=== PATIENT | female | born 1940 | race Caucasian/White ===

== ENCOUNTER 2018-03-22 08:30 | Day surgery (SDC) | payer MEDICARE ==
[2018-03-21 10:19] VITALS: BMI 31.8
[2018-03-22 08:13] VITALS: RESP 16; TEMP 97
[~2018-03-22 08:30] MED LIST: LACTATED RINGERS 1,000 ML IV SCH; LIDOCAINE 1% 20 ML VIAL (10MG/ML) FOR IV START INTRADERMA ONE; LIDOCAINE 1% INJ 10MG/ML (20 ML MDV) ONE; PROPOFOL 10 MG/ML 20 ML VIAL IV ONE
--- NOTE | 2018-03-22 09:02 | P.PCN ---
Date of Procedure: 03/22/18 Procedure(s) Performed: Brief history: Patient is a pleasant 78-year-old white female, scheduled for an elective upper endoscopy as well as colonoscopy as a part of evaluation of GERD/abdominal pain , cramping and diarrhea for the last 3 years duration. She also has prior history of colon polyps. Her last colonoscopy was 6 years ago. Procedure performed: Esophagogastroduodenoscopy with biopsy Colonoscopy with biopsy Preoperative diagnosis: GERD History of colon polyps/change in bowel habits Anesthesia: MAC Procedure: After informed consent was obtained from the patient was brought into the endoscopy unit and IV sedation was administered by anesthesia under continuous monitoring. Initially upper endoscopy was done. The Olympus GF 160 video endoscope was inserted inserted into the mouth and esophagus intubated without any difficulty and was gradually advanced into the stomach and duodenum and carefully examined. The bulb and second part of the duodenum appeared normal. Biopsies were done from the duodenum to rule out celiac disease. The scope was then withdrawn into the stomach adequately insufflated with air and upon careful examination the antrum had mild gastritis and biopsies were done from this area. The body, cardia and fundus appeared normal. The scope was then withdrawn into the esophagus. The GE junction was located at 40 cm to the incisors. It appeared regular with no erythema erosions or ulcerations. Rest of the esophagus appeared normal. Patient tolerated the procedure well. At this time the patient continued to remain sedation. Initial digital rectal examination was normal. Olympus CF 160 video colonoscope was then inserted into the rectum and gradually advanced to the cecum without any difficulty. Careful examination was performed as the scope was gradually being withdrawn. The prep was excellent. The cecum, ascending colon, transverse colon, descending colon, sigmoid colon and rectum appeared normal. scattered sigmoid and the closest seen. Random biopsies were done from the ascending and descending colon to rule out metastatic/collagenous colitis. Retroflexion was performed in the rectum and no lesions were noted. Patient tolerated the procedure well. Impression: 1. Upper endoscopy revealed mild antral gastritis but no evidence of esophagitis or peptic ulcer disease 2. Colonoscopy revealed scattered sigmoid diverticula cyst but no evidence of colitis or colorectal neoplasia] Recommendations: Findings of this examination were discussed with the patient as well as her family. She was advised to follow with the biopsy results. She can use over- the-counter Imodium as needed for the chronic diarrhea. She can have a repeat surveillance colonoscopy in 5 years from now because of the prior history of colon polyps.
[2018-03-22 09:30] VITALS: BP 143/82; PULSE 96
[2018-03-24 10:12] LABS: Glucose,Whole Blood 195 mg/dL (75-99)
[2018-03-24 10:12] LABS: Glucose,Whole Blood 212 mg/dL (75-99)
== END 2018-03-22 10:30 | disposition home or self-care (01) ==
LOC: ORWHC2ENDO 08:30
PROVIDERS: ATTEND Internal Medicine Gastroenterology
DX: K29.50 Unspecified chronic gastritis without bleeding (principal); K57.30 Diverticulosis of large intestine without perforation or abscess without bleeding; K21.9 Gastro-esophageal reflux disease without esophagitis; Z86.010 Personal history of colon polyps; I10 Essential (primary) hypertension; E78.5 Hyperlipidemia, unspecified; E11.9 Type 2 diabetes mellitus without complications; Z79.82 Long term (current) use of aspirin; Z79.4 Long term (current) use of insulin; Z79.891 Long term (current) use of opiate analgesic; Z79.899 Other long term (current) drug therapy
CPT/HCPCS: 88305; 45380; 43239; J2001; J2704

== ENCOUNTER → 2018-08-29 | Outpatient (CLI) | payer MEDICARE | END | disposition home or self-care (01) | LOC: LABPAT 17:14 | PROVIDERS: ATTEND Orthopaedic Surgery | DX: Z01.812 Encounter for preprocedural laboratory examination (principal) | CPT/HCPCS: 87070 ==

== ENCOUNTER → 2018-09-13 | Outpatient (CLI) | payer MEDICARE ==
[2018-09-13 13:41] LABS: Albumin 3.9 g/dL (3.5-5.0); Calcium 9.6 mg/dL (8.4-10.2); Potassium 5.1 mmol/L (3.5-5.1); Total Bilirubin 0.4 mg/dL (0.2-1.3); Total Protein 6.3 g/dL (6.3-8.2)
== END | disposition home or self-care (01) ==
LOC: LABPAT 12:33
PROVIDERS: ATTEND Internal Medicine Endocrinology, Diabetes & Metabolism
DX: E11.65 Type 2 diabetes mellitus with hyperglycemia (principal); E55.9 Vitamin D deficiency, unspecified
CPT/HCPCS: 80053; 80061; 82043; 82306; 82570; 83036; 84443; 86850; 86900; 86901

== ENCOUNTER → 2018-09-17 | Outpatient (CLI) | payer MEDICARE ==
[2018-09-17 13:31] LABS: Prothrombin Time 9.7 sec (9.0-12.0)
[2018-09-17 13:57] LABS: Basophils % (A) 0 %; Eosinophils # (A) 0.1 k/uL (0-0.7); Eosinophils % (A) 1 %; HCT 34.8 % (34.0-46.0); HGB 11.6 gm/dL (11.4-16.0); Lymphocytes # (A) 1.6 k/uL (1.0-4.8); Lymphocytes % (A) 31 %; MCHC 33.2 g/dL (31.0-37.0); MCV 93.4 fL (80.0-100.0); Mean Platelet Volume 8.3; Monocytes # (A) 0.7 k/uL (0-1.0); Monocytes % (A) 14 %; Neutrophils # (A) 2.5 k/uL (1.3-7.7); Neutrophils % (A) 49 %; Platelet Count 165 k/uL (150-450); RBC 3.73 m/uL (3.80-5.40); RDW 13.3 % (11.5-15.5); WBC 5.1 k/uL (3.8-10.6)
== END | disposition home or self-care (01) ==
LOC: LABPAT 12:27
PROVIDERS: ATTEND Orthopaedic Surgery
DX: Z01.812 Encounter for preprocedural laboratory examination (principal); Z16.11 Resistance to penicillins; Z79.01 Long term (current) use of anticoagulants
CPT/HCPCS: 36415; 85025; 85610

== ENCOUNTER 2018-09-23 07:36 | Inpatient (IN) | payer MEDICARE ==
[2018-09-12 17:41] VITALS: BMI 31.8
--- NOTE | 2018-09-22 16:06 | HP ---
HISTORY AND PHYSICAL REASON FOR ADMISSION: Surgery is scheduled Laxmi Carbajal is a 78-year-old patient seen with symptomatic right hip osteoarthritis. We discussed treatment options. She elected to proceed with right total hip arthroplasty. Consent was obtained, clearance was provided by Dr. Victor. PAST MEDICAL HISTORY: Hypertension, insulin-dependent diabetes. PAST SURGICAL HISTORY: Cataract surgery, section and cholecystectomy. MEDICATIONS: NovoLog, metformin, and antihypertensive. ALLERGIES: None reported. SOCIAL HISTORY: Patient denies tobacco use. PHYSICAL EXAMINATION: Evaluation of the right hip, there is diffuse tenderness about the hip girdle. There is limited range of motion with severe pain, positive hip impingement sign. Straight leg raise is negative. Distal neurovascular exam is intact. RADIOGRAPHS: Radiographs of the right hip revealed severe osteoarthritis. IMPRESSION: 1. Right hip osteoarthritis. 2. Hypertension. 3. Insulin-dependent diabetes. PLAN: Direct anterior right total hip arthroplasty. Surgery scheduled for 09/23/2018. MMODL / IJN: [id number] /
[~2018-09-23 07:36] MED LIST changes: +ACETAMINOPHEN TAB 500 MG TAB PO ONE; +DEXAMETHASONE SOD PHOSPHATE 10 MG/ML 1 ML VIAL IV ONE; -LACTATED RINGERS 1,000 ML IV SCH; -LIDOCAINE 1% 20 ML VIAL (10MG/ML) FOR IV START INTRADERMA ONE; -LIDOCAINE 1% INJ 10MG/ML (20 ML MDV) ONE; +MELOXICAM 7.5 MG TAB PO ONE; +ONDANSETRON 4 MG/2 ML VIAL IVP ONE; -PROPOFOL 10 MG/ML 20 ML VIAL IV ONE; +SCOPOLAMINE 1.5MG/72HR PATCH TRANSDERM ONE; +TRANEXAMIC ACID 1,000 MG in SODIUM CHLORIDE 0.9% 50 ML IVPB ONE; +ceFAZolin IN SWFI 2 GM/20 ML SYRINGE IVP ONE
[2018-09-23 08:14] LABS: Glucose,Whole Blood 82 mg/dL (75-99)
[2018-09-23] MEDS: LACTATED RINGERS 1,000 ML IV SCH (08:19)
[2018-09-23] MEDS ORDERED: ROPIVACAINE 246.25 MG, EPINEPHrine 0.5 MG, KETOROLAC 30 MG, cloNIDine HCL/PF 80 MCG, WA... MISCELLANE ONE ×5 (09:14)
[2018-09-23] MEDS ORDERED: MORPHINE SULFATE 10 MG/ML SYRINGE ONE (10:00)
[2018-09-23] MEDS ORDERED: TRANEXAMIC ACID 1,000 MG/10 ML VIAL ONE (10:00)
[2018-09-23] MEDS ORDERED: PHENYLEPHRINE-0.9% NACL SYG 1 MG/10 ML SYRINGE ONE (10:00)
[2018-09-23] MEDS ORDERED: PROPOFOL 10 MG/ML 20 ML VIAL IV ONE (10:00)
[2018-09-23] MEDS ORDERED: fentaNYL (PF) 50 MCG/ML 2 ML AMP ONE (10:00)
[2018-09-23] MEDS ORDERED: SODIUM CHLORIDE 0.9% 100 ML BAG ONE (10:00)
[2018-09-23] MEDS ORDERED: MIDAZOLAM 2 MG/2 ML VIAL ONE (10:00)
[2018-09-23] MEDS ORDERED: DEXTROSE 5% IN WATER 250 ML BAG IV ONE (10:00)
[2018-09-23] MEDS ORDERED: BUPIVACAINE (PF) 0.5% 30 ML VIAL ONE (10:00)
[2018-09-23] MEDS ORDERED: ceFAZolin 3,000 MG in SODIUM CHLORIDE 0.9% IRRIGATIO 3,000 ML IRRIGATION ONE (10:44)
[2018-09-23] MEDS ORDERED: LACTATED RINGERS 1,000 ML IV ONE (11:38)
--- NOTE | 2018-09-23 12:16 | P.OP ---
Date of Procedure: 09/23/18 Preoperative Diagnosis: Right hip osteoarthritis Postoperative Diagnosis: Right hip osteoarthritis Procedure(s) Performed: Direct anterior right total hip arthroplasty Implants: 1. Depuy Corail KLA high offset collar size 11 press-fit femoral stem 2. Depuy pinnacle 52 mm multi hole press-fit acetabular shell 3. Depuy pinnacle polyethylene acetabular liner neutral 36 mm ID 52 mm OD 4. Depuy metal femoral head 36 mm -2 Anesthesia: local, spinal Surgeon: Parth Pak Transit Operator #1: Efren Peter Estimated Blood Loss (ml): 150 Pathology: other (Femoral head) Condition: stable Disposition: PACU Indications for Procedure: 78-year-old patient seen with symptomatic right hip osteoarthritis. After treatment options were discussed, she elected to proceed with total hip arthroplasty Operative Findings: see description of procedure Description of Procedure: The patient was taken to the operative suite. Patient underwent a spinal anesthetic by the department of anesthesia. Patient was then transferred to the [place] table. Patient was given preoperative IV antibiotics and TXA. Both lower extremities were placed in standard leg spars. The hip was then prepped and draped in the normal sterile orthopedic fashion. A standard anterior incision was made beginning 3 cm lateral and 1 cm distal to the ASIS extending 10 cm. Dissection was then carried down through the subcutaneous soft tissues down to the fascia overlying the tensor fascia rita. An incision was now made through the fascia. Careful dissection was taken down exposing the tensor fascia rita muscle. A Cobra retractor was now placed along the medial femoral neck and a second one along the lateral femoral neck. The venous circumflex vessels were now identified, cauterized and clipped. We identified the anterior hip capsule. An incision was made through the hip capsule along the lateral border. I performed a partial anterior capsulectomy. Retractors were now placed around the femoral neck itself. A femoral neck cut was now made with a sagittal saw. It was completed with an osteotome at the lateral neck area. The femoral head was now removed without difficulty. The extremity was now rotated to 45 of external rotation. It was locked in position. Residual labrum was now debrided out. Serial reaming was performed of the acetabulum while Ez VALENCIA assisted holding an anterior retractor for exposure. Once we reached the appropriate size and a trial was position and fit nicely. The appropriate size was now chosen opened and made available. It was introduced into the acetabulum without difficulty. The C-arm/fluoroscopy was now brought into the operative field. We made sure we had a true AP pelvic view. We now under direct C-arm/fluoroscopy introduced into the acetabular component with appropriate version and inclination. I held the cup in appropriate position well Ez VALENCIA used a mallet to seat the acetabular component. I noted the component now to be well seated and stable. Acetabular cup introduce her was removed. The C-arm was pulled back. An appropriate liner was introduced and clicked into position. It was felt to be stable. At this point retractors were removed. The extremity was now placed into 120 external rotation with no traction. The leg was now dropped to the ground and adducted. Appropriate retractors were now positioned along the proximal femur. We also placed our femoral look into position. Additional capsular releasing was performed to gain access to the proximal femur. We now used a box osteotome. A canal finder was now utilized. Serial broaching was now performed with the assistance of Ez VALENCIA tapping the broaches down with a mallet while held the broach in appropriate rotation and position. This was done until we reached the appropriate size with good overall rotational stability. Appropriate calcar planing was performed. A trial head/neck was placed into position. The hip was now reduced. The C-arm/fluoroscopy was brought back into the operative field. A spot film was obtained of the nonoperative hip. A spot film was obtained of the trial components. Overlays were performed, we noted good overall alignment and positioning for determining leg length. The C- arm/fluoroscopy was pulled back. Retractors were repositioned and the hip was dislocated. The leg was again taken down to the ground and adducted. Appropriate retractors were repositioned as well as the femoral hook. All trial components were removed. The femoral implant was opened along with the femoral head. The femoral implant was introduced on the appropriate handle into our pre-broached area. I held the component position well Ez VALENCIA used a mallet to seat the femoral component. The femoral component was now noted to be well seated and stable.. The femoral head was introduced with good positioning and fixation noted. Retractors were now removed. The hip was now reduced. There appeared be good positioning of the hip confirmed on intraoperative fluoroscopy. Spot films were obtained to document this. A second gram of TXA was given. The deep and superficial soft tissues were infiltrated with local analgesic. Bipolar cautery had been utilized intermittently through the procedure for hemostasis. The wound was irrigated copiously with pulse lavage mechanical irrigation. The fascia was repaired with Vicryl suture. The subcutaneous soft tissues were repaired in layers with Vicryl suture. The skin was approximated with pernio/Dermabond. Sterile dressings were applied. Patient was then awakened, transferred to a bed and taken to recovery in stable condition. Ez VALENCIA assisted with the complex procedure.
[2018-09-23] MEDS ORDERED: ONDANSETRON 4 MG/2 ML VIAL IVP PRN (12:17)
[2018-09-23] MEDS ORDERED: HYDROmorphone 1 MG/ML 1 ML SYRINGE IVP PRN ×3 (12:17)
[2018-09-23] MEDS ORDERED: NALOXONE 0.4 MG/ML 1 ML VIAL IV PRN ×2 (12:17→15:26)
[2018-09-23] MEDS ORDERED: HYDROcodone/APAP 7.5-325MG 1 EACH TAB PO PRN (12:17)
[2018-09-23] MEDS: HYDROmorphone 0.5 MG/0.5 ML SYRINGE IVP PRN ×4 (12:54→14:38)
--- NOTE | 2018-09-23 12:59 | FL ---
EXAMINATION TYPE: FL guidance operating room DATE OF EXAM: 09/23/2018 HISTORY: Flouroscopy time 23 seconds of fluoroscopy provided. IMPRESSION: 1. Fluoroscopy time.
[2018-09-23 13:02] LABS: Glucose,Whole Blood 116 mg/dL (75-99)
[2018-09-23] MEDS: SODIUM CHLORIDE 0.9% 1,000 ML IV SCH (14:45)
[2018-09-23] MEDS ORDERED: HYDROmorphone 0.5 MG/0.5 ML SYRINGE IVP PRN (16:24)
--- NOTE | 2018-09-23 16:26 | P.CONS ---
History of Present Illness - Reason for Consult Consult date: 09/23/18 Medical management after right hip arthroplasty Requesting physician: Parth Pak - Chief Complaint Right hip pain - History of Present Illness Patient is a 78-year-old female with PMH of type 2 diabetes mellitus, GERD, severe right hip osteoarthritis that presented to [facility] today for an elective right hip arthroplasty. Patient reports suffering from right hip pain for multiple years. Pain is worsened when bending over and with ambulation. Patient reports that her arthritis is "[id number]". Of note, patient lives with her . She is able to take care of herself. She is able to perform her ADLs and IADLs. Patient was seen and examined after surgery. Patient reports that the surgery went extremely well. She currently complains of right hip pain, 4 out of 10 in severity. She denies any headaches, nausea, vomiting, fever, cough, chest pain , shortness of breath, changes in urination or bowel habits. No changes in appetite or weight. Patient does report dependent edema occasionally which is alleviated with elevation of lower extremities. Review of Systems All systems: negative Past Medical History Past Medical History: Diabetes Mellitus, GERD/Reflux, Hyperlipidemia, Hypertension, Osteoarthritis (OA) Additional Past Medical History / Comment(s): diabetic neuropathy History of Any Multi-Drug Resistant Organisms: None Reported Past Surgical History: Adenoidectomy, Section, Cholecystectomy, Hernia Repair, Orthopedic Surgery, Tonsillectomy Additional Past Surgical History / Comment(s): arthroscopy left knee Past Anesthesia/Blood Transfusion Reactions: Postoperative Nausea & Vomiting ( PONV) Smoking Status: Never smoker - Past Family History Father Additional Family Medical History / Comment(s): "heart trouble" Mother Family Medical History: No Reported History Medications and Allergies Home Medications Medication Instructions Recorded Confirmed Type Insulin Aspart [NovoLOG] 10 units SQ AC-TID 04/22/15 09/23/18 History metFORMIN HCL [Glucophage] 2,000 mg PO BID 04/22/15 09/23/18 History Ramipril [Altace] 2.5 mg PO QAM 04/23/15 09/23/18 History Aspirin 81 mg PO DAILY 03/21/18 09/23/18 History Cyclobenzaprine HCl 10 mg PO BID PRN 03/21/18 09/23/18 History Ergocalciferol [Vitamin D2] 50,000 unit PO Q14D 03/21/18 09/23/18 History Exenatide Microspheres [Bydureon 2 mg SQ FR 03/21/18 09/23/18 History Pen] Gabapentin [Neurontin] 300 mg PO TID 03/21/18 09/23/18 History Omeprazole 40 mg PO DAILY 03/21/18 09/23/18 History traMADol HCl [Ultram] 50 mg PO TID PRN 03/21/18 09/23/18 History Bacillus Coagulans [Digestive 1 tab PO DAILY 09/12/18 09/23/18 History Advantage] Cyanocobalamin (Vitamin B-12) 1,000 mcg PO DAILY 09/12/18 09/23/18 History [Vitamin B-12] Insulin Aspart [NovoLOG See Protocol SQ HS PRN 09/12/18 09/23/18 History (formulary)] [place]-3 Fatty Acids/Fish Oil 1 cap PO DAILY 09/12/18 09/23/18 History [[place]-3 Fish Oil 1,200 mg Sfgl] Turmeric Root Extract [Turmeric] 500 mg PO DAILY 09/12/18 09/23/18 History Allergies Allergy/AdvReac Type Severity Reaction Status Date / Time No Known Allergies Allergy Verified 09/23/18 14:56 Physical Exam Vitals: Vital Signs Temp Pulse Resp BP Pulse Ox 09/23/18 15:00 97.8 F 83 16 145/78 93 L 09/23/18 14:31 79 16 189/74 100 09/23/18 14:04 81 16 189/78 99 09/23/18 13:45 83 16 158/68 99 09/23/18 13:30 82 16 152/64 99 09/23/18 13:16 83 16 156/70 100 09/23/18 13:01 80 16 166/70 100 09/23/18 12:48 81 16 179/71 100 09/23/18 12:29 97.1 F L 85 20 139/76 97 09/23/18 08:14 97.3 F L 72 16 190/72 97 Intake and Output 09/23/18 09/23/18 09/23/18 06:59 14:59 22:59 Intake Total 1901 Output Total 150 Balance 1751 Intake: IV 1901 Output: Estimated Blood Loss 150 General: [non toxic], [no distress], [appears at stated age] Derm: [warm], [dry] Head: [atraumatic], [normocephalic], [symmetric] Eyes: [EOMI], [no lid lag], [anicteric sclera] Mouth: [no lip lesion], [mucus membranes moist] Cardiovascular: [S1S2 reg], [no murmur], [positive DP pulse bilateral] Lungs: [CTA bilateral], [no rhonchi, no rales] , [no accessory muscle use] Abdominal: [soft], [ nontender to palpation], [no guarding], [no appreciable organomegaly] Ext: [no gross muscle atrophy], [no edema], [no contractures] Neuro: [no focal neuro deficits] Psych: [Alert], [oriented], [appropriate affect] Results Labs: Abnormal Lab Results - Last 24 Hours (Table) 09/23/ Range/Units 12:47 POC Glucose (mg/dL) 116 H (75-99) mg/dL Assessment and Plan Assessment: Assessment and Plan 1. R hip pain: Due to severe R hip osteoarthritis. She is POD 0 of total R hip replacement. Cefazolin 2g IV TID x 2 doses. Pain management with [place] 7.5 1 tab PRN (advised for pain 1-6) and 2 tab PRN (advised for pain 7-10), Dilaudid IV PRN (advised for breakthrough) and Meloxicam 15mg PO QD. Continue Gabapentin 300 mg PO TID. Weight bearning as per Ortho recommendations. Incentive spirometry. FU Ortho and PT consult. 2. Diabetes mellitus: POC glucose 116. Patient takes Toujeo 36 units QAM and Novolog 10 units TID with meals. Will start sliding scale while in house. Accuchecks TID. Hypoglycemic precautions. Diabetic diet. 3. GERD: Protonix 40 mg PO QD. 4. DVT/GI Prophylaxis: Lovenox 40 mg SUBCUT QD. Protonix 40 mg PO QD.
[2018-09-23] MEDS: HYDROcodone/APAP 7.5-325MG 1 EACH TAB PO PRN ×2 (16:59→22:29)
[2018-09-23] MEDS: GABAPENTIN 300 MG CAP PO SCH ×2 (16:59→22:29)
[2018-09-23 17:10] LABS: Glucose,Whole Blood 159 mg/dL (75-99)
[2018-09-23] MEDS: INSULIN ASPART 100 UNIT/ML 1 ML 10 ML VIAL SQ SCH (18:05)
[2018-09-23 19:55] LABS: Glucose,Whole Blood 199 mg/dL (75-99)
[2018-09-23] MEDS: ceFAZolin IN SWFI 2 GM/20 ML SYRINGE IVP SCH (20:24)
[2018-09-23] MEDS: SENNOSIDES-DOCUSATE SODIUM 1 EACH TAB PO SCH (22:29)
[2018-09-24] MEDS: HYDROcodone/APAP 7.5-325MG 1 EACH TAB PO PRN ×2 (04:21→14:30)
[2018-09-24] MEDS: ceFAZolin IN SWFI 2 GM/20 ML SYRINGE IVP SCH (04:21)
[2018-09-24] MEDS: LACTATED RINGERS 1,000 ML IV SCH (05:39)
[2018-09-24 06:39] LABS: Basophils % (A) 0 %; Eosinophils % (A) 0 %; HCT 28.2 % (34.0-46.0); Lymphocytes # (A) 1.3 k/uL (1.0-4.8); Lymphocytes % (A) 12 %; MCH 30.1 pg (25.0-35.0); MCHC 31.9 g/dL (31.0-37.0); MCV 94.4 fL (80.0-100.0); Mean Platelet Volume 9.9; Monocytes % (A) 19 %; Neutrophils # (A) 7.1 k/uL (1.3-7.7); Neutrophils % (A) 65 %; Platelet Count 160 k/uL (150-450); RBC 2.98 m/uL (3.80-5.40); RDW 13.6 % (11.5-15.5); WBC 10.9 k/uL (3.8-10.6)
[2018-09-24 07:04] LABS: Glucose,Whole Blood 185 mg/dL (75-99)
[2018-09-24] MEDS: LISINOPRIL 2.5 MG TAB PO SCH (08:55)
[2018-09-24] MEDS: PANTOPRAZOLE 40 MG TABLET PO SCH (08:55)
[2018-09-24] MEDS: GABAPENTIN 300 MG CAP PO SCH ×3 (08:55→22:37)
[2018-09-24] MEDS: ASPIRIN 81 MG PO SCH (08:55)
[2018-09-24] MEDS: MELOXICAM 7.5 MG TAB PO SCH (08:55)
[2018-09-24] MEDS: ENOXAPARIN 40 MG/0.4 ML SYRINGE SQ SCH (08:55)
[2018-09-24] MEDS: INSULIN ASPART 100 UNIT/ML 1 ML 10 ML VIAL SQ SCH ×3 (08:56→17:57)
[2018-09-24] MEDS ORDERED: FAMOTIDINE 20 MG TAB PO SCH (09:00)
[2018-09-24] MEDS: SODIUM CHLORIDE 0.9% 1,000 ML IV SCH ×2 (09:05→20:30)
--- NOTE | 2018-09-24 10:42 | XR ---
EXAMINATION TYPE: XR Hip Limited RT DATE OF EXAM: 09/23/2018 COMPARISON: NONE HISTORY: Postop TECHNIQUE: One view submitted. FINDINGS: There is a prosthetic hip in near anatomic alignment. There is soft tissue edema and emphysema. IMPRESSION: 1. Postoperative change. Appears in near-anatomic alignment.
--- NOTE | 2018-09-24 11:06 | P.PN ---
Subjective Progress Note Date: 09/24/18 Principal diagnosis: Right hip pain Patient seen and examined. No acute events overnight. She is postop day 1 of a right total hip replacement. Patient complains of pain, 8 out of 10 in severity. Pain is worsened with exertion and movement. Patient states pain medications is helping. Dilaudid lasts for about 2 hours. She has no other complaints this morning. States that she will need placement for rehab, [facility] is an option. Objective - Vital Signs Vital signs: Vital Signs Temp 98.7 F 09/24/18 09:09 Pulse 84 09/24/18 09:09 Resp 20 09/24/18 01:09 BP 111/66 09/24/18 09:09 Pulse Ox 94 L 09/24/18 09:09 Intake & Output 09/23/18 09/24/18 09/24/18 18:59 06:59 18:59 Intake Total 1901 Output Total 150 Balance 1751 Weight 81.647 kg Intake: IV 1901 Output: Estimated Blood Loss 150 Other: # Voids 1 - Exam General: [non toxic], [no distress], [appears at stated age] Derm: [warm], [dry] Head: [atraumatic], [normocephalic], [symmetric] Eyes: [EOMI], [no lid lag], [anicteric sclera] Mouth: [no lip lesion], [mucus membranes moist] Cardiovascular: [S1S2 reg], [no murmur], [positive DP pulse bilateral] Lungs: [CTA bilateral], [no rhonchi, no rales] , [no accessory muscle use] Abdominal: [soft], [ nontender to palpation], [no guarding], [no appreciable organomegaly] Ext: [no gross muscle atrophy], [no edema], [no contractures] Neuro: [no focal neuro deficits] Psych: [Alert], [oriented], [appropriate affect] - Labs CBC & Chem 7: 09/24/18 06:17 Labs: Abnormal Lab Results - Last 24 Hours (Table) 09/23/18 09/23/18 09/23/18 Range/Units 12:47 16:52 19:43 WBC (3.8-10.6) k/uL RBC (3.80-5.40) m/uL Hgb (11.4-16.0) gm/dL Hct (34.0-46.0) % Monocytes # (0-1.0) k/uL POC Glucose (mg/dL) 116 H 159 H 199 H (75-99) mg/dL 09/24/18 09/24/18 Range/Units 06:17 06:53 WBC 10.9 H (3.8-10.6) k/uL RBC 2.98 L (3.80-5.40) m/uL Hgb 9.0 L D (11.4-16.0) gm/dL Hct 28.2 L (34.0-46.0) % Monocytes # 2.0 H (0-1.0) k/uL POC Glucose (mg/dL) 185 H (75-99) mg/dL Assessment and Plan Assessment: Assessment and Plan 1. R hip pain: Due to severe R hip osteoarthritis. She is POD 0 of total R hip replacement. Cefazolin 2g IV TID x 2 doses. Pain management with [place] 7.5 1 tab PRN (advised for pain 1-6) and 2 tab PRN (advised for pain 7-10), Dilaudid IV PRN (advised for breakthrough) and Meloxicam 15mg PO QD. Continue Gabapentin 300 mg PO TID. Weight bearning as per Ortho recommendations. Incentive spirometry. FU Ortho and PT consult. 2. Diabetes mellitus: POC glucose 185. Patient takes Toujeo 36 units QAM and Novolog 10 units TID with meals. Continue sliding scale. Accuchecks TID. Hypoglycemic precautions. Diabetic diet. 3. GERD: Protonix 40 mg PO QD. 4. DVT/GI Prophylaxis: Lovenox 40 mg SUBCUT QD. Protonix 40 mg PO QD. Pain medications adjusted. She is pending clinical improvement for placement and rehab. Will follow orthopedic and PT OT recommendations.
[2018-09-24 11:34] LABS: Glucose,Whole Blood 227 mg/dL (75-99)
--- NOTE | 2018-09-24 11:59 | CT ---
EXAMINATION TYPE: CT brain wo con DATE OF EXAM: 09/24/2018 COMPARISON: None HISTORY: AMS,Right sided weakness and confusion CT DLP: 1154.4 mGycm Automated exposure control for dose reduction was used. FINDINGS: There is a area of low attenuation involving the deep white matter on the left extending in the left basal ganglia which is of indeterminate age. No definite midline shift. Slight asymmetry of the CSF s pace along the left parietal convexity. No diagnostic evidence of acute intracranial hemorrhage. Tiny area of low attenuation involving the right thalamus compatible with remote lacunar infarct. Intracranial atherosclerotic changes are noted. Hyperostosis of the calvarium. IMPRESSION: 1. AGE-INDETERMINATE LOW ATTENUATION INVOLVING THE LEFT FRONTAL DEEP WHITE MATTER EXTENDING IN THE BA SHALONDA GANGLIA. THIS MAY BEEN THE BASIS OF A RECENT INFARCT. RECOMMEND MRI. 2. NO ACUTE HEMORRHAGE OR MIDLINE SHIFT.
[2018-09-24 13:53] LABS: HCT 26.5 % (34.0-46.0); HGB 8.7 gm/dL (11.4-16.0); MCH 31.1 pg (25.0-35.0); MCHC 32.8 g/dL (31.0-37.0); MCV 94.7 fL (80.0-100.0); Mean Platelet Volume 9.7; Platelet Count 131 k/uL (150-450); RDW 13.5 % (11.5-15.5); WBC 12.7 k/uL (3.8-10.6)
[2018-09-24 13:56] LABS: INR 1.2 (<1.2); Prothrombin Time 11.5 sec (9.0-12.0)
[2018-09-24 14:00] LABS: Calcium 8.7 mg/dL (8.4-10.2); Potassium 4.5 mmol/L (3.5-5.1)
--- NOTE | 2018-09-24 14:08 | P.PN ---
Subjective Progress Note Date: 09/24/18 Principal diagnosis: Status post right total hip arthroplasty Initial evaluation of the patient today, she was in her chair. Patient was unresponsive to verbal or painful stimuli. A team was called, patient was assessed. Initial concern was for a vasovagal incident. I returned later to check the patient, she is alert and oriented 4. Computed tomography scan of the head revealed no acute bleeds, there is concern of possible CVA. Internal medicine's orders further testing. Patient's pain is controlled at this time with current medication. She notes difficulty with ambulating at this time due to discomfort of the right hip. She denies any chest pain or shortness of breath at this time. Objective - Vital Signs Vital signs: Vital Signs Temp 98.7 F 09/24/18 09:09 Pulse 84 09/24/18 09:09 Resp 20 09/24/18 01:09 BP 111/66 09/24/18 09:09 Pulse Ox 94 L 09/24/18 09:09 Intake & Output 09/23/18 09/24/18 09/24/18 18:59 06:59 18:59 Intake Total 1901 Output Total 150 Balance 1751 Weight 81.647 kg Intake: IV 1901 Output: Estimated Blood Loss 150 Other: # Voids 1 - Exam Right lower extremity: Incision is clean, dry, and intact. The exofin fusion tape is in good condition. There is minimal soft tissue swelling and ecchymosis surrounding the medial and lateral aspects of the incision. Calf is soft, no tenderness with palpation. Plantar flexion, dorsiflexion, EHL, FHL are intact. Sensory exam to light touch throughout the extremity is intact, dorsal pedis pulses 2+. - Labs CBC & Chem 7: 09/24/18 13:26 09/24/18 13:26 Labs: Abnormal Lab Results - Last 24 Hours (Table) 09/23/18 09/23/18 09/24/18 Range/Units 16:52 19:43 06:17 WBC 10.9 H (3.8-10.6) k/uL RBC 2.98 L (3.80-5.40) m/uL Hgb 9.0 L D (11.4-16.0) gm/dL Hct 28.2 L (34.0-46.0) % Plt Count (150-450) k/uL Monocytes # 2.0 H (0-1.0) k/uL INR (<1.2) Sodium (137-145) mmol/L BUN (7-17) mg/dL Glucose (74-99) mg/dL POC Glucose (mg/dL) 159 H 199 H (75-99) mg/dL Triglycerides (<150) mg/dL HDL Cholesterol (40-60) mg/dL 09/24/18 09/24/18 09/24/18 Range/Units 06:53 11:13 13:26 WBC 12.7 H (3.8-10.6) k/uL RBC 2.80 L (3.80-5.40) m/uL Hgb 8.7 L (11.4-16.0) gm/dL Hct 26.5 L (34.0-46.0) % Plt Count 131 L (150-450) k/uL Monocytes # (0-1.0) k/uL INR (<1.2) Sodium (137-145) mmol/L BUN (7-17) mg/dL Glucose (74-99) mg/dL POC Glucose (mg/dL) 185 H 227 H (75-99) mg/dL Triglycerides (<150) mg/dL HDL Cholesterol (40-60) mg/dL 09/24/18 09/24/18 Range/Units 13:26 13:26 WBC (3.8-10.6) k/uL RBC (3.80-5.40) m/uL Hgb (11.4-16.0) gm/dL Hct (34.0-46.0) % Plt Count (150-450) k/uL Monocytes # (0-1.0) k/uL INR 1.2 H (<1.2) Sodium 136 L (137-145) mmol/L BUN 19 H (7-17) mg/dL Glucose 200 H (74-99) mg/dL POC Glucose (mg/dL) (75-99) mg/dL Triglycerides 212 H (<150) mg/dL HDL Cholesterol 29 L (40-60) mg/dL Assessment and Plan Plan: Assessment: Postop day #1 status post right total hip arthroplasty Episode of unresponsiveness, undetermined etiology at this time Acute blood loss anemia, expected surgical outcome Plan: Pain control, continue current medication GI and DVT prophylaxis, continue current medication We'll monitor hemoglobin, may consider transfusion Await results of MRI along with other testing Other medical especially recommendations Continue with physical therapy Further recommendations at follow Time with Patient: Less than 30
--- NOTE | 2018-09-24 16:37 | US ---
EXAMINATION TYPE: US carotid duplex BILAT DATE OF EXAM: 09/24/2018 COMPARISON: NONE CLINICAL HISTORY: Possible CVA. Syncopal episode per patient EXAM MEASUREMENTS: RIGHT: Peak Systolic Velocity (PSV) cm/sec ----- Right CCA: 96.4 ----- Right ICA: 114.1 ----- Right ECA: 122.2 ICA/CCA ratio: 1.2 RIGHT: End Diastole cm/sec ----- Right CCA: 25.2 ----- Right ICA: 46.2 ----- Right ECA: 15.5 LEFT: Peak Systolic Velocity (PSV) cm/sec ----- Left CCA: 59.0 ----- Left ICA: 104.4 ----- Left ECA: 224.7 Temporal tap was used to distinguish ECA from highly resistive Left ICA. ICA/CCA ratio: 1.8 LEFT: End Diastole cm/sec ----- Left CCA: 0.0 ----- Left ICA: 0.0 ----- Left ECA: 12.8 VERTEBRALS (direction of flow): Right Vertebral: Antegrade Left Vertebral: Rhythm: Normal IMPRESSION: 1. LOW CAROTID BIFURCATIONS BILATERALLY. 2. HIGHLY RESISTIVE PULSE WAVEFORM IS NOTED IN LEFT ICA AND SUGGESTS DISTAL CEREBRAL BED DISEASE. 3. MODERATE CALCIFIED WALL PLAQUE LEFT CAROTID BIFURCATION WITH ABNORMALLY ELEVATED PSV IN LEFT ECA. RECOMMENDATION: To complement this examination, would consider anatomic characterization using CTA or MRA.
[2018-09-24 17:21] LABS: Glucose,Whole Blood 218 mg/dL (75-99)
[2018-09-24] MEDS: HYDROmorphone 1 MG/ML 1 ML SYRINGE IVP PRN ×2 (18:01→20:29)
[2018-09-24] MEDS: SENNOSIDES-DOCUSATE SODIUM 1 EACH TAB PO SCH (20:30)
[2018-09-24] MEDS ORDERED: ACETAMINOPHEN TAB 325 MG TAB PO STA (22:12)
--- NOTE | 2018-09-24 22:12 | P.CNNES ---
History of Present Illness Consult date: 09/24/18 Reason for Consult: Patient with acute post-operative syncope vs. stroke. History of Present Illness: This patient is a 78-year-old right-handed white female who was admitted to the [facility] yesterday for orthopedic surgery. Patient has a long-standing history of severe osteoarthritis involving her right hip joint. Patient states she has been following with Dr. demarco Siu in the orthopedic surgery clinic recommended she undergo a total hip arthroplasty. This procedure was done yesterday at 10 AM and she did come out of the surgical procedure quite well. Shortly after surgery yesterday she did notice some increase in weakness in her right side. She was unclear if this was due to the overall surgical effect that she had just completed or something new. She did not experience any right-sided vision loss or paresthesias. Apparently she has been dealing with severe pain in the right hip following the surgery. This morning she was sitting up in the chair in her room and apparently had a acute syncopal episode. She was later found by nursing staff as being unresponsive and an A Team alert was initiated. The patient is unclear how long she may have been unresponsive but thinks it may have been at least 10 minutes in duration. When she did come around she did seem to be slightly confused. She was sent for a computed tomography scan of the brain immediately following this event which was reviewed. CAT scan of the brain reveals age indeterminate low attenuation in the left frontal lobe. This raises the suspicion for recent infarct. No acute hemorrhage or midline shift was seen. We reviewed the results of the CAT scan today with the patient. We are recommending she undergo an MRI of the brain which be much more helpful in determining whether she did suffer an acute stroke. She apparently will be scheduled for this MRI tomorrow. She also underwent a carotid Doppler study which revealed some changes in the left ICA. There was calcification of moderate degree in the left carotid bifurcation as well. MRA of the carotids was recommended. We are recommending MRA to be done tomorrow with the MRI study. Patient states that she has no previous history of TIA or stroke. She had been taking aspirin on a regular basis up until her recent surgery. She was taken off of aspirin for 2 weeks prior to surgery. She states her serum cholesterol has been checked earlier in the urine was within normal limits. She does follow-up with her primary care physician Dr. Victor on a regular basis. The patient states that her hip pain has improved slightly since surgery. We have recommended a complete stroke evaluation for this patient. Her overall prognosis at this time remains guarded. Neurology is now been consulted for further evaluation and recommendations. Review of Systems Constitutional: Denies chills, Denies fever Eyes: denies blurred vision, denies pain Ears, nose, mouth and throat: Denies headache, Denies sore throat Cardiovascular: Denies chest pain, Denies shortness of breath Respiratory: Denies cough Gastrointestinal: Denies abdominal pain, Denies diarrhea, Denies nausea, Denies vomiting Genitourinary: Denies dysuria, Denies hematuria Musculoskeletal: Denies myalgias Integumentary: Denies pruritus, Denies rash Neurological: Reports change in mentation, Reports confusion, Reports motor disturbance, Reports paresthesias, Reports syncope, Reports tingling, Denies numbness, Denies weakness Psychiatric: Denies anxiety, Denies depression Endocrine: Denies fatigue, Denies weight change Past Medical History Past Medical History: Diabetes Mellitus, GERD/Reflux, Hyperlipidemia, Hypertension, Osteoarthritis (OA) Additional Past Medical History / Comment(s): diabetic neuropathy History of Any Multi-Drug Resistant Organisms: None Reported Past Surgical History: Adenoidectomy, Section, Cholecystectomy, Hernia Repair, Orthopedic Surgery, Tonsillectomy Additional Past Surgical History / Comment(s): arthroscopy left knee Past Anesthesia/Blood Transfusion Reactions: Postoperative Nausea & Vomiting ( PONV) Past Psychological History: No Psychological Hx Reported Smoking Status: Never smoker Past Alcohol Use History: None Reported Past Drug Use History: None Reported - Past Family History Father Additional Family Medical History / Comment(s): "heart trouble" Mother Family Medical History: No Reported History Medications and Allergies Home Medications Medication Instructions Recorded Confirmed Type Insulin Aspart [NovoLOG] 10 units SQ AC-TID 04/22/15 09/23/18 History metFORMIN HCL [Glucophage] 2,000 mg PO BID 04/22/15 09/23/18 History Ramipril [Altace] 2.5 mg PO QAM 04/23/15 09/23/18 History Aspirin 81 mg PO DAILY 03/21/18 09/23/18 History Cyclobenzaprine HCl 10 mg PO BID PRN 03/21/18 09/23/18 History Ergocalciferol [Vitamin D2] 50,000 unit PO Q14D 03/21/18 09/23/18 History Exenatide Microspheres [Bydureon 2 mg SQ FR 03/21/18 09/23/18 History Pen] Gabapentin [Neurontin] 300 mg PO TID 03/21/18 09/23/18 History Omeprazole 40 mg PO DAILY 03/21/18 09/23/18 History traMADol HCl [Ultram] 50 mg PO TID PRN 03/21/18 09/23/18 History Bacillus Coagulans [Digestive 1 tab PO DAILY 09/12/18 09/23/18 History Advantage] Cyanocobalamin (Vitamin B-12) 1,000 mcg PO DAILY 09/12/18 09/23/18 History [Vitamin B-12] Insulin Aspart [NovoLOG See Protocol SQ HS PRN 09/12/18 09/23/18 History (formulary)] [place]-3 Fatty Acids/Fish Oil 1 cap PO DAILY 09/12/18 09/23/18 History [[place]-3 Fish Oil 1,200 mg Sfgl] Turmeric Root Extract [Turmeric] 500 mg PO DAILY 09/12/18 09/23/18 History Allergies Allergy/AdvReac Type Severity Reaction Status Date / Time No Known Allergies Allergy Verified 09/23/18 14:56 Physical Examination - Vital Signs Vital Signs: Vital Signs Temp Pulse Resp BP Pulse Ox 09/24/18 09:09 98.7 F 84 111/66 94 L 09/24/18 01:09 98.7 F 93 20 123/47 95 09/23/18 23:51 98.4 F 92 15 121/53 91 L 09/23/18 20:23 98.3 F 84 20 145/78 93 L Intake and Output 09/24/18 09/24/18 09/24/18 06:59 14:59 22:59 Intake Total 400 Balance 400 Intake: Intake, IV Titration 400 Amount Sodium Chloride 0.9% 1, 400 000 ml @ 50 mls/hr IV . Q20H ON LICENSE OF [facility] Rx#:[id number] Other: # Voids 1 3 - Constitutional General appearance: average body habitus, cooperative - EENT EENT: PERRL, mucous membranes moist - Respiratory Respiratory: lungs clear, normal breath sounds - Cardiovascular Cardiovascular: regular rate, normal S1, normal S2 Extremities: no peripheral edema bilaterally - Gastrointestinal Gastrointestinal: normoactive bowel sounds - Integumentary Integumentary: normal - Neurologic Cranial nerve examination: PERRL, EOMI, VFF, V1/V2/V3 grossly intact, face symmetric, intact gag reflex, intact corneal reflex, normal palatal elevation Speech examination: intact Sensorimotor examination: intact Motor examination - right side: 2/5: hip flexors, knee extensors, dorsiflexion, toe extension (EHL), plantarflexion, 3/5: biceps, triceps, wrist flexion, wrist extension, last marker Motor examination - left side: 3/5: biceps, triceps, wrist flexion, wrist extension, last marker, hip flexors, knee extensors, dorsiflexion, toe extension (EHL) , plantarflexion Detailed sensory examination: intact Reflex and gait examination: intact Reflexes: 1+: ankle, bicep, knee, tricep - Musculoskeletal Musculoskeletal: no pain - Psychiatric Psychiatric: mood/affect appropriate, cooperative Results - Laboratory Findings CBC and BMP: 09/24/18 13:26 09/24/18 13:26 Abnormal Lab Findings: Abnormal Labs 09/23/18 09/23/18 09/23/18 12:47 16:52 19:43 WBC RBC Hgb Hct Plt Count Monocytes # INR Sodium BUN Glucose POC Glucose (mg/dL) 116 H 159 H 199 H Triglycerides HDL Cholesterol 09/24/18 09/24/18 09/24/18 06:17 06:53 11:13 WBC 10.9 H RBC 2.98 L Hgb 9.0 L D Hct 28.2 L Plt Count Monocytes # 2.0 H INR Sodium BUN Glucose POC Glucose (mg/dL) 185 H 227 H Triglycerides HDL Cholesterol 09/24/18 09/24/18 09/24/18 13:26 13:26 13:26 WBC 12.7 H RBC 2.80 L Hgb 8.7 L Hct 26.5 L Plt Count 131 L Monocytes # INR 1.2 H Sodium 136 L BUN 19 H Glucose 200 H POC Glucose (mg/dL) Triglycerides 212 H HDL Cholesterol 29 L 09/24/18 17:10 WBC RBC Hgb Hct Plt Count Monocytes # INR Sodium BUN Glucose POC Glucose (mg/dL) 218 H Triglycerides HDL Cholesterol Assessment and Plan (1) History of total right hip arthroplasty Current Visit: Yes Status: Acute Code(s): Z96.641 - PRESENCE OF RIGHT ARTIFICIAL HIP JOINT SNOMED Code(s): 112422488109 (2) Acute ischemic left MCA stroke Current Visit: Yes Status: Acute Code(s): I63.512 - CEREB INFRC D/T UNSP OCCLS OR STENOS OF LEFT MID CEREB ART SNOMED Code(s): 747642012 (3) Syncope Current Visit: Yes Status: Acute Code(s): R55 - SYNCOPE AND COLLAPSE SNOMED Code(s): 797763329 (4) Diabetes mellitus Current Visit: Yes Status: Acute Code(s): E11.9 - TYPE 2 DIABETES MELLITUS WITHOUT COMPLICATIONS SNOMED Code(s): 97194862 (5) Osteoarthritis of right hip Current Visit: Yes Status: Acute Code(s): M16.11 - UNILATERAL PRIMARY OSTEOARTHRITIS, RIGHT HIP SNOMED Code(s): 905159365831641 Plan: This patient is a 78-year-old female who was admitted to hospital yesterday for right hip total hip arthroplasty. She was seen and treated for this hip by Dr. demarco Siu. Following her surgery yesterday she did notice some weakness in her right side. She did not know if this was due to her surgery complication. This morning she was sitting up in a chair and had severe pain in the hip and possibly had a vasovagal syncope.. She was unresponsive for several minutes. An 18 was called and the patient did seem to come around. She was sent for a computed tomography scan of the brain and carotid Doppler ultrasound results of which are noted above. We are recommending the patient to undergo MRI of the brain for further evaluation of possible acute left hemispheric stroke. We did review the computed tomography scan films and there is an area of hypodensity in the left internal capsule region. We will give further recommendations pending her MRI results. When she is cleared by orthopedic surgery would suggest restarting her on one baby aspirin 81 mg daily for secondary stroke prevention. We would recommend a MRA of the carotids be done for further evaluation of the findings noted on the carotid ultrasound. We will continue close neurological follow-up with the patient during this admission. Would recommend a complete stroke evaluation including laboratory testing. The patient would benefit from physical therapy and occupational therapy evaluation and treatment. Her overall prognosis at this time remains very guarded. Time with Patient: Greater than 30
[2018-09-24 23:39] LABS: Hemoglobin A1C 6.7 % (4.0-6.0)
[2018-09-25] MEDS: HYDROmorphone 1 MG/ML 1 ML SYRINGE IVP PRN ×3 (00:37→10:28)
[2018-09-25] MEDS: LACTATED RINGERS 1,000 ML IV SCH (05:20)
[2018-09-25] MEDS: SODIUM CHLORIDE 0.9% 1,000 ML IV SCH ×2 (05:50→15:20)
[2018-09-25 06:59] LABS: Glucose,Whole Blood 187 mg/dL (75-99)
--- NOTE | 2018-09-25 07:12 | ECHOF ---
Referral Reason:Possible CVA MEASUREMENTS -------- HEIGHT: 160.0 cm WEIGHT: 81.6 kg BP: IVSd: 1.2 cm (0.6 - 1.1) LVIDd: 3.3 cm (3.9 - 5.3) LVPWd: 1.4 cm (0.6 - 1.1) IVSs: 1.6 cm LVIDs: 2.0 cm LVPWs: 1.3 cm Ao Diam: 2.8 cm (2.0 - 3.7) AV Cusp: 1.6 cm (1.5 - 2.6) LA Diam: 3.1 cm (2.7 - 3.8) MV EXCURSION: 18.742 mm (> 18.000) MV EF SLOPE: 110 mm/s (70 - 150) EPSS: 0.4 cm MV E Roly: 0.87 m/s MV DecT: 120 ms MV A Roly: 0.89 m/s MV E/A Ratio: 0.99 RAP: 5.00 mmHg RVSP: 24.90 mmHg FINDINGS -------- Sinus rhythm. This was a technically difficult study with suboptimal views. The left ventricular size is normal. There is mild concentric left ventricular hypertrophy. Overa ll left ventricular systolic function is normal with, an EF between 55 - 60 %. The right ventricle is normal in size and function. The left atrial size is normal. The right atrium is normal in size. Lumason used The aortic valve was not well visualized. The mitral valve was not well visualized. Mild mitral regurgitation is present. Mild tricuspid regurgitation present. There is no evidence of pulmonary hypertension. The right v entricular systolic pressure, as measured by Doppler, is 24.90mmHg. The pulmonic valve was not well visualized. The aortic root size is normal. There is no pericardial effusion. CONCLUSIONS -------- 1. Sinus rhythm. 2. This was a technically difficult study with suboptimal views. 3. The left ventricular size is normal. 4. There is mild concentric left ventricular hypertrophy. 5. Overall left ventricular systolic function is normal with, an EF between 55 - 60 %. 6. The left atrial size is normal. 7. Lumason used 8. The aortic valve was not well visualized. 9. The mitral valve was not well visualized. 10. Mild mitral regurgitation is present. 11. Mild tricuspid regurgitation present. 12. There is no evidence of pulmonary hypertension. 13. The pulmonic valve was not well visualized. 14. The aortic root size is normal. 15. There is no pericardial effusion. XEROX MACHINE MECHANIC: Nely Johns RDCS
[2018-09-25] MEDS: INSULIN ASPART 100 UNIT/ML 1 ML 10 ML VIAL SQ SCH ×5 (07:51→18:08)
[2018-09-25] MEDS: PANTOPRAZOLE 40 MG TABLET PO SCH (07:53)
[2018-09-25] MEDS: HYDROcodone/APAP 7.5-325MG 1 EACH TAB PO PRN ×3 (08:53→21:32)
[2018-09-25] MEDS: ASPIRIN 81 MG PO SCH (08:54)
[2018-09-25] MEDS: GABAPENTIN 300 MG CAP PO SCH ×3 (08:54→20:31)
[2018-09-25] MEDS: MELOXICAM 7.5 MG TAB PO SCH (08:54)
[2018-09-25] MEDS: LISINOPRIL 2.5 MG TAB PO SCH (08:54)
[2018-09-25] MEDS: ENOXAPARIN 40 MG/0.4 ML SYRINGE SQ SCH (08:57)
--- NOTE | 2018-09-25 09:58 | P.PN ---
Subjective Progress Note Date: 09/25/18 Principal diagnosis: Unresponsive episode Patient was seen and examined. Patient apparently with an acute syncopal episode while sitting up in her chair yesterday. This is suspicious no recollection of the event. Patient reports that she might of been standing up from the chair and felt lightheaded. Reports of nursing finding patient unresponsive, 18 alert.. He was reported that she might have been down for at least 10 minutes. She did regain consciousness after being discovered by nurses biopsy confused. She is alert and oriented 3 throughout her hospital admission prior to that. CT of the head was ordered showing age indeterminate low-attenuation the left frontal extending into the basal ganglia. Neurology consulted, MRI ordered. This morning patient reports right hip pain. Pain is decently controlled with Congress and Dilaudid as needed. Patient reports no confusion at this time. Patient reports that she had right upper extremity weakness that is progressively improved up until today. She is unable to recall events of yesterday. She denies any dizziness, chest pain, shortness of breath or palpitations. Objective - Vital Signs Vital signs: Vital Signs Temp 98.4 F 09/25/18 07:48 Pulse 106 H 09/25/18 07:48 Resp 16 09/25/18 07:48 BP 142/60 09/25/18 07:48 Pulse Ox 96 09/25/18 07:48 Intake & Output 09/24/18 09/25/18 09/25/18 18:59 06:59 18:59 Intake Total 400 1590 300 Balance 400 1590 300 Intake: Intake, IV Titration 400 1000 Amount Sodium Chloride 0.9% 1, 400 1000 000 ml @ 50 mls/hr IV . Q20H [facility] Rx#:[id number] Oral 590 300 Other: Voiding Method Bedpan # Voids 3 2 1 - Exam General: [non toxic], [no distress], [appears at stated age] Derm: [warm], [dry] Head: [atraumatic], [normocephalic], [symmetric] Eyes: [EOMI], [no lid lag], [anicteric sclera] Mouth: [no lip lesion], [mucus membranes moist] Cardiovascular: [S1S2 reg], [no murmur], [positive DP pulse bilateral] Lungs: [CTA bilateral], [no rhonchi, no rales] , [no accessory muscle use] Abdominal: [soft], [ nontender to palpation], [no guarding], [no appreciable organomegaly] Ext: [no gross muscle atrophy], [no edema], [no contractures] Neuro: [RLE 3/5, probably due to R hip pain. LLE 5/5 strength. RUE 4/5, medical lab technician strength intact. LUE 5/5. CN 2-12 grossly intact. Gait untested] Psych: [Alert], [oriented], [appropriate affect] - Labs CBC & Chem 7: 09/24/18 13:26 09/24/18 13:26 Labs: Abnormal Lab Results - Last 24 Hours (Table) 09/24/18 09/24/18 09/24/18 Range/Units 11: 13: 13:26 WBC 12.7 H (3.8-10.6) k/uL RBC 2.80 L (3.80-5.40) m/uL Hgb 8.7 L (11.4-16.0) gm/dL Hct 26.5 L (34.0-46.0) % Plt Count 131 L (150-450) k/uL INR 1.2 H (<1.2) Sodium (137-145) mmol/L BUN (7-17) mg/dL Glucose (74-99) mg/dL POC Glucose (mg/dL) 227 H (75-99) mg/dL Hemoglobin A1c (4.0-6.0) % Triglycerides (<150) mg/dL HDL Cholesterol (40-60) mg/dL 09/24/18 09/24/18 09/24/18 Range/Units 13:26 13:26 17:10 WBC (3.8-10.6) k/uL RBC (3.80-5.40) m/uL Hgb (11.4-16.0) gm/dL Hct (34.0-46.0) % Plt Count (150-450) k/uL INR (<1.2) Sodium 136 L (137-145) mmol/L BUN 19 H (7-17) mg/dL Glucose 200 H (74-99) mg/dL POC Glucose (mg/dL) 218 H (75-99) mg/dL Hemoglobin A1c 6.7 H (4.0-6.0) % Triglycerides 212 H (<150) mg/dL HDL Cholesterol 29 L (40-60) mg/dL 09/25/18 Range/Units 06:42 WBC (3.8-10.6) k/uL RBC (3.80-5.40) m/uL Hgb (11.4-16.0) gm/dL Hct (34.0-46.0) % Plt Count (150-450) k/uL INR (<1.2) Sodium (137-145) mmol/L BUN (7-17) mg/dL Glucose (74-99) mg/dL POC Glucose (mg/dL) 187 H (75-99) mg/dL Hemoglobin A1c (4.0-6.0) % Triglycerides (<150) mg/dL HDL Cholesterol (40-60) mg/dL Assessment and Plan Assessment: Assessment and Plan 1. Unresponsive episode: Likely related to CVA, possible Vasovagal or Orthostatic component as well (unable to determined true events). CT head shows L frontal low attenuation signal involving the L frontal deep matter extending into the basal ganglia. Carotid US shows resistive pulse waveform in the L ICA. Echocardiogram shows EF 55-60% with mild LVH. Neurology consulted and will initiate CVA protocol. Lipid panel shows LDL 23 and T. Chol of 94 with a HDL of 29. A1c is mildly elevated at 6.7. Continue ASA 81 mg PO QD and start Lipitor 20 mg PO QHS. Consider witch to Plavix. Neurochecks Q4H. Telemetry monitoring. FU MRA neck, MRI brain, EEG, Neurology consult. 2. R hip pain: Due to severe R hip osteoarthritis. She is POD 2 of total R hip replacement. Cefazolin 2g IV TID x 2 doses. Pain management with Congress 7.5 1 tab PRN (advised for pain 1-6) and 2 tab PRN (advised for pain 7-10), Dilaudid IV PRN (advised for breakthrough) and Meloxicam 15mg PO QD. Continue Gabapentin 300 mg PO TID. Weight bearning as per Ortho recommendations. Incentive spirometry. FU Ortho and PT consult. 3. Diabetes mellitus: POC glucose 187. Patient takes Toujeo 36 units QAM and Novolog 10 units TID with meals. Continue sliding scale. Accuchecks TID. Hypoglycemic precautions. Diabetic diet. 4. GERD: Protonix 40 mg PO QD. 5. DVT/GI Prophylaxis: Lovenox 40 mg SUBCUT QD. Protonix 40 mg PO QD. Stroke workup underway. Neurology on consult.
[2018-09-25 10:21] LABS: Glucose,Whole Blood 213 mg/dL (75-99)
[2018-09-25 11:55] LABS: Glucose,Whole Blood 253 mg/dL (75-99)
[2018-09-25 13:16] LABS: Basophils % (A) 0 %; Eosinophils % (A) 0 %; HCT 23.7 % (34.0-46.0); Lymphocytes # (A) 1.3 k/uL (1.0-4.8); Lymphocytes % (A) 11 %; MCH 31.4 pg (25.0-35.0); MCHC 33.6 g/dL (31.0-37.0); MCV 93.4 fL (80.0-100.0); Mean Platelet Volume 9.3; Monocytes # (A) 2.1 k/uL (0-1.0); Monocytes % (A) 18 %; Neutrophils % (A) 67 %; Platelet Count 131 k/uL (150-450); RBC 2.54 m/uL (3.80-5.40); RDW 13.4 % (11.5-15.5); WBC 11.9 k/uL (3.8-10.6)
[2018-09-25 16:05] LABS: Glucose,Whole Blood 143 mg/dL (75-99)
--- NOTE | 2018-09-25 17:11 | CT ---
EXAMINATION TYPE: CT brain wo con DATE OF EXAM: 09/25/2018 COMPARISON: 09/24/2018 HISTORY: r/o CVA CT DLP: 1068.4 mGycm Automated exposure control for dose reduction was used. FINDINGS: There is cerebral cortical atrophy. There is no mass effect nor midline shift. There is no sign of in tracranial hemorrhage. There is 2 cm area of poorly marginated hypodensity in the white matter left f rontal lobe. There is also similar 1.5 cm area left posterior frontal lobe white matter. The calvariu m is intact. IMPRESSION: SMALL VESSEL ISCHEMIA AND LACUNAR INFARCTS IN THE LEFT FRONTAL LOBE UNCHANGED COMPARED TO YESTERDAY. NO HEMORRHAGE. 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
[2018-09-25 17:22] LABS: Glucose,Whole Blood 176 mg/dL (75-99)
--- NOTE | 2018-09-25 19:33 | EEG ---
ELECTROENCEPHALOGRAM REPORT DATE OF EE09/25/2018. REFERRING PHYSICIAN: Dr. Pak. CONSULTING INTERPRETING PHYSICIAN: Dr. Rachell Orozco ELECTROENCEPHALOGRAPHIC EXAMINATION REPORT: INDICATION FOR EXAMINATION: This patient is a 78-year-old female, status post right total hip arthroplasty. Following surgery patient had a vasovagal episode versus seizure. AGE: 78. EEG FINDINGS: A routine 21 channel awake digital EEG recording was accomplished utilizing the 10-20 international system with bipolar and referential montages. The background activity in the most alert resting state consists of a low to medium amplitude, poorly developed and poorly sustained 6 Hz activity over the posterior head regions. This posterior rhythm attenuates to eye opening. There is a small amount of low amplitude 18-20 Hz beta activity seen maximally over the anterior head regions. Muscle and movement artifact was observed on a few occasions during the tracing. Hyperventilation was not performed. Photic stimulation at flash frequencies of 2-30 Hz produced a minimal occipital driving response. No epileptiform discharges were seen. IMPRESSION: This EEG is moderately abnormal in a diffuse fashion due to slowing of the EEG background. The EEG failed to reveal any focal, lateralized, or epileptiform abnormalities. Clinical correlation is recommended. MMODL / IJN: [id number] /
[2018-09-25] MEDS: SENNOSIDES-DOCUSATE SODIUM 1 EACH TAB PO SCH (20:31)
[2018-09-25] MEDS: ATORVASTATIN 20 MG TAB PO SCH (20:31)
[2018-09-25 21:20] LABS: Glucose,Whole Blood 235 mg/dL (75-99)
--- NOTE | 2018-09-25 21:58 | P.PN ---
Subjective Progress Note Date: 09/25/18 This patient is a 78 year old female seen yesterday on Neurology consultation for evaluation of syncopal episode and right sided weakness following right hip surgery. The patient was making slow progress and is postoperative day #2 following right total hip replacement by Dr. Pak. She was experiencing some right hip pain yesterday which is being controlled by combination [place] and Dilaudid. She was having episodes of mild confusion. Yesterday she did have an acute syncopal episode versus seizure. For this reason she was sent for routine EEG today which was reviewed. Her EEG is within normal limits with no evidence of any epileptiform discharges. We reviewed the results of the EEG today with the patient. Apparently today she did have another episode of unresponsiveness. An A Team code was called and the patient was stabilized this afternoon. She was being scheduled for MRI of the brain today however radiologist recommended the patient being postoperative with right hip replacement she would need to wait for 6 weeks before it would be safe for her to have an MRI done. For this reason she was sent for a emergent computed tomography scan of the brain this afternoon. The results of the CAT scan indicated a small vessel ischemia and lacunar infarcts in the left frontal lobe unchanged as compared to yesterday. There is no evidence for acute hemorrhage. There was an old lacunar infarct in the right thalamus. We reviewed the results of the CAT scan today with the patient. Apparently she was very much lethargic and unresponsive this afternoon and this was the reason for the A Team code to be called this afternoon. This evening the patient is doing much better and was transferred to the select care floor. She is alert and her daughter is at bedside. Her daughter states she is doing much better since the code. The daughter also feels she is having difficulty with her speech. She is noticing that she is slurring some words and having some word finding difficulties. We did review the results of the CAT scan of the brain done today with the patient and her daughter at bedside. Her findings are strongly indicating most likely acute versus subacute stroke in the left frontal lobe. We would recommend for her to have a MRI of the brain done in 6 weeks for follow -up. We would recommend the patient to be considered for a CTA angiogram for further evaluation of the carotid arteries. As noted her MRI of the brain was canceled as she is postoperative day #2 and is not safe to have MRI done for at least 6 weeks. Overall the patient seems to be making progress today. Her daughter also feels that there has been some improvement but feels her speech is giving her some difficulty today on neurological examination at bedside she is demonstrating some right sided weakness and has a right pronator drift. This would be consistent with the CAT scan findings of acute left frontal lobe infarct. We will continue close neurological follow-up with the patient during this admission. Objective - Vital Signs Vital signs: Vital Signs Temp 98.4 F 09/25/18 17:24 Pulse 107 H 09/25/18 17:24 Resp 18 09/25/18 17:24 BP 130/52 09/25/18 17:24 Pulse Ox 96 09/25/18 17:24 Intake & Output 09/25/18 09/25/18 09/26/18 06:59 18:59 06:59 Intake Total 1590 660 Balance 1590 660 Intake: Intake, IV Titration 1000 Amount Sodium Chloride 0.9% 1, 1000 000 ml @ 50 mls/hr IV . Q20H [facility] Rx#:[id number] Oral 590 660 Other: Voiding Method Bedpan Bedpan # Voids 2 1 - Exam Physical Examination: PHYSICAL EXAMINATION: Patient is resting comfortably in bed. VITAL SIGNS: Blood pressure is [143/63]. Heart rate is [107]. Respiration is [16 ]. Temperature is [97.1]. HEENT: Head is atraumatic, neck is supple, there were no carotid bruits. CHEST: Lungs are clear to auscultation and percussion. CARDIAC: S1, S2 normal rate and rhythm. There is no murmur. ABDOMEN: Soft and nontender. Bowel sounds are present. EXTREMITIES: There is no pedal edema. Peripheral pulses are present. Neurological examination: Patient's neurological examination reveals her to have a right pronator drift. Her speech is slightly dysarthric but seems to revert to normal at times. Her memory and intellectual functions are appropriate for her age. Cranial nerves II through XII are grossly intact. Deep tendon reflexes are 1+ and symmetric. Plantar responses flexor bilaterally. Coordination and gait cannot be assessed in this patient at this time. - Labs CBC & Chem 7: 09/25/18 11:59 09/24/18 13:26 Labs: Abnormal Lab Results - Last 24 Hours (Table) 09/24/18 09/25/18 09/25/18 Range/Units 13:26 06:42 10:10 WBC (3.8-10.6) k/uL RBC (3.80-5.40) m/uL Hgb (11.4-16.0) gm/dL Hct (34.0-46.0) % Plt Count (150-450) k/uL Neutrophils # (1.3-7.7) k/uL Monocytes # (0-1.0) k/uL POC Glucose (mg/dL) 187 H 213 H (75-99) mg/dL Hemoglobin A1c 6.7 H (4.0-6.0) % 09/25/18 09/25/18 09/25/18 Range/Units 11:42 11:59 15:53 WBC 11.9 H (3.8-10.6) k/uL RBC 2.54 L (3.80-5.40) m/uL Hgb 8.0 L (11.4-16.0) gm/dL Hct 23.7 L (34.0-46.0) % Plt Count 131 L (150-450) k/uL Neutrophils # 8.0 H (1.3-7.7) k/uL Monocytes # 2.1 H (0-1.0) k/uL POC Glucose (mg/dL) 253 H 143 H (75-99) mg/dL Hemoglobin A1c (4.0-6.0) % 09/25/18 Range/Units 17:20 WBC (3.8-10.6) k/uL RBC (3.80-5.40) m/uL Hgb (11.4-16.0) gm/dL Hct (34.0-46.0) % Plt Count (150-450) k/uL Neutrophils # (1.3-7.7) k/uL Monocytes # (0-1.0) k/uL POC Glucose (mg/dL) 176 H (75-99) mg/dL Hemoglobin A1c (4.0-6.0) % Assessment and Plan (1) History of total right hip arthroplasty Current Visit: Yes Status: Acute Code(s): Z96.641 - PRESENCE OF RIGHT ARTIFICIAL HIP JOINT SNOMED Code(s): 641707418918 (2) Acute ischemic left MCA stroke Current Visit: Yes Status: Acute Code(s): I63.512 - CEREB INFRC D/T UNSP OCCLS OR STENOS OF LEFT MID CEREB ART SNOMED Code(s): 749587098 (3) Syncope Current Visit: Yes Status: Acute Code(s): R55 - SYNCOPE AND COLLAPSE SNOMED Code(s): 806638567 (4) Diabetes mellitus Current Visit: Yes Status: Acute Code(s): E11.9 - TYPE 2 DIABETES MELLITUS WITHOUT COMPLICATIONS SNOMED Code(s): 01355992 (5) Osteoarthritis of right hip Current Visit: Yes Status: Acute Code(s): M16.11 - UNILATERAL PRIMARY OSTEOARTHRITIS, RIGHT HIP SNOMED Code(s): 710126864100048 Plan: This patient is a 78-year-old female who is being evaluated for postoperative confusion and syncope. There was concern the patient may have suffered an acute stroke following recent right total hip arthroplasty. She had an episode yesterday of unresponsiveness and today was sent for a routine EEG for further evaluation to rule out seizure disorder. Her EEG was within normal limits with no evidence of any epileptiform discharges. The patient unfortunately had another episode of unresponsiveness today and an A Team code was called on her. She was sent for a emergent computed tomography scan of the brain the results of which are noted above. This patient likely suffered an acute left frontal lobe infarct. We would recommend to consider restarting her on one aspirin daily for secondary stroke prevention. We will leave this up to orthopedic surgery as to when the timing of this restart should begin. The patient otherwise seems to be doing much better in terms of her mental status and is more alert today. We will continue close neurological follow-up with the patient during this admission. Her overall prognosis at this time remains guarded.
[2018-09-26] MEDS: HYDROcodone/APAP 7.5-325MG 1 EACH TAB PO PRN ×3 (04:37→18:09)
[2018-09-26] MEDS: LACTATED RINGERS 1,000 ML IV SCH (06:07)
[2018-09-26 06:13] LABS: Glucose,Whole Blood 202 mg/dL (75-99)
[2018-09-26] MEDS: INSULIN ASPART 100 UNIT/ML 1 ML 10 ML VIAL SQ SCH ×6 (07:04→17:29)
[2018-09-26] MEDS: PANTOPRAZOLE 40 MG TABLET PO SCH (07:05)
[2018-09-26 07:46] LABS: Basophils % (A) 0 %; Eosinophils # (A) 0.1 k/uL (0-0.7); Eosinophils % (A) 1 %; HCT 23.3 % (34.0-46.0); HGB 7.4 gm/dL (11.4-16.0); Lymphocytes # (A) 1.4 k/uL (1.0-4.8); Lymphocytes % (A) 16 %; MCH 29.9 pg (25.0-35.0); MCHC 31.9 g/dL (31.0-37.0); MCV 93.9 fL (80.0-100.0); Mean Platelet Volume 9.2; Monocytes # (A) 1.1 k/uL (0-1.0); Monocytes % (A) 12 %; Neutrophils % (A) 68 %; Platelet Count 125 k/uL (150-450); RBC 2.48 m/uL (3.80-5.40); RDW 13.4 % (11.5-15.5); WBC 8.8 k/uL (3.8-10.6)
[2018-09-26] MEDS: MELOXICAM 7.5 MG TAB PO SCH (09:06)
[2018-09-26] MEDS: SODIUM CHLORIDE 0.9% 1,000 ML IV SCH (09:06)
--- NOTE | 2018-09-26 09:06 | P.PN ---
Subjective Progress Note Date: 09/25/18 Principal diagnosis: Status post right total hip arthroplasty After further workup there is concern for a possible left sided MCA stroke. MRI is unattainable at this time. Further testing in process. Patient's pain is controlled at this time with current medication. She notes difficulty with ambulating at this time due to discomfort of the right hip. She denies any chest pain or shortness of breath at this time. Objective - Vital Signs Vital signs: Vital Signs Temp 98 F 09/26/18 08:15 Pulse 103 H 09/26/18 08:15 Resp 20 09/26/18 08:15 BP 135/60 09/26/18 08:15 Pulse Ox 97 09/26/18 08:15 Intake & Output 09/25/18 09/26/18 09/26/18 18:59 06:59 18:59 Intake Total 660 400 Output Total 300 Balance 660 -300 400 Weight 85 kg Intake: IV 400 Sodium Chloride 0.9% 1, 400 000 ml @ 50 mls/hr IV . Q20H [facility] Rx#:[id number] Oral 660 Output: Urine 300 Other: Voiding Method Bedpan Bedpan # Voids 1 1 1 - Exam Right lower extremity: Incision is clean, dry, and intact. The exofin fusion tape is in good condition. There is minimal soft tissue swelling and ecchymosis surrounding the medial and lateral aspects of the incision. Calf is soft, no tenderness with palpation. Plantar flexion, dorsiflexion, EHL, FHL are intact. Sensory exam to light touch throughout the extremity is intact, dorsal pedis pulses 2+. - Labs CBC & Chem 7: 09/26/18 06:40 09/24/18 13:26 Labs: Abnormal Lab Results - Last 24 Hours (Table) 09/25/18 09/25/18 09/25/18 Range/Units 10:10 11:42 11:59 WBC 11.9 H (3.8-10.6) k/uL RBC 2.54 L (3.80-5.40) m/uL Hgb 8.0 L (11.4-16.0) gm/dL Hct 23.7 L (34.0-46.0) % Plt Count 131 L (150-450) k/uL Neutrophils # 8.0 H (1.3-7.7) k/uL Monocytes # 2.1 H (0-1.0) k/uL POC Glucose (mg/dL) 213 H 253 H (75-99) mg/dL 09/25/18 09/25/18 09/25/18 Range/Units 15:53 17:20 20:58 WBC (3.8-10.6) k/uL RBC (3.80-5.40) m/uL Hgb (11.4-16.0) gm/dL Hct (34.0-46.0) % Plt Count (150-450) k/uL Neutrophils # (1.3-7.7) k/uL Monocytes # (0-1.0) k/uL POC Glucose (mg/dL) 143 H 176 H 235 H (75-99) mg/dL 09/26/18 09/26/18 Range/Units 06:00 06:40 WBC (3.8-10.6) k/uL RBC 2.48 L (3.80-5.40) m/uL Hgb 7.4 L (11.4-16.0) gm/dL Hct 23.3 L (34.0-46.0) % Plt Count 125 L (150-450) k/uL Neutrophils # (1.3-7.7) k/uL Monocytes # 1.1 H (0-1.0) k/uL POC Glucose (mg/dL) 202 H (75-99) mg/dL Assessment and Plan Plan: Assessment: Postop day #2 status post right total hip arthroplasty Episode of unresponsiveness, possible left MCA stroke Acute blood loss anemia, expected surgical outcome Plan: Pain control, continue current medication GI and DVT prophylaxis, continue current medication We'll continue to monitor hemoglobin, may consider transfusion Await further testing results Other medical especially recommendations Continue with physical therapy Further recommendations at follow Time with Patient: Less than 30
[2018-09-26] MEDS: GABAPENTIN 300 MG CAP PO SCH ×3 (09:07→23:08)
[2018-09-26] MEDS: ENOXAPARIN 40 MG/0.4 ML SYRINGE SQ SCH (09:08)
[2018-09-26] MEDS: ASPIRIN 81 MG PO SCH (09:08)
[2018-09-26 12:07] LABS: Glucose,Whole Blood 246 mg/dL (75-99)
[2018-09-26] MEDS ORDERED: HYDROcodone/APAP 7.5-325MG 1 EACH TAB PO ONE (12:30)
[2018-09-26] MEDS: LISINOPRIL 2.5 MG TAB PO SCH (12:41)
--- NOTE | 2018-09-26 12:47 | P.PN ---
Subjective Progress Note Date: 09/26/18 Principal diagnosis: Right hip pain, acute CVA Patient seen and examined. No acute events overnight. Another episode of unresponsiveness yesterday and altered mental status. A-team alerted, CT head ordered, no changes from previous CT. Also seen by speech therapy for expressive aphasia. Patient states that she thought she would be doing better. Patient unable to fully empty bladder this afternoon. She denies dysuria or hematuria. No bowel movement since surgery. She denies fever, cough, chest pain , shortness of breath or palpitations. Objective - Vital Signs Vital signs: Vital Signs Temp 98.9 F 09/26/18 12:00 Pulse 108 H 09/26/18 12:00 Resp 20 09/26/18 12:00 BP 139/67 09/26/18 12:00 Pulse Ox 96 09/26/18 12:00 Intake & Output 09/25/18 09/26/18 09/26/18 18:59 06:59 18:59 Intake Total 660 640 Output Total 300 150 Balance 660 -300 490 Weight 85 kg Intake: IV 400 Sodium Chloride 0.9% 1, 400 000 ml @ 50 mls/hr IV . Q20H [facility] Rx#:[id number] Oral 660 240 Output: Urine 300 150 Other: Voiding Method Bedpan Bedpan Bedpan # Voids 1 1 1 - Exam General: [non toxic], [no distress], [appears at stated age] Derm: [warm], [dry] Head: [atraumatic], [normocephalic], [symmetric] Eyes: [EOMI], [no lid lag], [anicteric sclera] Mouth: [no lip lesion], [mucus membranes moist] Cardiovascular: [S1S2 reg], [no murmur], [positive DP pulse bilateral] Lungs: [CTA bilateral], [no rhonchi, no rales] , [no accessory muscle use] Abdominal: [soft], [ nontender to palpation], [no guarding], [no appreciable organomegaly] Ext: [no gross muscle atrophy], [no edema], [no contractures] Neuro: [RLE 3/5, probably due to R hip pain. LLE 5/5 strength. RUE 4/5, advertising sales consultant strength intact. LUE 5/5. CN 2-12 grossly intact] Psych: [Alert], [oriented], [appropriate affect] - Labs CBC & Chem 7: 09/26/18 06:40 09/24/18 13:26 Labs: Abnormal Lab Results - Last 24 Hours (Table) 09/25/18 09/25/18 09/25/18 Range/Units 11:59 15:53 17:20 WBC 11.9 H (3.8-10.6) k/uL RBC 2.54 L (3.80-5.40) m/uL Hgb 8.0 L (11.4-16.0) gm/dL Hct 23.7 L (34.0-46.0) % Plt Count 131 L (150-450) k/uL Neutrophils # 8.0 H (1.3-7.7) k/uL Monocytes # 2.1 H (0-1.0) k/uL POC Glucose (mg/dL) 143 H 176 H (75-99) mg/dL 09/25/18 09/26/18 09/26/18 Range/Units 20:58 06:00 06:40 WBC (3.8-10.6) k/uL RBC 2.48 L (3.80-5.40) m/uL Hgb 7.4 L (11.4-16.0) gm/dL Hct 23.3 L (34.0-46.0) % Plt Count 125 L (150-450) k/uL Neutrophils # (1.3-7.7) k/uL Monocytes # 1.1 H (0-1.0) k/uL POC Glucose (mg/dL) 235 H 202 H (75-99) mg/dL 09/26/18 Range/Units 11:52 WBC (3.8-10.6) k/uL RBC (3.80-5.40) m/uL Hgb (11.4-16.0) gm/dL Hct (34.0-46.0) % Plt Count (150-450) k/uL Neutrophils # (1.3-7.7) k/uL Monocytes # (0-1.0) k/uL POC Glucose (mg/dL) 246 H (75-99) mg/dL Assessment and Plan Assessment: Assessment and Plan 1. Acute CVA: Likely cause of AMS. CT head shows L frontal low attenuation signal involving the L frontal deep matter extending into the basal ganglia. Repeat CT head is stable from the first one. Carotid US shows resistive pulse waveform in the L ICA. Echocardiogram shows EF 55-60% with mild LVH. Neurology consulted and will initiate CVA protocol. Lipid panel shows LDL 23 and T. Chol of 94 with a HDL of 29. A1c is mildly elevated at 6.7. Continue ASA 81 mg PO QD and start Lipitor 20 mg PO QHS. Consider switch to Plavix. Neurochecks Q4H. Telemetry monitoring. MRI and MRA unable to be done due to recent hip prosthesis. EEG negative for seizures. FU Neurology consult, CTA head and neck 2. R hip pain: Due to severe R hip osteoarthritis. She is POD 3 of total R hip replacement. Cefazolin 2g IV TID x 2 doses. Pain management with [place] 7.5 1 tab PRN (advised for pain 1-6) and 2 tab PRN (advised for pain 7-10), Dilaudid IV PRN (advised for breakthrough) and Meloxicam 15mg PO QD. Continue Gabapentin 300 mg PO TID. Weight bearning as per Ortho recommendations. Incentive spirometry. FU Ortho and PT consult. 3. Urinary retention: 500+ cc on bladder scan per nurse. Advised RN to straight cath x 1. Encourage mobilization. FU UA/UCx reflex if needed 4. Anemia: Hg 7.4, downtrending from 9.0 after surgery. Likely due to acute blood loss from surgery. Transfuse if Hg < 7.0 or symptomatic. Daily CBC. 5. Diabetes mellitus: POC glucose 246. Patient takes Toujeo 36 units QAM and Novolog 10 units TID with meals. Continue sliding scale, started Lispro 10 units TID. Accuchecks TID. Hypoglycemic precautions. Diabetic diet. 6. DVT/GI Prophylaxis: Lovenox 40 mg SUBCUT QD. Protonix 40 mg PO QD. Stroke workup continued, pending CTA head and neck. Will need MRI in 6 weeks. Will follow Neurology recommendations. Approved by [facility] for disposition.
--- NOTE | 2018-09-26 14:58 | CT ---
EXAMINATION TYPE: CT angio head neck DATE OF EXAM: 09/26/2018 HISTORY: Carotid Stenosis COMPARISON: 09/24/2018 CT DLP: 452.7 mGycm. Automated Exposure Control for Dose Reduction was Utilized. TECHNIQUE: CTA scan of the neck is performed without and with IV Contrast, patient injected with 100 ml mL of Isovue 370, axial images are obtained, coronal and sagittal reformatted images are reviewed . Three-D reconstructed images are created on an independent workstation and reviewed. FINDINGS: Carotid/Vascular Structures: There is a normal variant bovine aortic arch. Nonhemodynamically signifi cant calcific atheromatous changes seen of the ostia of the left subclavian artery (less than 50% red uction in caliber). The common carotid arteries display mild calcific atheromatous plaquing bilateral ly with a focal area of stenosis of the distal left internal carotid artery extending into the caroti d bulb measuring 1.1 cm in length. Stenosis at this location measures 60%. The internal carotid arter ies in their cervical portions are patent and incidental note is made of a medial course of the left internal carotid artery posterior to the pharynx. Severe atherosclerosis is seen of the internal carotids in their cavernous and supraclinoid portions although opacification is seen throughout extending into the intact iliamna of [place]. No focal occlus ion is seen or aneurysmal outpouching in the head or neck. No evidence of dissection. The vertebral arteries are patent throughout and codominant. Severe atherosclerosis is seen of the ve rtebral arteries within the foramen magnum, left greater than right. Other: There are partially visualized pleural effusions and multifocal groundglass opacities in the l ayden apices with anterolateral left upper lobe consolidation measuring 1.4 cm abutting the pleural john face. Moderate multilevel degenerative changes of the spine are noted. Mild mucosal thickening of the right maxillary and ethmoid sinuses are seen. Remaining paranasal sinuses are well aerated. Evaluati on of the intracranial structures is limited given angiographic technique. IMPRESSION: 1. Approximately 60% stenosis measuring 1.1 cm in length involving the distal left internal carotid a rtery extending into the carotid bulb. 2. No evidence of dissection, aneurysmal outpouching or vascular occlusion within the head or neck. 3. Severe atherosclerosis of the vertebral arteries within the foramen magnum. 4. Severe atherosclerosis of the cavernous and supraclinoid portions of the internal carotid arteries although the iliamna of [place] remains opacified and intact. 5. Partial visualization of a left upper lobe 1.4 cm nodular consolidation for which short-term follo w up CT is recommended to ensure resolution. Multifocal biapical ground glass opacities may be on the basis of fluid overload or pneumonitis.
--- NOTE | 2018-09-26 15:46 | P.PN ---
Subjective Progress Note Date: 09/26/18 Principal diagnosis: Status post right total hip arthroplasty Patient's pain is controlled at this time with current medication. She denies any chest pain or shortness of breath at this time. Objective - Vital Signs Vital signs: Vital Signs Temp 98.9 F 09/26/18 12:00 Pulse 108 H 09/26/18 12:00 Resp 20 09/26/18 12:00 BP 139/67 09/26/18 12:00 Pulse Ox 96 09/26/18 12:00 Intake & Output 09/25/18 09/26/18 09/26/18 18:59 06:59 18:59 Intake Total 660 640 Output Total 300 150 Balance 660 -300 490 Weight 85 kg Intake: IV 400 Sodium Chloride 0.9% 1, 400 000 ml @ 50 mls/hr IV . Q20H [facility] Rx#:[id number] Oral 660 240 Output: Urine 300 150 Other: Voiding Method Bedpan Bedpan Bedpan # Voids 1 1 1 - Exam Right lower extremity: Incision is clean, dry, and intact. The exofin fusion tape is in good condition. There is minimal soft tissue swelling and ecchymosis surrounding the medial and lateral aspects of the incision. Calf is soft, no tenderness with palpation. Plantar flexion, dorsiflexion, EHL, FHL are intact. Sensory exam to light touch throughout the extremity is intact, dorsal pedis pulses 2+. - Labs CBC & Chem 7: 09/26/18 06:40 09/24/18 13:26 Labs: Abnormal Lab Results - Last 24 Hours (Table) 09/25/18 09/25/18 09/25/18 Range/Units 15:53 17:20 20:58 RBC (3.80-5.40) m/uL Hgb (11.4-16.0) gm/dL Hct (34.0-46.0) % Plt Count (150-450) k/uL Monocytes # (0-1.0) k/uL POC Glucose (mg/dL) 143 H 176 H 235 H (75-99) mg/dL 09/26/18 09/26/18 09/26/18 Range/Units 06:00 06:40 11:52 RBC 2.48 L (3.80-5.40) m/uL Hgb 7.4 L (11.4-16.0) gm/dL Hct 23.3 L (34.0-46.0) % Plt Count 125 L (150-450) k/uL Monocytes # 1.1 H (0-1.0) k/uL POC Glucose (mg/dL) 202 H 246 H (75-99) mg/dL Assessment and Plan Plan: Assessment: Postop day #3 status post right total hip arthroplasty Episode of unresponsiveness, possible left MCA stroke Acute blood loss anemia, expected surgical outcome Plan: Pain control, continue current medication GI and DVT prophylaxis, continue current medication. One unit of packed red blood cells has been ordered Await further testing results Other medical especially recommendations Continue with physical therapy Discharge planning: [facility] orthopedic standpoint, patient is stable. Await further testing recommendations from other medical specialties, discharge to rehab when cleared Time with Patient: Less than 30
[2018-09-26 16:39] LABS: Glucose,Whole Blood 133 mg/dL (75-99)
[2018-09-26] MEDS ORDERED: FUROSEMIDE 10 MG/ML 4 ML VIAL IV STA (17:52)
[2018-09-26] MEDS ORDERED: ACETAMINOPHEN TAB 325 MG TAB PO STA (18:04)
--- NOTE | 2018-09-26 19:21 | P.PN ---
Subjective Progress Note Date: 09/26/18 This patient is a 78 year old female seen yesterday on Neurology consultation for evaluation of syncopal episode and right sided weakness following right hip surgery. The patient was making slow progress and is postoperative day #2 following right total hip replacement by Dr. Pak. She was experiencing some right hip pain yesterday which is being controlled by combination Wauseon and Dilaudid. She was having episodes of mild confusion. Yesterday she did have an acute syncopal episode versus seizure. For this reason she was sent for routine EEG today which was reviewed. Her EEG is within normal limits with no evidence of any epileptiform discharges. We reviewed the results of the EEG today with the patient. Apparently today she did have another episode of unresponsiveness. An A Team code was called and the patient was stabilized this afternoon. She was being scheduled for MRI of the brain today however radiologist recommended the patient being postoperative with right hip replacement she would need to wait for 6 weeks before it would be safe for her to have an MRI done. For this reason she was sent for a emergent computed tomography scan of the brain this afternoon. The results of the CAT scan indicated a small vessel ischemia and lacunar infarcts in the left frontal lobe unchanged as compared to yesterday. There is no evidence for acute hemorrhage. There was an old lacunar infarct in the right thalamus. We reviewed the results of the CAT scan today with the patient. Apparently she was very much lethargic and unresponsive this afternoon and this was the reason for the A Team code to be called yesterday afternoon. This evening the patient is doing much better and was transferred to the select care floor. She is alert and her daughter is at bedside. Her daughter states she is doing much better since the code. The daughter also feels she is having difficulty with her speech. She is noticing that she is slurring some words and having some word finding difficulties. We did review the results of the CAT scan of the brain done today with the patient and her daughter at bedside. Her findings are strongly indicating most likely acute versus subacute stroke in the left frontal lobe. We would recommend for her to have a MRI of the brain done in 6 weeks for follow -up. We would recommend the patient to be considered for a CTA angiogram for further evaluation of the carotid arteries. As noted her MRI of the brain was canceled yesterday as she is postoperative day #2 and is not safe to have MRI done for at least 6 weeks. Overall the patient seems to be making progress today. Her daughter also feels that there has been some improvement but feels her speech is giving her some difficulty today on neurological examination at bedside she is demonstrating some right sided weakness and has a right pronator drift. This would be consistent with the CAT scan findings of acute left frontal lobe infarct. The patient did undergo a CTA angiogram of the head and neck performed today. Results of the CTA indicated 60% stenosis of the distal left internal carotid artery. There was no evidence of dissection. No evidence of any aneurysms. 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 We reviewed the results of the CTA angiogram of the head and neck today with the patient at bedside. Her daughter and were also at bedside and they were also updated on her clinical exam findings and test results. The patient was seen by Dr. Pak as she is postoperative day #3 following a right total hip arthroplasty. The orthopedic surgeon has indicated the patient can be started on aspirin therapy today. We would recommend she be started on one baby aspirin 81 mg daily for secondary stroke prevention. She did undergo evaluation for acute stroke and 2 CAT scans of the brain or indicating findings of a left frontal lobe infarct. She is unable to have MRI of the brain done for further evaluation at this time but we would recommend this be followed up in the outpatient setting by Dr. Victor in 6 weeks. We will continue close neurological follow-up with the patient during this admission. The patient is making good progress in terms of her recovery following evidence of acute left frontal lobe stroke. We will continue close neurological follow-up for the patient during this admission. Overall prognosis at this time remains guarded. Objective - Vital Signs Vital signs: Vital Signs Temp 99.3 F 09/26/18 17:08 Pulse 109 H 09/26/18 17:08 Resp 18 09/26/18 17:08 BP 146/97 09/26/18 17:08 Pulse Ox 95 09/26/18 16:26 Intake & Output 09/25/18 09/26/18 09/26/18 18:59 06:59 18:59 Intake Total 660 640 Output Total 300 350 Balance 660 -300 290 Weight 85 kg Intake: IV 400 Sodium Chloride 0.9% 1, 400 000 ml @ 50 mls/hr IV . Q20H [facility] Rx#:[id number] Oral 660 240 Blood Product 0 Rc As-1 Unit 0 [id number] Output: Urine 300 350 Other: Voiding Method Bedpan Bedpan Bedpan # Voids 1 1 1 - Exam Physical Examination: PHYSICAL EXAMINATION: Patient is resting comfortably in bed. VITAL SIGNS: Blood pressure is [146/67]. Heart rate is [109]. Respiration is [20 ]. Temperature is [99.3]. HEENT: Head is atraumatic, neck is supple, there were no carotid bruits. CHEST: Lungs are clear to auscultation and percussion. CARDIAC: S1, S2 normal rate and rhythm. There is no murmur. ABDOMEN: Soft and nontender. Bowel sounds are present. EXTREMITIES: There is no pedal edema. Peripheral pulses are present. Neurological examination: Patient's neurological examination reveals her to have a right pronator drift. Her memory and intellectual functions are appropriate for her age. Cranial nerves II through XII are grossly intact. Deep tendon reflexes are 1+ and symmetric. Plantar responses flexor bilaterally. Coordination and gait cannot be assessed in this patient at this time. - Labs CBC & Chem 7: 09/26/18 06:40 09/24/18 13:26 Labs: Abnormal Lab Results - Last 24 Hours (Table) 09/25/18 09/26/18 09/26/18 Range/Units 20:58 06:00 06:40 RBC 2.48 L (3.80-5.40) m/uL Hgb 7.4 L (11.4-16.0) gm/dL Hct 23.3 L (34.0-46.0) % Plt Count 125 L (150-450) k/uL Monocytes # 1.1 H (0-1.0) k/uL POC Glucose (mg/dL) 235 H 202 H (75-99) mg/dL Crossmatch 09/26/18 09/26/18 09/26/18 Range/Units 11:52 15:06 16:37 RBC (3.80-5.40) m/uL Hgb (11.4-16.0) gm/dL Hct (34.0-46.0) % Plt Count (150-450) k/uL Monocytes # (0-1.0) k/uL POC Glucose (mg/dL) 246 H 133 H (75-99) mg/dL Crossmatch See Detail Assessment and Plan (1) History of total right hip arthroplasty Current Visit: Yes Status: Acute Code(s): Z96.641 - PRESENCE OF RIGHT ARTIFICIAL HIP JOINT SNOMED Code(s): 027390799092 (2) Acute ischemic left MCA stroke Current Visit: Yes Status: Acute Code(s): I63.512 - CEREB INFRC D/T UNSP OCCLS OR STENOS OF LEFT MID CEREB ART SNOMED Code(s): 505800421 (3) Syncope Current Visit: Yes Status: Acute Code(s): R55 - SYNCOPE AND COLLAPSE SNOMED Code(s): 080838565 (4) Diabetes mellitus Current Visit: Yes Status: Acute Code(s): E11.9 - TYPE 2 DIABETES MELLITUS WITHOUT COMPLICATIONS SNOMED Code(s): 30044667 (5) Osteoarthritis of right hip Current Visit: Yes Status: Acute Code(s): M16.11 - UNILATERAL PRIMARY OSTEOARTHRITIS, RIGHT HIP SNOMED Code(s): 896885505030627 Plan: This patient is a 78-year-old right-handed white female who is postoperative day #3 following right total hip arthroplasty. The patient suffered an acute stroke following her orthopedic surgery 3 days ago. She has undergone 2 CT scans of the brain which revealed evidence of left frontal lobe infarct. She is unable to have MRI of the brain for 6 weeks as she had recent right hip arthroplasty. We are recommending the patient to follow-up with her primary care physician Dr. Victor to have this MRI done in 6 weeks from now. The patient has made some progress in terms of postoperative recovery following her recent surgery. We would recommend to continue with PT OT evaluation for the patient. Orthopedic surgery is given clearance to start the patient on aspirin today and she will be initiated on one baby aspirin daily for secondary stroke prevention. She is otherwise doing quite well today as compared to yesterday and the day before. We would recommend ongoing close monitoring of her blood pressure readings. She is also noted to have slight fever today which should be closely monitored. She also showed a degree of anemia with hemoglobin of 7.4. She is being transfused 1 unit of PRBC. She is being considered for discharge to subacute rehab when she is medically stable. We will continue close neurological follow-up with patient during this admission.
[2018-09-26] MEDS: SENNOSIDES-DOCUSATE SODIUM 1 EACH TAB PO SCH (20:48)
[2018-09-26] MEDS: ATORVASTATIN 20 MG TAB PO SCH (20:48)
[2018-09-26 21:05] LABS: Glucose,Whole Blood 126 mg/dL (75-99)
[2018-09-26 22:29] LABS: Appearance,Urine Clear (Clear); Bilirubin,Urine Negative (Negative); Blood,Urine Negative (Negative); Color,Urine Colorless; Glucose,Urine (UA) Negative (Negative); Ketones,Urine Negative (Negative); Leukocyte Esterase,Urine Negative (Negative); Nitrite,Urine Negative (Negative); Protein,Urine Negative (Negative); Specific Gravity,Urine 1.009 (1.001-1.035); Urobilinogen,Urine <2.0 mg/dL (<2.0)
[2018-09-27 06:05] LABS: Glucose,Whole Blood 183 mg/dL (75-99)
[2018-09-27] MEDS: PANTOPRAZOLE 40 MG TABLET PO SCH (06:37)
[2018-09-27] MEDS: INSULIN ASPART 100 UNIT/ML 1 ML 10 ML VIAL SQ SCH ×4 (07:39→12:35)
[2018-09-27 08:13] LABS: Calcium 8.1 mg/dL (8.4-10.2); Magnesium 1.4 mg/dL (1.6-2.3); Potassium 3.8 mmol/L (3.5-5.1)
[2018-09-27] MEDS: HYDROcodone/APAP 7.5-325MG 1 EACH TAB PO PRN ×2 (08:32→12:53)
[2018-09-27] MEDS: GABAPENTIN 300 MG CAP PO SCH (08:32)
[2018-09-27] MEDS: SODIUM CHLORIDE 0.9% 1,000 ML IV SCH (08:32)
[2018-09-27] MEDS: ASPIRIN 81 MG PO SCH (08:32)
[2018-09-27] MEDS: ENOXAPARIN 40 MG/0.4 ML SYRINGE SQ SCH (08:32)
[2018-09-27] MEDS: MELOXICAM 7.5 MG TAB PO SCH (08:33)
[2018-09-27] MEDS: MAGNESIUM SULFATE-D5W PMX 1 GM in DEXTROSE/WATER 1 100ML.BAG IVPB SCH ×3 (09:54→12:34)
[2018-09-27 11:08] LABS: Basophils % (A) 0 %; Eosinophils # (A) 0.1 k/uL (0-0.7); Eosinophils % (A) 1 %; HCT 28.3 % (34.0-46.0); Lymphocytes # (A) 1.3 k/uL (1.0-4.8); Lymphocytes % (A) 16 %; MCH 30.5 pg (25.0-35.0); MCHC 33.2 g/dL (31.0-37.0); MCV 91.9 fL (80.0-100.0); Monocytes % (A) 12 %; Neutrophils # (A) 5.5 k/uL (1.3-7.7); Neutrophils % (A) 67 %; Platelet Count 170 k/uL (150-450); RBC 3.08 m/uL (3.80-5.40); RDW 13.5 % (11.5-15.5); WBC 8.2 k/uL (3.8-10.6)
[2018-09-27 11:10] LABS: HGB 9.4 gm/dL (11.4-16.0)
[2018-09-27 11:15] LABS: Glucose,Whole Blood 190 mg/dL (75-99)
[2018-09-27 11:27] VITALS: BP 110/53; PULSE 96; RESP 16; TEMP 98.1
--- NOTE | 2018-09-27 11:41 | P.DS ---
Providers Date of admission: 09/23/18 07:36 Expected date of discharge: 09/27/18 Attending physician: Parth Pak Primary care physician: Stan Victor [facility] Course: Date of admission: 09/23/2018 Date of discharge: 09/27/2018 Admission diagnosis: Status post right total hip arthroplasty Discharge diagnosis: Same Attending physician: Dr. Pak Surgical procedures: Right total hip arthroplasty Brief history: Patient is a 78-year-old female with a history of progressive primary right hip osteoarthritis. At this point patient has failed conservative treatment measures and has opted to proceed with a elective right total hip arthroplasty. Hospital course: Details of patient's surgery can be found in operative report. Patient tolerated the procedure well and was subsequently transported to orthopedic floor. Patient's orthopeidc and medical care was provided daily. Patient had daily laboratory tests performed for evaluation of overall blood counts. Patient had daily physical therapy to include strengthening range of motion as well as education with walker ambulation. Patient was treated with Lovenox for their postoperative DVT prophylaxis during their inpatient stay. Post op day #1 patient had an episode of nonresponsiveness. She underwent proper work up, it was determined patient had a stroke involving the left MCA. She was unable to have a brain MRI due to recent hip surgery. She was followed by neurology during her hospital staty. Patient reported satisfactory pain control with oral pain medications by postoperative day 0. Patient showed satisfactory progress with physical therapy. Patient moved steadily through the program and had no difficulty meeting the goals by postoperative day 4. Given patient's otherwise satisfactory course and having met physical therapy goals, plan is to discharge patient rehab on postoperative day 4. Discharge condition/disposition: Patient will be discharged rehab in stable condition. Discharge medications: Instructions are given on resumption of patient's normal daily medications per primary care recommendation, in addition patient will be prescribed [place] 7.5mg/325mg, Heparin 5000 units, Lipitor 20mg. Discharge instructions: 1. Wound care and infection precautions, keep incision dry and covered while showering, no lotions, creams, moisturizers. No soaking, tubs, pools, hottubs. Do not scrub over the incision. 2. Weight-bear as tolerated with walker / cane until follow-up. 3. Ice and elevate when necessary. Do not exceed 20 minutes per hour with ice pack. 4. Utilize compression sleeve until seen at first follow up appointment. 5. Visiting nursing care. 6. Home physical therapy. 7. Pain meds and anticoagulants per prescription. 8. Pain medication has potential to cause constipation. Increase oral fluid and fiber intake. Contact primary care provider if you have not had a bowel movement within 48 hours after discharge 9. No anti-inflammatory medication until discussed at first post operative visit, this including Motrin, Aleve, Mobic, Diclofenac. 10. Follow up in office at 2 weeks postop with Ez Peter PA-C 11. Follow up with your primary care doctor 7-10 days after discharge. 12. Contact [facility] with any questions, . Procedures: Right total hip arthroplasty Patient Condition at Discharge: Good Plan - Discharge Summary Discharge Rx Participant: Yes New Discharge Prescriptions: New Heparin Sodium,Porcine [Heparin Sodium] 5,000 unit SQ Q12HR #60 vial HYDROcodone/APAP 7.5-325MG [[place] 7.5] 1 each PO Q6HR PRN #28 tab PRN Reason: Pain Atorvastatin Calcium [Lipitor] 20 mg PO HS #30 tab No Action Insulin Aspart [NovoLOG] 10 units SQ AC-TID metFORMIN HCL [Glucophage] 2,000 mg PO BID Ramipril [Altace] 2.5 mg PO QAM Cyclobenzaprine HCl 10 mg PO BID PRN PRN Reason: Pain Aspirin 81 mg PO DAILY Omeprazole 40 mg PO DAILY Gabapentin [Neurontin] 300 mg PO TID Ergocalciferol [Vitamin D2] 50,000 unit PO Q14D Exenatide Microspheres [Bydureon Pen] 2 mg SQ FR Turmeric Root Extract [Turmeric] 500 mg PO DAILY [place]-3 Fatty Acids/Fish Oil [[place]-3 Fish Oil 1,200 mg Sfgl] 1 cap PO DAILY Cyanocobalamin (Vitamin B-12) [Vitamin B-12] 1,000 mcg PO DAILY Bacillus Coagulans [Digestive Advantage] 1 tab PO DAILY Insulin Aspart [NovoLOG (formulary)] See Protocol SQ HS PRN PRN Reason: sliding scale Insulin Glargine,Hum.rec.anlog [[place] Solostar] 36 units SQ DAILY Discharge Medication List Insulin Aspart [NovoLOG] 10 units SQ AC-TID 04/22/15 [History] metFORMIN HCL [Glucophage] 2,000 mg PO BID 04/22/15 [History] Ramipril [Altace] 2.5 mg PO QAM 04/23/15 [History] Aspirin 81 mg PO DAILY 03/21/18 [History] Cyclobenzaprine HCl 10 mg PO BID PRN 03/21/18 [History] Ergocalciferol [Vitamin D2] 50,000 unit PO Q14D 03/21/18 [History] Exenatide Microspheres [Bydureon Pen] 2 mg SQ FR 03/21/18 [History] Gabapentin [Neurontin] 300 mg PO TID 03/21/18 [History] Omeprazole 40 mg PO DAILY 03/21/18 [History] Bacillus Coagulans [Digestive Advantage] 1 tab PO DAILY 09/12/18 [History] Cyanocobalamin (Vitamin B-12) [Vitamin B-12] 1,000 mcg PO DAILY 09/12/18 [ History] Insulin Aspart [NovoLOG (formulary)] See Protocol SQ HS PRN 09/12/18 [History] [place]-3 Fatty Acids/Fish Oil [[place]-3 Fish Oil 1,200 mg Sfgl] 1 cap PO DAILY [History] Turmeric Root Extract [Turmeric] 500 mg PO DAILY 09/12/18 [History] Insulin Glargine,Hum.rec.anlog [[place] Solostar] 36 units SQ DAILY 09/25/18 [ History] Atorvastatin Calcium [Lipitor] 20 mg PO HS #30 tab 09/27/18 [Rx] HYDROcodone/APAP 7.5-325MG [[place] 7.5] 1 each PO Q6HR PRN #28 tab 09/27/18 [Rx] Heparin Sodium,Porcine [Heparin Sodium] 5,000 unit SQ Q12HR #60 vial 09/27/18 [ Rx] Follow up Appointment(s)/Referral(s): Rachell Orozco MD [STAFF PHYSICIAN] - 1 Week (office will call Chase with appointment time) Chase White [NON-STAFF] - As Needed Efren Peter PAC [PHYSICIAN DANCING INSTRUCTOR] - 2 Weeks Activity/Diet/Wound Care/Special Instructions: Orthopedic Discharge Instructions: 1. Wound care and infection precautions, keep incision dry and covered while showering, no lotions, creams, moisturizers. No soaking, pools, hot tubs. Do not scrub over incision. 2. Weight-bear as tolerated with walker / cane until follow-up. 3. Ice and elevate when necessary. Do not exceed 20 minutes per hour with ice pack. 4. Utilize compression sleeve until seen at first follow up appointment. 5. Pain meds and anticoagulants per prescription. 6. Pain medication has potential to cause constipation. Increase oral fluid and fiber intake. Contact primary care provider if you have not had a bowel movement within 48 hours after discharge. 7. No anti-inflammatory medication until discussed at first post operative visit, this including Motrin, Aleve, Mobic, Diclofenac. 8. Follow up in office at 2 weeks postop with Ez Peter PA-C 9. Follow up with your primary care doctor 7-10 days after discharge. 10. Contact [facility] with any questions, . Discharge Disposition: HOME WITH HOME HEALTH SERVICES
[2018-09-27] MEDS: LISINOPRIL 2.5 MG TAB PO SCH (12:05)
--- NOTE | 2018-09-27 12:22 | P.DS ---
Providers Date of admission: 09/23/18 07:36 Expected date of discharge: 09/27/18 Attending physician: Parth Pak Consults: 09/23/18 12:17 Consult Physician Routine Consulting Provider: Stan Victor Consult Reason/Comments: Medical management Do you want consulting provider notified?: Yes 09/23/18 14:54 Consult Physician Routine Consulting Provider: Anju Salazar Consult Reason/Comments: medical management Do you want consulting provider notified?: Yes 09/24/18 13:05 Consult Physician Urgent Consulting Provider: Rachell Orozco Consult Reason/Comments: Possible CVA Do you want consulting provider notified?: Yes Primary care physician: Stan Victor [facility] Course: The patient is a 78 yo F with a PMH of R hip OA, DM, and GERD who was admitted to the hospital for elective R hip arthroplasty which was performed uneventfully on 09/23/18. On POD # 1, the patient had a syncopal episode ( lasting possibly 10 minutes) and was noted to have RUE weakness. CT Head showed low attenuation of L frontal deep white matter, suspicious for infarct. Neurology was consulted and recommended MRI/MRA which could not be done due to recent hip surgery and pt was advised to undergo the MRI as an outpatient after [address] Head showed small vessel ischemia and lacunar infarcts in the L frontal lobe, unchanged from exam the day prior. CTA was ordered and showed 60% stenosis measuring 1.1 cm involving the distal L ICA extending into the carotid bulb. No evidence of dissection, aneurysmal outpoutching, or vascular occlusion within the head or neck were noted. EEG failed to reveal any focal, lateralized, or epileptiform abnormalities. The patient was started on Aspirin 81 mg. She was seen and examined at the bedside. She notes continued improvements in her R hip pain and no further episodes of unresponsiveness. She is presently stable and ready for discharge to rehab facility. Physical Examination General: Awake, alert, in no acute distress HEENT: NC/AT, anicteric sclerae, moist conjunctiva, no lid-lag, PERRLA, oropharynx clear, no erythema, exudates Cardiovascular: S1/S2 wnl, no murmurs, rubs, or gallops Lungs: Clear to auscultation, normal respiratory effort, no accessory muscle use Abdominal: Soft, nontender, non-distended, no guarding, rebound, or rigidity, normoactive bowel sounds Skin: Warm, dry Extremities: No edema or contractures Psychiatric: Alert and oriented to person, place and time, appropriate affect, Intact judgment Neuro: CN II-XI grossly intact, sensation to light touch grossly present throughout, R pronator drift, LUE 5/5, LLE 5/5, RLE 3/5 due to pain Discharge diagnosis: Acute ischemic L MCA Stroke, Syncope, Post-op R hip total arthroplasty, Diabetes Mellitus, R hip OA, GERD, Normocytic anemia, Urinary retention A total of 60 minutes of time were spent preparing this complex discharge summary. Pertinent Studies: Head CT: As per above Head CTA: As per above EEG: As per above Patient Condition at Discharge: Good Plan - Discharge Summary Discharge Rx Participant: Yes New Discharge Prescriptions: New Heparin Sodium,Porcine [Heparin Sodium] 5,000 unit SQ Q12HR #60 vial HYDROcodone/APAP 7.5-325MG [[place] 7.5] 1 each PO Q6HR PRN #28 tab PRN Reason: Pain Atorvastatin Calcium [Lipitor] 20 mg PO HS #30 tab Lisinopril [Zestril] 2.5 mg PO DAILY tab Pantoprazole [Protonix] 40 mg PO AC-BRKFST tablet.dr Continue Insulin Aspart [NovoLOG] 10 units SQ AC-TID metFORMIN HCL [Glucophage] 2,000 mg PO BID Ramipril [Altace] 2.5 mg PO QAM Cyclobenzaprine HCl 10 mg PO BID PRN PRN Reason: Pain Aspirin 81 mg PO DAILY Gabapentin [Neurontin] 300 mg PO TID Ergocalciferol [Vitamin D2 (DRISDOL)] 50,000 unit PO Q14D Exenatide Microspheres [Bydureon Pen] 2 mg SQ FR Turmeric Root Extract [Turmeric] 500 mg PO DAILY Cyanocobalamin (Vitamin B-12) [Vitamin B-12] 1,000 mcg PO DAILY Insulin Glargine,Hum.rec.anlog [[place] Solostar] 36 units SQ DAILY Discontinued Omeprazole 40 mg PO DAILY [place]-3 Fatty Acids/Fish Oil [[place]-3 Fish Oil 1,200 mg Sfgl] 1 cap PO DAILY Bacillus Coagulans [Digestive Advantage] 1 tab PO DAILY Insulin Aspart [NovoLOG (formulary)] See Protocol SQ HS PRN PRN Reason: sliding scale Discharge Medication List Insulin Aspart [NovoLOG] 10 units SQ AC-TID 04/22/15 [History] metFORMIN HCL [Glucophage] 2,000 mg PO BID 04/22/15 [History] Ramipril [Altace] 2.5 mg PO QAM 04/23/15 [History] Aspirin 81 mg PO DAILY 03/21/18 [History] Cyclobenzaprine HCl 10 mg PO BID PRN 03/21/18 [History] Ergocalciferol [Vitamin D2 (DRISDOL)] 50,000 unit PO Q14D 03/21/18 [History] Exenatide Microspheres [Bydureon Pen] 2 mg SQ FR 03/21/18 [History] Gabapentin [Neurontin] 300 mg PO TID 03/21/18 [History] Cyanocobalamin (Vitamin B-12) [Vitamin B-12] 1,000 mcg PO DAILY 09/12/18 [ History] Turmeric Root Extract [Turmeric] 500 mg PO DAILY 09/12/18 [History] Insulin Glargine,Hum.rec.anlog [[place] Solostar] 36 units SQ DAILY 09/25/18 [ History] Atorvastatin Calcium [Lipitor] 20 mg PO HS #30 tab 09/27/18 [Rx] HYDROcodone/APAP 7.5-325MG [[place] 7.5] 1 each PO Q6HR PRN #28 tab 09/27/18 [Rx] Heparin Sodium,Porcine [Heparin Sodium] 5,000 unit SQ Q12HR #60 vial 09/27/18 [ Rx] Lisinopril [Zestril] 2.5 mg PO DAILY tab 09/27/18 [Rx] Pantoprazole [Protonix] 40 mg PO AC-BRKFST tablet. 09/27/18 [Rx] Follow up Appointment(s)/Referral(s): Rachell Orozco MD [STAFF PHYSICIAN] - 1 Week (office will call Chase with appointment time) Chase White, [NON-STAFF] - As Needed Efren Peter PAC [PHYSICIAN DROP FORGER] - 2 Weeks Patient Instructions/Handouts: Anterior Hip Replacement (DC) Activity/Diet/Wound Care/Special Instructions: Orthopedic Discharge Instructions: 1. Wound care and infection precautions, keep incision dry and covered while showering, no lotions, creams, moisturizers. No soaking, pools, hot tubs. Do not scrub over incision. 2. Weight-bear as tolerated with walker / cane until follow-up. 3. Ice and elevate when necessary. Do not exceed 20 minutes per hour with ice pack. 4. Utilize compression sleeve until seen at first follow up appointment. 5. Pain meds and anticoagulants per prescription. 6. Pain medication has potential to cause constipation. Increase oral fluid and fiber intake. Contact primary care provider if you have not had a bowel movement within 48 hours after discharge. 7. No anti-inflammatory medication until discussed at first post operative visit, this including Motrin, Aleve, Mobic, Diclofenac. 8. Follow up in office at 2 weeks postop with Ez Peter PA-C 9. Follow up with your primary care doctor 7-10 days after discharge. 10. Contact [facility] with any questions, . Discharge Disposition: TRANSFER TO SNF/ECF
--- NOTE | 2018-09-30 12:24 | CDI ---
Last Revision, September 2017 Documentation Clarification Form Date: 09/30/18 From: Kathy Michele Dana Ahmadi, [employer] Hours-8:30 am & 5 pm M-Luis Admit Date: 09/23/2018 7:36:00 AM Patient Name: Laxmi Carbajal Visit Number: [id number] Discharge Date: 09/27/18 ATTENTION: The Clinical Documentation Specialists (CDI) and [facility] Coding Staff appreciate your assistance in clarifying documentation. Please respond to the clarification below the line at the bottom and electronically sign. The CDI & [facility] Coding staff will review the response and follow-up if needed. Please note: Queries are made part of the Legal Health Record. If you have any questions, please contact the author of this message via ITS. Parth Lai , Acute ischemic left MCA stroke is documented in the consult, PNs and DS. Patients Admitting Diagnosis: Right hip OA Post-Operative Diagnosis: Right hip OA Procedure performed: Direct anterior right total hip arthroplasty History/Risk Factors: HTN, DM Clinical Indicators: syncope, difficulty w speech (slurring of words, word finding difficulities) and right sided weakness Treatment: CAT scan of brain Consults: neurology In order to accurately reflect this patients severity of illness, please clarify if the acute ischemic left MCA stroke is: An expected post-procedural or post-surgical condition; Integral to the procedure; Inherent to the procedure; An unexpected post-procedural or post-surgical condition related to surgical care; Other, please specify Unable to determine An unexpected postprocedural condition Please continue to document in your progress notes and discharge summary in order to capture severity of illness and risk of mortality. Include clinical findings that support your diagnosis. MTDD
== END 2018-09-27 14:10 | DRG 469 ==
LOC: 2ORMAIN 07:36 → 4SSUR 14:37 → 3SCARD 09-25 17:02
PROVIDERS: ADMIT Orthopaedic Surgery; ATTEND Orthopaedic Surgery
PROC: 0SR902A Replacement of Right Hip Joint with Metal on Polyethylene Synthetic Substitute, Uncemented, Open Approach (ICD-10-PCS; principal; 2018-09-23 09:45)
PROC: 30233N1 Transfusion of Nonautologous Red Blood Cells into Peripheral Vein, Percutaneous Approach (ICD-10-PCS; 2018-09-26)
DX: M16.11 Unilateral primary osteoarthritis, right hip (principal); I63.512 Cerebral infarction due to unspecified occlusion or stenosis of left middle cerebral artery; D62 Acute posthemorrhagic anemia; R47.01 Aphasia; E11.40 Type 2 diabetes mellitus with diabetic neuropathy, unspecified; E78.5 Hyperlipidemia, unspecified; I10 Essential (primary) hypertension; R33.9 Retention of urine, unspecified; K21.9 Gastro-esophageal reflux disease without esophagitis; Z79.82 Long term (current) use of aspirin; Z79.4 Long term (current) use of insulin; Z79.899 Other long term (current) drug therapy; Z90.49 Acquired absence of other specified parts of digestive tract; Z98.49 Cataract extraction status, unspecified eye
CPT/HCPCS: 70450; 70496; 70498; 73501; 80048; 80061; 81003; 83036; 83735; 85025; 85027; 85610; 86850; 86900; 86901; 86920; 88300; 93306; 93880; 95819

== ENCOUNTER → 2019-04-03 | Outpatient (CLI) | payer MEDICARE ==
--- NOTE | 2019-04-03 15:14 | MR ---
EXAMINATION TYPE: MR lumbar spine wo con DATE OF EXAM: 04/03/2019 COMPARISON: None HISTORY: Low back pain TECHNIQUE: Multiplanar, multisequence images of the lumbar spine were acquired. FINDINGS: The lumbar spine vertebral bodies maintain normal vertebral body heights and alignment. Bon e marrow signal is within normal limits. Conus medullaris is unremarkable terminating at L2. Multilev el disc desiccation is seen. L1-L2: There is a small broad-based disc bulge without spinal canal stenosis nor neural foraminal olivier rowing. L2-L3: There is a right paracentral disc herniation superimposed on a broad-based disc bulge resultin g in minimal right neural foraminal narrowing without spinal canal stenosis. Minimal facet arthropath y is also seen. L3-L4: There is a broad-based disc bulge and facet arthropathy resulting in mild bilateral neural for aminal narrowing without spinal canal stenosis. L4-L5: There is a left foraminal disc herniation and annular tear on T2 nonfat sat sagittal image 5 a nd axial image 7 examination with facet arthropathy resulting in mild left neural foraminal narrowing and minimal right neural foraminal narrowing. Ligamentum flavum buckling and facet arthropathy mildl y narrow the spinal canal in a transverse dimension. L5-S1: There is a small broad-based disc bulge without spinal canal stenosis and resulting in only mi nimal left neural foraminal narrowing due to the left eccentric nature of the disc bulge. IMPRESSION: 1. Left foraminal disc herniation at L4-L5 creating mild left neural foraminal narrowing. Mild spinal canal stenosis is seen as there is narrowing in a transverse dimension by ligamentum flavum buckling and facet arthropathy. 2. Right paracentral disc herniation at L2-L3 resulting in minimal right neural foraminal narrowing w ithout spinal canal stenosis. 3. Mild multilevel degenerative disc disease at the remaining levels of the lumbar spine as detailed above.
== END | disposition home or self-care (01) ==
LOC: RADMRIMAIN 11:59
PROVIDERS: ATTEND Orthopaedic Surgery
DX: M48.061 Spinal stenosis, lumbar region without neurogenic claudication (principal); M51.26 Other intervertebral disc displacement, lumbar region; M51.36 Other intervertebral disc degeneration, lumbar region
CPT/HCPCS: 72148

== ENCOUNTER → 2019-04-17 | Outpatient (CLI) | payer MEDICARE ==
[2019-04-17 11:48] VITALS: BP 124/74; PULSE 94; RESP 16
--- NOTE | 2019-04-17 15:29 | P.PAINCN ---
History of Present Illness - Reason for Consult Consult date: 04/17/19 - History of Present Illness This is initial consultation visit for this 79 years old female with a chronic history of severe low back pain, with radiation to the right lower extremity associated with numbness and tingling sensation, patient had the hip replacement surgery done in August 2018, after the surgery patient developed stroke and she is currently on Plavix 75 mg daily, she is currently having numbness and tin gling sensation in the anterior aspect of her right Thigh, and also she is having severe low back pain, with some weakness in her right lower extremity, the pain is constant and increases with any activity , intensity of the pain is 3/10 increased to 5/10, she denies any change in the bowel movement or urination she denies any fever or night sweats, and intensity of the pain interfering with the quality of life, she has done physical therapy and chiropractics , and she had some improvement of her symptoms, she continued to ambulate using a cane Past Medical History Past Medical History: CVA/TIA, Diabetes Mellitus, GERD/Reflux, Hyperlipidemia, Hypertension, Osteoarthritis (OA) Additional Past Medical History / Comment(s): diabetic neuropathy,cva 2018-no residual,back pain History of Any Multi-Drug Resistant Organisms: None Reported Past Surgical History: Adenoidectomy, Section, Cholecystectomy, Hernia Repair, Joint Replacement, Orthopedic Surgery, Tonsillectomy Additional Past Surgical History / Comment(s): arthroscopy left knee,rt hip replacement Past Anesthesia/Blood Transfusion Reactions: Postoperative Nausea & Vomiting (PONV) Smoking Status: Never smoker - Past Family History Father Additional Family Medical History / Comment(s): "heart trouble" Mother Family Medical History: No Reported History Medications and Allergies Home Medications Medication Instructions Recorded Confirmed Type Insulin Aspart [NovoLOG] 10 units SQ W/SUPPER 04/22/15 04/17/19 History metFORMIN HCL [Glucophage] 2,000 mg PO BID 04/22/15 04/17/19 History Ramipril [Altace] 2.5 mg PO QAM 04/23/15 04/17/19 History Aspirin 81 mg PO DAILY 03/21/18 04/17/19 History Cyclobenzaprine HCl 10 mg PO BID PRN 03/21/18 04/17/19 History Ergocalciferol [Vitamin D2 50,000 unit PO Q14D 03/21/18 04/17/19 History (DRISDOL)] Exenatide Microspheres [Bydureon 2 mg SQ FR 03/21/18 04/17/19 History Pen] Gabapentin [Neurontin] 300 mg PO TID 03/21/18 04/17/19 History Cyanocobalamin (Vitamin B-12) 1,000 mcg PO DAILY 09/12/18 04/17/19 History [Vitamin B-12] Insulin Glargine,Hum.rec.anlog 36 units SQ QAM 09/25/18 04/17/19 History [Toujeo Solostar] Atorvastatin Calcium [Lipitor] 20 mg PO HS #30 tab 09/27/18 04/17/19 Rx Acetaminophen [Tylenol] 1,000 mg PO Q6H PRN 04/17/19 04/17/19 History Clopidogrel [Plavix] 75 mg PO DAILY 04/17/19 04/17/19 History Allergies Allergy/AdvReac Type Severity Reaction Status Date / Time niacin Allergy whole body Verified 04/17/19 09:17 flushing Physical Exam Vitals: Vital Signs Pulse Resp BP 04/17/19 11:46 94 16 124/74 Intake and Output 04/17/19 04/17/19 04/17/19 06:59 14:59 22:59 Other: Weight 81.647 kg Social history : not smoker , NO ETOH , NO Illegal drugs use . Family history : Review of Systems : - Constitutional : no chills , no fever , no night sweats , - Ears : no ear discharge , no change in hearing -Nose, Mouth ,Throat ; no bleeding gums, no sore throat , no epistaxis , -Cardiovascular : Denies chest pain, , no orthopnea , no palpitation -Respiratory : Denies cough , no dyspnea , no hemoptysis -Gastrointestinal : no change in bowel habits , no coffee-ground emesis . -Genitourinary : No hematuria , no discharge , no incontinence, -Musculoskeletal :gait dysfunction , report low back pain , right lower extremity numbness , - Neurological : no ataxia , no tremor , no sezure , -Psychatric : no suicidal ideation no hallucination - Endocrine : no cold intolerence , no polyuria , no polydypsia , -Hematologic : no easy bleeding , no easy brusing , -Allergic / immm : no angioedema , no wheezing ,no allergic rhinitis -Integumentary : no brttle nails , no change hair / nails , no foot/leg ulcers . Physical Examinations : -Constitutional : Cooperative , not in acute distress . -HEENT : nech ; supple , no Lymphadenopathy , no Thyromegaly , :eyes : no icterus, no photophobia . ENT : normal oropharynx , no Thrush - Respiratory : Chest clear to auscultations Bilaterally , no wheezing . - Cardiovascular : regular rate and rhythem , S1 , S2 , no S3 , no S4. - Gastrointestina l: abdomen soft no tenderness , no organomegally . - Genitourinary : Defferred . -Integumentary : No cellulitis , no ulcers , normal skin turgor , no cyanotic . - neurologic : Cranial nerve II to XII intact , no focal neurological deffecit -psychatric : alert , oriented X 3 , appropriate affect , intact judgment and insight . -Lymphatic : no Lymphadenopathy. - musculoskeltal: abnormal gait . Lumber spine moter stegnth lower extremities ,thigh and legs 3-4/5 Right side , 5/5 Left side deep tendon reflexes : Decreased Knee Jerk on the right , decreased ankle Jerk on the right positive lumber facet Loading Test Range of motion of the lumbar spine Flexion 30 degrees, extension 10 degrees strait leg raising test , positive at degree Fabere test positive RT and positive LT . Severe tenderness over the sacroiliac joint on the right side, and on the left side Results Comments: MRI of the lumbar spine done at [facility] at 04/03/2019 right paracentral disc herniation at L2-3, L4 5 left disc herniation with annular tear bulging disc at L5-S1, and multilevel lumbar facet arthropathy from L2 3 L3 4 L4 5, Assessment and Plan Plan: Assessment and plan=1-lumbar radiculopathy L3 dermatomal distribution 2-lumbar spondylosis with lumbar facet arthropathy. Patient will be good candidate to have diagnostic medial branch block bilaterally at L3 4, L4 5, L5-S1 x2 and possible RFA if she has a positive result, she continued to have pain after the diagnostic medial branch block then she will be candidate for right side transforaminal epidural steroid injection at L2-3 levels, patient currently on Plavix , and no need to hold the Plavix for the diagnostic medial branch block , will use 25-gauge needle. In the future if he proceeded to have radiofrequency of the medial branch or we have to do epidural steroid injection then we have to hold Plavix for 7 days and we will ask for approval of the service observer last primary care , also patient could benefit from increasing the dose of Neurontin to 400 mg 3 times a day Time with Patient: Greater than 30 PQRS Measure Charge Sheet Measure #130: Documentation of Current Meds in Medical Chart: Patient's medications documented in chart Measure #226: Tobacco Use: Screen & Cessation Intervention: Pt not a tobacco user Measure #111: Pneumonia Vaccination: Pneumococcal vaccine administered or previously received Measure #47: Advance Care Plan: Advance care planning discussed & documented, pt chose/unable to give Measure #412: Opioid Treatment Agreement: No documentation of signed opioid treatment agreement Measure #408: Opioid Therapy Follow-up Evaluation: Patient had NO f/u eval minimum every 3 months during opioid therapy Measure #317: Preventitive Care & Scrn High Bld Press & F/U: Normal blood pressure, f/u not required Measure #128: Body Mass Index (BMI) Screening & Follow-up: BMI documented ABOVE normal parameters - f/u documented Measure #131: Pain Assessment & Follow-up: Pain positive & plan documented, Follow-up scheduled Measure #431: Unhealthy Alcohol Use Preventative Care & Scrn: Patient not identified as an unhealthy alcohol user PQRS Narrative: Smoking Status Never smoker Blood Pressure 124/74 Pain Intensity [Back] 3 Scale Used Numeric (1 - 10) Hx Alcohol Use (MH) No Home Medications: Ambulatory Orders Insulin Aspart [NovoLOG] 10 units SQ W/SUPPER 04/22/15 metFORMIN HCL [Glucophage] 2,000 mg PO BID 04/22/15 Ramipril [Altace] 2.5 mg PO QAM 04/23/15 Aspirin 81 mg PO DAILY 03/21/18 Cyclobenzaprine HCl 10 mg PO BID PRN 03/21/18 Ergocalciferol [Vitamin D2 (DRISDOL)] 50,000 unit PO Q14D 03/21/18 Exenatide Microspheres [Bydureon Pen] 2 mg SQ FR 03/21/18 Gabapentin [Neurontin] 300 mg PO TID 03/21/18 Cyanocobalamin (Vitamin B-12) [Vitamin B-12] 1,000 mcg PO DAILY 09/12/18 Insulin Glargine,Hum.rec.anlog [Tylor Samano] 36 units SQ QAM 09/25/18 Atorvastatin Calcium [Lipitor] 20 mg PO HS #30 tab 09/27/18 Acetaminophen [Tylenol] 1,000 mg PO Q6H PRN 04/17/19 Clopidogrel [Plavix] 75 mg PO DAILY 04/17/19
== END | disposition home or self-care (01) ==
LOC: PNWHC3 11:06
PROVIDERS: ATTEND Specialist
DX: G89.29 Other chronic pain (principal); M47.26 Other spondylosis with radiculopathy, lumbar region; M46.96 Unspecified inflammatory spondylopathy, lumbar region; E11.40 Type 2 diabetes mellitus with diabetic neuropathy, unspecified; E78.5 Hyperlipidemia, unspecified; I10 Essential (primary) hypertension; Z86.73 Personal history of transient ischemic attack (TIA), and cerebral infarction without residual deficits; Z79.4 Long term (current) use of insulin; Z79.82 Long term (current) use of aspirin; Z79.02 Long term (current) use of antithrombotics/antiplatelets; Z79.899 Other long term (current) drug therapy
CPT/HCPCS: 99211

== ENCOUNTER 2019-05-12 06:54 | Day surgery (SDC) | payer MEDICARE ==
[2019-05-08 16:10] VITALS: BMI 30.4
[~2019-05-12 06:54] MED LIST changes: -ACETAMINOPHEN TAB 500 MG TAB PO ONE; -DEXAMETHASONE SOD PHOSPHATE 10 MG/ML 1 ML VIAL IV ONE; +LACTATED RINGERS 1,000 ML IV SCH; -MELOXICAM 7.5 MG TAB PO ONE; -ONDANSETRON 4 MG/2 ML VIAL IVP ONE; -SCOPOLAMINE 1.5MG/72HR PATCH TRANSDERM ONE; -TRANEXAMIC ACID 1,000 MG in SODIUM CHLORIDE 0.9% 50 ML IVPB ONE; -ceFAZolin IN SWFI 2 GM/20 ML SYRINGE IVP ONE
[2019-05-12 07:19] VITALS: RESP 16; TEMP 97.7
[2019-05-12] MEDS ORDERED: LIDOCAINE 1% 20 ML VIAL (10MG/ML) FOR IV START INTRADERMA ONE (07:29)
[2019-05-12 07:36] LABS: Glucose,Whole Blood 125 mg/dL (75-99)
--- NOTE | 2019-05-12 08:42 | P.PCN ---
Date of Procedure: 05/12/19 Procedure(s) Performed: PREOPERATIVE DIAGNOSIS : Lumbar spondylosis with Facet Arthropathy without myelopathy POSTOPERATIVE DIAGNOSIS: same PROCEDURE: Diagnostic lumbar medial branch block with fluoroscopy at L3, L4, L5 bilateral #2 ANESTHESIA: Local anesthetic; Versed 1 mg Surgeon: Kevin Harris MD PROCEDURE INDICATION: Lumbar back pain without radiculopathy, not responsive to conservative management. PROCEDURE DESCRIPTION: the patient was seen and identified in the preop holding area , risks and benefits and possible complications of the procedure and alternatives were discussed with the patient, and the patient agreed to proceed with the procedure and signed the consent . IV was started , vital signs were monitored during the procedure and fluoroscopy was used to maximize the benefit and accuracy of the needle placement, and sedation was given to decrease patient anxiety. Patient was taken to the procedure room and placed in prone position. The lumbar region was prepped using chlorhexidine 2. Under strict sterile technique using AP fluoroscopy the bilateral sacral ala were identified and using ipsilateral oblique fluoroscopy ,the junction of the transverse process and the superior articulating process of the L4, L5 vertebra which corresponds to the fluoroscopy image of the eye of the Duane dog for the medial branches were identified. Subsequently, after local infiltration of skin with lidocaine 1% 0.2 mL at each level , a 25-gauge 3.5" Quincke-type needle was placed at the junction of the base of the transverse process and the superior articular process at the appropriate level as well as the sacral ala, and the needle was advanced until the periosteum contacted, needle placement confirmed with AP and oblique fluoroscopy, 0.2 mL of Isovue 200 per level was injected which revealed no vascular uptake and after negative aspiration, 0.5 mL of ropivacaine 0.5% was injected at each level and the needle subsequently removed . At the end of the procedure and the needles were removed and a bandage applied after the skin was cleaned. The patient was taken to recovery room in stable condition and monitors in the recovery room for 20-30 minutes and discharged home in stable condition after discharge criteria met and patient will follow up in clinic in 2 weeks EBL: Minimal COMPLICATION: None.
[2019-05-12] MEDS ORDERED: IV FLUID CONTINUATION 1,000 ML IV ONE (08:44)
[2019-05-12 09:04] VITALS: BP 118/58; PULSE 80
--- NOTE | 2019-05-12 10:56 | FL ---
Fluoroscopy HISTORY: Pain 5 seconds fluoroscopy time supplied to the referring clinician. 3 intraoperative C-arm images docume nt the procedure. See dictated report from anesthesia.
== END 2019-05-12 09:18 | disposition home or self-care (01) ==
LOC: ORPAIN 06:54
PROVIDERS: ATTEND Anesthesiology
DX: G89.29 Other chronic pain (principal); M47.26 Other spondylosis with radiculopathy, lumbar region; Z79.02 Long term (current) use of antithrombotics/antiplatelets; I10 Essential (primary) hypertension; E78.5 Hyperlipidemia, unspecified; E11.40 Type 2 diabetes mellitus with diabetic neuropathy, unspecified; M19.90 Unspecified osteoarthritis, unspecified site; Z86.73 Personal history of transient ischemic attack (TIA), and cerebral infarction without residual deficits; K21.9 Gastro-esophageal reflux disease without esophagitis; Z90.49 Acquired absence of other specified parts of digestive tract; Z96.641 Presence of right artificial hip joint; Z79.82 Long term (current) use of aspirin; Z79.4 Long term (current) use of insulin; Z79.899 Other long term (current) drug therapy; Z88.8 Allergy status to other drugs, medicaments and biological substances
CPT/HCPCS: 64493; 64494; J2250; Q9966; 99152

== ENCOUNTER → 2019-05-27 | Outpatient (CLI) | payer MEDICARE ==
[2019-05-27 13:11] VITALS: BP 118/76; PULSE 88; RESP 18
--- NOTE | 2019-05-27 13:18 | P.PN ---
Subjective Progress Note Date: 05/27/19 This is a 79-year-old lady with history of right hip osteoarthritis and right hip replacement. The patient had a fracture in the right femur after the hip replacement but no surgery was needed to fix the fracture however the patient started to have more pain in the groin area on the right side and also in her lower back. She had lumbar medial branch diagnostic block in our clinic which resulted in any improvement however this improvement started on the third day after the procedure and not immediately after. The patient had a stroke after her hip replacement which resulted in weakness in both legs and chronic edema in both feet. Right now the patient takes Plavix as an anticoagulant coagulants.. She takes Tylenol for her pain. Today, pt denies new-onset weakness, bowel/bladder incontinence, or any other signs or symptoms of cauda equina syndrome. There are no signs of acute intoxication, and no indications of medication diversion or overuse. In addition to above, 13-point review of systems is also negative for chest pain, shortness of breath, changes in vision, changes in hearing, new onset weakness, abdominal pain, diarrhea, extreme fatigue, malaise, fever, skin changes, homicidal or suicidal ideation, or bowel or bladder incontinence. Vital Signs: Reviewed in EMR Gen: AAOx3, NAD HEENT: PERRLA,hearing grossly normal Pulm: resp unlabored,CTA Heart:S1,S2, No Mur Neck: supple, trachea midline Neuro exam of the lower extremities: Straight leg raising test: Benito's test: Range of motion of the lumbar spine: Facet loading test: Tenderness in the paravertebral musculature: Significant tenderness around the right sacroiliac joint Neuro: CN II-XII grossly intact, Imaging: Reviewed in EMR/chart Assessment: Right hip pain status post hip replacement which was complicated by fracture and a stroke Lumbar spondylosis without myelopathy with no response to a diagnostic medial branch block Right sacroiliitis Plan: 1. Explanation: Opioid and psychological risk scores were reviewed. Diagnoses, prognoses, and multiple treatment options including but not limited to physical therapy, interventional therapies, adjuvant medical therapies, narcotic medication therapies, and surgery were discussed with the patient and all ques tions were answered to the patient's satisfaction. 2. Opioid agreement: No opioids prescribed 3. Counseling: The patient was counseled extensively on SMOKING CESSATION, BODY MASS INDEX, EXERCISE. Specifically, the patient was instructed regarding the importance of smoking cessation, obesity, and exercise in the context of both chronic pain and overall health. 4. Procedures: Scheduled for left sacroiliac joint steroid injection under fluoroscopic guidance numb 5. Consultations: None 6. Investigations: None 7. Medications: None 8. Disposition: 9. Maps were reviewed and were appropriate. PQRS measures: 1-Patient's medications are documented in the chart. 2-Tobacco use is negative, counseling given 3-Patient has had a pneumococcal vaccine. 4-Advanced care planning discussed, patient unable to give 5-Opioid contract signed with the patient. 6-Pain positive, follow-up visit or procedure scheduled 7-Patient's blood pressure measured and documented within normal limits. The patient will follow up with his primary care physician. 8-Patient's weight was measured, and body mass index ABOVE the normal limits, and counseling was done. Patient instructed to follow up with PCP. 9-Patient WAS NOT identified as an unhealthy alcohol user.
== END ==
LOC: PNWHC3 12:39
PROVIDERS: ATTEND Anesthesiology
DX: M25.551 Pain in right hip (principal); M46.1 Sacroiliitis, not elsewhere classified; M47.816 Spondylosis without myelopathy or radiculopathy, lumbar region; Z86.73 Personal history of transient ischemic attack (TIA), and cerebral infarction without residual deficits; Z96.641 Presence of right artificial hip joint
CPT/HCPCS: 99211

== ENCOUNTER 2019-05-29 07:25 | Day surgery (SDC) | payer MEDICARE ==
[2019-05-29 08:00] VITALS: RESP 16; TEMP 97.8
[2019-05-29 08:10] LABS: Glucose,Whole Blood 101 mg/dL (75-99)
--- NOTE | 2019-05-29 08:42 | P.PCN ---
Date of Procedure: 05/29/19 Surgeon: Roula Daugherty Pathology: none sent Condition: stable Disposition: PACU Description of Procedure: Preoperative diagnoses= sacroiliac joint dysfunction and sacroiliitis on the R ight side Postoperative diagnoses= same as preoperative diagnosis. Procedure= sacroiliac joint steroid injection under fluoroscopic guidance. Anesthesia= local anesthesia with lidocaine 1% and IV moderate conscious sedation with fentanyl and Versed Estimated blood loss=minimal. Procedure indication= the patient had a history of severe chronic low back pain, diagnosed with sacroiliitis and lumbar sacral facet arthropathy unresponsive to conservative treatment. Procedure description= the patient was seen and identified in the preoperative holding area, risks and benefits and alternative of the procedure and possible complications discussed with the patient, patient signed the consent. an IV was started, and vital signs were monitored and were stable throughout the pr ocedure, patient was placed in the prone position or table and the lumbosacral area was prepped and draped with a sterile fashion, vital signs were closely monitored during the procedure.The sacroiliac joint was identified on the AP view of fluoroscopy then the C-arm was tilted to the contralateral oblique position to superimpose the anterior and posterior joint lines on each other and to have a unified joint line with the target point at the inferior one third of this line. I used 25-gauge 3-1/2 inch Quincke spinal needle for this procedure and after getting into the sacroiliac joint I injected 40 mg of Kenalog +2 MLS of Ropivacaine 0.5%. Pressure was held on the injection site for a few minutes due to the patient's history of being on Plavix. Patient tolerated the procedure well without any complication, The patient returned to supine position after the back was cleaned and a Band- Aid applied, the patient transported to recovery room in stable condition and he was monitored for 30 minutes before he was discharged home and then patient was reexamined before going home and patient was discharged in stable condition and patient will follow up with the pain clinic in a few weeks
[2019-05-29] MEDS ORDERED: LACTATED RINGERS 1,000 ML IV ONE (08:47)
[2019-05-29 09:13] VITALS: BP 128/58; PULSE 91
[2019-05-29 09:17] LABS: Glucose,Whole Blood 92 mg/dL (75-99)
--- NOTE | 2019-05-29 09:25 | FL ---
Fluoroscopy HISTORY: Pain 7 seconds fluoroscopy time supplied to the referring clinician. 1 intraoperative C-arm images docume nt the procedure. See dictated report from anesthesia.
== END 2019-05-29 09:30 | disposition home or self-care (01) ==
LOC: ORPAIN 07:25
PROVIDERS: ATTEND Anesthesiology
DX: M46.1 Sacroiliitis, not elsewhere classified (principal); M43.06 Spondylolysis, lumbar region; G89.29 Other chronic pain; Z96.641 Presence of right artificial hip joint; I69.354 Hemiplegia and hemiparesis following cerebral infarction affecting left non-dominant side; Z79.02 Long term (current) use of antithrombotics/antiplatelets; Z79.899 Other long term (current) drug therapy
CPT/HCPCS: J2250; J3301; J3010; G0260; 27096

== ENCOUNTER 2019-07-08 06:50 | Day surgery (SDC) | payer MEDICARE ==
[2019-07-02 15:53] VITALS: BMI 30.8
[2019-07-08 07:25] LABS: Glucose,Whole Blood 105 mg/dL (75-99)
--- NOTE | 2019-07-08 07:38 | P.PCN ---
Date of Procedure: 07/08/19 Description of Procedure: DESCRIPTION OF PROCEDURE(S): PREOPERATIVE DIAGNOSIS: 1. Right Sacroiliitis 2. Lumbosacral spondylosis POSTOPERATIVE DIAGNOSIS:. Same Procedure: Sacroiliac Joint Injection under biplanar fluoroscopy Site: Right Indications: low back pain Surgeon: Dale Calhoun Anesthesia:IV sedation with versed The patient was seen and examined in the [facility]. Procedure risks and benefits were fully reviewed with the patient. Informed consent for procedure was obtained. The patient was taken into the office fluoroscopy procedure room and placed prone on the table. A pillow was placed under the abdomen to reduce lumbar lordosis. Vital signs were closely monitored during the procedure. AP and oblique views of the sacral spine and pelvis were obtained under fluoroscopy and entry site(s) over the sacroiliac joint(s) were marked. Skin was prepped with DuraPrep and draped in usual sterile manner. Sterile technique was observed throughout the procedure. Fluoroscopy was used to visualize the right S.I. joint(s). 5 cc Lidocaine 1% was infiltrated with a 25 gauge needle over entry site(s) to achieve adequate local anesthesia of the skin and subcutaneous tissue. A 22 gauge spinal needle was introduced into the inferior one-third of the sacroiliac joint under fluoroscopic guidance. Omnipaque 0.5-1 cc was instilled in the joint. Dye was seen free flowing into the joint space. A mixture of 40 mg Kenalog and 1 mL 0.5% ropivacaine injected after negative aspiration. The needle was then withdrawn intact. No complications were noted during the procedure. The patient tolerated the procedure well. The patient was placed in supine position and transferred to the recovery room for observation and remained in stable condition until discharged home. Home discharge instructions were given to the patient by the staff. Patient will follow up in 4 weeks. Images saved store.
[2019-07-08] MEDS ORDERED: IV FLUID CONTINUATION 1,000 ML IV ONE (07:40)
[2019-07-08 07:42] VITALS: RESP 16
[2019-07-08 07:58] VITALS: BP 133/77; PULSE 87
--- NOTE | 2019-07-08 10:45 | FL ---
Fluoroscopy HISTORY: Pain 7 seconds fluoroscopy time supplied to the referring clinician. 1 intraoperative C-arm images docume nt the procedure. See dictated report from anesthesia.
== END 2019-07-08 08:08 | disposition home or self-care (01) ==
LOC: ORPAIN 06:50
PROVIDERS: ATTEND Anesthesiology
DX: M46.1 Sacroiliitis, not elsewhere classified (principal); M47.9 Spondylosis, unspecified; Z88.8 Allergy status to other drugs, medicaments and biological substances
CPT/HCPCS: J2250; J3301; Q9966; G0260; 27096

== ENCOUNTER → 2019-08-05 | Outpatient (CLI) | payer MEDICARE ==
[2019-08-05 12:15] VITALS: BP 180/70; PULSE 94; RESP 18
--- NOTE | 2019-08-05 14:56 | P.PAINPG ---
Subjective Progress Note Date: 08/05/19 This is a 79-year-old lady with history of right hip osteoarthritis s/p right hip replacement. Unfortunately after the hip replacement she did have mild stroke. Today she returns for follow-up after 2 right SI joint injections. She states that she had good benefit from the injections, she is able to be much more mobile and reported greater than 50% decrease in her pain. One of her major pain complaints however, is her previous incision from her hip surgery. Furthermore she does have some pain in the anterior thigh area. She is on Plavix, it appears that she was put on this after her stroke, her primary care is apparently managing this. Objective - Vital Signs Vital signs: Vital Signs Temp Pulse 94 08/05/19 12:06 Resp 18 08/05/19 12:06 BP 180/70 08/05/19 12:06 Pulse Ox 95 08/05/19 12:06 - Exam Vital Signs: Reviewed in EMR GENERAL: Well appearing, in no acute distress, PSYCH: Mood and affect is appropriate. Awake, alert, and oriented SKIN: Skin color, texture, turgor normal, no rashes or lesions HEENT: Normocephalic, atraumatic. EOM intact CV: No pedal edema RESP: Respirations are unlabored, no audible wheezing GI: Abdomen non-distended MUSCULOSKELETAL: Bilateral upper and lower extremity strength is normal and symmetric. No atrophy or tone abnormalities are noted. Buttocks: Positive pain at the right PSIS, she does have positive Troy's, Gaenslen's, Jennifer Extremities: Peripheral joint ROM is full and pain free without obvious instability or laxity in all four extremities. No edema or skin discolorations noted. Gait: Gait is anantalgic NEUR: . No loss of sensation is noted. Cranial nerves are grossly intact. Assessment and Plan Assessment: Assessment: 1. Right SI joint dysfunction 2. Says post right hip surgery, continued pain at incision site 3. Diabetes Plan: 1. Explanation: I explained to her the processes of the right SI RFA. I also explained to her that we likely would not have any procedures for her incisional pain 2. Opioid agreement: None 3. Counseling: I encouraged the patient's stay active. Some of her discomfort appears to be muscle fatigue which is likely related to deconditioning 4. Procedures: Right SI RFA 5. Consultations: None 6. Investigations: Reviewed 7. Medications: I gave the patient a prescription for lidocaine 2% use at her incision site 8. Disposition: For her right SI RFA, she will have to be off Plavix for 7 days for this, we are obtaining clearance , PQRS Measure Charge Sheet Measure #226: Tobacco Use: Screen & Cessation Intervention: Pt not a tobacco user Measure #47: Advance Care Plan: Advance care planning discussed & documented, pt chose/unable to give Measure #412: Opioid Treatment Agreement: No documentation of signed opioid treatment agreement Measure #131: Pain Assessment & Follow-up: Pain positive & plan documented, Follow-up scheduled Measure #431: Unhealthy Alcohol Use Preventative Care & Scrn: Patient not identified as an unhealthy alcohol user PQRS Narrative: Smoking Status Never smoker Blood Pressure 180/70 Pain Intensity [Right Upper 1 Thigh] Scale Used Numeric (1 - 10) Hx Alcohol Use (MH) Yes: RARE Home Medications: Ambulatory Orders Insulin Aspart [NovoLOG] 10 units SQ W/SUPPER 04/22/15 metFORMIN HCL [Glucophage] 1,000 mg PO BID 04/22/15 Ramipril [Altace] 2.5 mg PO QAM 04/23/15 Cyclobenzaprine HCl 10 mg PO BID PRN 03/21/18 Ergocalciferol [Vitamin D2 (DRISDOL)] 50,000 unit PO Q14D 03/21/18 Exenatide Microspheres [Bydureon Pen] 2 mg SQ MAYNARD 03/21/18 Gabapentin [Neurontin] 300 mg PO TID 03/21/18 Insulin Glargine,Hum.rec.anlog [Toujeo Solostar] 36 units SQ QAM 09/25/18 Clopidogrel [Plavix] 75 mg PO DAILY 04/17/19 Acetaminophen [Tylenol Extra Strength] 1,000 mg PO DIRECTED PRN 07/02/19 Cyanocobalamin (Vitamin B-12) [Vitamin B-12] 2,500 mcg PO DAILY 07/02/19 Pravastatin (Unknown Dose) 1 tab PO HS 07/02/19 Controlled Substance Measures - Controlled Substance Measures Is patient prescribed a controlled substance at discharge?: No
== END | disposition home or self-care (01) ==
LOC: PNWHC3 12:00
PROVIDERS: ATTEND Student in an Organized Health Care Education/Training Program
DX: G89.29 Other chronic pain (principal); M53.3 Sacrococcygeal disorders, not elsewhere classified; M16.11 Unilateral primary osteoarthritis, right hip; E11.9 Type 2 diabetes mellitus without complications; Z96.641 Presence of right artificial hip joint; I63.9 Cerebral infarction, unspecified; Z79.4 Long term (current) use of insulin; Z79.84 Long term (current) use of oral hypoglycemic drugs; Z79.899 Other long term (current) drug therapy
CPT/HCPCS: 99211

== ENCOUNTER → 2019-10-16 | Outpatient (CLI) | payer MEDICARE ==
--- NOTE | 2019-10-16 10:46 | US ---
EXAMINATION TYPE: US venous doppler duplex LE BI DATE OF EXAM: 10/16/2019 10:27 AM COMPARISON: NONE CLINICAL HISTORY: M79.662 pain in left, R22.42 swelling M79.661 pain. Bilateral LE skin redness x 1 w [place]. SIDE PERFORMED: Bilateral TECHNIQUE: The lower extremity deep venous system is examined utilizing real time linear array sonog aishwarya with graded compression, doppler sonography and color-flow sonography. VESSELS IMAGED: Common Femoral Vein Deep Femoral Vein Greater Saphenous Vein * Femoral Vein Popliteal Vein Small Saphenous Vein * Proximal Calf Veins (* superficial vessels) Grayscale, color doppler, spectral doppler imaging performed of the deep veins of the lower extremiti es. There is normal flow, compressibility, vascular waveforms. Right Leg: Negative for DVT. Few right groin lymph nodes seen that are nonenlarged. The largest irvin ures 2.3 x 1.5 x 0.7cm. Left Leg: Negative for DVT IMPRESSION: No sonographic evidence of deep venous thrombosis within either the bilateral lower extre mities.
== END | disposition home or self-care (01) ==
LOC: RADUSWWP 09:46
PROVIDERS: ATTEND Internal Medicine
DX: M79.661 Pain in right lower leg (principal); M79.662 Pain in left lower leg; R22.43 Localized swelling, mass and lump, lower limb, bilateral
CPT/HCPCS: 93970

== ENCOUNTER → 2019-11-25 | Outpatient (CLI) | payer MEDICARE ==
--- NOTE | 2019-11-25 12:23 | CT ---
EXAMINATION TYPE: CT pelvis wo con DATE OF EXAM: 11/25/2019 COMPARISON: None HISTORY: Sciatica, right side. CT DLP: 369.1 mGycm Automated exposure control for dose reduction was used. Unenhanced CT of the SI joints is submitted f or evaluation with axial sagittal and coronal images reviewed. FINDINGS: There is narrowing of the bilateral sacroiliac joints noted with vacuum changes seen. Mild sclerosis is noted. Findings are felt to be compatible with osteoarthritis. I do not see evidence for abnormal widening or bony destructive process. No fracture is seen. No evidence for soft tissue mass. IMPRESSION: FINDINGS SUGGEST OSTEOARTHRITIS OF THE SI JOINTS.
--- NOTE | 2019-11-25 15:58 | XR ---
Sacroiliac joints HISTORY: Sciatica, pain Correlation to CT pelvis same date 3 views of the sacroiliac joints There is no evident ankylosis or erosion, there is vacuum phenomenon present bilaterally. Some mild s purring noted. Bone mineralization and alignment are maintained, there is some subchondral sclerosis. Vascular calcifications are present within the pelvis. Degenerative disc changes are noted the lower lumbar spine. IMPRESSION: Osteoarthritis.
== END | disposition home or self-care (01) ==
LOC: RADCTMAIN 11:01
PROVIDERS: ATTEND Neurological Surgery
DX: M53.3 Sacrococcygeal disorders, not elsewhere classified (principal)
CPT/HCPCS: 72192; 72202

== ENCOUNTER → 2019-12-02 | Outpatient (CLI) | payer MEDICARE ==
--- NOTE | 2019-12-02 15:25 | NM ---
EXAMINATION TYPE: NM bone scan whole body DATE OF EXAM: 12/02/2019 COMPARISON: CT 11/25/2019 and plain film 03/25/2019 HISTORY: Right sciatica pain, pain in right side of sacrum Delayed whole-body scanning was performed following the injection of 23.3 mCi Tc 99m MDP. Images acq uired 3 hours post injection. FINDINGS: There is abnormal increased uptake present about the femoral component of right sided hip arthroplast y especially along the greater trochanter and to lesser extent along the mid diaphyseal right femur. Photopenic area is present consistent with hip arthroplasty in the right. Uptake within the hands, wr ists, feet, sternoclavicular joints and shoulders is likely degenerative. Uptake in the spine is thou ght likely degenerative. Soft tissue uptake is normal. There is uptake along the anterior ribs on the right which could possibly be traumatic. IMPRESSION: Correlate with plain film of right hip, possible loosening of the prosthesis, infection not excluded
== END | disposition home or self-care (01) ==
LOC: RADNMMAIN 10:26
PROVIDERS: ATTEND Neurological Surgery
DX: M54.31 Sciatica, right side (principal)
CPT/HCPCS: 78306; A9503

== ENCOUNTER → 2021-04-07 | Outpatient (CLI) | payer MEDICARE ==
--- NOTE | 2021-04-08 07:35 | US ---
EXAMINATION TYPE: US venous doppler duplex LE LT DATE OF EXAM: 04/07/2021 4:53 PM COMPARISON: NONE CLINICAL HISTORY: 81-year-old female R22.42 SWELLING OF LEFT LOWER LIMB. Left calf swelling x 1 year. SIDE PERFORMED: Left TECHNIQUE: The lower extremity deep venous system is examined utilizing real time linear array sonog aishwarya with graded compression, doppler sonography and color-flow sonography. FINDINGS: VESSELS IMAGED: Common Femoral Vein Deep Femoral Vein Greater Saphenous Vein * Femoral Vein Popliteal Vein Small Saphenous Vein * Proximal Calf Veins (* superficial vessels) Left Leg: Negative for DVT. Left medial Popliteal Fossa fluid is seen = 5.3 x 2.9 x 0.7cm. IMPRESSION: 1. No evidence for DVT within the left lower extremity imaged from the groin to the upper calf. 2. Small elongated Mera's cyst.
== END | disposition home or self-care (01) ==
LOC: RADUSWWP 15:34
PROVIDERS: ATTEND Internal Medicine
DX: M71.22 Synovial cyst of popliteal space [Baker], left knee (principal); R22.42 Localized swelling, mass and lump, left lower limb

== ENCOUNTER → 2022-06-07 | Outpatient (CLI) | payer MEDICARE ==
--- NOTE | 2022-06-07 14:42 | NM ---
EXAMINATION TYPE: NM bone 3 phase DATE OF EXAM: 06/07/2022 COMPARISON: 12/02/2019 HISTORY: Right hip pain Triple phase bone scintigraphy was performed following the injection of 23.4 mCi Tc 99m MDP. Immedia te images and 3 hours post injection images acquired. FINDINGS: There is abnormal uptake involving the sternoclavicular joints and shoulders which is stable slightly arthritic. Abnormal uptake throughout the thoracic spine lumbar spine is similar to the prior exam likely degene rative. Abnormal uptake involving the knees and feet likely osteoarthritic. Correlate for prior trauma. Abnormal photopenic defect right hip compatible with previous surgery and there is increased uptake s urrounding the prosthesis. Perfusion slightly asymmetric to the right hip. No significant soft tissue uptake is seen. Delayed imaging demonstrates increased uptake surrounding the prosthesis. Abnormal uptake involving the diaphysis of the right femur is stable from prior exam could be correla angie with x-ray. IMPRESSION: 1. Nonspecific findings involving the postsurgical right hip. If there is concern for infectious etio logy correlate the abnormal uptake seen on today's exam with a tagged WBC study. 2. Additional areas of abnormal uptake are similar to the prior exam
== END | disposition home or self-care (01) ==
LOC: RADNMMAIN 10:30
PROVIDERS: ATTEND Orthopaedic Surgery
DX: M25.551 Pain in right hip (principal)
CPT/HCPCS: 78315; A9503

== ENCOUNTER 2023-02-26 21:52 | Inpatient (IN) | payer MEDICARE ==
[2023-02-26] MEDS ORDERED: HEPARIN SODIUM 1,000 UN/ML (10ML VL) IV ONE ×2 (22:36→23:29)
[2023-02-26] MEDS ORDERED: ASPIRIN 81 MG PO STA (22:36)
[2023-02-26] MEDS ORDERED: HEPARIN SODIUM 1,000 UN/ML (10ML VL) IV PRN (22:36)
[2023-02-26] MEDS ORDERED: NALOXONE 0.4 MG/ML 1 ML VIAL IV PRN (22:40)
--- NOTE | 2023-02-26 22:40 | ED ---
General Adult HPI - General Chief complaint: Chest Pain Stated complaint: CHEST PAIN Time Seen by Provider: 02/26/23 22:25 Source: patient, family Mode of arrival: wheelchair - History of Present Illness Initial comments: Dictation was produced using [employer] dictation software. please excuse any grammatical, word or spelling errors. Chief Complaint: 83-year-old female past medical history of dyslipidemia, hypertension and diabetes presents to the ER for 4 hours of chest pain History of Present Illness: Patient is a 83-year-old female she states that for the last 4 hours she is been suffering from worsening chest pressure. She states it's a sharp chest pressure located to the epigastric substernal area. Patient has a history of cardiac disease. She does have a history of hypertension, dyslipidemia and high cholesterol. States that the pain radiating to her right jaw area. Not associated with diaphoresis or nausea.denies any shortness of breath. No numbness and paresthesias to the arms or legs. The ROS documented in this emergency department record has been reviewed and confirmed by me. Those systems with pertinent positive or negative responses have been documented in the HPI. All other systems are other negative and/or noncontributory. - Related Data Home Medications Medication Instructions Recorded Confirmed Insulin Aspart [NovoLOG] 10 units SQ W/SUPPER 04/22/15 07/31/19 metFORMIN HCL [Glucophage] 1,000 mg PO BID 04/22/15 07/31/19 ramipriL [Altace] 2.5 mg PO QAM 04/23/15 07/31/19 Cyclobenzaprine HCl 10 mg PO BID PRN 03/21/18 07/31/19 Ergocalciferol [Vitamin D2 50,000 unit PO Q14D 03/21/18 07/31/19 (DRISDOL)] Exenatide Microspheres [Bydureon 2 mg SQ MAYNARD 03/21/18 07/31/19 Pen] Gabapentin [Neurontin] 300 mg PO TID 03/21/18 07/31/19 Insulin Glargine,Hum.rec.anlog 36 units SQ QAM 09/25/18 07/31/19 [Daquanurachel Solostvamsi] Clopidogrel [Plavix] 75 mg PO DAILY 04/17/19 07/31/19 Acetaminophen [Tylenol Extra 1,000 mg PO DIRECTED PRN 07/02/19 07/31/19 Strength] Cyanocobalamin (Vitamin B-12) 2,500 mcg PO DAILY 07/02/19 07/31/19 [Vitamin B-12] Pravastatin (Unknown Dose) 1 tab PO HS 07/02/19 07/31/19 Allergies Allergy/AdvReac Type Severity Reaction Status Date / Time niacin Allergy whole body Verified 02/26/23 22:35 flushing Review of Systems ROS Statement: Those systems with pertinent positive or pertinent negative responses have been documented in the HPI. ROS Other: All systems not noted in ROS Statement are negative. Past Medical History Past Medical History: CVA/TIA, Diabetes Mellitus, GERD/Reflux, Hyperlipidemia, Hypertension, Osteoarthritis (OA) Additional Past Medical History / Comment(s): Diabetic neuropathy. CVA 2017-sl weakness rt leg. DDD, Herniated Disc, Back pain History of Any Multi-Drug Resistant Organisms: None Reported Past Surgical History: Adenoidectomy, Section, Cholecystectomy, Hernia Repair, Joint Replacement, Orthopedic Surgery, Tonsillectomy Additional Past Surgical History / Comment(s): arthroscopy left knee, RT hip replacement 08/2018. PAIN PROC 04/22/19 Past Anesthesia/Blood Transfusion Reactions: Postoperative Nausea & Vomiting (PONV) Past Psychological History: No Psychological Hx Reported Smoking Status: Never smoker Past Alcohol Use History: Rare Past Drug Use History: None Reported - Past Family History Father Additional Family Medical History / Comment(s): "heart trouble" Mother Family Medical History: No Reported History General Exam - General Exam Comments Initial Comments: PHYSICAL EXAM: General Impression: Alert and oriented x3, acute distress secondary to pain HEENT: Normocephalic atraumatic, extra-ocular movements intact, pupils equal and reactive to light bilaterally, mucous membranes moist. Cardiovascular: Heart regular rate and rhythm Chest: Able to complete full sentences, no retractions, no tachypnea Abdomen: abdomen soft, non-tender, non-distended, no organomegaly Musculoskeletal: Pulses present and equal in all extremities, no peripheral edema Motor: no focal deficits noted Neurological: CN II-XII grossly intact, no focal motor or sensory deficits noted Skin: Intact with no visualized rashes Psych: Normal affect and mood Course Vital Signs 02/26/23 02/26/23 02/26/23 22:14 22:23 22:25 Temperature 98.1 F Pulse Rate 84 85 83 Pulse Rate [ 80 Bilateral Posterior Tibial] Respiratory 18 18 Rate Blood Pressure 139/60 139/60 O2 Sat by Pulse 98 Oximetry 02/26/23 02/26/23 02/26/23 22:30 22:35 22:40 Temperature Pulse Rate 84 85 92 Pulse Rate [ Bilateral Posterior Tibial] Respiratory 20 20 22 Rate Blood Pressure 139/60 134/60 134/60 O2 Sat by Pulse 99 Oximetry 02/26/23 02/26/23 02/26/23 22:45 22:50 22:55 Temperature Pulse Rate 90 90 89 Pulse Rate [ Bilateral Posterior Tibial] Respiratory 22 24 22 Rate Blood Pressure 134/60 135/69 135/69 O2 Sat by Pulse 95 97 94 L Oximetry - Reevaluation(s) Reevaluation #1: 02/26/23 22:43 received an EKG from nurse at 22:28. EKG consistent with ST segment elevation DC. No old EKG for comparison. code STEMI is paged. case discussed with Dr. Arce. 02/26/23 22:45 EKG Findings - EKG Comments: EKG Findings:: My EKG interpretation: Ventricular rate 83, sinus rhythm,. Interval 166, QRS 87, QTc 380. No CT prolongation, no QTC prolongation, no ST or T-wave changes noted. ST elevations in the anteroseptal precordial leads. Reciprocal changes. Overall this EKG consistent with ST segment elevation DC. Medical Decision Making - Medical Decision Making Was pt. sent in by a medical professional or institution (, PA, [facility], urgent care, hospital, or snf...) When possible be specific @ -No Did you speak to anyone other than the patient for history (EMS, parent, family, police, friend...)? What history was obtained from this source @ -No Did you review nursing and triage notes (agree or disagree)? Why? @ -I reviewed and agree with nursing and triage notes Were old charts reviewed (outside hosp., previous admission, EMS record, old EKG, old radiological studies, urgent care reports/EKG's, snf records)? Report findings @ -Charts reviewed showing that there is no previous cardiology history as have notes with pain management. Differential Diagnosis (chest pain, altered mental status, abdominal pain women, abdominal pain men, vaginal bleeding, musculoskeletal, weakness, fever, dyspnea, syncope, headache, dizziness, GI bleed, back pain, seizure, CVA, palpatations, mental health)? @ -Differential Chest Pain: Stable Angina, Unstable Angina, STEMI, NSTEMI Aortic Dissection, Pneumothorax, Musculoskeletal, Esophageal Spasm GERD, Cholecystitis, Pancreatitis, Zoster, this is not meant to be an all-inclusive list. EKG interpreted by me (3pts min.). @ -As above X-rays interpreted by me (1pt min.). @ -Nonacute CT interpreted by me (1pt min.). @ -None done U/S interpreted by me (1pt. min.). @ -None done What testing was considered but not performed or refused? (CT, X-rays, U/S, labs)? Why? @ -None What meds were considered but not given or refused? Why? @ -None Did you discuss the management of the patient with other professionals (professionals i.e. , PA, [facility], lab, RT, psych nurse, social worker assistant, marketing support coordinator, teacher, special assets officer, lining caser)? Give summary @ -Case with overnight babysitter on-call, Dr. Arce who will take patient to the [facility] Was smoking cessation discussed for >3mins.? @ -No Was critical care preformed (if so, how long)? @ -Yes, 33 minutes Were there social determinants of health that impacted care today? How? (Homelessness, low income, unemployed, alcoholism, drug addiction, t ransportation, low edu. Level, literacy, decrease access to med. care, fci, rehab)? @ -No Was there de-escalation of care discussed even if they declined (Discuss DNR or withdrawal of care, Hospice)? DNR status @ -No What co-morbidities impacted this encounter? (DM, HTN, Smoking, COPD, CAD, Cancer, CVA, ARF, Chemo, Hep., AIDS, mental health diagnosis, sleep apnea, morbid obesity)? @ -None Was patient admitted / discharged? Hospital course, mention meds given and route, prescriptions, significant lab abnormalities, going to OR and other pertinent info. @ -83-year-old female presents emergency department for chest pain. Symptoms are consistent with acute coronary syndrome. EKG shows acute ST segment elevation DC. Patient disposition to the [facility] for further care. Case discussed with on-call hospitalist, Dr. Napoles who will be the Undiagnosed new problem with uncertain prognosis? @ -No Drug Therapy requiring intensive monitoring for toxicity (Heparin, Nitro, Insulin, Cardizem)? @ -No Were any procedures done? @ -No Diagnosis/symptom? Acute, or Chronic, or Acute on Chronic? Uncomplicated (without systemic symptoms) or Complicated (systemic symptoms)? @ -Acute ST segment elevation DC Side effects of treatment? @ -No Exacerbation, Progression, or Severe Exacerbation? @ -No Poses a threat to life or bodily function? How? (Chest pain, USA, DC, pneumonia, PE, COPD, DKA, ARF, appy, cholecystitis, CVA, Diverticulitis, Homicidal, Suicidal, threat to staff... and all critical care pts) @ -yes - Lab Data Result diagrams: 02/26/23 22:45 02/26/23 22:45 Disposition Clinical Impression: STEMI (ST elevation myocardial infarction) Disposition: ADMITTED IP TO THIS [facility] Condition: Critical Decision Time: 23:00
[2023-02-26] MEDS ORDERED: HEPARIN SOD,PORK IN 0.45% NACL 25,000 UNIT in 0.45% NACL 1 250ML.BAG IV SCH (22:45)
[2023-02-26] MEDS ORDERED: NITROGLYCERIN SL TABS 0.4 MG TAB SUBLINGUAL STA (22:46)
[2023-02-26 23:03] LABS: HCT 40.6 % (34.0-46.0); HGB 13.5 gm/dL (11.4-16.0); MCHC 33.1 g/dL (31.0-37.0); MCV 93.5 fL (80.0-100.0); Mean Platelet Volume 10.8; Platelet Count 101 k/uL (150-450); RBC 4.34 m/uL (3.80-5.40); RDW 12.4 % (11.5-15.5); WBC 7.4 k/uL (3.8-10.6)
[2023-02-26 23:04] LABS: Albumin 4.4 g/dL (3.5-5.0); Calcium 9.3 mg/dL (8.4-10.2); Magnesium 2.1 mg/dL (1.6-2.3); Potassium 4.4 mmol/L (3.5-5.1); Total Bilirubin 0.4 mg/dL (0.2-1.3); Total Protein 6.8 g/dL (6.3-8.2)
[2023-02-26 23:07] LABS: INR 0.9 (<1.2); Partial Thromboplastin Time 22.8 sec (22.0-30.0); Prothrombin Time 9.9 sec (9.0-12.0)
[2023-02-26] MEDS ORDERED: fentaNYL (PF) 50 MCG/ML 2 ML AMP ONE (23:12)
[2023-02-26] MEDS ORDERED: LIDOCAINE 1% INJ 10MG/ML (5 ML VIAL-PF) SQ ONE (23:16)
[2023-02-26] MEDS ORDERED: fentaNYL (PF) 50 MCG/ML 2 ML AMP IV ONE (23:16)
[2023-02-26] MEDS ORDERED: VERAPAMIL SYRINGE (5 MG/10 ML) INTRAARTER ONE (23:16)
[2023-02-26] MEDS ORDERED: MIDAZOLAM 2 MG/2 ML VIAL IV ONE (23:24)
[2023-02-26] MEDS ORDERED: HEPARIN SODIUM 1,000 UN/ML (10ML VL) ONE (23:26)
[2023-02-26] MEDS ORDERED: TICAGRELOR 90 MG TAB ONE (23:27)
[2023-02-26] MEDS ORDERED: TICAGRELOR 90 MG TAB PO ONE (23:29)
[2023-02-26] MEDS ORDERED: SODIUM CHLORIDE 0.9% 1,000 ML IV ONE (23:33)
--- NOTE | 2023-02-26 23:44 | XR ---
EXAM: XR Chest, 1 View CLINICAL HISTORY: ITS.REASON XR Reason: Chest Pain TECHNIQUE: Frontal view of the chest. COMPARISON: No previous studies. FINDINGS: Lungs: Unremarkable. No consolidative change. Pleural space: Unremarkable. No pneumothorax. No pleural effusions. Heart: Heart is normal in size. Mediastinum: Unremarkable. Bones/joints: Nondisplaced fracture of the lateral aspect of the right ninth rib, of indeterminate age. Osteopenia. Soft tissues: Soft tissues are unremarkable. Vasculature: Atherosclerotic disease. IMPRESSION: 1. Osteopenia. 2. No active disease. 3. Atherosclerotic disease. 4. Nondisplaced fracture of the anterior lateral aspect of the right ninth rib of indeterminate age. Clinical correlation is advised.
[2023-02-26] MEDS ORDERED: NITROGLYCERIN 1000MCG/10ML SYRINGE INTRACORON ONE (23:46)
[2023-02-26 23:50] LABS: Lymphocytes # (M) 2.44 k/uL (1.0-4.8); Monocytes # (M) 1.04 k/uL (0-1.0); Neutrophils # (M) 3.92 k/uL (1.3-7.7); Neutrophils % (M) 53 %; Nucleated Red Blood Cells 0 /100 WBC (0-0); RBC Morphology Normal; Total Cells Counted 100
[2023-02-27] MEDS ORDERED: HYDROmorphone 0.5 MG/0.5 ML SYRINGE IVP ONE (00:05)
[2023-02-27] MEDS ORDERED: IOPAMIDOL-370 200ML BTL INJ ONE (00:05)
[2023-02-27] MEDS ORDERED: ZOLPIDEM 5 MG TAB PO PRN (00:15)
[2023-02-27] MEDS ORDERED: ATROPINE SULFATE 0.1 MG/ML 10ML SYRINGE IV PRN (00:15)
[2023-02-27] MEDS ORDERED: RX INFO: IV CONTRAST WAS GIVEN 1 EACH MISC MISCELLANE PRN (00:15)
[2023-02-27] MEDS ORDERED: NITROGLYCERIN SL TABS 0.4 MG TAB SUBLINGUAL PRN (00:15)
[2023-02-27] MEDS ORDERED: SODIUM CHLORIDE 0.9% 1,000 ML in EMPTY BAG 1 BAG IV SCH (00:15)
--- NOTE | 2023-02-27 00:23 | P.CRDCN ---
History of Present Illness Consult date: 02/27/23 History of present illness: History of Present Illness: The patient is an 83-year-old female with known history of hypertension, hyperlipidemia and diabetes, prior history of stroke who presented with chest discomfort and evidence of ST segment elevation anteriorly consistent with anterior wall myocardial infarction. She has been complaining of the chest discomfort for the last few days on and off, worse today. She had a cough for the last week but no fever. She has no prior history of cardiac disease. She denies any peripheral edema, PND or orthopnea. She has not been as active physically since her hip surgery and subsequent stroke. She denies any dizzine ss, palpitations or syncope. Medications: Insulin, pravastatin, ramipril,Trulicity Review of Systems: Respiratory: She had a recent cough and mild dyspnea GI: No nausea or vomiting . No history of peptic ulcer disease. No recent GI bleed. : No hematuria or dysuria. Nervous System: She has a prior history of stroke Physical Examination: 83-year-old female, alert and oriented in moderate chest discomfort examined in the cardiac cath laboratory,Blood pressure 130/70, Heart rate 85 Head: Normocephalic. Eyes: Sclerae nonicteric. Neck: Good carotid upstroke, no bruit, no jugular venous distention. Lungs: Clear to auscultation. Heart: Regular rate and rhythm, S1-S2, no S3, no rub. Systolic ejection murmur. Abdomen: Soft nontender, positive bowel sounds no organomegaly. Extremities: No edema, intact distal pulses. Labs: Pending at the time of the procedure EKG: Sinus mechanism with ST segment elevation anteriorly consistent with acute anterior wall myocardial infarction Impression: 1. Acute STEMI, anterior 2. History of hypertension 3. History of hyperlipidemia 4. History of diabetes 5. History of stroke Plan: 1. Proceed with emergent cardiac catheterization, the risks and the complications were discussed with the patient who was in full agreement and understanding 2. Obtain an echocardiogram with Doppler 3. Depending on the results for cardiac catheterization further recommendations will be made 4. Thank you for this consult we will follow with you Past Medical History Past Medical History: CVA/TIA, Diabetes Mellitus, GERD/Reflux, Hyperlipidemia, Hypertension, Osteoarthritis (OA) Additional Past Medical History / Comment(s): Diabetic neuropathy. CVA 2018- weakness rt leg. DDD, Herniated Disc, Back pain History of Any Multi-Drug Resistant Organisms: None Reported Past Surgical History: Adenoidectomy, Section, Cholecystectomy, Hernia Repair, Joint Replacement, Orthopedic Surgery, Tonsillectomy Additional Past Surgical History / Comment(s): arthroscopy left knee, RT hip replacement 08/2018. PAIN PROC 04/22/19 Past Anesthesia/Blood Transfusion Reactions: Postoperative Nausea & Vomiting (PONV) Past Psychological History: No Psychological Hx Reported Smoking Status: Never smoker Past Alcohol Use History: Rare Past Drug Use History: None Reported - Past Family History Father Additional Family Medical History / Comment(s): "heart trouble" Mother Family Medical History: No Reported History Medications and Allergies Home Medications Medication Instructions Recorded Confirmed Type Insulin Aspart [NovoLOG] 10 units SQ W/SUPPER 04/22/15 07/31/19 History metFORMIN HCL [Glucophage] 1,000 mg PO BID 04/22/15 07/31/19 History ramipriL [Altace] 2.5 mg PO QAM 04/23/15 07/31/19 History Cyclobenzaprine HCl 10 mg PO BID PRN 03/21/18 07/31/19 History Ergocalciferol [Vitamin D2 50,000 unit PO Q14D 03/21/18 07/31/19 History (DRISDOL)] Exenatide Microspheres [Bydureon 2 mg SQ MAYNARD 03/21/18 07/31/19 History Pen] Gabapentin [Neurontin] 300 mg PO TID 03/21/18 07/31/19 History Insulin Glargine,Hum.rec.anlog 36 units SQ QAM 09/25/18 07/31/19 History [Toujeo Solostar] Clopidogrel [Plavix] 75 mg PO DAILY 04/17/19 07/31/19 History Acetaminophen [Tylenol Extra 1,000 mg PO DIRECTED PRN 07/02/19 07/31/19 History Strength] Cyanocobalamin (Vitamin B-12) 2,500 mcg PO DAILY 07/02/19 07/31/19 History [Vitamin B-12] Pravastatin (Unknown Dose) 1 tab PO HS 07/02/19 07/31/19 History Allergies Allergy/AdvReac Type Severity Reaction Status Date / Time niacin Allergy whole body Verified 02/26/23 22:35 flushing Physical Exam Vitals: Vital Signs Temp Pulse Pulse Resp BP Pulse Ox 02/26/23 22:55 89 22 135/69 94 L 02/26/23 22:50 90 24 135/69 97 02/26/23 22:45 90 22 134/60 95 02/26/23 22:40 92 22 134/60 02/26/23 22:35 85 20 134/60 99 02/26/23 22:30 84 20 139/60 02/26/23 22:25 83 80 18 139/60 02/26/23 22:23 85 02/26/23 22:14 98.1 F 84 18 139/60 98 Intake and Output 02/26/23 02/26/23 02/27/23 14:59 22:59 06:59 Intake Total 700 Balance 700 Intake: IV 700 Other: Weight 73.936 kg Results 02/26/23 22:45 02/26/23 22:45 Cardiac Enzymes 02/26/23 02/26/23 Range/Units 22:45 22:45 AST 23 (14-36) U/L Troponin I 0.405 H* (0.000-0.034) ng/mL Coagulation 02/26/23 Range/Units 22:45 PT 9.9 (9.0-12.0) sec APTT 22.8 (22.0-30.0) sec CBC 02/26/23 Range/Units 22:45 WBC 7.4 (3.8-10.6) k/uL RBC 4.34 (3.80-5.40) m/uL Hgb 13.5 (11.4-16.0) gm/dL Hct 40.6 (34.0-46.0) % Plt Count 101 L (150-450) k/uL Comprehensive Metabolic Panel 02/26/23 Range/Units 22:45 Sodium 137 (137-145) mmol/L Potassium 4.4 (3.5-5.1) mmol/L Chloride 97 L (98-107) mmol/L Carbon Dioxide 26 (22-30) mmol/L BUN 29 H (7-17) mg/dL Creatinine 1.15 H (0.52-1.04) mg/dL Glucose 209 H (74-99) mg/dL Calcium 9.3 (8.4-10.2) mg/dL AST 23 (14-36) U/L ALT 19 (4-34) U/L Alkaline Phosphatase 67 (38-126) U/L Total Protein 6.8 (6.3-8.2) g/dL Albumin 4.4 (3.5-5.0) g/dL Current Medications Generic Name Dose Route Start Last Admin Trade Name Freq PRN Reason Stop Dose Admin Heparin Sodium (Porcine) 0 unit 02/26/23 22:36 Heparin Sodium 1,000 Un/Ml (10ml Vl) IV PER PROTOCOL PRN Low PTT Protocol Heparin Sodium/Sodium Chloride 250 mls @ 8.872 mls/hr 02/26/23 22:45 02/26/23 22:43 25,000 unit/ Sodium Chloride IV 12 units/kg/hr .Q24H MERY 8.872 mls/hr Administration Protocol 12 UNITS/KG/HR Naloxone HCl 0.2 mg 02/26/23 22:40 Naloxone 0.4 Mg/Ml 1 Ml Vial IV Q2M PRN Opioid Reversal Intake and Output 02/26/23 02/26/23 02/27/23 14:59 22:59 06:59 Intake Total 700 Balance 700 Intake: IV 700 Other: Weight 73.936 kg Patient Weight 02/27/23 06:59 Weight 73.936 kg 02/26/23 22:45 02/26/23 22:45
--- NOTE | 2023-02-27 00:30 | P.CARDCATH ---
Date of Procedure: 02/27/23 Description of Procedure: Cardiac Catheterization: The patient is an 83-year-old female with known history of hypertension, hyperlipidemia, diabetes mellitus who presented with an acute anterior wall myocardial infarction. Recommendations were made regarding cardiac catheterization, the risks and the complications were discussed with the patient who is in full understanding and agreement. Procedure Description: Patient was brought to labeler in fasting semi-sedated state after receiving Fentanyl and Benadryl achieiving moderate conscious sedated state. Using Xylocaine Anesthesia and Seldinger technique, a 6-Jamaican sheath was introduced in the right radial artery . Subsequently, selective coronary angiography was performed using a 5-Jamaican 3.5 bend right Princess and a 6-Jamaican EBU 3.75 guiding catheter. Multiple views of the coronary artery including hemiaxial views were obtained. The 5-Jamaican pigtail catheter was used to cross the aortic valve and LVEDP was calculated. PCI: After obtaining images of the LAD with the EBU 3.75 guiding catheter, a 0.014 BMW J-wire was positioned in the distal LAD, subsequently a 2.5 x 12 mm Treck was advanced into inflation at 8 keeley were done, subsequently a 3.0 x 28 mm Xience susie point stent was deployed and dilated at 16 keeley, after removing the balloon a 3.0 x 15 mm NC Treck balloon was advanced and inflations and the stent were done at 16 keleey. After removing the balloon a 2.5 x 15 mm Xience susie point stent was deployed in the mid segment and dilated at 14 keeley. After the last inflation images were obtained and revealed successful stenting. The patient's chest discomfort improved and her EKG changes improved. Subsequently images of the right coronary artery and LVEDP were measured. Following that, catheter and sheath were removed. Hemostasis was obtained with deployment of TR band . There was no immediate complication. Patient was returned to room in stable condition. Of note, the patient received a total of 4000 units of intravenous heparin as well as intra-arterial verapamil. She received an oral loading dose of Brilinta. Her ACT was followed. Findings: Fluoroscopy: Calcifications were noted in the LAD predominantly in the proximal segment Left main: This is a large-size vessel bifurcating into LAD and circumflex, left main has no high-grade stenosis LAD: This vessel is totally occluded proximally at the takeoff of the first septal baseball glove shaper and the first diagonal branch with no antegrade flow. Left circumflex: This is a nondominant vessel giving rise to a large obtuse marginal branch, the left circumflex has 20-30% plaque with no high-grade stenosis RCA: This is a dominant vessel, bifurcating distally into PDA and PLV. The mid and distal RCA had diffuse intimal disease of 30-40%, the ostium of the PDA has a 50% stenosis. Left Ventriculogram: Not performed Hemodynamics: There was no gradient across the aortic valve, LVEDP was 28-32 mmHg Conclusion: 1. Acutely occluded proximal LAD 2. And mild to moderate disease in the left circumflex and RCA 3. Calcified LAD 4. Elevated LVEDP 5. Successful stenting of the proximal LAD with reduction of stenosis from 100% to less than 5% and successful stenting of the mid LAD with reduction of stenosis from 90% to 0%. Recommendations: The patient will continue on aspirin and Brilinta for one year in addition to aggressive coronary risks modifications. The findings and the recommendations were discussed with the patient and the family and they were in full understanding and agreement. Duration of sedation is 51 minutes.
[2023-02-27 00:31] LABS: Glucose,Whole Blood 191 mg/dL (70-110)
[2023-02-27] MEDS: MAG HYDROX/AL HYDROX/SIMETH 30 ML CUP PO PRN ×2 (01:13→18:35)
--- NOTE | 2023-02-27 03:50 | P.HPIM ---
History of Present Illness H&P Date: 02/27/23 Chief Complaint: chest pain 83 year old female with DM , hypertension patient coming in due to chest pain , she describes central chest pain , pressure like radiating to the back , 10/10 in severity , lasted for couple hours before her sister decided to drive her to the hospital for evaluation . she was resting doing nothing when the pain suddenly started, pain was radiating to the jaw. she denies any associated SOB, dizziness, sweating, or palpitations, denies nausea or vomiting,. she was having cold symptoms for about a week before this happened. she denies any history of blood clots, or recent hospital stay , denies any smoking, illicit drugs or alcohol Review of Systems Pertinent positives as noted in HPI. All other systems were reviewed and are negative Past Medical History Past Medical History: CVA/TIA, Diabetes Mellitus, GERD/Reflux, Hyperlipidemia, Hypertension, Osteoarthritis (OA) Additional Past Medical History / Comment(s): Diabetic neuropathy. CVA 2018-sl weakness rt leg. History of Any Multi-Drug Resistant Organisms: None Reported Past Surgical History: Adenoidectomy, Section, Cholecystectomy, Hernia Repair, Joint Replacement, Orthopedic Surgery, Tonsillectomy Additional Past Surgical History / Comment(s): arthroscopy left knee, RT hip replacement 08/2018. PAIN PROC 04/22/19 Past Anesthesia/Blood Transfusion Reactions: Postoperative Nausea & Vomiting (PONV) Past Psychological History: No Psychological Hx Reported Smoking Status: Never smoker Past Alcohol Use History: Rare Past Drug Use History: None Reported - Past Family History Father Additional Family Medical History / Comment(s): "heart trouble" Mother Family Medical History: No Reported History Medications and Allergies Home Medications Medication Instructions Recorded Confirmed Type Insulin Aspart [NovoLOG] 10 units SQ W/SUPPER 04/22/15 02/27/23 History ramipriL [Altace] 2.5 mg PO QAM 04/23/15 02/27/23 History Ergocalciferol [Vitamin D2 50,000 unit PO Q14D 03/21/18 02/27/23 History (DRISDOL)] Gabapentin [Neurontin] 300 mg PO TID 03/21/18 02/27/23 History Clopidogrel [Plavix] 75 mg PO DAILY 04/17/19 02/27/23 History Acetaminophen [Tylenol Extra 1,000 mg PO DIRECTED PRN 07/02/19 02/27/23 History Strength] Cyanocobalamin (Vitamin B-12) 2,500 mcg PO DAILY 07/02/19 02/27/23 History [Vitamin B-12] Allergies Allergy/AdvReac Type Severity Reaction Status Date / Time niacin Allergy whole body Verified 02/26/23 22:35 flushing Physical Exam Vitals: Vital Signs Temp Pulse Pulse Pulse Resp BP BP 02/27/23 02:10 92 16 130/63 02/27/23 02:05 89 19 130/63 02/27/23 02:00 92 13 123/64 02/27/23 01:55 86 8 L 123/64 02/27/23 01:50 85 3 L 123/64 02/27/23 01:45 88 15 123/64 02/27/23 01:40 84 13 123/64 02/27/23 01:35 87 14 123/64 02/27/23 01:30 90 18 119/60 02/27/23 01:25 86 12 119/60 02/27/23 01:20 86 12 119/60 02/27/23 01:15 89 13 108/57 02/27/23 01:10 89 18 108/57 02/27/23 01:05 87 14 108/57 02/27/23 01:00 98.1 F 85 15 121/64 02/27/23 00:55 88 6 L 121/64 02/27/23 00:50 89 11 L 121/64 02/27/23 00:45 90 6 L 122/60 02/27/23 00:40 98.1 F 88 88 18 122/60 122/60 02/27/23 00:35 92 14 122/60 02/27/23 00:30 94 13 02/27/23 00:29 21 02/26/23 23:05 115/61 02/26/23 23:00 88 27 H 99/52 02/26/23 22:59 93 17 99/52 02/26/23 22:55 89 22 135/69 02/26/23 22:50 90 24 135/69 02/26/23 22:45 90 22 134/60 02/26/23 22:40 92 22 134/60 02/26/23 22:35 85 20 134/60 02/26/23 22:30 84 20 139/60 05/01/23 22:25 83 80 18 139/60 02/26/23 22:23 85 02/26/23 22:14 98.1 F 84 18 139/60 Pulse Ox 02/27/23 02:10 92 L 02/27/23 02:05 95 02/27/23 02:00 96 02/27/23 01:55 92 L 02/27/23 01:50 93 L 02/27/23 01:45 92 L 02/27/23 01:40 92 L 02/27/23 01:35 93 L 02/27/23 01:30 89 L 02/27/23 01:25 92 L 02/27/23 01:20 92 L 02/27/23 01:15 93 L 02/27/23 01:10 92 L 02/27/23 01:05 91 L 02/27/23 01:00 92 L 02/27/23 00:55 93 L 02/27/23 00:50 92 L 02/27/23 00:45 92 L 02/27/23 00:40 92 L 02/27/23 00:35 86 L 02/27/23 00:30 02/27/23 00:29 02/26/23 23:05 02/26/23 23:00 94 L 02/26/23 22:59 92 L 02/26/23 22:55 94 L 02/26/23 22:50 97 02/26/23 22:45 95 02/26/23 22:40 02/26/23 22:35 99 02/26/23 22:30 02/26/23 22:25 02/26/23 22:23 02/26/23 22:14 98 Intake and Output 02/26/23 02/26/23 02/27/23 14:59 22:59 06:59 Intake Total 775 Output Total 300 Balance 475 Intake: IV 700 Intake, IV Titration 75 Amount Sodium Chloride 0.9% 1, 75 000 ml In Empty Bag 1 bag @ 1 ML/KG/HR 73.936 mls/ hr IV .[id number] [facility] Rx#: [id number] Output: Urine 300 Other: Weight 73.936 kg 72.5 kg Constitutional: No acute distress, conversant, pleasant Eyes: Anicteric sclerae, moist conjunctiva, Pupils equal round reactive to light ENMT: NC/AT Oropharynx clear, no erythema, or exudates Neck: Supple, no masses, or JVD No carotid bruits No thyromegaly Lungs: Clear to auscultation Clear to percussion Normal respiratory effort, no accessory muscle use Cardiovascular: Heart regular in rate and rhythm, No murmurs, gallops, or rubs No peripheral edema Abdominal: Soft tenderness to deep palpation over the epigastric region , no guarding, rebound or rigidity Abdomen moving with respiration Normoactive bowel sounds No hepatomegaly, No splenomegaly No palpable mass No abdominal wall hernia noted Skin: Normal temperature, tone, texture, turgor No induration No subcutaneous nodules No rash, lesions No ulcers Extremities: No digital cyanosis No clubbing Pedal pulses intact and symmetrical Radial pulses intact and symmetrical No calf tenderness Psychiatric: Alert and oriented to person, place and time Appropriate affect fair judgement Neuro Muscles Strength 5/5 in all 4 extremities Sensation to light touch grossly present throughout Cranial nerves II-XII grossly intact Lymphatics: no palpable cervical or supraclavicular lymph nodes Results CBC & Chem 7: 02/26/23 22:45 02/26/23 22:45 Labs: Abnormal Lab Results - Last 24 Hours (Table) 02/26/23 02/26/23 02/26/23 Range/Units 22:45 22:45 22:45 Plt Count 101 L (150-450) k/uL Monocytes # (Manual) 1.04 H (0-1.0) k/uL Chloride 97 L (98-107) mmol/L BUN 29 H (7-17) mg/dL Creatinine 1.15 H (0.52-1.04) mg/dL Glucose 209 H (74-99) mg/dL POC Glucose (mg/dL) (70-110) mg/dL Troponin I 0.405 H* (0.000-0.034) ng/mL 02/27/23 02/27/23 Range/Units 00:29 02:05 Plt Count (150-450) k/uL Monocytes # (Manual) (0-1.0) k/uL Chloride (98-107) mmol/L BUN (7-17) mg/dL Creatinine (0.52-1.04) mg/dL Glucose (74-99) mg/dL POC Glucose (mg/dL) 191 H (70-110) mg/dL Troponin I 61.700 H* (0.000-0.034) ng/mL Thrombosis Risk Factor Assmnt - Choose All That Apply Each Factor Represents 1 point: Acute PA, Obesity (BMI >25) Each Risk Factor Represents 3 Points: Age 75 years or older Other congenital or acquired thrombophilia - If yes, enter type in comment: No Thrombosis Risk Factor Assessment Total Risk Factor Score: 5 Thrombosis Risk Factor Assessment Level: High Risk Assessment and Plan Assessment: 83 year old female presented with chest pain , I discussed the case with ED doc, EKG showed ST elevation leads V2-5, labor economics professor activated , I accepted the admission for STEMI with anticipated length of stay > 2 midnights STEMI EKG showed ST elevation in leads V2-5 left heart cath , patient had a stent deployed in proximal and Mid LAD. continue with brilinta , aspirin , atorvastatin cardiology following monitor vital signs athletic monitor metoprolol 25 mg po bid check echocardiogram in AM check lipid panel in AM elevated trops 0.4 CKD3 cr 1.1 , BUN 29 continue to monitor monitor urine output DM insulin sliding scale hypertension , continue with lisinopril 2.5 mg daily continue with metoprolol 25 bid po full code DVT PPX on heparin gtt
[2023-02-27] MEDS: MORPHINE SULFATE 4 MG/ML SYRINGE IVP PRN ×2 (03:57→11:49)
[2023-02-27 06:49] LABS: Glucose,Whole Blood 140 mg/dL (70-110)
[2023-02-27] MEDS: INSULIN ASPART (NovoLOG) 100 UNIT/ML VIAL SQ SCH ×4 (06:51→21:14)
[2023-02-27 07:52] LABS: HCT 37.6 % (34.0-46.0); HGB 12.1 gm/dL (11.4-16.0); MCH 30.2 pg (25.0-35.0); MCHC 32.1 g/dL (31.0-37.0); MCV 94.1 fL (80.0-100.0); Mean Platelet Volume 11.6; Platelet Count 107 k/uL (150-450); RDW 12.3 % (11.5-15.5); WBC 8.2 k/uL (3.8-10.6)
--- NOTE | 2023-02-27 08:12 | XR ---
EXAMINATION TYPE: XR chest 1V portable DATE OF EXAM: 02/27/2023 COMPARISON: NONE HISTORY: Chest pain TECHNIQUE: Single frontal view of the chest is obtained. FINDINGS: There is no focal air space opacity, pleural effusion, or pneumothorax seen. The cardiac silhouette size is within normal limits. The osseous structures are intact. Arthropathy of the shou lders. Retrocardiac densities likely related to bronchiectasis or atelectasis. Stable from previous. IMPRESSION: No acute process.
[2023-02-27] MEDS: IPRATROPIUM-ALBUTEROL 3 ML NEB INHALATION PRN ×3 (08:54→20:13)
[2023-02-27] MEDS: BENZOCAINE/MENTHOL LOZENG 1 EACH LOZENGE MUCOUS MEM PRN ×2 (09:06→20:20)
[2023-02-27] MEDS: SPIRONOLACTONE 25 MG TAB PO SCH (09:06)
[2023-02-27] MEDS: METOPROLOL TARTRATE 25 MG TAB PO SCH ×2 (09:06→20:20)
[2023-02-27] MEDS: ASPIRIN 81 MG PO SCH (09:06)
[2023-02-27] MEDS: TICAGRELOR 90 MG TAB PO SCH ×2 (09:06→20:21)
[2023-02-27] MEDS: guaiFENesin 600 MG TABLET.ER PO SCH ×2 (09:06→20:24)
[2023-02-27 09:20] LABS: Chol/HDL Ratio 4.19 Ratio; LDL Cholesterol,Calculated 82.9 mg/dL (0.0-131.0)
--- NOTE | 2023-02-27 09:30 | P.PN ---
Subjective Progress Note Date: 02/27/23 Patient is a 83-year-old female with diabetes mellitus type 2 on insulin, GERD, hypertension, and dyslipidemia who presented to the ER with complaints of chest pain. In the ER EKG showed ST segment elevation in V2 through V5 the patient was diagnosed with STEMI. Cardiology took him emergently to the mineral ore processing labourer and a stent was placed to the mid LAD. Patient seen and examined at bedside. Patient seen and examined at bedside. She reports that she started having runny nose, postnasal drip, and cough last Sunday after returning protocol tumor treat. Currently she is having some back pain and feels as though she cannot take a deep breath. She denies any overt chest pain. Vital signs reviewed General: nontoxic, no distress, appears at stated age Cardiovascular: S1S2 reg, no murmur, positive posterior tibial pulse bilateral, Lungs: Course bilateral, no rhonchi, no rales , no accessory muscle use Abdominal: soft, nontender to palpation, no guarding, no appreciable organomegaly Ext: no gross muscle atrophy, no edema, no contractures Neuro: CN II-XI grossly intact, no focal neuro deficits Psych: Alert, oriented, appropriate affect Assessment: Acute anterior ST segment elevated myocardial infarction Upper respiratory tract infection Hypertension Dyslipidemia Diabetes mellitus type 2 insulin-requiring History of CVA Imaging: Chest x-ray is reviewed by myself shows increased vascular markings, no acute process Data Review: CBC reviewed and hemoglobin 12.1 down from 13.5, platelets 107. BMP is not currently available will be reviewed in the afternoon. Plan: -Aspirin 81 mg, ticagrelor 90 mg twice daily, Lipitor 80 mg nightly -Cardiology note reviewed: ST segment elevated myocardial infarction. -Cardiology has started lisinopril 2.5 mg twice daily, metoprolol 25 mg twice daily, and Aldactone 25 mg daily -Continue with sliding scale insulin -Patient appears to be on jardance and trulicity via her otaptient RX history d/w nurse and will have med hx specialist re-eval the patient -Start DuoNeb 4 times a day when necessary, Mucinex 600 mg twice daily, Tessalon Perles as needed for cough -Check swab for influenza A/B/RSV/COVID-19 -Repeat chest x-ray in a.m. -Await echo DVT prophylaxis: Lovenox Anticipated discharge date: Pending Clinical course Anticipated discharge place: Pending Clinical course This dictation was prepared using Invisible voice recognition software. Though every attempt is made to correct errors during during dictation some may still exist. Objective - Vital Signs Vital signs: Vital Signs Temp 98 F 02/27/23 04:30 Pulse 83 02/27/23 07:00 Resp 13 02/27/23 07:00 BP 110/50 02/27/23 07:00 Pulse Ox 95 02/27/23 07:00 FiO2 Intake & Output 02/26/23 02/27/23 02/27/23 18:59 06:59 18:59 Intake Total 849 Output Total 700 0 Balance 149 0 Weight 72.5 kg Intake: IV 700 Intake, IV Titration 149 Amount Sodium Chloride 0.9% 1, 149 000 ml In Empty Bag 1 bag @ 1 ML/KG/HR 73.936 mls/ hr IV .[id number] [facility] Rx#: [id number] Output: Urine 700 0 Other: Voiding Method Bedpan - Labs CBC & Chem 7: 02/27/23 05:00 02/26/23 22:45 Labs: Abnormal Lab Results - Last 24 Hours (Table) 02/26/23 02/26/23 02/26/23 Range/Units 22:45 22:45 22:45 Plt Count 101 L (150-450) k/uL Monocytes # (Manual) 1.04 H (0-1.0) k/uL Chloride 97 L (98-107) mmol/L BUN 29 H (7-17) mg/dL Creatinine 1.15 H (0.52-1.04) mg/dL Glucose 209 H (74-99) mg/dL POC Glucose (mg/dL) (70-110) mg/dL Troponin I 0.405 H* (0.000-0.034) ng/mL 02/27/23 02/27/23 02/27/23 Range/Units 00:29 02:05 05:00 Plt Count (150-450) k/uL Monocytes # (Manual) (0-1.0) k/uL Chloride (98-107) mmol/L BUN (7-17) mg/dL Creatinine (0.52-1.04) mg/dL Glucose (74-99) mg/dL POC Glucose (mg/dL) 191 H (70-110) mg/dL Troponin I 61.700 H* 66.700 H* (0.000-0.034) ng/mL 02/27/23 Range/Units 06:47 Plt Count (150-450) k/uL Monocytes # (Manual) (0-1.0) k/uL Chloride (98-107) mmol/L BUN (7-17) mg/dL Creatinine (0.52-1.04) mg/dL Glucose (74-99) mg/dL POC Glucose (mg/dL) 140 H (70-110) mg/dL Troponin I (0.000-0.034) ng/mL
[2023-02-27 11:17] LABS: Glucose,Whole Blood 181 mg/dL (70-110)
[2023-02-27 13:09] VITALS: BMI 28.3
--- NOTE | 2023-02-27 13:11 | PN ---
PROGRESS NOTE SUBJECTIVE: Ms. Carbajal suffered from an acute anterior wall [place], underwent stenting of LAD by Dr. Arce, has noncritical disease in other vessels. She is doing well. The radial catheterization site is clean and dry. She has some URI type symptoms and receiving some breathing treatment. We will continue dual-antiplatelet therapy, statins, and beta-blockers. Continue current therapy. OBJECTIVE: VITAL SIGNS: Stable. HEART: S1 and S2 heard normally. Short systolic murmur is audible. LUNGS: Reveal decent air entry. ABDOMEN: Otherwise, unremarkable. LOWER EXTREMITIES: Otherwise, unremarkable. MMODL / IJN: [id number] /
--- NOTE | 2023-02-27 13:14 | CA ---
Transthoracic Echo Report Name: Laxmi Carbajal Age: 83 Gender: F : 1940 Exam Date: 02/27/2023 10:38 Exam Location: [facility] Ht (in): 63 Wt (lb): 163 Ordering Physician: Refugio Arce MD ([id number]) Attending/Referring Phys: Telephone Directory Deliverer Dianne Navarro RDCS Procedure CPT: Indications: AR Cardiac Hx: Technical Quality: Fair Contrast 1: [place] Total Dose (mL): 4 Contrast 2: Total Dose (mL): MEASUREMENTS (Male / Female) Normal Values 2D ECHO LV Diastolic Diameter PLAX 4.4 cm 4.2 - 5.9 / 3.9 - 5.3 cm LV Systolic Diameter PLAX 3.5 cm IVS Diastolic Thickness 1.2 cm 0.6 - 1.0 / 0.6 - 0.9 cm LVPW Diastolic Thickness 1.5 cm 0.6 - 1.0 / 0.6 - 0.9 cm LV Relative Wall Thickness 0.6 RV Internal Dim ED PLAX 2.5 cm LA Volume 50.5 cm??? 18 - 58 / 22 - 52 cm??? M-MODE Aortic Root Diameter MM 2.8 cm LA Systolic Diameter MM 3.5 cm LA Ao Ratio MM 1.2 AV Cusp Separation MM 1.3 cm DOPPLER LVOT Peak Velocity 78.3 cm/s LVOT Peak Gradient 2.5 mmHg LVOT Velocity Time Integral 17.4 cm MV Area PHT 5.1 cm??? Mitral E Point Velocity 70.0 cm/s Mitral A Point Velocity 112.0 cm/s Mitral E to A Ratio 0.6 MV Deceleration Time 150.1 ms MV E' Velocity 3.3 cm/s Mitral E to MV E' Ratio 21.2 FINDINGS Left Ventricle Mildly increased septal wall thickness. Moderately increased posterior wall thickness. Hypokinetic septum. Hypokinetic anterior wall. [place] hypokinetic. Left ventricular ejection fraction is estimated at 30-35%. Left ventricular cavity size normal. Right Ventricle Normal right ventricular size and function. Right ventricular systolic pressure within normal limits. Right Atrium Normal right atrial size. Left Atrium Normal left atrial size. Mitral Valve Structurally normal mitral valve. Mild mitral annular calcification. Mitral valve thickened. Mild mitral regurgitation. Aortic Valve Trileaflet aortic valve. No aortic valve stenosis or regurgitation. Tricuspid Valve Structurally normal tricuspid valve. Mild tricuspid regurgitation. Pulmonic Valve Structurally normal pulmonic valve. Pericardium No pericardial effusion. Aorta Normal size aortic root and proximal ascending aorta. CONCLUSIONS 1. Severely impaired left ventricular systolic function with anteroapical and anteroseptal and anterolateral severe hypokinesis 2. Mild mitral and tricuspid regurgitation Previewed by: Dr. Refugio Arce MD (Electronically Signed) Final Date: 27 Feb 2023 13:13
[2023-02-27] MEDS: SODIUM CHLORIDE 0.9% 1,000 ML IV SCH (13:45)
[2023-02-27] MEDS: HYDROcodone/APAP 5-325MG 1 EACH TAB PO PRN ×2 (15:03→21:14)
[2023-02-27 16:19] LABS: Glucose,Whole Blood 176 mg/dL (70-110)
[2023-02-27] MEDS: BENZONATATE 100 MG CAP PO PRN (16:34)
[2023-02-27] MEDS: ATORVASTATIN 80 MG TAB PO SCH (20:20)
[2023-02-27 20:41] LABS: Glucose,Whole Blood 217 mg/dL (70-110)
[2023-02-28] MEDS: BENZONATATE 100 MG CAP PO PRN ×2 (01:18→11:22)
[2023-02-28] MEDS: HYDROcodone/APAP 5-325MG 1 EACH TAB PO PRN ×3 (04:11→21:15)
[2023-02-28 06:10] LABS: Calcium 8.8 mg/dL (8.4-10.2)
[2023-02-28] MEDS: SODIUM CHLORIDE 0.9% 1,000 ML IV SCH (06:23)
[2023-02-28 06:33] LABS: Glucose,Whole Blood 155 mg/dL (70-110)
[2023-02-28] MEDS: INSULIN ASPART (NovoLOG) 100 UNIT/ML VIAL SQ SCH ×4 (06:52→20:19)
[2023-02-28] MEDS: ASPIRIN 81 MG PO SCH (08:38)
[2023-02-28] MEDS: SPIRONOLACTONE 25 MG TAB PO SCH (08:38)
[2023-02-28] MEDS: TICAGRELOR 90 MG TAB PO SCH ×2 (08:39→20:11)
[2023-02-28] MEDS: guaiFENesin 600 MG TABLET.ER PO SCH ×2 (08:39→20:11)
[2023-02-28] MEDS: METOPROLOL TARTRATE 25 MG TAB PO SCH ×2 (08:39→20:11)
[2023-02-28] MEDS: ENOXAPARIN 40 MG/0.4 ML SYRINGE SQ SCH (08:42)
[2023-02-28] MEDS ORDERED: FUROSEMIDE 10 MG/ML 2 ML VIAL IV ONE (09:35)
[2023-02-28] MEDS: GABAPENTIN 300 MG CAP PO SCH ×3 (09:52→21:14)
[2023-02-28] MEDS: DAPAGLIFLOZIN PROPANEDIOL 10 MG TABLET PO SCH (09:52)
[2023-02-28 11:27] LABS: Glucose,Whole Blood 172 mg/dL (70-110)
[2023-02-28] MEDS: IPRATROPIUM-ALBUTEROL 3 ML NEB INHALATION PRN ×3 (12:03→19:29)
--- NOTE | 2023-02-28 13:28 | P.PN ---
Subjective Progress Note Date: 02/28/23 Patient is a 83-year-old female with diabetes mellitus type 2 on insulin, GERD, hypertension, and dyslipidemia who presented to the ER with complaints of chest pain. In the ER EKG showed ST segment elevation in V2 through V5 the patient was diagnosed with STEMI. Cardiology took [facility] emergently [facility] and a stent was placed to the mid LAD. She presented with URI type symptoms and Covid/RSV/influenza A/B was negative. She underwent echocardiogram which showed an ejection fraction of 30-35% with hypokinetic septum, apex, and anterior wall. Patient seen and examined at bedside. She is doing okay today. She still has some shortness of breath and cough. She denies any chest pain. We had a rachid discussion about her low ejection fraction. Vital signs reviewed General: nontoxic, no distress, appears at stated age Cardiovascular: S1S2 reg, no murmur, positive posterior tibial pulse bilateral, Lungs: Coarse breath sounds bilateral, no rhonchi, no rales , no accessory muscle use Abdominal: soft, nontender to palpation, no guarding, no appreciable organomegaly Ext: no gross muscle atrophy, no edema, no contractures Neuro: CN II-XI grossly intact, no focal neuro deficits Psych: Alert, oriented, appropriate affect Assessment: Acute anterior ST segment elevated myocardial infarction Ischemic cardiomyopathy with ejection fraction 30-35% Upper respiratory tract infection Hypertension Dyslipidemia Diabetes mellitus type 2 insulin-requiring History of CVA Imaging: None new for review Data Review: Vital signs reviewed and temperature 98.6, pulse 85, respirations 23, blood pressure 112/63, O2 sat 97% on room air Laboratory analysis reviewed and sodium 136, potassium 5, BUN 21, creatinine 0.85, blood sugar 146, last evening to 17 Plan: - resume dapagliflozin 10 mg daily, Levemir 10 units daily, Protonix 40 mg daily, gabapentin 300 mg by mouth 3 times a day -Aspirin 81 mg, ticagrelor 90 mg twice daily, Lipitor 80 mg nightly -Cardiology note reviewed: Continue currently -Lisinopril 2.5 mg twice daily, metoprolol 25 mg twice daily, and Aldactone 25 mg daily -Continue with sliding scale insulin -DuoNeb 4 times a day when necessary, Mucinex 600 mg twice daily, Tessalon Pearls as needed for cough DVT prophylaxis: Lovenox Anticipated discharge date: Pending Clinical course Anticipated discharge place: Pending Clinical course This dictation was prepared using [employer] voice recognition software. Though every attempt is made to correct errors during during dictation some may still exist. Objective - Vital Signs Vital signs: Vital Signs Temp 98.6 F 02/28/23 11:15 Pulse 83 02/28/23 12:14 Resp 23 02/28/23 11:15 BP 112/63 02/28/23 11:15 Pulse Ox 97 02/28/23 11:15 FiO2 Intake & Output 02/27/23 02/28/23 02/28/23 18:59 06:59 18:59 Intake Total 1514 1040 505 Output Total 800 900 400 Balance 714 140 105 Weight 72.5 kg Intake: IV 450 800 245 Invasive Line 1 30 20 10 Invasive Line 2 30 30 10 Sodium Chloride 0.9% 1, 390 750 225 000 ml @ 75 mls/hr IV . [id number] [facility] Rx#:[id number] Oral 1064 240 260 Output: Urine 800 900 400 Other: Voiding Method Toilet Toilet Toilet # Bowel Movements 0 1 1 - Labs CBC & Chem 7: 02/27/23 05:00 02/28/23 04:53 Labs: Abnormal Lab Results - Last 24 Hours (Table) 02/27/23 02/27/23 02/28/23 Range/Units 16:18 20:39 04:53 Sodium 136 L (137-145) mmol/L BUN 21 H (7-17) mg/dL Glucose 146 H (74-99) mg/dL POC Glucose (mg/dL) 176 H 217 H (70-110) mg/dL 02/28/23 02/28/23 Range/Units 06:31 11:26 Sodium (137-145) mmol/L BUN (7-17) mg/dL Glucose (74-99) mg/dL POC Glucose (mg/dL) 155 H 172 H (70-110) mg/dL
[2023-02-28 16:46] LABS: Glucose,Whole Blood 218 mg/dL (70-110)
[2023-02-28] MEDS: MELATONIN 5 MG TABLET PO SCH (20:11)
[2023-02-28] MEDS: ATORVASTATIN 80 MG TAB PO SCH (20:11)
[2023-02-28 20:18] LABS: Glucose,Whole Blood 237 mg/dL (70-110)
[2023-02-28] MEDS: BENZOCAINE/MENTHOL LOZENG 1 EACH LOZENGE MUCOUS MEM PRN (21:20)
--- NOTE | 2023-03-01 03:17 | PN ---
PROGRESS NOTE SUBJECTIVE: Ms. Carbajal is a lady who presented with acute anterior FL, underwent stenting of LAD yesterday. Ejection fraction is about 35% with significant wall motion in the LAD distribution. She is coughing, quite short of breath. She received some IV fluid yesterday. PHYSICAL EXAMINATION: VITALS: Stable. NECK: JVD 1 cm, no carotid bruit. HEART: S1, S2 heard normally, short systolic murmur noted. LUNGS: Reveal bilateral fine rales in both bases. ABDOMEN: Soft. EXTREMITIES: Lower extremities reveal diminished pulses. Right radial site is clean and dry. I am recommending a small dose of Lasix 20 mg to be given IV push today. Potassium level is good. Renal function is good. We will continue to watch her closely. Ejection fraction is in the 35% range. We will resume all her medications and do a single dose of Lasix IV push and see how she does tomorrow. The patient is feeling better, sitting up. MMODL / IJN: [id number] /
[2023-03-01 06:12] LABS: Calcium 8.6 mg/dL (8.4-10.2); Magnesium 2.3 mg/dL (1.6-2.3); Potassium 4.7 mmol/L (3.5-5.1)
[2023-03-01] MEDS: INSULIN DETEMIR (LEVEMIR) 100 UNIT/ML SYR SQ SCH (06:55)
[2023-03-01 06:56] LABS: Glucose,Whole Blood 140 mg/dL (70-110)
[2023-03-01] MEDS: INSULIN ASPART (NovoLOG) 100 UNIT/ML VIAL SQ SCH ×4 (06:56→20:32)
[2023-03-01] MEDS: BENZOCAINE/MENTHOL LOZENG 1 EACH LOZENGE MUCOUS MEM PRN (07:01)
[2023-03-01 08:27] LABS: MCH 30.7 pg (25.0-35.0); MCHC 32.5 g/dL (31.0-37.0); MCV 94.5 fL (80.0-100.0); Mean Platelet Volume 11.2; Platelet Count 111 k/uL (150-450); RBC 3.91 m/uL (3.80-5.40); RDW 12.6 % (11.5-15.5); WBC 9.2 k/uL (3.8-10.6)
[2023-03-01] MEDS: IPRATROPIUM-ALBUTEROL 3 ML NEB INHALATION PRN ×2 (08:29→19:23)
[2023-03-01] MEDS: SODIUM CHLORIDE 0.9% 1,000 ML IV SCH ×2 (09:22→21:50)
[2023-03-01] MEDS: PANTOPRAZOLE 40 MG TABLET PO SCH (09:22)
[2023-03-01] MEDS: GABAPENTIN 300 MG CAP PO SCH ×3 (09:22→21:49)
[2023-03-01] MEDS: guaiFENesin 600 MG TABLET.ER PO SCH ×2 (09:23→20:21)
[2023-03-01] MEDS: METOPROLOL TARTRATE 25 MG TAB PO SCH (09:23)
[2023-03-01] MEDS: ASPIRIN 81 MG PO SCH (09:23)
[2023-03-01] MEDS: DAPAGLIFLOZIN PROPANEDIOL 10 MG TABLET PO SCH (09:23)
[2023-03-01] MEDS: ENOXAPARIN 40 MG/0.4 ML SYRINGE SQ SCH (09:23)
[2023-03-01] MEDS: TICAGRELOR 90 MG TAB PO SCH ×2 (09:23→20:21)
--- NOTE | 2023-03-01 09:27 | XR ---
EXAMINATION TYPE: XR chest 2V DATE OF EXAM: 03/01/2023 COMPARISON: NONE TECHNIQUE: PA and lateral views submitted. HISTORY: Shortness of breath FINDINGS: The lungs are clear and there is no pneumothorax, pleural effusion, or focal pneumonia. Heart size normal and no overt failure. Osseous structures demonstrate hypertrophic and degenerative changes of the spine. AC joint arthropathy. Surgical clips in the abdomen. IMPRESSION: 1. No acute process.
[2023-03-01 11:12] LABS: Glucose,Whole Blood 219 mg/dL (70-110)
[2023-03-01] MEDS ORDERED: SODIUM CHLORIDE 0.9% 500 ML 250 ML IV ONE (12:04)
[2023-03-01] MEDS: SPIRONOLACTONE 25 MG TAB PO SCH (12:06)
[2023-03-01] MEDS ORDERED: SODIUM CHLORIDE 0.9% 500 ML 500 ML IV ONE (12:27)
[2023-03-01] MEDS: NOREPINEPHRINE 4 MG in SODIUM CHLORIDE 0.9% 250 ML IV SCH (12:40)
[2023-03-01 12:56] LABS: Basophils # (M) 0.09 k/uL (0-0.2); Lymphocytes # (M) 1.75 k/uL (1.0-4.8); Neutrophils # (M) 6.26 k/uL (1.3-7.7); Neutrophils % (M) 68 %; Nucleated Red Blood Cells 0 /100 WBC (0-0); Total Cells Counted 100
[2023-03-01] MEDS: LIDOCAINE 1% INJ 10MG/ML (5 ML VIAL-PF) SQ ONE ×2 (14:38→14:42)
--- NOTE | 2023-03-01 15:06 | XR ---
EXAMINATION TYPE: XR chest 1V DATE OF EXAM: 03/01/2023 CLINICAL HISTORY: PICC line placement. TECHNIQUE: Single AP portable supine view of the chest is obtained. COMPARISON: Chest x-ray from earlier today and older studies FINDINGS: There is new right-sided PICC line terminating in right atrium. There is persistent right-sided rotation. There is no suspicious new focal airspace opacity, pleural effusion, or pneumothorax seen bilaterally. Cardiac silhouette size stable and upper limits of normal . Osseous structures are intact. IMPRESSION: As above.
--- NOTE | 2023-03-01 15:18 | P.PN ---
Subjective Progress Note Date: 03/01/23 (delayed charting seen at 1030) Patient is a 83-year-old female with diabetes mellitus type 2 on insulin, GERD, hypertension, and dyslipidemia who presented to the ER with complaints of chest pain. In the ER EKG showed ST segment elevation in V2 through V5 the patient was diagnosed with STEMI. Cardiology took him emergently to the [facility] and a stent was placed to the mid LAD. She presented with URI type symptoms and Covid/RSV/influenza A/B was negative. She underwent echocardiogram which showed an ejection fraction of 30-35% with hypokinetic septum, apex, and anterior wall. Patient seen and examined at bedside. She is feeling okay. She is still short of breath with exertion. She is feeling very tired overall. She continues to cough. Vital signs reviewed General: nontoxic, no distress, appears at stated age Cardiovascular: S1S2 reg, no murmur, positive posterior tibial pulse bilateral, Lungs: Coarse breath sounds bilateral, no rhonchi, no rales , no accessory m uscle use Abdominal: soft, nontender to palpation, no guarding, no appreciable organomegaly Ext: no gross muscle atrophy, no edema, no contractures Neuro: CN II-XI grossly intact, no focal neuro deficits Psych: Alert, oriented, appropriate affect Assessment: Acute anterior ST segment elevated myocardial infarction Ischemic cardiomyopathy with ejection fraction 30-35% Hypotension, undetermined etiology Upper respiratory tract infection Hypertension Dyslipidemia Diabetes mellitus type 2 insulin-requiring History of CVA Imaging: Chest x-ray reviewed, and self-no acute process Data Review: Vital signs reviewed temperature 98.5, pulse 100, respirations 16, blood press ure 93/60, O2 sat 100% on room air Labs reviewed and remarkable for platelets 111, BUN 31, creatinine 1.36, sodium 134 Blood sugars reviewed and blood sugar is 140, 237, and 218 Plan: - Dapagliflozin 10 mg daily, Levemir 10 units daily, Protonix 40 mg daily, gabapentin 300 mg by mouth 3 times a day - Patient became hypotensive after I evaluated her. Cardiology was contacted. She had a 250 cc bolus 2 and then required Levophed to be started. Pulmonary was consulted. -Cardio note reviewed: Patient and lisinopril was discontinued, started on normal saline at 75 mL an hour. -Aspirin 81 mg, ticagrelor 90 mg twice daily, Lipitor 80 mg nightly -Lisinopril 2.5 mg twice daily, metoprolol 25 mg twice daily, and Aldactone 25 mg daily -Continue with sliding scale insulin -DuoNeb 4 times a day when necessary, Mucinex 600 mg twice daily, Tessalon Pearls as needed for cough DVT prophylaxis: Lovenox Anticipated discharge date: Pending Clinical course Anticipated discharge place: Pending Clinical course This dictation was prepared using [employer] voice recognition software. Though every attempt is made to correct errors during during dictation some may still exist. Objective - Vital Signs Vital signs: Vital Signs Temp 98.6 F 03/01/23 11:34 Pulse 79 03/01/23 14:35 Resp 18 03/01/23 14:35 BP 114/55 03/01/23 14:35 Pulse Ox 95 03/01/23 14:35 FiO2 Intake & Output 02/28/23 03/01/23 03/01/23 18:59 06:59 18:59 Intake Total 751 1570.664 Output Total 900 150 700 Balance -149 -150 870.664 Weight 69.9 kg Intake: IV 255 1210 Invasive Line 1 20 Invasive Line 2 10 Invasive Line 3 10 Sodium Chloride 0.9% 1, 225 000 ml @ 75 mls/hr IV . [id number] [facility] Rx#:[id number] Sodium Chloride 0.9% 1, 450 000 ml @ 75 mls/hr IV . [id number] [facility] Rx#:[id number] Sodium Chloride 0.9% 500 250 ml 250 ml @ 999 mls/hr IV .Q16M [facility] Rx#:[id number] Sodium Chloride 0.9% 500 500 ml 500 ml @ 999 mls/hr IV .Q31M [facility] Rx#:[id number] Intake, IV Titration 2.664 Amount Norepinephrine 4 mg In 2.664 Sodium Chloride 0.9% 250 ml @ 0.03 MCG/KG/MIN 7.99 mls/hr IV .Q24H [facility] Rx#: [id number] Oral 496 358 Output: Urine 900 150 700 Other: Voiding Method Toilet Toilet Toilet # Voids 2 1 # Bowel Movements 1 - Labs CBC & Chem 7: 03/01/23 07:53 03/01/23 05:09 Labs: Abnormal Lab Results - Last 24 Hours (Table) 0502/28/23 03/01/23 Range/Units 16:44 20:16 05:09 Plt Count (150-450) k/uL Monocytes # (Manual) (0-1.0) k/uL Sodium 134 L (137-145) mmol/L BUN 31 H (7-17) mg/dL Creatinine 1.36 H (0.52-1.04) mg/dL Glucose 140 H (74-99) mg/dL POC Glucose (mg/dL) 218 H 237 H (70-110) mg/dL 03/01/23 03/01/23 03/01/23 Range/Units 06:54 07:53 11:11 Plt Count 111 L (150-450) k/uL Monocytes # (Manual) 1.10 H (0-1.0) k/uL Sodium (137-145) mmol/L BUN (7-17) mg/dL Creatinine (0.52-1.04) mg/dL Glucose (74-99) mg/dL POC Glucose (mg/dL) 140 H 219 H (70-110) mg/dL
--- NOTE | 2023-03-01 15:18 | IR ---
PICC LINE PLACEMENT: HISTORY: Infection requiring long-term antibiotic therapy PROCEDURE: Ultrasound guidance of PICC line placement. COMPLICATIONS: None ANESTHESIA: 1. 1% Lidocaine locally. FINDINGS/TECHNIQUE: The procedure was explained to the patient. The risks, complications, benefits and alternatives were discussed and any questions were answered. Informed consent was obtained. The patient was placed supine on the fluoroscopic table and prepped and draped in the usual sterile fash ion. Utilizing a 21 gauge needle and sonographic guidance, access in the right basilic vein was ach ieved and there is placement of a 0.018 guidewire. The vein is patent. A 5-F. sheath was placed ove r the guidewire. The guidewire and dilator were removed and a 5-F. Double lumen PICC line was placed through the sheath with the chest x-ray confirming the tip at the level of the SVC. The sheath was removed, the catheter was flushed and sutured into position. The patient was stable throughout the p rocedure and remained stable upon discharge from the Department of Radiology. The vein puncture was patent under ultrasound. A reagan scale image was obtained to document patency of the vein punctured. All elements of the maximal barrier technique were utilized. IMPRESSION: 1. Successful PICC line placement under ultrasound performed bedside within the ICU.
[2023-03-01] MEDS ORDERED: predniSONE 20 MG TAB PO SCH (15:30)
--- NOTE | 2023-03-01 16:15 | P.CNPUL ---
History of Present Illness Consult date: 03/01/23 Requesting physician: Darlyn Napoles Reason for consult: dyspnea, cough, hypoxemia Chief complaint: Cough, shortness of breath, wheezing. History of present illness: Pulmonary/critical care consult dated 03/01/2023. 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 The patient was diagnosed as having a STEMI, and went to the catheterization laboratory on February 27, and had 2 stents placed in her LAD. I'm concerned for cough. The patient apparently has had a nonproductive cough since February 20. The cough preceded the chest discomfort. She has no history of any lung issues. She is a lifelong nonsmoker. She had a viral screen that was negative. In addition the cough, she admits to some shortness of breath, and some wheezing. She has never had this before. A viral screen was negative for influenza A, and influenza B, RSV, and coronavirus. Currently, the patient's on saline at 75 mL an hour, nasal O2 2 L, and norepinephrine at 2.1 mcg/m. White count 9.2, hemoglobin 12, hematocrit 37, and platelet count 111,000. Sodium 134, potassium 4.7, chlorides 99, CO2 25, anion gap 10, BUN 31, creatinine 1.36. N-terminal proBNP today was 12,400. A chest x-ray today was unremarkable. An EKG done today but admission showed elevated ST segments, and the anterior leads. Her initial troponin, was 0.405, and subsequently, it was 66.7. Review of Systems REVIEW OF SYSTEMS: CONSTITUTIONAL: [Negative.] NEUROLOGIC: [ Negative.] HEENT: [ Negative.] CARDIAC: Chest pain. PULMONARY: Nonproductive cough, wheezing, and shortness of breath since February 20. GI: [Negative.] : [Negative.] RHEUMATOLOGIC: [ Negative.] IMMUNOLOGIC: [ Negative.] ENDOCRINE: [Negative. ] DERMATOLOGIC: [Negative.] Past Medical History Past Medical History: CVA/TIA, Diabetes Mellitus, GERD/Reflux, Hyperlipidemia, Hypertension, Osteoarthritis (OA) Additional Past Medical History / Comment(s): Diabetic neuropathy. 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 History of Any Multi-Drug Resistant Organisms: None Reported Past Surgical History: Adenoidectomy, Section, Cholecystectomy, Hernia Repair, Joint Replacement, Orthopedic Surgery, Tonsillectomy Additional Past Surgical History / Comment(s): arthroscopy left knee, RT hip replacement 08/2018. PAIN PROC 04/22/19 Past Anesthesia/Blood Transfusion Reactions: Postoperative Nausea & Vomiting (PONV) Past Psychological History: No Psychological Hx Reported Smoking Status: Never smoker Past Alcohol Use History: Rare Past Drug Use History: None Reported - Past Family History Father Additional Family Medical History / Comment(s): "heart trouble" Mother Family Medical History: No Reported History Medications and Allergies Home Medications Medication Instructions Recorded Confirmed Type ramipriL [Altace] 2.5 mg PO DAILY 04/23/15 02/27/23 History Ergocalciferol [Vitamin D2 50,000 unit PO QMONTHLY 03/21/18 02/27/23 History (DRISDOL)] Gabapentin [Neurontin] 300 mg PO TID 03/21/18 02/27/23 History Dulaglutide [Trulicity] 1.5 mg SQ Q7D 02/27/23 02/27/23 History Empagliflozin [Jardiance] 25 mg PO DAILY 02/27/23 02/27/23 History Insulin Aspart [NovoLOG Flexpen] See Protocol SQ AC-TID 02/27/23 02/27/23 Hist ory Insulin Glargine,Hum.rec.anlog 10 units SQ DAILY 02/27/23 02/27/23 History [Toujeo Max Solostar] Omeprazole [PriLOSEC] 40 mg PO DAILY 02/27/23 02/27/23 History Pravastatin Sodium [Pravachol] 40 mg PO DAILY 02/27/23 02/27/23 History Tolterodine ER [Detrol LA] 2 mg PO DAILY 02/27/23 02/27/23 History traMADol HCL 50 mg PO Q8H PRN 02/27/23 02/27/23 History Allergies Allergy/AdvReac Type Severity Reaction Status Date / Time niacin Allergy whole body Verified 02/26/23 22:35 flushing Physical Exam Osteopathic Statement: *. No significant issues noted on an osteopathic structural exam other than those noted in the History and Physical/Consult. Vitals: Vital Signs Temp Pulse Pulse Resp BP BP BP 03/01/23 16:00 84 24 117/66 05 15:45 81 14 117/54 05 15:30 80 12 117/56 05 15:15 82 16 122/56 03/01/23 15:00 81 24 03/01/23 14:45 82 17 03/01/23 14:35 79 18 114/55 03/01/23 14:30 81 12 114/55 05 14:25 81 20 111/53 05 14:20 79 22 115/56 05 14:15 80 12 105/62 03/01/23 14:10 80 12 104/50 03/01/23 14:05 78 12 105/56 05 14:00 78 12 109/52 03/01/23 13:55 76 22 105/53 05 13:50 78 17 110/55 03/01/23 13:45 15 03/01/23 13:40 76 17 103/51 05 13:35 81 16 105/45 05 13:30 79 20 105/45 05 13:25 82 19 104/36 05 13:20 80 13 103/45 03/01/23 13:15 82 18 101/53 05 13:10 82 18 93/53 05 13:05 80 16 89/40 03/01/23 13:00 85 16 98/41 05 12:55 85 16 98/49 03/01/23 12:50 85 10 L 119/59 03/01/23 12:45 86 16 86/43 05 12:40 85 28 H 88/38 05 12:35 86 22 86/36 05 12:30 85 16 80/34 05 12:25 81 21 81/32 0504 12:20 81 16 81/58 05 12:15 85 16 88/44 05 12:05 82 12 85/39 05 11:55 85/38 05 11:40 82/48 05 11:35 76/40 05 11:34 98.6 F 76 16 76/40 82/48 05/04/23 08:43 92 03/01/23 08:29 92 03/01/23 08:00 98.5 F 100 16 93/60 03/01/23 04:00 98.2 F 71 23 89/42 05 02:00 75 12 111/56 03/01/23 00:00 98.2 F 71 18 111/56 02/28/23 22:00 81 24 101/54 02/28/23 20:00 98.3 F 85 20 98/57 02/28/23 19:40 92 02/28/23 19:31 89 Pulse Ox 03/01/23 16:00 100 03/01/23 15:45 98 03/01/23 15:30 98 03/01/23 15:15 97 03/01/23 15:00 98 03/01/23 14:45 97 03/01/23 14:35 95 03/01/23 14:30 96 03/01/23 14:25 96 03/01/23 14:20 96 03/01/23 14:15 96 03/01/23 14:10 94 L 03/01/23 14:05 97 03/01/23 14:00 96 03/01/23 13:55 97 03/01/23 13:50 97 03/01/23 13:45 97 03/01/23 13:40 97 03/01/23 13:35 97 03/01/23 13:30 97 03/01/23 13:25 96 03/01/23 13:20 96 03/01/23 13:15 97 03/01/23 13:10 96 03/01/23 13:05 96 03/01/23 13:00 97 03/01/23 12:55 97 03/01/23 12:50 97 03/01/23 12:45 95 03/01/23 12:40 96 03/01/23 12:35 96 03/01/23 12:30 98 03/01/23 12:25 97 03/01/23 12:20 98 03/01/23 12:15 03/01/23 12:05 03/01/23 11:55 03/01/23 11:40 05 11:35 03/01/23 11:34 100 03/01/23 08:43 03/01/23 08:29 03/01/23 08:00 100 03/01/23 04:00 95 03/01/23 02:00 100 03/01/23 00:00 97 02/28/23 22:00 100 02/28/23 20:00 100 02/28/23 19:40 02/28/23 19:31 Intake and Output 03/01/23 03/01/23 03/01/23 06:59 14:59 22:59 Intake Total 1570.664 10 Output Total 150 700 Balance -150 870.664 10 Intake: IV 1210 10 Invasive Line 3 10 Invasive Line 5 10 Sodium Chloride 0.9% 1, 450 000 ml @ 75 mls/hr IV . [id number] [facility] Rx#:[id number] Sodium Chloride 0.9% 500 250 ml 250 ml @ 999 mls/hr IV .Q16M ONE Rx#:[id number] Sodium Chloride 0.9% 500 500 ml 500 ml @ 999 mls/hr IV .Q31M [facility] Rx#:[id number] Intake, IV Titration 2.664 Amount Norepinephrine 4 mg In 2.664 Sodium Chloride 0.9% 250 ml @ 0.03 MCG/KG/MIN 7.99 mls/hr IV .Q24H [facility] Rx#: [id number] Oral 358 Output: Urine 150 700 Other: Voiding Method Toilet Toilet # Voids 2 1 Weight 69.9 kg No acute distress, oriented 3. HEENT examination is grossly unremarkable. Mucous membranes are moist. No oral lesions. Neck supple. Full range of motion. No adenopathy thyromegaly or neck vein distention. Cardiovascular examination reveals regular rhythm rate. S1-S2 normal. No S3 or S4. No discernible murmur noted. Heart sounds are distant. Heart rate 84 bpm. Lungs reveal expiratory rhonchi and expiratory wheezes, accentuated on forced maneuver. Minimal crackles at the bases. Breath sounds equal bilaterally. Saturations are 98% on 2 L. Abdomen soft bowel sounds are heard. No masses or tenderness. Extremities are intact. No cyanosis clubbing or edema. Skin is without rash or lesion. Neurologic examination is brief but nonfocal. Results - Laboratory Findings CBC and BMP: 03/01/23 07:53 03/01/23 05:09 PT/INR, D-dimer PT 9.9 sec (9.0-12.0) 02/26/23 22:45 INR 0.9 (<1.2) 02/26/23 22:45 Abnormal lab findings: Abnormal Labs 02/26/23 02/26/23 02/26/23 22:45 22:45 22:45 Plt Count 101 L Monocytes # (Manual) 1.04 H Sodium Chloride 97 L BUN 29 H Creatinine 1.15 H Glucose 209 H POC Glucose (mg/dL) Troponin I 0.405 H* HDL Cholesterol 02/27/23 02/27/23 02/27/23 00:29 02:05 02:05 Plt Count Monocytes # (Manual) Sodium Chloride BUN Creatinine Glucose POC Glucose (mg/dL) 191 H Troponin I 61.700 H* HDL Cholesterol 33.90 L 02/27/23 02/27/23 02/27/23 05:00 05:00 06:47 Plt Count 107 L Monocytes # (Manual) Sodium Chloride BUN Creatinine Glucose POC Glucose (mg/dL) 140 H Troponin I 66.700 H* HDL Cholesterol 02/27/23 02/27/23 02/27/23 11:16 16:18 20:39 Plt Count Monocytes # (Manual) Sodium Chloride BUN Creatinine Glucose POC Glucose (mg/dL) 181 H 176 H 217 H Troponin I HDL Cholesterol 02/28/23 02/28/23 02/28/23 04:53 06:31 11:26 Plt Count Monocytes # (Manual) Sodium 136 L Chloride BUN 21 H Creatinine Glucose 146 H POC Glucose (mg/dL) 155 H 172 H Troponin I HDL Cholesterol 02/28/23 02/28/23 03/01/23 16:44 20:16 05:09 Plt Count Monocytes # (Manual) Sodium 134 L Chloride BUN 31 H Creatinine 1.36 H Glucose 140 H POC Glucose (mg/dL) 218 H 237 H Troponin I HDL Cholesterol 03/01/23 03/01/23 03/01/23 06:54 07:53 11:11 Plt Count 111 L Monocytes # (Manual) 1.10 H Sodium Chloride BUN Creatinine Glucose POC Glucose (mg/dL) 140 H 219 H Troponin I HDL Cholesterol - Diagnostic Findings Chest x-ray: image reviewed Assessment and Plan Assessment: Acute ST segment elevation myocardial infarction, status post PCI, and stents 2 to the LAD, February 2. Nonproductive cough, shortness of breath, and wheezing, since February 20, likely related to a viral bronchitis with reactive bronchospasm and bronchial inflammation. No prior history of lung disease. Lifelong nonsmoker. History of hypertension. History of diabetes mellitus. History of hyperlipidemia. Plan: Plan dated 03/01/2023. The patient is seen and examined in room 263. Labs, x-rays, and medications are all reviewed. The prednisone will be discontinued in favor of Solu-Medrol. I'll add some Pulmicort and formoterol, usual doses, and albuterol, and ipratropium bromide, 4 times a day and when necessary. Additional recommendations and suggestions are forthcoming. There is a chance, that the wheezing and shortness of breath relate in part to cardiac asthma, as her N- terminal proBNP is quite elevated. She did receive some diuretic yesterday. We will continue to follow make recommendations along the way. Time with Patient: Greater than 30
[2023-03-01 16:46] LABS: Glucose,Whole Blood 111 mg/dL (70-110)
[2023-03-01] MEDS: methylPREDNISolone SOD SUCCI 40 MG/ML 1 ML VIAL IV SCH ×2 (17:01→23:58)
[2023-03-01] MEDS: MAG HYDROX/AL HYDROX/SIMETH 30 ML CUP PO PRN (19:00)
[2023-03-01] MEDS: HYDROcodone/APAP 5-325MG 1 EACH TAB PO PRN (19:10)
[2023-03-01] MEDS: FORMOTEROL FUMARATE 20 MCG/2 ML NEBU INHALATION SCH (19:23)
[2023-03-01] MEDS: BUDESONIDE 1 MG/2 ML NEBU INHALATION SCH (19:23)
[2023-03-01] MEDS: ATORVASTATIN 80 MG TAB PO SCH (20:21)
[2023-03-01] MEDS: MELATONIN 5 MG TABLET PO SCH (20:21)
[2023-03-01] MEDS: BENZONATATE 100 MG CAP PO PRN (20:22)
[2023-03-01 20:29] LABS: Glucose,Whole Blood 356 mg/dL (70-110)
[2023-03-01] MEDS: METOPROLOL TARTRATE 12.5 MG TAB PO SCH (20:44)
--- NOTE | 2023-03-02 05:59 | PN ---
PROGRESS NOTE Ms. Carbajal is still complaining of some shortness of breath. She has cough with expectoration. Fine rales, both bases. Maintaining sinus rhythm. Blood pressure was somewhat low. We did give her some Lasix and her creatinine has gone up. I am going to place her back on 0.9 saline at 75 mL/hour. I will seek input from Dr. Puga. The patient may have a component of bronchitis as well. Her ejection fraction is in the 35% range with extensive antral wall hypokinesia. Vitals are stable. Blood pressure is somewhat in the low end of normal. S1, S2 without significant new murmurs. Lungs reveal fine bibasal rales. Abdomen is soft. Lower extremities reveal diminished pulses. Plan is to discontinue lisinopril, seek input from Dr. Puga from a pulmonary standpoint and hydrate her cautiously and check a BNP today and BMP tomorrow. MMODL / IJN: [id number] /
[2023-03-02 06:12] LABS: Basophils % (A) 0 %; Eosinophils % (A) 0 %; HGB 12.1 gm/dL (11.4-16.0); Hypochromasia Slight; Lymphocytes % (A) 10 %; MCH 29.9 pg (25.0-35.0); MCHC 31.1 g/dL (31.0-37.0); MCV 96.2 fL (80.0-100.0); Mean Platelet Volume 11.8; Monocytes # (A) 0.2 k/uL (0-1.0); Monocytes % (A) 2 %; Neutrophils # (A) 8.7 k/uL (1.3-7.7); Neutrophils % (A) 86 %; Platelet Count 144 k/uL (150-450); RBC 4.05 m/uL (3.80-5.40); RDW 12.3 % (11.5-15.5); WBC 10.1 k/uL (3.8-10.6)
[2023-03-02 06:14] LABS: Prothrombin Time 10.6 sec (9.0-12.0)
[2023-03-02] MEDS: INSULIN DETEMIR (LEVEMIR) 100 UNIT/ML SYR SQ SCH (06:14)
[2023-03-02] MEDS: methylPREDNISolone SOD SUCCI 40 MG/ML 1 ML VIAL IV SCH ×4 (06:14→23:43)
[2023-03-02 06:32] LABS: Calcium 8.4 mg/dL (8.4-10.2); Potassium 5.1 mmol/L (3.5-5.1)
[2023-03-02 06:41] LABS: Glucose,Whole Blood 204 mg/dL (70-110)
[2023-03-02] MEDS: INSULIN ASPART (NovoLOG) 100 UNIT/ML VIAL SQ SCH ×5 (06:45→20:27)
--- NOTE | 2023-03-02 07:12 | CA ---
Transthoracic Echo Report Name: Laxmi Carbajal Age: 83 Gender: F : 1940 Exam Date: 03/01/2023 12:44 Exam Location: [facility] Ht (in): Wt (lb): Ordering Physician: Bjorn Rose MD ([id number]) Attending/Referring Phys: Welfare Case Worker Dianne Navarro RDCS Procedure CPT: Indications: lv fxn, mitral valve Cardiac Hx: Technical Quality: Poor Contrast 1: Lumason Total Dose (mL): 4 Contrast 2: Total Dose (mL): MEASUREMENTS (Male / Female) Normal Values 2D ECHO LV Diastolic Diameter PLAX 4.4 cm 4.2 - 5.9 / 3.9 - 5.3 cm LV Systolic Diameter PLAX 2.7 cm IVS Diastolic Thickness 1.3 cm 0.6 - 1.0 / 0.6 - 0.9 cm LVPW Diastolic Thickness 0.9 cm 0.6 - 1.0 / 0.6 - 0.9 cm LV Relative Wall Thickness 0.5 FINDINGS Left Ventricle Limited study. Mid anterior, apical and anteroseptal hypokinesis . Left ventricular ejection fraction is estimated at 35-40 %. Right Ventricle Right Atrium Left Atrium Mitral Valve Aortic Valve Tricuspid Valve Pulmonic Valve Pericardium Aorta CONCLUSIONS Moderately impaired left ventricle systolic function with segmental wall motion abnormality Previewed by: Dr. Refugio Arce MD (Electronically Signed) Final Date: 02 Mar 2023 07:11
[2023-03-02] MEDS: BUDESONIDE 1 MG/2 ML NEBU INHALATION SCH ×2 (07:48→20:24)
[2023-03-02] MEDS: IPRATROPIUM-ALBUTEROL 3 ML NEB INHALATION PRN ×2 (07:48→20:24)
[2023-03-02] MEDS: FORMOTEROL FUMARATE 20 MCG/2 ML NEBU INHALATION SCH ×2 (07:48→20:24)
[2023-03-02] MEDS: PANTOPRAZOLE 40 MG TABLET PO SCH (08:04)
[2023-03-02] MEDS: ENOXAPARIN 30 MG/0.3 ML SYRINGE SQ SCH (08:04)
[2023-03-02] MEDS: GABAPENTIN 300 MG CAP PO SCH ×3 (08:04→20:27)
[2023-03-02] MEDS: ASPIRIN 81 MG PO SCH (08:04)
[2023-03-02] MEDS: guaiFENesin 600 MG TABLET.ER PO SCH ×2 (08:04→20:26)
[2023-03-02] MEDS: TICAGRELOR 90 MG TAB PO SCH ×2 (08:04→20:25)
[2023-03-02] MEDS: SPIRONOLACTONE 25 MG TAB PO SCH (08:04)
[2023-03-02] MEDS: METOPROLOL TARTRATE 12.5 MG TAB PO SCH ×3 (08:04→20:30)
[2023-03-02] MEDS: DAPAGLIFLOZIN PROPANEDIOL 10 MG TABLET PO SCH (08:04)
--- NOTE | 2023-03-02 08:09 | P.PN ---
Subjective Progress Note Date: 03/02/23 Principal diagnosis: ACS The patient is an 83-year-old female patient who was admitted to the hospital with acute anterior ST elevation myocardial infarction and she underwent an emergent heart catheterization where she was found to have occluded LAD which was a stented and mild to moderate disease involving the left circumflex and RCA. She underwent an echo which revealed impaired LV function was EF around 35-40%. 03/02/2023 The patient was seen and evaluated this morning. She was on norepinephrine and currently she is off any vasopressors. She seems to be he was directly stable. The creatinine is a stable as well as and the urine output has been marginal. She reports no pain in the chest at this point and no shortness of breath. The last echo showed an EF around 35%. Currently she is on dual antiplatelet therapy and high intensity statin and she is on beta [place] she was on lisinopril and that was stopped because of the low blood pressure requiring norepinephrine. From the cardiac standpoint of view, she seems to be stable. The last chest x-ray did not show any evidence of fluid overload. At this point we'll continue the current medical regimen, continue monitor the pressure and heart rate, monitor urine output, and continue dual antiplatelet therapy. 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% Cardiogenic shock which has improved Multiple comorbid conditions Plan Continue the current medical regimen including dual antiplatelet therapy and high intensity statin Continue the current dose of beta german Continue monitor the urine output Follow-up with the patient Objective - Vital Signs Vital signs: Vital Signs Temp 98.3 F 03/02/23 04:00 Pulse 80 03/02/23 08:04 Resp 12 03/02/23 07:15 BP 133/118 03/02/23 07:15 Pulse Ox 97 03/02/23 07:15 FiO2 Intake & Output 03/01/23 03/02/23 03/02/23 18:59 06:59 18:59 Intake Total 2190.821 1080.468 Output Total 1100 1175 Balance 1090.821 -94.532 Intake: IV 1520 975 Invasive Line 3 10 Invasive Line 5 10 Sodium Chloride 0.9% 1, 750 975 000 ml @ 75 mls/hr IV . [id number] [facility] Rx#:[id number] Sodium Chloride 0.9% 500 250 ml 250 ml @ 999 mls/hr IV .Q16M [facility] Rx#:[id number] Sodium Chloride 0.9% 500 500 ml 500 ml @ 999 mls/hr IV .Q31M [facility] Rx#:[id number] Intake, IV Titration 52.821 105.468 Amount Norepinephrine 4 mg In 52.821 105.468 Sodium Chloride 0.9% 250 ml @ 0.03 MCG/KG/MIN 7.99 mls/hr IV .Q24H [facility] Rx#: [id number] Oral 618 Output: Urine 1100 1175 Other: Voiding Method Toilet Toilet # Voids 1 - Labs CBC & Chem 7: 03/02/23 05:12 03/02/23 05:12 Labs: Abnormal Lab Results - Last 24 Hours (Table) 03/01/23 03/01/23 03/01/23 Range/Units 07:53 11:11 16:33 Plt Count 111 L (150-450) k/uL Neutrophils # (1.3-7.7) k/uL Monocytes # (Manual) 1.10 H (0-1.0) k/uL BUN (7-17) mg/dL Creatinine (0.52-1.04) mg/dL Glucose (74-99) mg/dL POC Glucose (mg/dL) 219 H 111 H (70-110) mg/dL 03/01/23 03/02/23 03/02/23 Range/Units 20:28 05:12 05:12 Plt Count 144 L (150-450) k/uL Neutrophils # 8.7 H (1.3-7.7) k/uL Monocytes # (Manual) (0-1.0) k/uL BUN 26 H (7-17) mg/dL Creatinine 1.21 H (0.52-1.04) mg/dL Glucose 203 H (74-99) mg/dL POC Glucose (mg/dL) 356 H (70-110) mg/dL 03/02/23 Range/Units 06:40 Plt Count (150-450) k/uL Neutrophils # (1.3-7.7) k/uL Monocytes # (Manual) (0-1.0) k/uL BUN (7-17) mg/dL Creatinine (0.52-1.04) mg/dL Glucose (74-99) mg/dL POC Glucose (mg/dL) 204 H (70-110) mg/dL
[2023-03-02] MEDS: MORPHINE SULFATE 4 MG/ML SYRINGE IVP PRN ×3 (08:24→21:04)
[2023-03-02] MEDS: HYDROcodone/APAP 5-325MG 1 EACH TAB PO PRN ×2 (10:06→20:25)
--- NOTE | 2023-03-02 10:32 | XR ---
EXAMINATION TYPE: XR chest 1V portable DATE OF EXAM: 03/02/2023 COMPARISON: 03/01/2023 HISTORY: Shortness of breath TECHNIQUE: Single frontal view of the chest is obtained. FINDINGS: A right-sided PICC line seen with tip overlying the right atrium. Subsegmental changes rig ht lung base with apical pleural thickening stable. Hyperinflation suggests COPD. No overt failure. A rthropathy of the shoulders. IMPRESSION: 1. Right basilar atelectasis or infiltrate. Favor atelectasis with no definite focal pneumonia. 2. COPD.
--- NOTE | 2023-03-02 10:34 | P.NPCON ---
History of Present Illness - Reason for Consult acute renal failure - History of Present Illness Reason for consultation: Acute kidney injury History of present illness: Patient is a 83-year-old female seen in renal consultation for acute kidney injury. Patient's baseline creatinine is near 1 and peaked at 1.36 this admission. It is slightly improved to 1.1 today. Patient came to the hospital due to severe chest pain with radiation to her jaw prior to admission. She was subsequently diagnosed with acute GA and underwent cardiac catheterization with LAD stent placement on 02/27/2023. Ejection fraction noted to be 30-35%. She was on Levophed but now discontinued. She does have long-standing history of diabetes. She still having chest pain but rates it as a 5 out of 10. Patient states the pain was 10 out of 10 at the time of admission. She was on IV fluids were discontinued this morning. Oral intake is fair. She denies any prior cardiac disease. No vomiting or diarrhea. No gross hematuria. Denies family history of renal disease. She denies use of nonsteroidals. Vital signs are stable. General: No acute distress. HEENT: Head exam is unremarkable. LUNGS: No audible rhonchi or wheezes. HEART: Rate and Rhythm are regular. ABDOMEN: Soft, nontender. EXTREMITITES: No edema. Past Medical History Past Medical History: CVA/TIA, Diabetes Mellitus, GERD/Reflux, Hyperlipidemia, Hypertension, Osteoarthritis (OA) Additional Past Medical History / Comment(s): Diabetic neuropathy. CVA 2018-sl weakness rt leg. History of Any Multi-Drug Resistant Organisms: None Reported Past Surgical History: Adenoidectomy, Section, Cholecystectomy, Hernia Repair, Joint Replacement, Orthopedic Surgery, Tonsillectomy Additional Past Surgical History / Comment(s): arthroscopy left knee, RT hip replacement 08/2018. PAIN PROC 04/22/19 Past Anesthesia/Blood Transfusion Reactions: Postoperative Nausea & Vomiting (PONV) Past Psychological History: No Psychological Hx Reported Smoking Status: Never smoker Past Alcohol Use History: Rare Past Drug Use History: None Reported - Past Family History Father Additional Family Medical History / Comment(s): "heart trouble" Mother Family Medical History: No Reported History Medications and Allergies Home Medications Medication Instructions Recorded Confirmed Type ramipriL [Altace] 2.5 mg PO DAILY 04/23/15 02/27/23 History Ergocalciferol [Vitamin D2 50,000 unit PO QMONTHLY 03/21/18 02/27/23 History (DRISDOL)] Gabapentin [Neurontin] 300 mg PO TID 03/21/18 02/27/23 History Dulaglutide [Trulicity] 1.5 mg SQ Q7D 02/27/23 02/27/23 History Empagliflozin [Jardiance] 25 mg PO DAILY 02/27/23 02/27/23 History Insulin Aspart [NovoLOG Flexpen] See Protocol SQ AC-TID 02/27/23 02/27/23 History Insulin Glargine,Hum.rec.anlog 10 units SQ DAILY 02/27/23 02/27/23 History [Toujeo Max Solostar] Omeprazole [PriLOSEC] 40 mg PO DAILY 02/27/23 02/27/23 History Pravastatin Sodium [Pravachol] 40 mg PO DAILY 02/27/23 02/27/23 History Tolterodine ER [Detrol LA] 2 mg PO DAILY 02/27/23 02/27/23 History traMADol HCL 50 mg PO Q8H PRN 02/27/23 02/27/23 History Allergies Allergy/AdvReac Type Severity Reaction Status Date / Time niacin Allergy whole body Verified 02/26/23 22:35 flushing Physical Exam Vitals: Vital Signs Temp Pulse Pulse Resp BP BP BP 03/02/23 10:00 98 14 108/48 03/02/23 09:00 108 H 18 121/50 03/02/23 08:14 84 03/02/23 08:04 80 03/02/23 08:00 97.6 F 90 20 105/48 03/02/23 07:49 85 03/02/23 07:15 92 12 133/118 03/02/23 07:00 88 14 126/56 03/02/23 06:45 77 15 119/91 03/02/23 06:30 79 14 124/57 03/02/23 06:15 80 14 125/55 03/02/23 06:00 80 16 128/60 03/02/23 05:45 85 14 133/60 03/02/23 05:30 93 11 L 104/45 03/02/23 05:15 84 19 03/02/23 05:00 73 14 107/46 03/02/23 04:45 74 17 104/44 05/05 04:30 75 16 108/51 05/05 04:15 74 0 L 95/63 05/05 04:00 98.3 F 73 16 109/49 05/05 03:45 75 17 108/49 05/05 03:30 76 14 110/50 05/05 03:15 76 14 104/47 05/05 03:00 73 12 102/47 05/05 02:45 73 17 101/46 05/05 02:30 73 18 102/46 05/05 02:15 75 15 110/46 05/05 02:00 79 12 106/52 05/05 01:45 76 19 104/45 0505 01:30 77 19 96/45 05/05 01:15 78 19 101/45 05/05 01:00 78 18 103/42 0505 00:45 82 21 104/44 05/05 00:30 83 9 L 98/56 05/05 00:15 82 21 102/60 05/05 00:00 98.1 F 86 11 L 102/41 05/04 23:45 86 15 105/44 05/04 23:30 90 8 L 108/45 0504 23:15 89 21 106/45 05 23:00 96 14 102/51 05 22:45 93 20 120/51 05 22:30 104 H 25 H 106/55 0504 22:15 92 24 106/52 05/04 22:00 95 16 109/51 05 21:45 97 9 L 112/55 05/04 21:30 97 24 123/73 0504 21:15 96 24 117/52 05/04 21:00 99 13 122/55 0504 20:45 103 H 19 121/56 05 20:30 97 28 H 130/56 05/02/18 20:15 112 H 25 H 129/68 05/02/18 20:00 98.2 F 100 17 114/48 05 19:42 88 05 19:29 84 05 19:28 88 05 19:25 86 05 19:00 88 18 121/55 05 18:45 89 15 113/47 05 18:30 86 24 107/47 05 18:15 84 26 H 114/58 05 18:00 86 19 111/48 05 17:45 85 24 116/51 05 17:30 89 24 91/42 05 17:15 86 26 H 90/44 05 17:00 87 20 112/60 05 16:45 86 12 108/54 05 16:30 82 12 114/55 05 16:15 84 12 114/51 05 16:00 98.4 F 84 24 117/66 05 15:45 81 14 117/54 05 15:30 80 12 117/56 05 15:15 82 16 122/56 05 15:00 81 24 03/01/23 14:45 82 17 03/01/23 14:35 79 18 03/01/23 14:30 81 12 114/55 05 14:25 81 20 111/53 05 14:20 79 22 115/56 03/01/23 14:15 80 12 105/62 05 14:10 80 12 104/50 05 14:05 78 12 105/56 05 14:00 78 12 109/52 05 13:55 76 22 105/53 05 13:50 78 17 110/55 05 13:45 15 03/01/23 13:40 76 17 103/51 05 13:35 81 16 105/45 05 13:30 79 20 105/45 05 13:25 82 19 104/36 05 13:20 80 13 103/45 05 13:15 82 18 101/53 05/02/18 13:10 82 18 93/53 05 13:05 80 16 89/40 05 13:00 85 16 98/41 05 12:55 85 16 98/49 03/01/23 12:50 85 10 L 119/59 03/01/23 12:45 86 16 86/43 05 12:40 85 28 H 88/38 03/01/23 12:35 86 22 86/36 05 12:30 85 16 80/34 05 12:25 81 21 81/32 05 12:23 18 03/01/23 12:20 81 16 81/58 03/01/23 12:15 85 16 88/44 03/01/23 12:05 82 12 85/39 05 11:55 85/38 03/01/23 11:40 82/48 03/01/23 11:35 76/40 03/01/23 11:34 98.6 F 76 16 76/40 82/48 Pulse Ox 03/02/23 10:00 99 03/02/23 09:00 93 L 03/02/23 08:14 03/02/23 08:04 03/02/23 08:00 100 03/02/23 07:49 05 07:15 97 05 07:00 98 0505 06:45 96 03/02/23 06:30 96 03/02/23 06:15 96 03/02/23 06:00 97 03/02/23 05:45 97 05 05:30 99 03/02/23 05:15 99 05 05:00 100 03/02/23 04:45 99 05 04:30 99 03/02/23 04:15 99 03/02/23 04:00 100 0505 03:45 100 0505 03:30 99 0505 03:15 100 0505 03:00 99 0505 02:45 99 0505 02:30 98 0505 02:15 99 05 02:00 100 0505 01:45 100 0505 01:30 100 0505 01:15 100 05 01:00 99 0505 00:45 98 05 00:30 99 05 00:15 98 03/02/23 00:00 100 03/01/23 23:45 100 03/01/23 23:30 100 03/01/23 23:15 100 03/01/23 23:00 99 03/01/23 22:45 99 03/01/23 22:30 98 03/01/23 22:15 97 03/01/23 22:00 98 03/01/23 21:45 98 03/01/23 21:30 97 03/01/23 21:15 98 03/01/23 21:00 98 03/01/23 20:45 100 03/01/23 20:30 98 03/01/23 20:15 97 03/01/23 20:00 95 03/01/23 19:42 03/01/23 19:29 03/01/23 19:28 03/01/23 19:25 03/01/23 19:00 97 03/01/23 18:45 97 03/01/23 18:30 98 03/01/23 18:15 98 03/01/23 18:00 99 03/01/23 17:45 99 03/01/23 17:30 99 03/01/23 17:15 99 03/01/23 17:00 98 03/01/23 16:45 99 03/01/23 16:30 99 03/01/23 16:15 99 03/01/23 16:00 100 03/01/23 15:45 98 03/01/23 15:30 98 03/01/23 15:15 97 03/01/23 15:00 98 03/01/23 14:45 97 03/01/23 14:35 95 03/01/23 14:30 96 03/01/23 14:25 96 03/01/23 14:20 96 03/01/23 14:15 96 03/01/23 14:10 94 L 03/01/23 14:05 97 03/01/23 14:00 96 03/01/23 13:55 97 03/01/23 13:50 97 03/01/23 13:45 97 03/01/23 13:40 97 03/01/23 13:35 97 03/01/23 13:30 97 03/01/23 13:25 96 03/01/23 13:20 96 03/01/23 13:15 97 03/01/23 13:10 96 03/01/23 13:05 96 03/01/23 13:00 97 03/01/23 12:55 97 03/01/23 12:50 97 03/01/23 12:45 95 03/01/23 12:40 96 03/01/23 12:35 96 03/01/23 12:30 98 03/01/23 12:25 97 03/01/23 12:23 03/01/23 12:20 98 03/01/23 12:15 03/01/23 12:05 03/01/23 11:55 03/01/23 11:40 03/01/23 11:35 03/01/23 11:34 100 Intake and Output 03/01/23 03/02/23 03/02/23 22:59 06:59 14:59 Intake Total 920.157 780.468 96.154 Output Total 800 775 Balance 120.157 5.468 96.154 Intake: IV 610 675 95 0.9 @ 10ml/hr 20 Invasive Line 5 10 Sodium Chloride 0.9% 1, 600 675 75 000 ml @ 75 mls/hr IV . [id number] [facility] Rx#:[id number] Intake, IV Titration 50.157 105.468 1.154 Amount Norepinephrine 4 mg In 50.157 105.468 1.154 Sodium Chloride 0.9% 250 ml @ 0.03 MCG/KG/MIN 7.99 mls/hr IV .Q24H [facility] Rx#: [id number] Oral 260 Output: Urine 800 775 Other: Voiding Method Toilet Toilet Toilet Results - Lab Results Most recent lab results Calcium 8.4 mg/dL (8.4-10.2) 03/02/23 05:12 Magnesium 2.3 mg/dL (1.6-2.3) 03/01/23 05:09 03/02/23 05:12 03/02/23 05:12 Assessment and Plan Plan: Assessment: 1. Acute kidney injury secondary to ATN secondary to cardiogenic shock as well as contrast-induced acute kidney injury. Baseline creatinine near 1 and peaked at 1.36 this admission - 1.21 today. 2. STEMI status post cardiac catheterization with LAD stent placement 02/27/2023. 3. Cardiomyopathy with ejection fraction of 35%. 4. Diabetes mellitus. Plan: Encourage oral intake. Avoid nephrotoxins. Check UA. PICC line placed in the dominant arm. Advised patient to follow up outpatient in 1-2 weeks postdischarge. Thank you for the consultation. I will continue to follow the patient with you during her hospital stay.
--- NOTE | 2023-03-02 10:53 | P.PN ---
Subjective Progress Note Date: 03/02/23 Principal diagnosis: Cough and shortness of breath. Pulmonary/critical care consult dated 03/01/2023. 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 The patient was diagnosed as having a STEMI, and went to the catheterization laboratory on February 27, and had 2 stents placed in her LAD. I'm concerned for cough. The patient apparently has had a nonproductive cough since February 20. The cough preceded the chest discomfort. She has no history of any lung issues. She is a lifelong nonsmoker. She had a viral screen that was negative. In addition the cough, she admits to some shortness of breath, and some wheezing. She has never had this before. A viral screen was negative for influenza A, and influenza B, RSV, and coronavirus. Currently, the patient's on saline at 75 mL an hour, nasal O2 2 L, and norepinephrine at 2.1 mcg/m. White count 9.2, hemoglobin 12, hematocrit 37, and platelet count 111,000. Sodium 134, potassium 4.7, chlorides 99, CO2 25, anion gap 10, BUN 31, creatinine 1.36. N-terminal proBNP today was 12,400. A chest x-ray today was unremarkable. An EKG done today but admission showed elevated ST segments, and the anterior leads. Her initial troponin, was 0.405, and subsequently, it was 66.7. Progress note dated 03/02/2023. 83-year-old female seen yesterday in consultation. Please see the note above. She seen today again in room 263. I saw her for shortness of breath, wheezing, and cough, which I thought was related to a viral bronchitis, and to a lesser extent, cardiac asthma. Today, the patient is complaining of chest pain. She's currently on room air. She is getting norepinephrine at 1.5 mcg/m. In addition, she's getting saline at 75 mL an hour, and it. I did ask the nurse to order a chest x-ray on her. White count 10.1, hemoglobin 12.1, hematocrit 39, platelet count 144,000. Sodium 139, potassium 5.1, chlorides 107, CO2 23, BUN 26, and creatinine 1.21. N-terminal proBNP was 13,300. Objective - Vital Signs Vital signs: Vital Signs Temp 97.6 F 03/02/23 08:00 Pulse 98 03/02/23 10:00 Resp 14 03/02/23 10:00 BP 108/48 03/02/23 10:00 Pulse Ox 99 03/02/23 10:00 FiO2 Intake & Output 03/01/23 03/02/23 03/02/23 18:59 06:59 18:59 Intake Total 2190.821 1080.468 96.154 Output Total 1100 1175 Balance 1090.821 -94.532 96.154 Intake: IV 1520 975 95 0.9 @ 10ml/hr 20 Invasive Line 3 10 Invasive Line 5 10 Sodium Chloride 0.9% 1, 750 975 75 000 ml @ 75 mls/hr IV . [id number] [facility] Rx#:[id number] Sodium Chloride 0.9% 500 250 ml 250 ml @ 999 mls/hr IV .Q16M [facility] Rx#:[id number] Sodium Chloride 0.9% 500 500 ml 500 ml @ 999 mls/hr IV .Q31M [facility] Rx#:[id number] Intake, IV Titration 52.821 105.468 1.154 Amount Norepinephrine 4 mg In 52.821 105.468 1.154 Sodium Chloride 0.9% 250 ml @ 0.03 MCG/KG/MIN 7.99 mls/hr IV .Q24H [facility] Rx#: [id number] Oral 618 Output: Urine 1100 1175 Other: Voiding Method Toilet Toilet Toilet # Voids 1 - Exam No acute distress, oriented 3. Room air saturation 95%. HEENT examination is grossly unremarkable. Mucous membranes are moist. No oral lesions. Neck supple. Full range of motion. No adenopathy thyromegaly or neck vein distention. Cardiovascular examination reveals regular rhythm rate. S1-S2 normal. No S3 or S4. No discernible murmur noted. Heart sounds are distant. Heart rate 98 bpm. Lungs reveal expiratory rhonchi and expiratory wheezes, accentuated on forced maneuver. Minimal crackles at the bases. Breath sounds equal bilaterally. Saturations are 95% on room air. Abdomen soft bowel sounds are heard. No masses or tenderness. Extremities are intact. No cyanosis clubbing or edema. Skin is without rash or lesion. Neurologic examination is brief but nonfocal. - Labs CBC & Chem 7: 03/02/23 05:12 03/02/23 05:12 Labs: Abnormal Lab Results - Last 24 Hours (Table) 03/01/23 03/01/23 03/01/23 Range/Units 07:53 11:11 16:33 Plt Count (150-450) k/uL Neutrophils # (1.3-7.7) k/uL Monocytes # (Manual) 1.10 H (0-1.0) k/uL BUN (7-17) mg/dL Creatinine (0.52-1.04) mg/dL Glucose (74-99) mg/dL POC Glucose (mg/dL) 219 H 111 H (70-110) mg/dL 03/01/23 03/02/23 03/02/23 Range/Units 20:28 05:12 05:12 Plt Count 144 L (150-450) k/uL Neutrophils # 8.7 H (1.3-7.7) k/uL Monocytes # (Manual) (0-1.0) k/uL BUN 26 H (7-17) mg/dL Creatinine 1.21 H (0.52-1.04) mg/dL Glucose 203 H (74-99) mg/dL POC Glucose (mg/dL) 356 H (70-110) mg/dL 03/02/23 Range/Units 06:40 Plt Count (150-450) k/uL Neutrophils # (1.3-7.7) k/uL Monocytes # (Manual) (0-1.0) k/uL BUN (7-17) mg/dL Creatinine (0.52-1.04) mg/dL Glucose (74-99) mg/dL POC Glucose (mg/dL) 204 H (70-110) mg/dL Assessment and Plan Assessment: Acute ST segment elevation myocardial infarction, status post PCI, and stents 2 to the LAD, February 27. Nonproductive cough, shortness of breath, and wheezing, since February 20, likely related to a viral bronchitis with reactive bronchospasm and bronchial i nflammation, as well, a component of cardiac asthma. No prior history of lung disease. Lifelong nonsmoker. History of hypertension. History of diabetes mellitus. History of hyperlipidemia. Plan: Plan dated 03/01/2023. The patient is seen and examined in room 263. Labs, x-rays, and medications are all reviewed. The prednisone will be discontinued in favor of Solu-Medrol. I'll add some Pulmicort and formoterol, usual doses, and albuterol, and ipratropium bromide, 4 times a day and when necessary. Additional recommendations and suggestions are forthcoming. There is a chance, that the wheezing and shortness of breath relate in part to cardiac asthma, as her N- terminal proBNP is quite elevated. She did receive some diuretic yesterday. We will continue to follow make recommendations along the way. Plan dated 03/02/2023. From the pulmonary standpoint, the patient seems be doing a bit better. She's having chest pain currently. Cardiology has been notified. The patient remains on norepinephrine at 1.5 mcg/m. She's currently on room air. We will continue to follow and make recommendations along the way. Prognosis is certainly guarded. Time with Patient: Greater than 30
[2023-03-02] MEDS: BENZONATATE 100 MG CAP PO PRN (11:38)
[2023-03-02 11:42] LABS: Glucose,Whole Blood 276 mg/dL (70-110)
--- NOTE | 2023-03-02 13:16 | P.PN ---
Subjective Progress Note Date: 03/02/23 Patient is a 83-year-old female with diabetes mellitus type 2 on insulin, GERD, hypertension, and dyslipidemia who presented to the ER with complaints of chest pain. In the ER EKG showed ST segment elevation in V2 through V5 the patient was diagnosed with STEMI. Cardiology took him emergently to the cath lab radiological technologist and a stent was placed to the mid LAD. She presented with URI type symptoms and Covid/RSV/influenza A/B was negative. She underwent echocardiogram which showed an ejection fraction of 30-35% with hypokinetic septum, apex, and anterior wall. Today patient states that she is doing okay. She stated that she still has a cough. Patient has been off pressors since this morning. Her blood pressures in the high 90s. 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 Her blood pressures is in the high 90s. -I reviewed notes from nephrology who is recommending to encourage oral intake and to follow up in the clinic in 1-2 weeks. Patient's creatinine is improving and is 1.21 today. Yesterday creatinine was 1.36. - Dapagliflozin 10 mg daily, Levemir 10 units daily, Protonix 40 mg daily, gabapentin 300 mg by mouth 3 times a day -Lisinopril discontinued due to hypotension -Aspirin 81 mg, ticagrelor 90 mg twice daily, Lipitor 80 mg nightly -metoprolol 25 mg twice daily, and Aldactone 25 mg daily -Continue with sliding scale insulin -DuoNeb 4 times a day when necessary, Mucinex 600 mg twice daily, - -resume IV Solu-Medrol 40 mg every 6 hours, Tessalon Pearls as needed for cough DVT prophylaxis: Lovenox Anticipated discharge date: Tomorrow if patient's blood pressure is stable off pressors Objective - Vital Signs Vital signs: Vital Signs Temp 97.8 F 03/02/23 12:00 Pulse 93 03/02/23 12:00 Resp 21 03/02/23 12:00 BP 114/53 03/02/23 12:00 Pulse Ox 99 03/02/23 12:00 FiO2 Intake & Output 03/01/23 03/02/23 03/02/23 18:59 06:59 18:59 Intake Total 2190.821 1080.468 116.154 Output Total 1100 1175 Balance 1090.821 -94.532 116.154 Intake: IV 1520 975 115 0.9 @ 10ml/hr 40 Invasive Line 3 10 Invasive Line 5 10 Sodium Chloride 0.9% 1, 750 975 75 000 ml @ 75 mls/hr IV . [id number] [facility] Rx#:[id number] Sodium Chloride 0.9% 500 250 ml 250 ml @ 999 mls/hr IV .Q16M [facility] Rx#:[id number] Sodium Chloride 0.9% 500 500 ml 500 ml @ 999 mls/hr IV .Q31M [facility] Rx#:[id number] Intake, IV Titration 52.821 105.468 1.154 Amount Norepinephrine 4 mg In 52.821 105.468 1.154 Sodium Chloride 0.9% 250 ml @ 0.03 MCG/KG/MIN 7.99 mls/hr IV .Q24H [facility] Rx#: [id number] Oral 618 Output: Urine 1100 1175 Other: Voiding Method Toilet Toilet Toilet # Voids 1 - Labs CBC & Chem 7: 03/02/23 05:12 03/02/23 05:12 Labs: Abnormal Lab Results - Last 24 Hours (Table) 03/01/23 03/01/23 03/02/23 Range/Units 16:33 20:28 05:12 Plt Count 144 L (150-450) k/uL Neutrophils # 8.7 H (1.3-7.7) k/uL BUN (7-17) mg/dL Creatinine (0.52-1.04) mg/dL Glucose (74-99) mg/dL POC Glucose (mg/dL) 111 H 356 H (70-110) mg/dL 03/02/23 03/02/23 03/02/23 Range/Units 05:12 06:40 11:41 Plt Count (150-450) k/uL Neutrophils # (1.3-7.7) k/uL BUN 26 H (7-17) mg/dL Creatinine 1.21 H (0.52-1.04) mg/dL Glucose 203 H (74-99) mg/dL POC Glucose (mg/dL) 204 H 276 H (70-110) mg/dL
[2023-03-02] MEDS: NOREPINEPHRINE 4 MG in SODIUM CHLORIDE 0.9% 250 ML IV SCH ×2 (16:15→18:03)
[2023-03-02 16:22] LABS: Glucose,Whole Blood 281 mg/dL (70-110)
--- NOTE | 2023-03-02 18:12 | CDI ---
Documentation Clarification Form Date: 03/02/2023 5:52:12 PM From: Margie Haywood RN CCDS Phone: [phone] Admit Date: 02/26/2023 10:42:00 PM Patient Name: Laxmi Carbajal Visit Number: [id number] Discharge Date: ATTENTION: The Clinical Documentation Specialists (CDI) and [facility] Coding Staff appreciate your assistance in clarifying documentation. Please respond to the clarification below the line at the bottom and electronically sign. The CDI & [facility] Coding staff will review the response and follow-up if needed. Please note: Queries are made part of the Legal Health Record. If you have any questions, please contact the author of this message via ITS. Dr. Mack Solomon Your patient has an abnormal lab value: ProBNP 1300, 03/02. Please clarify if there is an additional diagnosis and/or clinical significance related to this value. History/Risk Factors: 83-year-old Female presents to the ED with central chest pain, pressure like radiating to the back. Medical History: CVA/TIA, DM2; GERD; HLD and OA. 02/27, H&P. Clinical Indicators: VS/Pulse OX: 03/02 B/P 105/48, HR 90, Temp 97.6 F Axillary, RR 20, Sp0@ 100% ra BNP: 03/02 12859 Echocardiogram Results: 03/01 EF 35-40% moderately impaired left ventricle systolic function with segmental wall motion abnormality. Chest X Ray: 03/02 Right basilar atelectasis or infiltrate. Favor atelectasis with no definite focal pneumonia. COPD. Treatment: 02/27 03/01 Lopressor 25mg PO BID; 02/28 Farxiga 10mg PO Daily; 02/28 Lasix 20mg IV x 1; 03/01 Lopressor 12.5mg PO BID; 02/27 Aldactone 25mg PO Daily Is there an additional diagnosis and or clinical significance related to the above lab result/information? [ ] Chronic Systolic Heart Failure (reduced EF) [ X ] Acute on Chronic Systolic Heart Failure (reduced EF) [ ] Other, please specify [ ] Unable to determine (Template Last Revised: November 2020) MTDD
[2023-03-02 20:24] LABS: Glucose,Whole Blood 208 mg/dL (70-110)
[2023-03-02] MEDS: ATORVASTATIN 80 MG TAB PO SCH (20:26)
[2023-03-02] MEDS: MELATONIN 5 MG TABLET PO SCH (20:26)
[2023-03-02 20:59] LABS: Appearance,Urine Clear (Clear); Bilirubin,Urine Negative (Negative); Blood,Urine Negative (Negative); Color,Urine Light Yellow; Glucose,Urine (UA) 4+ (Negative); Ketones,Urine Trace (Negative); Leukocyte Esterase,Urine Negative (Negative); Nitrite,Urine Negative (Negative); Protein,Urine Negative (Negative); Specific Gravity,Urine 1.031 (1.001-1.035); Urobilinogen,Urine <2.0 mg/dL (<2.0)
[2023-03-02] MEDS ORDERED: HYDROmorphone 0.5 MG/0.5 ML SYRINGE IVP STA (21:31)
[2023-03-03 03:40] LABS: Calcium 8.5 mg/dL (8.4-10.2); Potassium 5.3 mmol/L (3.5-5.1)
[2023-03-03] MEDS: methylPREDNISolone SOD SUCCI 40 MG/ML 1 ML VIAL IV SCH ×3 (05:58→17:32)
[2023-03-03] MEDS: INSULIN DETEMIR (LEVEMIR) 100 UNIT/ML SYR SQ SCH (05:59)
[2023-03-03 06:31] LABS: Glucose,Whole Blood 247 mg/dL (70-110)
[2023-03-03] MEDS: INSULIN ASPART (NovoLOG) 100 UNIT/ML VIAL SQ SCH ×7 (06:35→21:03)
[2023-03-03] MEDS: IPRATROPIUM-ALBUTEROL 3 ML NEB INHALATION PRN ×4 (07:51→20:10)
[2023-03-03] MEDS: BUDESONIDE 1 MG/2 ML NEBU INHALATION SCH ×2 (07:52→20:10)
[2023-03-03] MEDS: FORMOTEROL FUMARATE 20 MCG/2 ML NEBU INHALATION SCH ×2 (07:52→20:10)
[2023-03-03] MEDS: ENOXAPARIN 30 MG/0.3 ML SYRINGE SQ SCH (08:21)
[2023-03-03] MEDS: GABAPENTIN 300 MG CAP PO SCH ×3 (08:22→21:05)
[2023-03-03] MEDS: TICAGRELOR 90 MG TAB PO SCH ×2 (08:22→21:05)
[2023-03-03] MEDS: guaiFENesin 600 MG TABLET.ER PO SCH ×2 (08:22→21:08)
[2023-03-03] MEDS: SPIRONOLACTONE 25 MG TAB PO SCH (08:22)
[2023-03-03] MEDS: ASPIRIN 81 MG PO SCH (08:23)
[2023-03-03] MEDS: DAPAGLIFLOZIN PROPANEDIOL 10 MG TABLET PO SCH (08:23)
[2023-03-03] MEDS: PANTOPRAZOLE 40 MG TABLET PO SCH (08:23)
[2023-03-03] MEDS: METOPROLOL TARTRATE 12.5 MG TAB PO SCH ×2 (08:32→21:08)
--- NOTE | 2023-03-03 08:53 | P.PN ---
Subjective Progress Note Date: 03/03/23 Principal diagnosis: Cough and shortness of breath. Pulmonary/critical care consult dated 03/01/2023. 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 The patient was diagnosed as having a STEMI, and went to the catheterization laboratory on February 27, and had 2 stents placed in her LAD. I'm concerned for cough. The patient apparently has had a nonproductive cough since February 20. The cough preceded the chest discomfort. She has no history of any lung issues. She is a lifelong nonsmoker. She had a viral screen that was negative. In addition the cough, she admits to some shortness of breath, and some wheezing. She has never had this before. A viral screen was negative for influenza A, and influenza B, RSV, and coronavirus. Currently, the patient's on saline at 75 mL an hour, nasal O2 2 L, and norepinephrine at 2.1 mcg/m. White count 9.2, hemoglobin 12, hematocrit 37, and platelet count 111,000. Sodium 134, potassium 4.7, chlorides 99, CO2 25, anion gap 10, BUN 31, creatinine 1.36. N-terminal proBNP today was 12,400. A chest x-ray today was unremarkable. An EKG done today but admission showed elevated ST segments, and the anterior leads. Her initial troponin, was 0.405, and subsequently, it was 66.7. Progress note dated 03/02/2023. 83-year-old female seen yesterday in consultation. Please see the note above. She seen today again in room 263. I saw her for shortness of breath, wheezing, and cough, which I thought was related to a viral bronchitis, and to a lesser extent, cardiac asthma. Today, the patient is complaining of chest pain. She's currently on room air. She is getting norepinephrine at 1.5 mcg/m. In addition, she's getting saline at 75 mL an hour, and it. I did ask the nurse to order a chest x-ray on her. White count 10.1, hemoglobin 12.1, hematocrit 39, platelet count 144,000. Sodium 139, potassium 5.1, chlorides 107, CO2 23, BUN 26, and creatinine 1.21. N-terminal proBNP was 13,300. Progress note dated 03/03/2023. 83-year-old female seen again in room 263. Currently, she's feeling better today. She's getting saline at 10 mL an hour, and oxygen at 3 L by nasal cannula. Her cough and shortness of breath are improved. She remains on norepinephrine at 1.5 mcg/m. Yesterday, she was having significant chest pain. Today's labs show sodium 137, potassium 5.3, chlorides 106, CO2 23, anion gap 8, BUN 31, and the creatinine is 1.11. Glucose 249. Chest x-ray shows changes of COPD, and some basilar atelectasis. Objective - Vital Signs Vital signs: Vital Signs Temp 98.0 F 03/03/23 00:00 Pulse 94 03/03/23 08:19 Resp 24 03/03/23 07:00 BP 105/68 03/03/23 07:00 Pulse Ox 100 03/03/23 07:55 FiO2 Intake & Output 03/02/23 03/03/23 03/03/23 18:59 06:59 18:59 Intake Total 215.123 141.304 64.694 Output Total 825 875 0 Balance -609.877 -733.696 64.694 Weight 72.2 kg 71.5 kg Intake: IV 175 120 20 0.9 @ 10ml/hr 100 120 20 Sodium Chloride 0.9% 1, 75 000 ml @ 75 mls/hr IV . [id number] [facility] Rx#:[id number] Intake, IV Titration 40.123 21.304 44.694 Amount Norepinephrine 4 mg In 40.123 21.304 44.694 Sodium Chloride 0.9% 250 ml @ 0.03 MCG/KG/MIN 7.99 mls/hr IV .Q24H [facility] Rx#: [id number] Output: Urine 825 875 0 Other: Voiding Method Toilet Toilet # Voids 0 - Exam No acute distress, oriented 3. 2 L saturations are 100%. HEENT examination is grossly unremarkable. Mucous membranes are moist. No oral lesions. Neck supple. Full range of motion. No adenopathy thyromegaly or neck vein distention. Cardiovascular examination reveals regular rhythm rate. S1-S2 normal. No S3 or S4. No discernible murmur noted. Heart sounds are distant. Heart rate 94 bpm. Lungs reveal expiratory rhonchi and expiratory wheezes, accentuated on forced maneuver. Minimal crackles at the bases. Breath sounds equal bilaterally. Saturations are 100%. Abdomen soft bowel sounds are heard. No masses or tenderness. Extremities are intact. No cyanosis clubbing or edema. Skin is without rash or lesion. Neurologic examination is brief but nonfocal. - Labs CBC & Chem 7: 03/02/23 05:12 03/03/23 03:12 Labs: Abnormal Lab Results - Last 24 Hours (Table) 03/02/23 03/02/23 03/02/23 Range/Units 11:41 14:00 16:20 Potassium (3.5-5.1) mmol/L BUN (7-17) mg/dL Creatinine (0.52-1.04) mg/dL Glucose (74-99) mg/dL POC Glucose (mg/dL) 276 H 281 H (70-110) mg/dL Urine Glucose (UA) 4+ H (Negative) Urine Ketones Trace H (Negative) 03/02/23 03/03/23 03/03/23 Range/Units 20:21 03:12 06:30 Potassium 5.3 H (3.5-5.1) mmol/L BUN 31 H (7-17) mg/dL Creatinine 1.11 H (0.52-1.04) mg/dL Glucose 249 H (74-99) mg/dL POC Glucose (mg/dL) 208 H 247 H (70-110) mg/dL Urine Glucose (UA) (Negative) Urine Ketones (Negative) Assessment and Plan Assessment: Acute ST segment elevation myocardial infarction, status post PCI, and stents 2 to the LAD, February 27. Nonproductive cough, shortness of breath, and wheezing, since February 20, likely related to a viral bronchitis with reactive bronchospasm and bronchial infl ammation, as well, a component of cardiac asthma. No prior history of lung disease. Lifelong nonsmoker. History of hypertension. History of diabetes mellitus. History of hyperlipidemia. Plan: Plan dated 03/01/2023. The patient is seen and examined in room 263. Labs, x-rays, and medications are all reviewed. The prednisone will be discontinued in favor of Solu-Medrol. I'll add some Pulmicort and formoterol, usual doses, and albuterol, and ipratropium bromide, 4 times a day and when necessary. Additional recommendations and suggestions are forthcoming. There is a chance, that the wheezing and shortness of breath relate in part to cardiac asthma, as her N- terminal proBNP is quite elevated. She did receive some diuretic yesterday. We will continue to follow make recommendations along the way. Plan dated 03/02/2023. From the pulmonary standpoint, the patient seems be doing a bit better. She's having chest pain currently. Cardiology has been notified. The patient remains on norepinephrine at 1.5 mcg/m. She's currently on room air. We will continue to follow and make recommendations along the way. Prognosis is certainly guarded. Plan dated 03/03/2023. The patient is seen today in room 263. He is interviewed, and examined. Labs, x-rays, and medications are reviewed. The patient still is critically O, and continues on norepinephrine at 1.5 mcg/m. She is also on oxygen at 3 L, and saline at 10 mL an hour. We will continue to follow the patient and make recommendations along the way. Her cough, and wheezing, are improved. Prognosis is guarded. Time with Patient: Greater than 30
--- NOTE | 2023-03-03 09:04 | P.PN ---
Subjective Progress Note Date: 03/03/23 PROGRESS NOTE The patient is a 71-year-old female who presented with an acute anterior wall myocardial infarction, underwent stenting of a totally occluded LAD. She has been having episodes of chest discomfort, respirophasic. Her breathing is stable. She is off norepinephrine. Hemodynamically she is stable. She denies any dizziness or palpitation. She feels tired. No nausea or vomiting. Her echocardiogram showed an ejection fraction of 35-40% with segmental wall motion abnormality consistent with anterior wall myocardial infarction. Her EKG showed QS pattern with persistent ST elevation. Medications: Aspirin, Brilinta 90 mg twice a day, metoprolol 12-1/2 mg twice a day, protonic's, Aldactone 25 mg daily, insulin,Farxiga 10 mg daily, IV Solu-Medrol, Lipitor 80 mg daily PHYSICAL EXAMINATION: Blood pressure 102/50 heart rate 90 LUNGS: Clear to auscultation HEART: Regular rate and rhythm, S1, S2. No S3. systolic ejection murmur ABDOMEN: Soft, nontender, no organomegaly EXTREMETIES: No edema LAB: BUN 31, creatinine 1.1 IMPRESSION: 1. Status post anterior wall myocardial infarction with stenting of the LAD 2. Chest discomfort, respirophasic, could be related to pericarditis 3. History of hypertension 4. History of diabetes PLAN: 1. Add colchicine 2. Increase physical activity 3. Follow her renal functions 4. If blood pressure is stable increase beta german 5. If stable transfer to telemetry in p.m. Objective - Vital Signs Vital signs: Vital Signs Temp 97.6 F 03/03/23 08:00 Pulse 101 H 03/03/23 08:30 Resp 22 03/03/23 08:30 BP 102/48 03/03/23 08:30 Pulse Ox 97 03/03/23 08:30 FiO2 Intake & Output 03/02/23 03/03/23 03/03/23 18:59 06:59 18:59 Intake Total 215.123 141.304 64.694 Output Total 825 875 0 Balance -609.877 -733.696 64.694 Weight 72.2 kg 71.5 kg Intake: IV 175 120 20 0.9 @ 10ml/hr 100 120 20 Sodium Chloride 0.9% 1, 75 000 ml @ 75 mls/hr IV . [id number] [facility] Rx#:[id number] Intake, IV Titration 40.123 21.304 44.694 Amount Norepinephrine 4 mg In 40.123 21.304 44.694 Sodium Chloride 0.9% 250 ml @ 0.03 MCG/KG/MIN 7.99 mls/hr IV .Q24H [facility] Rx#: [id number] Output: Urine 825 875 0 Other: Voiding Method Toilet Toilet # Voids 0 - Labs CBC & Chem 7: 03/02/23 05:12 03/03/23 03:12 Labs: Abnormal Lab Results - Last 24 Hours (Table) 03/02/23 03/02/23 03/02/23 Range/Units 11:41 14:00 16:20 Potassium (3.5-5.1) mmol/L BUN (7-17) mg/dL Creatinine (0.52-1.04) mg/dL Glucose (74-99) mg/dL POC Glucose (mg/dL) 276 H 281 H (70-110) mg/dL Urine Glucose (UA) 4+ H (Negative) Urine Ketones Trace H (Negative) 03/02/23 03/03/23 03/03/23 Range/Units 20:21 03:12 06:30 Potassium 5.3 H (3.5-5.1) mmol/L BUN 31 H (7-17) mg/dL Creatinine 1.11 H (0.52-1.04) mg/dL Glucose 249 H (74-99) mg/dL POC Glucose (mg/dL) 208 H 247 H (70-110) mg/dL Urine Glucose (UA) (Negative) Urine Ketones (Negative)
[2023-03-03] MEDS: COLCHICINE 0.6 MG EACH PO SCH ×2 (09:57→21:04)
--- NOTE | 2023-03-03 11:16 | P.PN ---
Subjective Patient is seen for follow-up for acute kidney injury. Admitted with complaints of chest pain and diagnosed with acute anterior wall OK status post cardiac catheterization and stenting of totally occluded LAD. Ejection fraction 35-40% Currently asymptomatic Serum creatinine improved to 1.1 today. Good urine output. Voiding on her own Potassium 5.3.. Maintained on Aldactone. Blood sugar around 240-249 mg/dL Objective - Vital Signs Vital signs: Vital Signs Temp 97.6 F 03/03/23 08:00 Pulse 80 03/03/23 10:30 Resp 15 03/03/23 10:30 BP 89/45 03/03/23 10:30 Pulse Ox 98 03/03/23 10:30 FiO2 Intake & Output 03/02/23 03/03/23 03/03/23 18:59 06:59 18:59 Intake Total 215.123 141.304 74.694 Output Total 825 875 300 Balance -609.877 -733.696 -225.306 Weight 72.2 kg 71.5 kg Intake: IV 175 120 30 0.9 @ 10ml/hr 100 120 30 Sodium Chloride 0.9% 1, 75 000 ml @ 75 mls/hr IV . 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 - Labs CBC & Chem 7: 03/02/23 05:12 03/03/23 03:12 Labs: Abnormal Lab Results - Last 24 Hours (Table) 03/02/23 03/02/23 03/02/23 Range/Units 11:41 14:00 16:20 Potassium (3.5-5.1) mmol/L BUN (7-17) mg/dL Creatinine (0.52-1.04) mg/dL Glucose (74-99) mg/dL POC Glucose (mg/dL) 276 H 281 H (70-110) mg/dL Urine Glucose (UA) 4+ H (Negative) Urine Ketones Trace H (Negative) 03/02/23 03/03/23 03/03/23 Range/Units 20:21 03:12 06:30 Potassium 5.3 H (3.5-5.1) mmol/L BUN 31 H (7-17) mg/dL Creatinine 1.11 H (0.52-1.04) mg/dL Glucose 249 H (74-99) mg/dL POC Glucose (mg/dL) 208 H 247 H (70-110) mg/dL Urine Glucose (UA) (Negative) Urine Ketones (Negative) Assessment and Plan Assessment: 1. Acute kidney injury secondary to ATN secondary to cardiogenic shock as well as contrast-induced acute kidney injury. Baseline creatinine near 1 and peaked at 1.36 this admission - 1.1 today. 2. STEMI status post cardiac catheterization with LAD stent placement 02/27/2023. 3. Cardiomyopathy with ejection fraction of 35%. 4. Diabetes mellitus. 5. Borderline potassium of 5.3 associated with elevated blood sugars. Currently maintained on Aldactone. Rule out urine retention. Plan: Check bladder scan to rule out urine retention. Continue with Aldactone Control blood sugars Repeat labs in a.m.
[2023-03-03 11:30] LABS: Glucose,Whole Blood 255 mg/dL (70-110)
--- NOTE | 2023-03-03 12:39 | P.PN ---
Subjective Progress Note Date: 03/03/23 Patient is a 83-year-old female with diabetes mellitus type 2 on insulin, GERD, hypertension, and dyslipidemia who presented to the ER with complaints of chest pain. In the ER EKG showed ST segment elevation in V2 through V5 the patient was diagnosed with STEMI. Cardiology took him emergently to the cathode ray tube salvage processor and a stent was placed to the mid LAD. She presented with URI type symptoms and Covid/RSV/influenza A/B was negative. She underwent echocardiogram which showed an ejection fraction of 30-35% with hypokinetic septum, apex, and anterior wall. Patient was sitting in the chair this morning. Patient says that she feels tired and felt dizzy when she got up to use the bathroom. Patient has been requiring Levophed intermittently yesterday. She was off the Levophed this mor andreina. Her systolic blood pressure was in the 80s. Patient continues to complain of some chest pain. 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 Her blood pressure still on the soft side -Cardiology started the patient on colchicine -I reviewed notes from nephrology who is recommending to encourage oral intake and to follow up in the clinic in 1-2 weeks. - Dapagliflozin 10 mg daily, Levemir 10 units daily, Protonix 40 mg daily, gabapentin 300 mg by mouth 3 times a day -Lisinopril discontinued due to hypotension -Aspirin 81 mg, ticagrelor 90 mg twice daily, Lipitor 80 mg nightly -metoprolol 25 mg twice daily, and Aldactone 25 mg daily -Continue with sliding scale insulin -DuoNeb 4 times a day when necessary, Mucinex 600 mg twice daily, - -resume IV Solu-Medrol 40 mg every 6 hours, Tessalon Pearls as needed for cough DVT prophylaxis: Lovenox Anticipated discharge date: Tomorrow if patient's blood pressure is stable off pressors Objective - Vital Signs Vital signs: Vital Signs Temp 97.8 F 03/03/23 12:00 Pulse 95 03/03/23 12:30 Resp 21 03/03/23 12:30 BP 95/45 03/03/23 12:30 Pulse Ox 98 03/03/23 12:30 FiO2 Intake & Output 03/02/23 03/03/23 03/03/23 18:59 06:59 18:59 Intake Total 215.123 141.304 84.694 Output Total 825 875 300 Balance -609.877 -733.696 -215.306 Weight 72.2 kg 71.5 kg Intake: IV 175 120 40 0.9 @ 10ml/hr 100 120 40 Sodium Chloride 0.9% 1, 75 000 ml @ 75 mls/hr IV . [id number] [facility] Rx#:[id number] Intake, IV Titration 40.123 21.304 44.694 Amount Norepinephrine 4 mg In 40.123 21.304 44.694 Sodium Chloride 0.9% 250 ml @ 0.03 MCG/KG/MIN 7.99 mls/hr IV .Q24H [facility] Rx#: [id number] Output: Urine 825 875 300 Other: Voiding Method Toilet Toilet Toilet # Voids 0 - Labs CBC & Chem 7: 03/02/23 05:12 03/03/23 03:12 Labs: Abnormal Lab Results - Last 24 Hours (Table) 03/02/23 03/02/23 03/02/23 Range/Units 14:00 16:20 20:21 Potassium (3.5-5.1) mmol/L BUN (7-17) mg/dL Creatinine (0.52-1.04) mg/dL Glucose (74-99) mg/dL POC Glucose (mg/dL) 281 H 208 H (70-110) mg/dL Urine Glucose (UA) 4+ H (Negative) Urine Ketones Trace H (Negative) 03/03/23 03/03/23 03/03/23 Range/Units 03:12 06:30 11:28 Potassium 5.3 H (3.5-5.1) mmol/L BUN 31 H (7-17) mg/dL Creatinine 1.11 H (0.52-1.04) mg/dL Glucose 249 H (74-99) mg/dL POC Glucose (mg/dL) 247 H 255 H (70-110) mg/dL Urine Glucose (UA) (Negative) Urine Ketones (Negative)
[2023-03-03] MEDS: KETOROLAC 15 MG/ML 1 ML VIAL IVP PRN (16:17)
[2023-03-03 16:27] LABS: Glucose,Whole Blood 200 mg/dL (70-110)
[2023-03-03 20:24] LABS: Glucose,Whole Blood 224 mg/dL (70-110)
[2023-03-03] MEDS: MORPHINE SULFATE 4 MG/ML SYRINGE IVP PRN (21:01)
[2023-03-03] MEDS: BENZONATATE 100 MG CAP PO PRN (21:03)
[2023-03-03] MEDS: ATORVASTATIN 80 MG TAB PO SCH (21:04)
[2023-03-03] MEDS: MELATONIN 5 MG TABLET PO SCH (21:04)
[2023-03-04] MEDS: methylPREDNISolone SOD SUCCI 40 MG/ML 1 ML VIAL IV SCH ×5 (00:38→23:49)
[2023-03-04 03:48] LABS: HCT 34.5 % (34.0-46.0); HGB 10.8 gm/dL (11.4-16.0); Hypochromasia Slight; MCHC 31.2 g/dL (31.0-37.0); MCV 96.2 fL (80.0-100.0); Mean Platelet Volume 12.4; Platelet Count 132 k/uL (150-450); RBC 3.59 m/uL (3.80-5.40); RDW 12.2 % (11.5-15.5); WBC 15.1 k/uL (3.8-10.6)
[2023-03-04 03:55] LABS: Calcium 8.5 mg/dL (8.4-10.2); Potassium 5.2 mmol/L (3.5-5.1)
[2023-03-04] MEDS: KETOROLAC 15 MG/ML 1 ML VIAL IVP PRN (04:10)
[2023-03-04 06:37] LABS: Glucose,Whole Blood 260 mg/dL (70-110)
[2023-03-04] MEDS: INSULIN ASPART (NovoLOG) 100 UNIT/ML VIAL SQ SCH ×7 (07:25→20:28)
[2023-03-04] MEDS: INSULIN DETEMIR (LEVEMIR) 100 UNIT/ML SYR SQ SCH (07:26)
[2023-03-04] MEDS: IPRATROPIUM-ALBUTEROL 3 ML NEB INHALATION PRN ×4 (08:06→19:56)
[2023-03-04] MEDS: FORMOTEROL FUMARATE 20 MCG/2 ML NEBU INHALATION SCH ×2 (08:06→19:56)
[2023-03-04] MEDS: BUDESONIDE 1 MG/2 ML NEBU INHALATION SCH ×2 (08:06→19:56)
[2023-03-04] MEDS ORDERED: ENOXAPARIN 40 MG/0.4 ML SYRINGE SQ SCH (09:00)
--- NOTE | 2023-03-04 09:11 | P.PN ---
Subjective Progress Note Date: 03/04/23 Patient is a 83-year-old female with diabetes mellitus type 2 on insulin, GERD, hypertension, and dyslipidemia who presented to the ER with complaints of chest pain. In the ER EKG showed ST segment elevation in V2 through V5 the patient was diagnosed with STEMI. Cardiology took him emergently to the [facility] and a stent was placed to the mid LAD. She presented with URI type symptoms and Covid/RSV/influenza A/B was negative. She underwent echocardiogram which showed an ejection fraction of 30-35% with hypokinetic septum, apex, and anterior wall. Patient this morning was sitting in bed. Her blood pressure was in the 90s systolically. Patient has been off the foot since yesterday. Per nurse patient is wearing oxygen more for comfort and not because she desaturated. Patient states that she still having ongoing chest pain. 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 Her blood pressure still on the soft side -Cardiology started the patient on colchicine for the chest pain. Per cardiology chest pain likely due to inflammation. Of note patient has been on high-dose steroids. We'll also add Lidoderm patch for the chest pain. We'll discontinue IV morphine to avoid hypotension. -nephrology is recommending to encourage oral intake and to follow up in the clinic in 1-2 weeks. - Dapagliflozin 10 mg daily, Levemir 10 units daily, Protonix 40 mg daily, gabapentin 300 mg by mouth 3 times a day -Lisinopril discontinued due to hypotension -Aspirin 81 mg, ticagrelor 90 mg twice daily, Lipitor 80 mg nightly -metoprolol 25 mg twice daily, and Aldactone 25 mg daily -Continue with sliding scale insulin -DuoNeb 4 times a day when necessary, Mucinex 600 mg twice daily, - -resume IV Solu-Medrol 40 mg every 6 hours, Tessalon Pearls as needed for cough PT OT DVT prophylaxis: Lovenox Anticipated discharge date: Awaiting for cardiology to clear patient for discharge Objective - Vital Signs Vital signs: Vital Signs Temp 98 F 03/04/23 04:00 Pulse 82 03/04/23 08:33 Resp 21 03/04/23 07:00 BP 95/42 03/04/23 07:00 Pulse Ox 99 03/04/23 08:08 FiO2 Intake & Output 03/03/23 03/04/23 03/04/23 18:59 06:59 18:59 Intake Total 84.694 200 Output Total 650 202 0 Balance -565.306 -2 0 Weight 71.5 kg Intake: IV 40 0.9 @ 10ml/hr 40 Intake, IV Titration 44.694 Amount Norepinephrine 4 mg In 44.694 Sodium Chloride 0.9% 250 ml @ 0.03 MCG/KG/MIN 7.99 mls/hr IV .Q24H [facility] Rx#: [id number] Oral 200 Output: Urine 650 202 0 Other: Voiding Method Toilet Toilet # Voids 0 1 - Labs CBC & Chem 7: 03/04/23 03:30 03/04/23 03:30 Labs: Abnormal Lab Results - Last 24 Hours (Table) 03/03/23 03/03/23 03/03/23 Range/Units 11:28 16:25 20:22 WBC (3.8-10.6) k/uL RBC (3.80-5.40) m/uL Hgb (11.4-16.0) gm/dL Plt Count (150-450) k/uL Sodium (137-145) mmol/L Potassium (3.5-5.1) mmol/L BUN (7-17) mg/dL Creatinine (0.52-1.04) mg/dL Glucose (74-99) mg/dL POC Glucose (mg/dL) 255 H 200 H 224 H (70-110) mg/dL 03/04/23 03/04/23 03/04/23 Range/Units 03:30 03:30 06:36 WBC 15.1 H (3.8-10.6) k/uL RBC 3.59 L (3.80-5.40) m/uL Hgb 10.8 L (11.4-16.0) gm/dL Plt Count 132 L (150-450) k/uL Sodium 134 L (137-145) mmol/L Potassium 5.2 H (3.5-5.1) mmol/L BUN 41 H (7-17) mg/dL Creatinine 1.39 H (0.52-1.04) mg/dL Glucose 196 H (74-99) mg/dL POC Glucose (mg/dL) 260 H (70-110) mg/dL
[2023-03-04] MEDS: ASPIRIN 81 MG PO SCH (09:27)
[2023-03-04] MEDS: TICAGRELOR 90 MG TAB PO SCH ×2 (09:27→20:28)
[2023-03-04] MEDS: GABAPENTIN 300 MG CAP PO SCH ×3 (09:27→22:22)
[2023-03-04] MEDS: SPIRONOLACTONE 25 MG TAB PO SCH (09:27)
[2023-03-04] MEDS: METOPROLOL TARTRATE 12.5 MG TAB PO SCH ×2 (09:27→20:28)
[2023-03-04] MEDS: PANTOPRAZOLE 40 MG TABLET PO SCH (09:27)
[2023-03-04] MEDS: guaiFENesin 600 MG TABLET.ER PO SCH ×2 (09:27→20:28)
[2023-03-04] MEDS: COLCHICINE 0.6 MG EACH PO SCH ×2 (09:27→20:44)
[2023-03-04] MEDS: DAPAGLIFLOZIN PROPANEDIOL 10 MG TABLET PO SCH (09:27)
--- NOTE | 2023-03-04 09:36 | P.PN ---
Subjective Progress Note Date: 03/04/23 PROGRESS NOTE The patient is a 71-year-old female who presented with an acute anterior wall myocardial infarction, underwent stenting of a totally occluded LAD. She has been having episodes of chest discomfort, respirophasic. Her breathing is stable. She is off norepinephrine. Hemodynamically she is stable. She denies any dizziness or palpitation. She feels tired. No nausea or vomiting. Her echocardiogram showed an ejection fraction of 35-40% with segmental wall motion abnormality consistent with anterior wall myocardial infarction. Her EKG showed QS pattern with persistent ST elevation. March 04: The patient is feeling well this morning, her breathing is better but she continues to be fatigued with ambulation and mildly dyspneic when she walks. She had an episode of chest discomfort yesterday, respirophasic, radiating to the jaw. She continues to cough with minimal sputum. She continues to be in sinus mechanism. Her blood pressure is borderline but stable. She is on no vasopressors. There is no episodes of ventricular ectopic activity. Medications: Aspirin, Brilinta 90 mg twice a day, metoprolol 12.5 mg twice a day, protonix, Aldactone 25 mg daily, insulin,Farxiga 10 mg daily, IV Solu-Medrol, Lipitor 80 mg daily, colchicine 0.6 mg twice a day PHYSICAL EXAMINATION: Blood pressure 95/40 heart rate 80 LUNGS: Clear to auscultation HEART: Regular rate and rhythm, S1, S2. No S3. systolic ejection murmur ABDOMEN: Soft, nontender, no organomegaly EXTREMETIES: No edema LAB: BUN 41, creatinine 1.39, potassium 5.2 IMPRESSION: 1. Status post anterior wall myocardial infarction with stenting of the LAD 2. Chest discomfort, respirophasic, could be related to pericarditis, no clear evidence to suggest stent closure 3. History of hypertension 4. History of diabetes 5. Acute kidney injury PLAN: 1. Decrease Aldactone 2. She has persistent symptoms consider repeating coronary angiography 3. Follow renal functions 4. Increase physical activity 5. Depending on her progress further recommendations will be made Objective - Vital Signs Vital signs: Vital Signs Temp 98 F 03/04/23 04:00 Pulse 82 03/04/23 08:33 Resp 21 03/04/23 07:00 BP 95/42 03/04/23 07:00 Pulse Ox 99 03/04/23 08:08 FiO2 Intake & Output 05/06/23 05/07/23 05/07/23 18:59 06:59 18:59 Intake Total 84.694 200 Output Total 650 202 0 Balance -565.306 -2 0 Weight 71.5 kg Intake: IV 40 0.9 @ 10ml/hr 40 Intake, IV Titration 44.694 Amount Norepinephrine 4 mg In 44.694 Sodium Chloride 0.9% 250 ml @ 0.03 MCG/KG/MIN 7.99 mls/hr IV .Q24H [facility] Rx#: [id number] Oral 200 Output: Urine 650 202 0 Other: Voiding Method Toilet Toilet # Voids 0 1 - Labs CBC & Chem 7: 03/04/23 03:30 03/04/23 03:30 Labs: Abnormal Lab Results - Last 24 Hours (Table) 03/03/23 03/03/23 03/03/23 Range/Units 11:28 16:25 20:22 WBC (3.8-10.6) k/uL RBC (3.80-5.40) m/uL Hgb (11.4-16.0) gm/dL Plt Count (150-450) k/uL Sodium (137-145) mmol/L Potassium (3.5-5.1) mmol/L BUN (7-17) mg/dL Creatinine (0.52-1.04) mg/dL Glucose (74-99) mg/dL POC Glucose (mg/dL) 255 H 200 H 224 H (70-110) mg/dL 03/04/23 03/04/23 03/04/23 Range/Units 03:30 03:30 06:36 WBC 15.1 H (3.8-10.6) k/uL RBC 3.59 L (3.80-5.40) m/uL Hgb 10.8 L (11.4-16.0) gm/dL Plt Count 132 L (150-450) k/uL Sodium 134 L (137-145) mmol/L Potassium 5.2 H (3.5-5.1) mmol/L BUN 41 H (7-17) mg/dL Creatinine 1.39 H (0.52-1.04) mg/dL Glucose 196 H (74-99) mg/dL POC Glucose (mg/dL) 260 H (70-110) mg/dL
--- NOTE | 2023-03-04 10:45 | P.PN ---
Subjective Patient is seen for follow-up for acute kidney injury. Admitted with complaints of chest pain and diagnosed with acute anterior wall GA status post cardiac catheterization and stenting of totally occluded LAD. Ejection fraction 35-40% Complaining of chest pain on and off, appears to be atypical. Serum creatinine is slightly higher at 1.39. Blood pressure has been low with systolic 80s to 90s. Good urine output. Voiding on her own. Post void residual was not elevated. Potassium 5.3. Maintained on Aldactone. Blood sugar around 240-249 mg/dL Objective - Vital Signs Vital signs: Vital Signs Temp 97.4 F L 03/04/23 08:00 Pulse 79 03/04/23 10:00 Resp 18 03/04/23 10:00 BP 97/58 03/04/23 10:00 Pulse Ox 98 03/04/23 10:00 FiO2 Intake & Output 03/03/23 03/04/23 03/04/23 18:59 06:59 18:59 Intake Total 84.694 200 Output Total 650 202 0 Balance -565.306 -2 0 Weight 71.5 kg Intake: IV 40 0.9 @ 10ml/hr 40 Intake, IV Titration 44.694 Amount Norepinephrine 4 mg In 44.694 Sodium Chloride 0.9% 250 ml @ 0.03 MCG/KG/MIN 7.99 mls/hr IV .Q24H [facility] Rx#: [id number] Oral 200 Output: Urine 650 202 0 Other: Voiding Method Toilet Toilet Toilet # Voids 0 1 0 - Exam Awake, comfortable, no acute distress Examination of the heart S1 and S2 Examination of the lungs decreased breath sounds at the bases Abdomen is soft nontender Examination lower extremities shows no evidence of edema ACUTE CARE OCCUPATIONAL THERAPIST exam grossly intact - Labs CBC & Chem 7: 03/04/23 03:30 03/04/23 03:30 Labs: Abnormal Lab Results - Last 24 Hours (Table) 03/03/23 03/03/23 03/03/23 Range/Units 11:28 16:25 20:22 WBC (3.8-10.6) k/uL RBC (3.80-5.40) m/uL Hgb (11.4-16.0) gm/dL Plt Count (150-450) k/uL Sodium (137-145) mmol/L Potassium (3.5-5.1) mmol/L BUN (7-17) mg/dL Creatinine (0.52-1.04) mg/dL Glucose (74-99) mg/dL POC Glucose (mg/dL) 255 H 200 H 224 H (70-110) mg/dL 03/04/23 03/04/23 03/04/23 Range/Units 03:30 03:30 06:36 WBC 15.1 H (3.8-10.6) k/uL RBC 3.59 L (3.80-5.40) m/uL Hgb 10.8 L (11.4-16.0) gm/dL Plt Count 132 L (150-450) k/uL Sodium 134 L (137-145) mmol/L Potassium 5.2 H (3.5-5.1) mmol/L BUN 41 H (7-17) mg/dL Creatinine 1.39 H (0.52-1.04) mg/dL Glucose 196 H (74-99) mg/dL POC Glucose (mg/dL) 260 H (70-110) mg/dL Assessment and Plan Assessment: 1. Acute kidney injury secondary to ATN secondary to cardiogenic shock as well as contrast-induced acute kidney injury. Baseline creatinine near 1 and peaked at 1.36 this admission - 1.1 and increased back to 1.39 today mostly associated with low blood pressures. 2. STEMI status post cardiac catheterization with LAD stent placement 02/27/2023. 3. Cardiomyopathy with ejection fraction of 35%. 4. Diabetes mellitus. 5. Borderline potassium of 5.3 associated with elevated blood sugars. Currently maintained on Aldactone. No urine retention. Plan: Continue with Aldactone Control blood sugars Repeat labs in a.m.
[2023-03-04 11:35] LABS: Glucose,Whole Blood 210 mg/dL (70-110)
--- NOTE | 2023-03-04 12:30 | P.PN ---
Subjective Progress Note Date: 03/04/23 Principal diagnosis: Cough and shortness of breath. Pulmonary/critical care consult dated 03/01/2023. 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 The patient was diagnosed as having a STEMI, and went to the catheterization laboratory on February 27, and had 2 stents placed in her LAD. I'm concerned for cough. The patient apparently has had a nonproductive cough since February 20. The cough preceded the chest discomfort. She has no history of any lung issues. She is a lifelong nonsmoker. She had a viral screen that was negative. In addition the cough, she admits to some shortness of breath, and some wheezing. She has never had this before. A viral screen was negative for influenza A, and influenza B, RSV, and coronavirus. Currently, the patient's on saline at 75 mL an hour, nasal O2 2 L, and norepinephrine at 2.1 mcg/m. White count 9.2, hemoglobin 12, hematocrit 37, and platelet count 111,000. Sodium 134, potassium 4.7, chlorides 99, CO2 25, anion gap 10, BUN 31, creatinine 1.36. N-terminal proBNP today was 12,400. A chest x-ray today was unremarkable. An EKG done today but admission showed elevated ST segments, and the anterior leads. Her initial troponin, was 0.405, and subsequently, it was 66.7. Progress note dated 03/02/2023. 83-year-old female seen yesterday in consultation. Please see the note above. She seen today again in room 263. I saw her for shortness of breath, wheezing, and cough, which I thought was related to a viral bronchitis, and to a lesser extent, cardiac asthma. Today, the patient is complaining of chest pain. She's currently on room air. She is getting norepinephrine at 1.5 mcg/m. In addition, she's getting saline at 75 mL an hour, and it. I did ask the nurse to order a chest x-ray on her. White count 10.1, hemoglobin 12.1, hematocrit 39, platelet count 144,000. Sodium 139, potassium 5.1, chlorides 107, CO2 23, BUN 26, and creatinine 1.21. N-terminal proBNP was 13,300. Progress note dated 03/03/2023. 83-year-old female seen again in room 263. Currently, she's feeling better today. She's getting saline at 10 mL an hour, and oxygen at 3 L by nasal cannula. Her cough and shortness of breath are improved. She remains on norepinephrine at 1.5 mcg/m. Yesterday, she was having significant chest pain. Today's labs show sodium 137, potassium 5.3, chlorides 106, CO2 23, anion gap 8, BUN 31, and the creatinine is 1.11. Glucose 249. Chest x-ray shows changes of COPD, and some basilar atelectasis. Progress note dated 03/04/2023. 83-year-old female seen in room 263. Currently, the patient's on room air. She's not receiving any IV fluids. Norepinephrine has been weaned off. The nurse tells me, that the induction machine setter, may take her to the catheterization laboratory tomorrow, March 05. Clinically she is doing better. Still has a bit of cough, and some shortness of breath. All in all though, she does feel better. White count 15.1, hemoglobin 10.8, hematocrit 34.5, and platelet count 132,000. Sodium 134, potassium 5.2, chlorides 105, CO2 22, BUN 41, and creatinine 1.39. There was no chest x-ray today. Objective - Vital Signs Vital signs: Vital Signs Temp 97.4 F L 03/04/23 08:00 Pulse 80 03/04/23 11:39 Resp 20 03/04/23 11:00 BP 84/42 03/04/23 11:00 Pulse Ox 98 03/04/23 11:00 FiO2 Intake & Output 03/03/23 03/04/23 03/04/23 18:59 06:59 18:59 Intake Total 84.694 200 Output Total 650 202 0 Balance -565.306 -2 0 Weight 71.5 kg Intake: IV 40 0.9 @ 10ml/hr 40 Intake, IV Titration 44.694 Amount Norepinephrine 4 mg In 44.694 Sodium Chloride 0.9% 250 ml @ 0.03 MCG/KG/MIN 7.99 mls/hr IV .Q24H [facility] Rx#: [id number] Oral 200 Output: Urine 650 202 0 Other: Voiding Method Toilet Toilet Toilet # Voids 0 1 0 - Exam No acute distress, oriented 3. Room air saturation is 98%. HEENT examination is grossly unremarkable. Mucous membranes are moist. No oral lesions. Neck supple. Full range of motion. No adenopathy thyromegaly or neck vein distention. Cardiovascular examination reveals regular rhythm rate. S1-S2 normal. No S3 or S4. No discernible murmur noted. Heart sounds are distant. Heart rate 80 bpm. Lungs reveal expiratory rhonchi and expiratory wheezes, accentuated on forced maneuver. Minimal crackles at the bases. Breath sounds equal bilaterally. Saturations are 98% Abdomen soft bowel sounds are heard. No masses or tenderness. Extremities are intact. No cyanosis clubbing or edema. Skin is without rash or lesion. Neurologic examination is brief but nonfocal. - Labs CBC & Chem 7: 03/04/23 03:30 03/04/23 03:30 Labs: Abnormal Lab Results - Last 24 Hours (Table) 03/03/23 03/03/23 03/04/23 Range/Units 16:25 20:22 03:30 WBC (3.8-10.6) k/uL RBC (3.80-5.40) m/uL Hgb (11.4-16.0) gm/dL Plt Count (150-450) k/uL Sodium 134 L (137-145) mmol/L Potassium 5.2 H (3.5-5.1) mmol/L BUN 41 H (7-17) mg/dL Creatinine 1.39 H (0.52-1.04) mg/dL Glucose 196 H (74-99) mg/dL POC Glucose (mg/dL) 200 H 224 H (70-110) mg/dL 03/04/23 03/04/23 03/04/23 Range/Units 03:30 06:36 11:24 WBC 15.1 H (3.8-10.6) k/uL RBC 3.59 L (3.80-5.40) m/uL Hgb 10.8 L (11.4-16.0) gm/dL Plt Count 132 L (150-450) k/uL Sodium (137-145) mmol/L Potassium (3.5-5.1) mmol/L BUN (7-17) mg/dL Creatinine (0.52-1.04) mg/dL Glucose (74-99) mg/dL POC Glucose (mg/dL) 260 H 210 H (70-110) mg/dL Assessment and Plan Assessment: Acute ST segment elevation myocardial infarction, status post PCI, and stents 2 to the LAD, February 27. Nonproductive cough, shortness of breath, and wheezing, since February 20, likely related to a viral bronchitis with reactive bronchospasm and bronchial inflammation, as well, a component of cardiac asthma. No prior history of lung disease. Lifelong nonsmoker. History of hypertension. History of diabetes mellitus. History of hyperlipidemia. Plan: Plan dated 03/01/2023. The patient is seen and examined in room 263. Labs, x-rays, and medications are all reviewed. The prednisone will be discontinued in favor of Solu-Medrol. I'll add some Pulmicort and formoterol, usual doses, and albuterol, and ipratropium bromide, 4 times a day and when necessary. Additional recommendations and suggestions are forthcoming. There is a chance, that the wheezing and shortness of breath relate in part to cardiac asthma, as her N- terminal proBNP is quite elevated. She did receive some diuretic yesterday. We will continue to follow make recommendations along the way. Plan dated 03/02/2023. From the pulmonary standpoint, the patient seems be doing a bit better. She's having chest pain currently. Cardiology has been notified. The patient remains on norepinephrine at 1.5 mcg/m. She's currently on room air. We will continue to follow and make recommendations along the way. Prognosis is certainly guarded. Plan dated 03/03/2023. The patient is seen today in room 263. He is interviewed, and examined. Labs, x-rays, and medications are reviewed. The patient still is critically O, and continues on norepinephrine at 1.5 mcg/m. She is also on oxygen at 3 L, and saline at 10 mL an hour. We will continue to follow the patient and make recommendations along the way. Her cough, and wheezing, are improved. Prognosis is guarded. Plan dated 03/04/2023. The patient is seen today in room 263. Currently, the patient's on room air. She's not receiving any IV fluids. Norepinephrine, which was on yesterday, has been weaned off. The nurse tells me that the patient may end up going to the cardiac catheterization laboratory tomorrow. No final decision has been made. The patient's cough, and shortness of breath, are improved. We continue to see the patient make recommendations along the way. Labs, x-rays, and medications are all reviewed. Time with Patient: Less than 30
[2023-03-04] MEDS: NOREPINEPHRINE 4 MG in SODIUM CHLORIDE 0.9% 250 ML IV SCH (14:18)
[2023-03-04 16:38] LABS: Glucose,Whole Blood 160 mg/dL (70-110)
[2023-03-04 20:09] LABS: Glucose,Whole Blood 156 mg/dL (70-110)
[2023-03-04] MEDS: ATORVASTATIN 80 MG TAB PO SCH (20:28)
[2023-03-04] MEDS: MELATONIN 5 MG TABLET PO SCH (20:29)
[2023-03-05] MEDS: methylPREDNISolone SOD SUCCI 40 MG/ML 1 ML VIAL IV SCH ×2 (05:23→21:02)
[2023-03-05 05:34] LABS: Basophils # (A) 0.1 k/uL (0-0.2); Basophils % (A) 0 %; Eosinophils # (A) 0.1 k/uL (0-0.7); Eosinophils % (A) 0 %; HGB 12.3 gm/dL (11.4-16.0); Lymphocytes # (A) 1.3 k/uL (1.0-4.8); Lymphocytes % (A) 6 %; MCHC 31.6 g/dL (31.0-37.0); Mean Platelet Volume 12.6; Monocytes # (A) 0.6 k/uL (0-1.0); Monocytes % (A) 3 %; Neutrophils # (A) 18.3 k/uL (1.3-7.7); Neutrophils % (A) 88 %; Platelet Count 155 k/uL (150-450); RBC 4.11 m/uL (3.80-5.40); RDW 12.4 % (11.5-15.5); WBC 20.8 k/uL (3.8-10.6)
[2023-03-05 05:55] LABS: Calcium 8.6 mg/dL (8.4-10.2); Potassium 4.8 mmol/L (3.5-5.1)
[2023-03-05] MEDS: INSULIN DETEMIR (LEVEMIR) 100 UNIT/ML SYR SQ SCH (06:35)
[2023-03-05 06:41] LABS: Glucose,Whole Blood 269 mg/dL (70-110)
[2023-03-05] MEDS: INSULIN ASPART (NovoLOG) 100 UNIT/ML VIAL SQ SCH ×7 (07:53→21:03)
[2023-03-05] MEDS: FORMOTEROL FUMARATE 20 MCG/2 ML NEBU INHALATION SCH ×2 (08:44→20:36)
[2023-03-05] MEDS: IPRATROPIUM-ALBUTEROL 3 ML NEB INHALATION PRN ×3 (08:45→20:36)
[2023-03-05] MEDS: BUDESONIDE 1 MG/2 ML NEBU INHALATION SCH ×2 (08:45→20:36)
--- NOTE | 2023-03-05 08:54 | P.PN ---
Subjective Progress Note Date: 03/05/23 On 03/05/2023, I'm seeing the patient for a follow-up. This is a case of a 83-year-old female patient with known history of coronary artery disease who presented with an acute ST segment elevation myocardial infarction. The patient underwent emergent cardiac catheterization on 02/27/2023 and the patient underwent ending of the LAD 2. The patient is known to have diabetes, hypertension and hyperlipidemia. Note that she was also having some cough and. The viral screen came back negative. The patient has been in the intensive care unit since. She's been having issues with soft blood pressure and on and off requiring pressors. Note that the echocardiogram that was done the day of the myocardial infarction showed a left ejection fraction of around 30-35% and the patient has some moderate degree of systolic impairment. This was a limited echocardiogram. Valvular function was not assessed. The patient did have some anterior and anteroseptal hypokinesis as a suspected an anterior wall myocardial infarction. At this point in time, the patient is on room air oxygen pH is calm and comfortable. Her most recent chest x-ray was done on 03/01/2023 and the patient was found to have no acute abnormalities. There is some calcification the right lung base which is probably chronic and some chronic atelectatic changes in the right apex. No signs of any fluid overload or decompensated heart failure. Meanwhile, the patient's blood work from today shows a white cell count of 20.8 with a hemoglobin of 12.3 and a platelet count of 155. Note that her platelet counts are improving, nevertheless, the white cell count is on the rise. She is afebrile for now. Her kidney function is stable with a creatinine of 1.37 and a GFR of 36. BUN is at 47 and a sodium level is at 136. UA has been negative. For now, the patient is on a combination of aspirin and Alimta. She is on Lovenox for DVT prophylaxis. She is on bronchodilators with DuoNeb neb blotchiness [id number], she is also on performance on Pulmicort neb blotchiness twice a day. She is also on IV Solu-Medrol. She is taking metoprolol 12.5 mg by mouth twice a day. She is on Aldactone 12.5 mg by mouth daily. Blood sugar medications include oral hypoglycemics and Levemir insulin 20 units daily +10 units of NovoLog [id number] with meals and a sliding scale coverage. Her pressors are off at this point in time and she's been off pressors for the past 3 days. Objective - Vital Signs Vital signs: Vital Signs Temp 97.9 F 03/05/23 04:00 Pulse 74 03/05/23 07:00 Resp 12 03/05/23 07:00 BP 103/43 03/05/23 07:00 Pulse Ox 99 03/05/23 07:00 FiO2 Intake & Output 03/04/23 03/05/23 03/05/23 18:59 06:59 18:59 Output Total 400 1250 0 Balance -400 -1250 0 Weight 70.8 kg Output: Urine 400 1250 0 Other: Voiding Method Toilet Toilet # Voids 0 1 - Exam No acute distress, oriented 3. Room air saturation is 98%. HEENT examination is grossly unremarkable. Mucous membranes are moist. No oral lesions. Neck supple. Full range of motion. No adenopathy thyromegaly or neck vein distention. Cardiovascular examination reveals regular rhythm rate. S1-S2 normal. No S3 or S4. No discernible murmur noted. Heart sounds are distant. Lungs reveal expiratory rhonchi and expiratory wheezes, accentuated on forced maneuver. Minimal crackles at the bases. Breath sounds equal bilaterally. Abdomen soft bowel sounds are heard. No masses or tenderness. Extremities are intact. No cyanosis clubbing or edema. Skin is without rash or lesion. Neurologic examination is brief but nonfocal. - Labs CBC & Chem 7: 03/05/23 05:15 03/05/23 05:15 Labs: Abnormal Lab Results - Last 24 Hours (Table) 03/04/23 03/04/23 03/04/23 Range/Units 11:24 16:36 20:07 WBC (3.8-10.6) k/uL Neutrophils # (1.3-7.7) k/uL Sodium (137-145) mmol/L Carbon Dioxide (22-30) mmol/L BUN (7-17) mg/dL Creatinine (0.52-1.04) mg/dL Glucose (74-99) mg/dL POC Glucose (mg/dL) 210 H 160 H 156 H (70-110) mg/dL 03/05/23 03/05/2323 Range/Units 05:15 05:15 06:30 WBC 20.8 H (3.8-10.6) k/uL Neutrophils # 18.3 H (1.3-7.7) k/uL Sodium 136 L (137-145) mmol/L Carbon Dioxide 21 L (22-30) mmol/L BUN 47 H (7-17) mg/dL Creatinine 1.37 H (0.52-1.04) mg/dL Glucose 276 H (74-99) mg/dL POC Glucose (mg/dL) 269 H (70-110) mg/dL Assessment and Plan Plan: Acute ST segment elevation myocardial infarction, status post PCI, and stents 2 to the LAD, February 27 Systolic heart failure in the setting of an acute HI. The patient is an ejection fraction of 35-40% with segmental wall motion abnormalities. Hypotension, currently off pressors Nonproductive cough, shortness of breath, and wheezing, since February 20, likely related to a viral bronchitis with reactive bronchospasm and bronchial inflammation, as well Acute leukocytosis Chronic kidney injury No prior history of lung disease. Lifelong nonsmoker. History of hypertension. History of diabetes mellitus. History of hyperlipidemia , with a component of steroid-induced hyperglycemia Plan: Repeat chest x-ray today Repeat a pro-calcitonin level Continue bronchodilators and steroids Monitor the white cell count She is currently off pressors Continue aspirin Brilinta Continue beta blockers Lovenox for DVT prophylaxis Continue Aldactone Blood sugar management We'll continue to follow
[2023-03-05] MEDS: guaiFENesin 600 MG TABLET.ER PO SCH ×2 (09:33→21:01)
[2023-03-05] MEDS: TICAGRELOR 90 MG TAB PO SCH ×2 (09:33→21:02)
[2023-03-05] MEDS: GABAPENTIN 300 MG CAP PO SCH ×3 (09:33→21:02)
[2023-03-05] MEDS: PANTOPRAZOLE 40 MG TABLET PO SCH (09:34)
[2023-03-05] MEDS: ENOXAPARIN 30 MG/0.3 ML SYRINGE SQ SCH (09:34)
[2023-03-05] MEDS: DAPAGLIFLOZIN PROPANEDIOL 10 MG TABLET PO SCH (09:34)
[2023-03-05] MEDS: COLCHICINE 0.6 MG EACH PO SCH ×2 (09:34→21:02)
[2023-03-05] MEDS: ASPIRIN 81 MG PO SCH (09:34)
[2023-03-05 09:51] LABS: HCT 39.5 % (34.0-46.0); HGB 12.1 gm/dL (11.4-16.0); Hypochromasia Slight; MCH 29.3 pg (25.0-35.0); MCHC 30.6 g/dL (31.0-37.0); MCV 95.7 fL (80.0-100.0); Mean Platelet Volume 12.4; RBC 4.13 m/uL (3.80-5.40); RDW 12.4 % (11.5-15.5); WBC 21.4 k/uL (3.8-10.6)
[2023-03-05] MEDS: METOPROLOL TARTRATE 12.5 MG TAB PO SCH ×2 (10:04→22:20)
[2023-03-05] MEDS: SPIRONOLACTONE 25 MG TAB PO SCH (10:04)
--- NOTE | 2023-03-05 10:32 | XR ---
EXAMINATION TYPE: XR chest 1V DATE OF EXAM: 03/05/2023 COMPARISON: 03/02/2023 HISTORY: Shortness of breath TECHNIQUE: Single frontal view of the chest is obtained. FINDINGS: There is no focal air space opacity, pleural effusion, or pneumothorax seen. The cardiac silhouette size is within normal limits. The osseous structures are intact. Right-sided PICC line t ip overlying the right atrium. Atherosclerotic change aorta. AC joint arthropathy. IMPRESSION: 1. COPD. There is no definite infiltrate seen on today's exam. Improved aeration right lung base.
[2023-03-05 10:48] LABS: Platelet Count 146 k/uL (150-450)
--- NOTE | 2023-03-05 10:49 | P.PN ---
Subjective Patient is seen for follow-up for acute kidney injury. Admitted with complaints of chest pain and diagnosed with acute anterior wall CO status post cardiac catheterization and stenting of totally occluded LAD. Ejection fraction 35-40% Serum creatinine is stable at 1.3. Blood pressure has been low with systolic 80s to 90s. Good urine output. Voiding on her own. Post void residual was not elevated. Potassium 4.8 today. Maintained on Aldactone. Blood sugar around 240-249 mg/dL Chest pain is resolved. Complaining of cough. Using incentive spirometry. Objective - Vital Signs Vital signs: Vital Signs Temp 97.9 F 03/05/23 04:00 Pulse 85 03/05/23 10:00 Resp 20 03/05/23 10:00 BP 99/45 03/05/23 10:00 Pulse Ox 98 03/05/23 10:00 FiO2 Intake & Output 03/04/23 03/05/23 03/05/23 18:59 06:59 18:59 Intake Total 350 Output Total 400 1250 310 Balance -400 -1250 40 Weight 70.8 kg Intake: Oral 250 Tube Feeding 100 Output: Urine 400 1250 310 Other: Voiding Method Toilet Toilet Toilet # Voids 0 1 - Labs CBC & Chem 7: 03/05/23 09:22 03/05/23 05:15 Labs: Abnormal Lab Results - Last 24 Hours (Table) 03/04/23 03/04/23 03/04/23 Range/Units 11:24 16:36 20:07 WBC (3.8-10.6) k/uL MCHC (31.0-37.0) g/dL Neutrophils # (1.3-7.7) k/uL Sodium (137-145) mmol/L Carbon Dioxide (22-30) mmol/L BUN (7-17) mg/dL Creatinine (0.52-1.04) mg/dL Glucose (74-99) mg/dL POC Glucose (mg/dL) 210 H 160 H 156 H (70-110) mg/dL 03/05/23 03/05/23 03/05/23 Range/Units 05:15 05:15 06:30 WBC 20.8 H (3.8-10.6) k/uL MCHC (31.0-37.0) g/dL Neutrophils # 18.3 H (1.3-7.7) k/uL Sodium 136 L (137-145) mmol/L Carbon Dioxide 21 L (22-30) mmol/L BUN 47 H (7-17) mg/dL Creatinine 1.37 H (0.52-1.04) mg/dL Glucose 276 H (74-99) mg/dL POC Glucose (mg/dL) 269 H (70-110) mg/dL 03/05/23 Range/Units 09:22 WBC 21.4 H (3.8-10.6) k/uL MCHC 30.6 L (31.0-37.0) g/dL Neutrophils # (1.3-7.7) k/uL Sodium (137-145) mmol/L Carbon Dioxide (22-30) mmol/L BUN (7-17) mg/dL Creatinine (0.52-1.04) mg/dL Glucose (74-99) mg/dL POC Glucose (mg/dL) (70-110) mg/dL
--- NOTE | 2023-03-05 11:26 | P.PN ---
Subjective Progress Note Date: 03/05/23 Patient is a 83-year-old female with diabetes mellitus type 2 on insulin, GERD, hypertension, and dyslipidemia who presented to the ER with complaints of chest pain. In the ER EKG showed ST segment elevation in V2 through V5 the patient was diagnosed with STEMI. Cardiology took him emergently to the photo lab specialist and a stent was placed to the mid LAD. She presented with URI type symptoms and Cov id/RSV/influenza A/B was negative. She underwent echocardiogram which showed an ejection fraction of 30-35% with hypokinetic septum, apex, and anterior wall. After patient's heart cath she was hypertensive suspect due to cardiogenic shock. Patient was started on Levophed drip. She was then gradually weaned off. Patient also after a heart cath was complaining of persistent chest pain. Cardiology started on colchicine. Patient also is complaining of a cough. Pulmonology start the patient on steroids and breathing treatments for bronchitis. Patient states that today her chest pain has resolved. She states that yesterday she walked in the hallways and did not feel lightheaded but felt fatigued. Patient has been off Levophed drip for 48 hours and her blood pressures in the 90s. Patient states that her main concern is a low blood pressure. Patient states that she still has a persistent cough. General examination - Alert and Oriented 3 in NAD Heart - + S1S2 no murmurs Lungs - Clear to auscultation Abdomen soft NT ND +ve BS Extremities - No edema MAIL ROOM - Moving all 4 extremities spontaneously Psych - Calm and cooperative Assessment: Vital signs reviewed: Blood pressure is 99/45. Patient satting 98% on room air. Data reviewed: WBC increased from 20.8 to 21.4. Creatinine stable at 1.3. Remainder of the lab work was unremarkable. Chest x-ray shows findings consistent with COPD and no definite infiltrate. There is improved aeration in the right lung base. Cardiogenic shock Acute anterior ST segment elevated myocardial infarction Ischemic cardiomyopathy with ejection fraction 30-35% Acute kidney injury secondary to contrast-induced nephropathy and cardiogenic shock: Resolved Acute bronchitis Hypertension Dyslipidemia Diabetes mellitus type 2 insulin-requiring History of CVA Plan: -Patient is weaned off of norepinephrine. Patient's blood pressure is in the 90s systolically. -Cardiology started the patient on colchicine for the chest pain. I also started the patient on Lidoderm patch. Patient states that her chest pain has now resolved. -nephrology is recommending to encourage oral intake and to follow up in the clinic in 1-2 weeks. Patient's creatinine is stable at 1.3 - Resume Dapagliflozin 10 mg daily, Levemir 20 units daily, aspart 10 units 3 times a day, sliding scale insulin, Protonix 40 mg daily, gabapentin 300 mg by mouth 3 times a day -Lisinopril discontinued due to hypotension -Aspirin 81 mg, ticagrelor 90 mg twice daily, Lipitor 80 mg nightly -metoprolol 25 mg twice daily and Aldactone 25 mg daily -Continue with sliding scale insulin -DuoNeb 4 times a day when necessary, Mucinex 600 mg twice daily, Tessalon Pearls as needed for cough -We'll decrease IV Solu-Medrol to 40 mg twice a day DVT prophylaxis: Lovenox Anticipated discharge date: Awaiting for cardiology to clear patient for discharge Anticipated discharge place: Home. PT OT eval pending Objective - Vital Signs Vital signs: Vital Signs Temp 97.9 F 03/05/23 04:00 Pulse 85 03/05/23 10:00 Resp 20 03/05/23 10:00 BP 99/45 03/05/23 10:00 Pulse Ox 98 03/05/23 10:00 FiO2 Intake & Output 03/04/23 03/05/23 03/05/23 18:59 06:59 18:59 Intake Total 350 Output Total 400 1250 310 Balance -400 -1250 40 Weight 70.8 kg Intake: Oral 250 Tube Feeding 100 Output: Urine 400 1250 310 Other: Voiding Method Toilet Toilet Toilet # Voids 0 1 - Labs CBC & Chem 7: 03/05/23 09:22 03/05/23 05:15 Labs: Abnormal Lab Results - Last 24 Hours (Table) 03/04/23 03/04/23 03/04/23 Range/Units 11:24 16:36 20:07 WBC (3.8-10.6) k/uL MCHC (31.0-37.0) g/dL Plt Count (150-450) k/uL Neutrophils # (1.3-7.7) k/uL Sodium (137-145) mmol/L Carbon Dioxide (22-30) mmol/L BUN (7-17) mg/dL Creatinine (0.52-1.04) mg/dL Glucose (74-99) mg/dL POC Glucose (mg/dL) 210 H 160 H 156 H (70-110) mg/dL 03/05/23 03/05/23 03/05/23 Range/Units 05:15 05:15 06:30 WBC 20.8 H (3.8-10.6) k/uL MCHC (31.0-37.0) g/dL Plt Count (150-450) k/uL Neutrophils # 18.3 H (1.3-7.7) k/uL Sodium 136 L (137-145) mmol/L Carbon Dioxide 21 L (22-30) mmol/L BUN 47 H (7-17) mg/dL Creatinine 1.37 H (0.52-1.04) mg/dL Glucose 276 H (74-99) mg/dL POC Glucose (mg/dL) 269 H (70-110) mg/dL 03/05/23 Range/Units 09:22 WBC 21.4 H (3.8-10.6) k/uL MCHC 30.6 L (31.0-37.0) g/dL Plt Count 146 L (150-450) k/uL Neutrophils # (1.3-7.7) k/uL Sodium (137-145) mmol/L Carbon Dioxide (22-30) mmol/L BUN (7-17) mg/dL Creatinine (0.52-1.04) mg/dL Glucose (74-99) mg/dL POC Glucose (mg/dL) (70-110) mg/dL
[2023-03-05 11:59] LABS: Glucose,Whole Blood 208 mg/dL (70-110)
[2023-03-05] MEDS: NOREPINEPHRINE 4 MG in SODIUM CHLORIDE 0.9% 250 ML IV SCH (14:10)
[2023-03-05 16:25] LABS: Glucose,Whole Blood 226 mg/dL (70-110)
--- NOTE | 2023-03-05 19:33 | P.PN ---
Subjective Patient is sitting in a chair comfortably No chest discomfort no shortness of breath no dizziness or lightheadedness She recently underwent stenting to the LAD as ejection fraction about 45% Yesterday she did have chest discomfort which was respirophasic I asked her about her pain and she pointed to the lower right ribs, pinpoint focus completely different from the pain that she came in with Today she looks very comfortable her Issue is low blood pressure in the 90s and therefore her medications being held on account of this Her pulse rate is in the 70s and 80s Normal heart sounds no murmurs no gallops Breath sounds are clear Impression ischemic heart disease Anterior wall KS Status post stenting to the LAD Low blood pressure Diabetes Suggest Continue aspirin and atorvastatin and Brilinta Metoprolol and spironolactone have been ordered Objective - Vital Signs Vital signs: Vital Signs Temp 97.7 F 03/05/23 16:00 Pulse 86 03/05/23 19:00 Resp 25 H 03/05/23 19:00 BP 106/48 03/05/23 19:00 Pulse Ox 96 03/05/23 19:00 FiO2 Intake & Output 03/05/23 03/05/23 03/06/23 06:59 18:59 06:59 Intake Total 900 Output Total 1250 1060 100 Balance -1250 -160 -100 Weight 70.8 kg Intake: Intake, IV Titration 0 Amount Sodium Chloride 0.9% 1, 0 000 ml @ 0 mls/hr IV .[facility] Rx#:[id number] Oral 250 Tube Feeding 650 Output: Urine 1250 1060 100 Other: Voiding Method Toilet Toilet # Voids 1 # Bowel Movements 1 1 - Labs CBC & Chem 7: 03/05/23 09:22 03/05/23 05:15 Labs: Abnormal Lab Results - Last 24 Hours (Table) 03/04/23 03/05/23 03/05/23 Range/Units 20:07 05:15 05:15 WBC 20.8 H (3.8-10.6) k/uL MCHC (31.0-37.0) g/dL Plt Count (150-450) k/uL Neutrophils # 18.3 H (1.3-7.7) k/uL Sodium 136 L (137-145) mmol/L Carbon Dioxide 21 L (22-30) mmol/L BUN 47 H (7-17) mg/dL Creatinine 1.37 H (0.52-1.04) mg/dL Glucose 276 H (74-99) mg/dL POC Glucose (mg/dL) 156 H (70-110) mg/dL Procalcitonin (0.02-0.09) ng/mL 03/05/23 03/05/23 03/05/23 Range/Units 06:30 09:22 09:22 WBC 21.4 H (3.8-10.6) k/uL MCHC 30.6 L (31.0-37.0) g/dL Plt Count 146 L (150-450) k/uL Neutrophils # (1.3-7.7) k/uL Sodium (137-145) mmol/L Carbon Dioxide (22-30) mmol/L BUN (7-17) mg/dL Creatinine (0.52-1.04) mg/dL Glucose (74-99) mg/dL POC Glucose (mg/dL) 269 H (70-110) mg/dL Procalcitonin 0.11 H (0.02-0.09) ng/mL 03/05/23 03/05/23 Range/Units 11:57 16:24 WBC (3.8-10.6) k/uL MCHC (31.0-37.0) g/dL Plt Count (150-450) k/uL Neutrophils # (1.3-7.7) k/uL Sodium (137-145) mmol/L Carbon Dioxide (22-30) mmol/L BUN (7-17) mg/dL Creatinine (0.52-1.04) mg/dL Glucose (74-99) mg/dL POC Glucose (mg/dL) 208 H 226 H (70-110) mg/dL Procalcitonin (0.02-0.09) ng/mL
[2023-03-05 20:04] LABS: Glucose,Whole Blood 112 mg/dL (70-110)
[2023-03-05] MEDS: LOPERAMIDE 2 MG CAP PO PRN (21:01)
[2023-03-05] MEDS: MELATONIN 5 MG TABLET PO SCH (21:02)
[2023-03-05] MEDS: ATORVASTATIN 80 MG TAB PO SCH (21:02)
[2023-03-06] MEDS: LOPERAMIDE 2 MG CAP PO PRN ×2 (03:05→09:19)
[2023-03-06 06:27] LABS: HGB 12.1 gm/dL (11.4-16.0); Hypochromasia Slight; MCHC 30.9 g/dL (31.0-37.0); Mean Platelet Volume 11.6; Platelet Count 148 k/uL (150-450); RBC 4.02 m/uL (3.80-5.40); RDW 12.2 % (11.5-15.5); WBC 18.4 k/uL (3.8-10.6)
[2023-03-06 06:28] LABS: Glucose,Whole Blood 257 mg/dL (70-110)
[2023-03-06 06:33] LABS: Calcium 8.3 mg/dL (8.4-10.2); Potassium 5.2 mmol/L (3.5-5.1)
[2023-03-06] MEDS: BENZOCAINE/MENTHOL LOZENG 1 EACH LOZENGE MUCOUS MEM PRN (06:33)
[2023-03-06] MEDS: INSULIN DETEMIR (LEVEMIR) 100 UNIT/ML SYR SQ SCH (06:34)
[2023-03-06] MEDS: INSULIN ASPART (NovoLOG) 100 UNIT/ML VIAL SQ SCH ×7 (06:53→21:10)
[2023-03-06] MEDS: BUDESONIDE 1 MG/2 ML NEBU INHALATION SCH ×2 (08:27→20:12)
[2023-03-06] MEDS: IPRATROPIUM-ALBUTEROL 3 ML NEB INHALATION PRN ×2 (08:27→20:13)
[2023-03-06] MEDS: FORMOTEROL FUMARATE 20 MCG/2 ML NEBU INHALATION SCH ×2 (08:27→20:13)
[2023-03-06] MEDS: GABAPENTIN 300 MG CAP PO SCH ×3 (08:54→21:09)
[2023-03-06] MEDS: TICAGRELOR 90 MG TAB PO SCH ×2 (08:54→21:10)
[2023-03-06] MEDS: ENOXAPARIN 30 MG/0.3 ML SYRINGE SQ SCH (08:54)
[2023-03-06] MEDS: DAPAGLIFLOZIN PROPANEDIOL 10 MG TABLET PO SCH (08:55)
[2023-03-06] MEDS: guaiFENesin 600 MG TABLET.ER PO SCH ×2 (08:55→21:10)
[2023-03-06] MEDS: PANTOPRAZOLE 40 MG TABLET PO SCH (08:55)
[2023-03-06] MEDS: ASPIRIN 81 MG PO SCH (08:55)
[2023-03-06] MEDS: methylPREDNISolone SOD SUCCI 40 MG/ML 1 ML VIAL IV SCH (08:55)
[2023-03-06] MEDS: ACETAMINOPHEN TAB 325 MG TAB PO PRN (09:18)
[2023-03-06] MEDS: METOPROLOL SUCCINATE (ER) 25 MG TAB.ER.24H PO SCH (09:19)
[2023-03-06 09:27] LABS: Band Neutrophils % 4 %; Lymphocytes # (M) 1.29 k/uL (1.0-4.8); Metamyelocytes # (M) 0.18 k/uL (0); Metamyelocytes % 1 %; Monocytes # (M) 1.47 k/uL (0-1.0); Myelocytes # (M) 0.18 k/uL (0); Myelocytes % 1 %; Neutrophils % (M) 80 %; Nucleated Red Blood Cells 0 /100 WBC (0-0); Total Cells Counted 200
[2023-03-06] MEDS: METOPROLOL TARTRATE 12.5 MG TAB PO SCH (09:32)
[2023-03-06] MEDS: SPIRONOLACTONE 25 MG TAB PO SCH (09:32)
--- NOTE | 2023-03-06 10:03 | P.PN ---
Subjective Progress Note Date: 03/06/23 On 03/05/2023, I'm seeing the patient for a follow-up. This is a case of a 83-year-old female patient with known history of coronary artery disease who presented with an acute ST segment elevation myocardial infarction. The patient underwent emergent cardiac catheterization on 02/27/2023 and the patient underwent ending of the LAD 2. The patient is known to have diabetes, hypertension and hyperlipidemia. Note that she was also having some cough and. The viral screen came back negative. The patient has been in the intensive care unit since. She's been having issues with soft blood pressure and on and off requiring pressors. Note that the echocardiogram that was done the day of the myocardial infarction showed a left ejection fraction of around 30-35% and the patient has some moderate degree of systolic impairment. This was a limited echocardiogram. Valvular function was not assessed. The patient did have some anterior and anteroseptal hypokinesis as a suspected an anterior wall myocardial infarction. At this point in time, the patient is on room air oxygen pH is calm and comfortable. Her most recent chest x-ray was done on 03/01/2023 and the patient was found to have no acute abnormalities. There is some calcification the right lung base which is probably chronic and some chronic atelectatic changes in the right apex. No signs of any fluid overload or decompensated heart failure. Meanwhile, the patient's blood work from today shows a white cell count of 20.8 with a hemoglobin of 12.3 and a platelet count of 155. Note that her platelet counts are improving, nevertheless, the white cell count is on the rise. She is afebrile for now. Her kidney function is stable with a creatinine of 1.37 and a GFR of 36. BUN is at 47 and a sodium level is at 136. UA has been negative. For now, the patient is on a combination of aspirin and Alimta. She is on Lovenox for DVT prophylaxis. She is on bronchodilators with DuoNeb neb blotchiness [id number], she is also on performance on Pulmicort neb blotchiness twice a day. She is also on IV Solu-Medrol. She is taking metoprolol 12.5 mg by mouth twice a day. She is on Aldactone 12.5 mg by mouth daily. Blood sugar medications include oral hypoglycemics and Levemir insulin 20 units daily +10 units of NovoLog [id number] with meals and a sliding scale coverage. Her pressors are off at this point in time and she's been off pressors for the past 3 days. 03/06/2023, the patient still having some ongoing cough and congestion and wheeze. Remains on bronchodilators and steroids. Mucinex was also added. She still on IV Solu-Medrol at a dose of 40 mg every 12 hours. No chest pain. Hemodynamically stable. She is post cardiac catheterization and stenting of the LAD. She is also known to have cardiomyopathy with an ejection fraction of 30- 35%. The patient was taken off the Aldactone. She was switched to long-acting metoprolol. The patient is currently running a white cell count of 18.4 with a hemoglobin of 12 and a platelet count of 148. Sodium is at 135, BUN is at 44 with a creatinine of 1.2 and a potassium level is at 5.2. Blood sugars at 235. Stool for C. diff has been negative. Pro-calcitonin level was 0.11. Blood sugar is running at 257. She is off pressors for now. She is on metoprolol XL 12.5 mg 1 tablet a day. On a separate note, the patient started having diarrhea yesterday. This was a liquidy diarrhea. Stool for C. diff has been checked and it was negative. Note that the patient did not have bowel movement for quite some time for almost 5 days and yesterday she had a massive diarrhea. She has no nausea or emesis. She has no abdominal pain. This affected her ability to sleep and she slept at around 3 AM in the morning because of her ongoing diarrhe a. No abdominal pain. No antibiotic use at this point in time. Objective - Vital Signs Vital signs: Vital Signs Temp 98.2 F 03/06/23 08:00 Pulse 77 03/06/23 09:00 Resp 14 03/06/23 09:00 BP 95/52 03/06/23 09:00 Pulse Ox 97 03/06/23 09:00 FiO2 Intake & Output 03/05/23 03/06/23 03/06/23 18:59 06:59 18:59 Intake Total 900 200 Output Total 1060 950 200 Balance -160 -950 0 Weight 69 kg Intake: Intake, IV Titration 0 Amount Sodium Chloride 0.9% 1, 0 000 ml @ 0 mls/hr IV .[employer] [facility] Rx#:[id number] Oral 250 200 Tube Feeding 650 Output: Urine 1060 950 200 Other: Voiding Method Toilet Toilet Toilet # Voids 1 # Bowel Movements 1 1 1 - Exam No acute distress, oriented 3. Room air saturation is 98%. HEENT examination is grossly unremarkable. Mucous membranes are moist. No oral lesions. Neck supple. Full range of motion. No adenopathy thyromegaly or neck vein distention. Cardiovascular examination reveals regular rhythm rate. S1-S2 normal. No S3 or S4. No discernible murmur noted. Heart sounds are distant. Lungs reveal expiratory rhonchi and expiratory wheezes, accentuated on forced maneuver. Minimal crackles at the bases. Breath sounds equal bilaterally. Abdomen soft bowel sounds are heard. No masses or tenderness. Extremities are intact. No cyanosis clubbing or edema. Skin is without rash or lesion. Neurologic examination is brief but nonfocal. - Labs CBC & Chem 7: 03/06/23 05:58 03/06/23 05:58 Labs: Abnormal Lab Results - Last 24 Hours (Table) 03/05/23 03/05/23 03/05/23 Range/Units 09:22 09:22 11:57 WBC 21.4 H (3.8-10.6) k/uL MCHC 30.6 L (31.0-37.0) g/dL Plt Count 146 L (150-450) k/uL Neutrophils # (Manual) (1.3-7.7) k/uL Monocytes # (Manual) (0-1.0) k/uL Metamyelocytes # (Man) (0) k/uL Myelocytes # (Manual) (0) k/uL Sodium (137-145) mmol/L Potassium (3.5-5.1) mmol/L Carbon Dioxide (22-30) mmol/L BUN (7-17) mg/dL Creatinine (0.52-1.04) mg/dL Glucose (74-99) mg/dL POC Glucose (mg/dL) 208 H (70-110) mg/dL Calcium (8.4-10.2) mg/dL Procalcitonin 0.11 H (0.02-0.09) ng/mL 03/05/23 03/05/2323 Range/Units 16:24 20:03 05:58 WBC (3.8-10.6) k/uL MCHC (31.0-37.0) g/dL Plt Count (150-450) k/uL Neutrophils # (Manual) (1.3-7.7) k/uL Monocytes # (Manual) (0-1.0) k/uL Metamyelocytes # (Man) (0) k/uL Myelocytes # (Manual) (0) k/uL Sodium 135 L (137-145) mmol/L Potassium 5.2 H (3.5-5.1) mmol/L Carbon Dioxide 21 L (22-30) mmol/L BUN 44 H (7-17) mg/dL Creatinine 1.28 H (0.52-1.04) mg/dL Glucose 235 H (74-99) mg/dL POC Glucose (mg/dL) 226 H 112 H (70-110) mg/dL Calcium 8.3 L (8.4-10.2) mg/dL Procalcitonin (0.02-0.09) ng/mL 03/06/23 03/06/23 Range/Units 05:58 06:25 WBC 18.4 H (3.8-10.6) k/uL MCHC 30.9 L (31.0-37.0) g/dL Plt Count 148 L (150-450) k/uL Neutrophils # (Manual) 15.40 H (1.3-7.7) k/uL Monocytes # (Manual) 1.47 H (0-1.0) k/uL Metamyelocytes # (Man) 0.18 H (0) k/uL Myelocytes # (Manual) 0.18 H (0) k/uL Sodium (137-145) mmol/L Potassium (3.5-5.1) mmol/L Carbon Dioxide (22-30) mmol/L BUN (7-17) mg/dL Creatinine (0.52-1.04) mg/dL Glucose (74-99) mg/dL POC Glucose (mg/dL) 257 H (70-110) mg/dL Calcium (8.4-10.2) mg/dL Procalcitonin (0.02-0.09) ng/mL Assessment and Plan Plan: Acute ST segment elevation myocardial infarction, status post PCI, and stents 2 to the LAD, February 27 Systolic heart failure in the setting of an acute CA. The patient is an ejection fraction of 35-40% with segmental wall motion abnormalities. Hypotension, currently off pressors Nonproductive cough, shortness of breath, and wheezing, since February 20, likely related to a viral bronchitis with reactive bronchospasm and bronchial infl ammation, as well Acute leukocytosis, improving Acute diarrhea, consider drug induced Chronic kidney injury, creatinine is at 1.28 No prior history of lung disease. Lifelong nonsmoker. History of hypertension. History of diabetes mellitus. History of hyperlipidemia , with a component of steroid-induced hyperglycemia Plan: Repeat chest x-ray from yesterday showed no evidence of any pneumonia Repeat a pro-calcitonin level, level was at 0.11 Continue bronchodilators and steroids, discontinue the IV Solu-Medrol and start the patient on prednisone starting at 40 mg Monitor the white cell count, improving She is currently off pressors Continue aspirin Brilinta Continue beta blockers, the patient was switched to long-acting Toprol-XL 12.5 mg once a day Lovenox for DVT prophylaxis Patient is off colchicine, the patient is off Aldactone Blood sugar management We'll continue to follow Anneliese Bennett this patient to medical floor, 3 S., with telemetry
--- NOTE | 2023-03-06 10:51 | P.PN ---
Subjective Progress Note Date: 03/06/23 The patient is an 83-year-old female who is currently admitted to the hospital with an anterior wall myocardial infarction. The patient underwent stenting of the LAD. Ejection fraction was found to be 45%. Patient has been hypotensive over the course of her stay. She is on low-dose beta german and Aldactone for her cardiomyopathy. The patient was interviewed and examined resting comfortably in bed. No chest pain or chest pressure overnight. No difficulty breathing. She states she is a little unsteady on her feet but denies any dizziness or lightheadedness. GENERAL: Well-appearing, well-nourished and in no acute distress. NECK: Supple without JVD or thyromegaly. LUNGS: Breath sounds clear to auscultation bilaterally. Respiration equal and unlabored. No wheezes, rales or rhonchi. HEART: Regular rate and rhythm without murmurs, rubs or gallops. S1 and S2 heard. EXTREMITIES: Normal range of motion, no edema. No clubbing or cyanosis. Peripheral pulses intact and strong. TELEMETRY: Sinus rhythm overnight IMPRESSION: Anterior wall myocardial infarction Status post stenting of the LAD Ischemic cardiomyopathy, EF 45% Hypotension History diabetes PLAN: Discontinue Aldactone to avoid hypotension Continue beta german with low ejection fraction Encourage ambulation and pulmonary hygiene Patient may be transferred to [facility]. Further recommendations based on clinical course I am dictating on behalf of Dr Zay Demarco's history/physical and assessment/plan. Objective - Vital Signs Vital signs: Vital Signs Temp 98.2 F 03/06/23 08:00 Pulse 77 03/06/23 10:00 Resp 23 03/06/23 10:00 BP 98/50 03/06/23 10:00 Pulse Ox 95 03/06/23 10:00 FiO2 Intake & Output 03/05/23 03/06/23 03/06/23 18:59 06:59 18:59 Intake Total 900 200 Output Total 1060 950 200 Balance -160 -950 0 Weight 69 kg Intake: Intake, IV Titration 0 Amount Sodium Chloride 0.9% 1, 0 000 ml @ 0 mls/hr IV .[facility] ONE Rx#:[id number] Oral 250 200 Tube Feeding 650 Output: Urine 1060 950 200 Other: Voiding Method Toilet Toilet Toilet # Voids 1 # Bowel Movements 1 1 1 - Labs CBC & Chem 7: 03/06/23 05:58 03/06/23 05:58 Labs: Abnormal Lab Results - Last 24 Hours (Table) 03/05/23 03/05/23 03/05/23 Range/Units 09:22 09:22 11:57 WBC (3.8-10.6) k/uL MCHC (31.0-37.0) g/dL Plt Count 146 L (150-450) k/uL Neutrophils # (Manual) (1.3-7.7) k/uL Monocytes # (Manual) (0-1.0) k/uL Metamyelocytes # (Man) (0) k/uL Myelocytes # (Manual) (0) k/uL Sodium (137-145) mmol/L Potassium (3.5-5.1) mmol/L Carbon Dioxide (22-30) mmol/L BUN (7-17) mg/dL Creatinine (0.52-1.04) mg/dL Glucose (74-99) mg/dL POC Glucose (mg/dL) 208 H (70-110) mg/dL Calcium (8.4-10.2) mg/dL Procalcitonin 0.11 H (0.02-0.09) ng/mL 03/05/23 03/05/23 03/06/23 Range/Units 16:24 20:03 05:58 WBC (3.8-10.6) k/uL MCHC (31.0-37.0) g/dL Plt Count (150-450) k/uL Neutrophils # (Manual) (1.3-7.7) k/uL Monocytes # (Manual) (0-1.0) k/uL Metamyelocytes # (Man) (0) k/uL Myelocytes # (Manual) (0) k/uL Sodium 135 L (137-145) mmol/L Potassium 5.2 H (3.5-5.1) mmol/L Carbon Dioxide 21 L (22-30) mmol/L BUN 44 H (7-17) mg/dL Creatinine 1.28 H (0.52-1.04) mg/dL Glucose 235 H (74-99) mg/dL POC Glucose (mg/dL) 226 H 112 H (70-110) mg/dL Calcium 8.3 L (8.4-10.2) mg/dL Procalcitonin (0.02-0.09) ng/mL 03/06/23 03/06/23 Range/Units 05:58 06:25 WBC 18.4 H (3.8-10.6) k/uL MCHC 30.9 L (31.0-37.0) g/dL Plt Count 148 L (150-450) k/uL Neutrophils # (Manual) 15.40 H (1.3-7.7) k/uL Monocytes # (Manual) 1.47 H (0-1.0) k/uL Metamyelocytes # (Man) 0.18 H (0) k/uL Myelocytes # (Manual) 0.18 H (0) k/uL Sodium (137-145) mmol/L Potassium (3.5-5.1) mmol/L Carbon Dioxide (22-30) mmol/L BUN (7-17) mg/dL Creatinine (0.52-1.04) mg/dL Glucose (74-99) mg/dL POC Glucose (mg/dL) 257 H (70-110) mg/dL Calcium (8.4-10.2) mg/dL Procalcitonin (0.02-0.09) ng/mL
--- NOTE | 2023-03-06 11:43 | P.PN ---
Subjective Patient is seen for follow-up for acute kidney injury. Admitted with complaints of chest pain and diagnosed with acute anterior wall ME status post cardiac catheterization and stenting of totally occluded LAD. Ejection fraction 35-40% Serum creatinine is 1.28. Blood pressure has been low with systolic 90s. Good urine output. Voiding on her own. Post void residual was not elevated. Potassium today. Maintained on Aldactone. Blood sugar around 240-250s mg/dL Chest pain is resolved. Complaining of cough. Using incentive spirometry. Cough is improved today. Objective - Vital Signs Vital signs: Vital Signs Temp 98.2 F 03/06/23 08:00 Pulse 73 03/06/23 11:00 Resp 29 H 03/06/23 11:00 BP 90/42 03/06/23 11:00 Pulse Ox 97 03/06/23 11:00 FiO2 Intake & Output 03/05/23 03/06/23 03/06/23 18:59 06:59 18:59 Intake Total 900 200 Output Total 1060 950 200 Balance -160 -950 0 Weight 69 kg Intake: Intake, IV Titration 0 Amount Sodium Chloride 0.9% 1, 0 000 ml @ 0 mls/hr IV .[employer] ONE Rx#:[id number] Oral 250 200 Tube Feeding 650 Output: Urine 1060 950 200 Other: Voiding Method Toilet Toilet Toilet # Voids 1 # Bowel Movements 1 1 1 - Labs CBC & Chem 7: 03/06/23 05:58 03/06/23 05:58 Labs: Abnormal Lab Results - Last 24 Hours (Table) 03/05/23 03/05/23 03/05/23 Range/Units 09:22 11:57 16:24 WBC (3.8-10.6) k/uL MCHC (31.0-37.0) g/dL Plt Count (150-450) k/uL Neutrophils # (Manual) (1.3-7.7) k/uL Monocytes # (Manual) (0-1.0) k/uL Metamyelocytes # (Man) (0) k/uL Myelocytes # (Manual) (0) k/uL Sodium (137-145) mmol/L Potassium (3.5-5.1) mmol/L Carbon Dioxide (22-30) mmol/L BUN (7-17) mg/dL Creatinine (0.52-1.04) mg/dL Glucose (74-99) mg/dL POC Glucose (mg/dL) 208 H 226 H (70-110) mg/dL Calcium (8.4-10.2) mg/dL Procalcitonin 0.11 H (0.02-0.09) ng/mL 03/05/23 03/06/23 03/06/23 Range/Units 20:03 05:58 05:58 WBC 18.4 H (3.8-10.6) k/uL MCHC 30.9 L (31.0-37.0) g/dL Plt Count 148 L (150-450) k/uL Neutrophils # (Manual) 15.40 H (1.3-7.7) k/uL Monocytes # (Manual) 1.47 H (0-1.0) k/uL Metamyelocytes # (Man) 0.18 H (0) k/uL Myelocytes # (Manual) 0.18 H (0) k/uL Sodium 135 L (137-145) mmol/L Potassium 5.2 H (3.5-5.1) mmol/L Carbon Dioxide 21 L (22-30) mmol/L BUN 44 H (7-17) mg/dL Creatinine 1.28 H (0.52-1.04) mg/dL Glucose 235 H (74-99) mg/dL POC Glucose (mg/dL) 112 H (70-110) mg/dL Calcium 8.3 L (8.4-10.2) mg/dL Procalcitonin (0.02-0.09) ng/mL 03/06/23 Range/Units 06:25 WBC (3.8-10.6) k/uL MCHC (31.0-37.0) g/dL Plt Count (150-450) k/uL Neutrophils # (Manual) (1.3-7.7) k/uL Monocytes # (Manual) (0-1.0) k/uL Metamyelocytes # (Man) (0) k/uL Myelocytes # (Manual) (0) k/uL Sodium (137-145) mmol/L Potassium (3.5-5.1) mmol/L Carbon Dioxide (22-30) mmol/L BUN (7-17) mg/dL Creatinine (0.52-1.04) mg/dL Glucose (74-99) mg/dL POC Glucose (mg/dL) 257 H (70-110) mg/dL Calcium (8.4-10.2) mg/dL Procalcitonin (0.02-0.09) ng/mL
[2023-03-06] MEDS: NOREPINEPHRINE 4 MG in SODIUM CHLORIDE 0.9% 250 ML IV SCH (12:01)
[2023-03-06 12:09] LABS: Glucose,Whole Blood 79 mg/dL (70-110)
--- NOTE | 2023-03-06 13:25 | P.PN ---
Subjective Progress Note Date: 03/06/23 Hospital Course: 83-year-old female with diabetes mellitus type 2 on insulin, GERD, hypertension, and dyslipidemia who presented to the ER with complaints of chest pain. In the ER EKG showed ST segment elevation in V2 through V5 the patient was diagnosed with STEMI. Cardiology took him emergently to the home performance [facility] and a stent was placed to the mid LAD. She presented with URI type symptoms and Covid/RSV/influenza A/B was negative. She underwent echocardiogram which showed an ejection fraction of 30-35% with hypokinetic septum, apex, and anterior wall. After patient's heart cath she was hypertensive suspect due to cardiogenic shock. Patient was started on Levophed drip. She was then gradually weaned off. Patient also after a heart cath was complaining of persistent chest pain. Cardiology started on colchicine. Patient also is complaining of a cough. Pulmonology start the patient on steroids and breathing treatments for bronchitis. Subjective: Patient seen and examined at bedside. She denies any further chest pain. She has been ambulating, but still feels short of breath at times. She denies any significant shortness of breath at rest, abdominal pain, nausea, vomiting, diarrhea, constipation, or urinary complaints. She continues to have cough. Pertinent positives and negatives as discussed above, a complete review of systems was performed and all other systems are negative. Vitals Signs Reviewed. General: nontoxic, no distress, appears at stated age Derm: warm, dry Head: atraumatic, normocephalic, symmetric Eyes: EOMI, no lid lag, anicteric sclera Mouth: no lip lesion, mucus membranes moist Cardiovascular: S1S2 reg, no murmur Lungs: CTA bilateral, no rhonchi, no rales , no accessory muscle use Abdominal: soft, nontender to palpation, no guarding, no appreciable organomegaly Ext: no gross muscle atrophy, no edema, no contractures Neuro: CN II-XI grossly intact, no focal neuro deficits Psych: Alert, oriented, appropriate affect Data Reviewed Today: Pertinent Labs: WBC 18.4, platelet 148, band neutrophils 4, sodium 135, potassium 5.2, creatinine 1.28, glucose range between 112 -235, C. diff negative Imaging: No new imaging today Assessment and Plan: Patient remains critically ill, but improving. Will be downgraded out of the ICU. Active: Status post anterior STEMI, status post stent to LAD Ischemic cardiomyopathy, EF 30-35% Acute bronchitis Acute kidney injury the setting of contrast use, and cardiogenic shock, improvi ng Mild hyperkalemia Insulin-dependent diabetes mellitus Leukocytosis, likely reactive and steroid-induced -No longer vasopressors -Cardiology note reviewed, continue aspirin, atorvastatin, brilinta, on metoprolol -Pulmonology note reviewed, IV Solu-Medrol switched to oral prednisone, continue bronchodilators -Nephrology note reviewed, no changes -Patient was previously on Aldactone, now discontinued, potassium should improve -Repeat BMP tomorrow -Continue Levemir 20 units, aspart 10 units 3 times a day, sliding scale insulin, no changes today -Repeat CBC tomorrow Resolved: Cardiogenic shock Chronic: Hypertension Dyslipidemia History of CVA DVT ppx: Lovenox Code status: Full code Anticipated discharge place: Pending clinical course Anticipated discharge time: Pending clinical course Objective - Vital Signs Vital signs: Vital Signs Temp 97.5 F L 03/06/23 12:00 Pulse 75 03/06/23 12:00 Resp 18 03/06/23 12:00 BP 106/51 03/06/23 12:00 Pulse Ox 99 03/06/23 12:00 FiO2 Intake & Output 03/05/23 03/06/23 03/06/23 18:59 06:59 18:59 Intake Total 900 200 Output Total 1060 950 200 Balance -160 -950 0 Weight 69 kg Intake: Intake, IV Titration 0 Amount Sodium Chloride 0.9% 1, 0 000 ml @ 0 mls/hr IV .STK -MED ONE Rx#:[id number] Oral 250 200 Tube Feeding 650 Output: Urine 1060 950 200 Other: Voiding Method Toilet Toilet Toilet # Voids 1 # Bowel Movements 1 1 1 - Labs CBC & Chem 7: 03/06/23 05:58 03/06/23 05:58 Labs: Abnormal Lab Results - Last 24 Hours (Table) 03/05/23 03/05/23 03/05/23 Range/Units 09:22 16:24 20:03 WBC (3.8-10.6) k/uL MCHC (31.0-37.0) g/dL Plt Count (150-450) k/uL Neutrophils # (Manual) (1.3-7.7) k/uL Monocytes # (Manual) (0-1.0) k/uL Metamyelocytes # (Man) (0) k/uL Myelocytes # (Manual) (0) k/uL Sodium (137-145) mmol/L Potassium (3.5-5.1) mmol/L Carbon Dioxide (22-30) mmol/L BUN (7-17) mg/dL Creatinine (0.52-1.04) mg/dL Glucose (74-99) mg/dL POC Glucose (mg/dL) 226 H 112 H (70-110) mg/dL Calcium (8.4-10.2) mg/dL Procalcitonin 0.11 H (0.02-0.09) ng/mL 03/06/23 03/06/23 03/06/23 Range/Units 05:58 05:58 06:25 WBC 18.4 H (3.8-10.6) k/uL MCHC 30.9 L (31.0-37.0) g/dL Plt Count 148 L (150-450) k/uL Neutrophils # (Manual) 15.40 H (1.3-7.7) k/uL Monocytes # (Manual) 1.47 H (0-1.0) k/uL Metamyelocytes # (Man) 0.18 H (0) k/uL Myelocytes # (Manual) 0.18 H (0) k/uL Sodium 135 L (137-145) mmol/L Potassium 5.2 H (3.5-5.1) mmol/L Carbon Dioxide 21 L (22-30) mmol/L BUN 44 H (7-17) mg/dL Creatinine 1.28 H (0.52-1.04) mg/dL Glucose 235 H (74-99) mg/dL POC Glucose (mg/dL) 257 H (70-110) mg/dL Calcium 8.3 L (8.4-10.2) mg/dL Procalcitonin (0.02-0.09) ng/mL
[2023-03-06 16:36] LABS: Glucose,Whole Blood 306 mg/dL (70-110)
[2023-03-06 20:12] LABS: Glucose,Whole Blood 208 mg/dL (70-110)
[2023-03-06] MEDS: MELATONIN 5 MG TABLET PO SCH (21:09)
[2023-03-06] MEDS: ATORVASTATIN 80 MG TAB PO SCH (21:10)
[2023-03-07 00:30] LABS: Glucose,Whole Blood 92 mg/dL (70-110)
[2023-03-07 06:11] LABS: Glucose,Whole Blood 175 mg/dL (70-110)
[2023-03-07] MEDS: INSULIN ASPART (NovoLOG) 100 UNIT/ML VIAL SQ SCH ×7 (06:35→20:22)
[2023-03-07] MEDS: INSULIN DETEMIR (LEVEMIR) 100 UNIT/ML SYR SQ SCH (06:38)
[2023-03-07] MEDS: FORMOTEROL FUMARATE 20 MCG/2 ML NEBU INHALATION SCH ×2 (08:12→19:56)
[2023-03-07] MEDS: BUDESONIDE 1 MG/2 ML NEBU INHALATION SCH ×2 (08:12→19:56)
[2023-03-07] MEDS: IPRATROPIUM-ALBUTEROL 3 ML NEB INHALATION PRN ×3 (08:13→19:57)
[2023-03-07 08:21] LABS: HCT 39.8 % (34.0-46.0); HGB 12.8 gm/dL (11.4-16.0); MCH 30.2 pg (25.0-35.0); MCHC 32.1 g/dL (31.0-37.0); MCV 94.2 fL (80.0-100.0); Mean Platelet Volume 12.9; Platelet Count 133 k/uL (150-450); RBC 4.23 m/uL (3.80-5.40); RDW 12.5 % (11.5-15.5)
[2023-03-07 08:42] LABS: Calcium 8.5 mg/dL (8.4-10.2); Potassium 4.2 mmol/L (3.5-5.1)
[2023-03-07 09:29] LABS: Band Neutrophils % 3 %; Lymphocytes # (M) 3.15 k/uL (1.0-4.8); Monocytes # (M) 2.31 k/uL (0-1.0); Neutrophils % (M) 71 %; Nucleated Red Blood Cells 0 /100 WBC (0-0); Total Cells Counted 100
[2023-03-07 09:46] LABS: Large Platelets Present
[2023-03-07] MEDS: ACETAMINOPHEN TAB 325 MG TAB PO PRN ×2 (09:56→15:43)
[2023-03-07] MEDS: ASPIRIN 81 MG PO SCH (09:57)
[2023-03-07] MEDS: GABAPENTIN 300 MG CAP PO SCH ×3 (09:57→20:22)
[2023-03-07] MEDS: PANTOPRAZOLE 40 MG TABLET PO SCH (09:57)
[2023-03-07] MEDS: ENOXAPARIN 30 MG/0.3 ML SYRINGE SQ SCH (09:58)
[2023-03-07] MEDS: guaiFENesin 600 MG TABLET.ER PO SCH ×2 (09:58→20:22)
[2023-03-07] MEDS: TICAGRELOR 90 MG TAB PO SCH ×2 (09:58→20:22)
[2023-03-07] MEDS: predniSONE 20 MG TAB PO SCH (09:58)
[2023-03-07] MEDS: METOPROLOL SUCCINATE (ER) 25 MG TAB.ER.24H PO SCH (09:58)
[2023-03-07] MEDS: DAPAGLIFLOZIN PROPANEDIOL 10 MG TABLET PO SCH (09:58)
[2023-03-07 11:32] LABS: Glucose,Whole Blood 241 mg/dL (70-110)
--- NOTE | 2023-03-07 11:40 | P.PN ---
Subjective Progress Note Date: 03/07/23 On 03/05/2023, I'm seeing the patient for a follow-up. This is a case of a 83-year-old female patient with known history of coronary artery disease who presented with an acute ST segment elevation myocardial infarction. The patient underwent emergent cardiac catheterization on 02/27/2023 and the patient underwent ending of the LAD 2. The patient is known to have diabetes, hypertension and hyperlipidemia. Note that she was also having some cough and. The viral screen came back negative. The patient has been in the intensive care unit since. She's been having issues with soft blood pressure and on and off requiring pressors. Note that the echocardiogram that was done the day of the myocardial infarction showed a left ejection fraction of around 30-35% and the patient has some moderate degree of systolic impairment. This was a limited echocardiogram. Valvular function was not assessed. The patient did have some anterior and anteroseptal hypokinesis as a suspected an anterior wall myocardial infarction. At this point in time, the patient is on room air oxygen pH is calm and comfortable. Her most recent chest x-ray was done on 03/01/2023 and the patient was found to have no acute abnormalities. There is some calcification the right lung base which is probably chronic and some chronic atelectatic changes in the right apex. No signs of any fluid overload or decompensated heart failure. Meanwhile, the patient's blood work from today shows a white cell count of 20.8 with a hemoglobin of 12.3 and a platelet count of 155. Note that her platelet counts are improving, nevertheless, the white cell count is on the rise. She is afebrile for now. Her kidney function is stable with a creatinine of 1.37 and a GFR of 36. BUN is at 47 and a sodium level is at 136. UA has been negative. For now, the patient is on a combination of aspirin and Alimta. She is on Lovenox for DVT prophylaxis. She is on bronchodilators with DuoNeb neb blotchiness [id number], she is also on performance on Pulmicort neb blotchiness twice a day. She is also on IV Solu-Medrol. She is taking metoprolol 12.5 mg by mouth twice a day. She is on Aldactone 12.5 mg by mouth daily. Blood sugar medications include oral hypoglycemics and Levemir insulin 20 units daily +10 units of NovoLog [id number] with meals and a sliding scale coverage. Her pressors are off at this point in time and she's been off pressors for the past 3 days. 03/06/2023, the patient still having some ongoing cough and congestion and wheeze. Remains on bronchodilators and steroids. Mucinex was also added. She still on IV Solu-Medrol at a dose of 40 mg every 12 hours. No chest pain. Hemodynamically stable. She is post cardiac catheterization and stenting of the LAD. She is also known to have cardiomyopathy with an ejection fraction of 30- 35%. The patient was taken off the Aldactone. She was switched to long-acting metoprolol. The patient is currently running a white cell count of 18.4 with a hemoglobin of 12 and a platelet count of 148. Sodium is at 135, BUN is at 44 with a creatinine of 1.2 and a potassium level is at 5.2. Blood sugars at 235. Stool for C. diff has been negative. Pro-calcitonin level was 0.11. Blood sugar is running at 257. She is off pressors for now. She is on metoprolol XL 12.5 mg 1 tablet a day. On a separate note, the patient started having diarrhea yesterday. This was a liquidy diarrhea. Stool for C. diff has been checked and it was negative. Note that the patient did not have bowel movement for quite some time for almost 5 days and yesterday she had a massive diarrhea. She has no nausea or emesis. She has no abdominal pain. This affected her ability to sleep and she slept at around 3 AM in the morning because of her ongoing diarrhe a. No abdominal pain. No antibiotic use at this point in time. 03/07/2023, the patient was already transferred to the medical floor. The patient is doing well. Much less bronchospastic and wheezing on today's evaluation. She feels that her cough and congestion subsided significantly. She does not have any issues with chest pain. She is currently on prednisone and DuoNeb neb blotchiness on the clock. Her diarrhea has subsided.Blood work today shows a WBC of 21, hemoglobin is 12.8 and a platelet count of 133. Sodium is at 138, potassium is at 4.2, BUN is at 38 with a creatinine of 1.4. Stool for C. diff has been negative. Objective - Vital Signs Vital signs: Vital Signs Temp 97.6 F 03/07/23 08:00 Pulse 82 03/07/23 08:33 Resp 18 03/07/23 08:00 BP 103/54 03/07/23 08:00 Pulse Ox 97 03/07/23 08:13 FiO2 21 03/07/23 08:13 Intake & Output 03/06/23 03/07/23 03/07/23 18:59 06:59 18:59 Intake Total 436 Output Total 200 Balance 236 Intake: Oral 436 Output: Urine 200 Other: Voiding Method Toilet Toilet # Bowel Movements 1 - Exam No acute distress, oriented 3. Room air saturation is 98%. HEENT examination is grossly unremarkable. Mucous membranes are moist. No oral lesions. Neck supple. Full range of motion. No adenopathy thyromegaly or neck vein distention. Cardiovascular examination reveals regular rhythm rate. S1-S2 normal. No S3 or S4. No discernible murmur noted. Heart sounds are distant. Lungs reveal expiratory rhonchi and expiratory wheezes, accentuated on forced maneuver. Minimal crackles at the bases. Breath sounds equal bilaterally. Abdomen soft bowel sounds are heard. No masses or tenderness. Extremities are intact. No cyanosis clubbing or edema. Skin is without rash or lesion. Neurologic examination is brief but nonfocal. - Labs CBC & Chem 7: 03/07/23 07:35 03/07/23 07:35 Labs: Abnormal Lab Results - Last 24 Hours (Table) 03/06/23 03/06/23 03/06/23 Range/Units 05:58 16:35 20:10 WBC (3.8-10.6) k/uL Plt Count (150-450) k/uL Neutrophils # (Manual) (1.3-7.7) k/uL Monocytes # (Manual) (0-1.0) k/uL BUN (7-17) mg/dL Creatinine (0.52-1.04) mg/dL Glucose (74-99) mg/dL POC Glucose (mg/dL) 306 H 208 H (70-110) mg/dL Hemoglobin A1c 7.1 H (0.0-6.0) % 03/07/23 03/07/23 03/07/23 Range/Units 06:10 07:35 07:35 WBC 21.0 H (3.8-10.6) k/uL Plt Count 133 L (150-450) k/uL Neutrophils # (Manual) 15.50 H (1.3-7.7) k/uL Monocytes # (Manual) 2.31 H (0-1.0) k/uL BUN 38 H (7-17) mg/dL Creatinine 1.44 H (0.52-1.04) mg/dL Glucose 153 H (74-99) mg/dL POC Glucose (mg/dL) 175 H (70-110) mg/dL Hemoglobin A1c (0.0-6.0) % 03/07/23 Range/Units 11:30 WBC (3.8-10.6) k/uL Plt Count (150-450) k/uL Neutrophils # (Manual) (1.3-7.7) k/uL Monocytes # (Manual) (0-1.0) k/uL BUN (7-17) mg/dL Creatinine (0.52-1.04) mg/dL Glucose (74-99) mg/dL POC Glucose (mg/dL) 241 H (70-110) mg/dL Hemoglobin A1c (0.0-6.0) % Assessment and Plan Plan: Acute ST segment elevation myocardial infarction, status post PCI, and stents 2 to the LAD, February 27 Systolic heart failure in the setting of an acute DC. The patient is an ejection fraction of 35-40% with segmental wall motion abnormalities. Hypotension, currently off pressors Nonproductive cough, shortness of breath, and wheezing, since February 20, likely related to a viral bronchitis with reactive bronchospasm and bronchial inflammation, as well, the patient is clinically much improved Acute leukocytosis, improving Acute diarrhea, consider drug induced, improved Chronic kidney injury, creatinine is at 1.4 No prior history of lung disease. Lifelong nonsmoker. History of hypertension. History of diabetes mellitus. History of hyperlipidemia , with a component of steroid-induced hyperglycemia Plan: Repeat chest x-ray from yesterday showed no evidence of any pneumonia Repeat a pro-calcitonin level, level was at 0.11 Continue bronchodilators and steroids, and the patient is currently on a prednisone burst taper Monitor the white cell count, improving She is currently off pressors Continue aspirin Brilinta Continue beta blockers, the patient was switched to long-acting Toprol-XL 12.5 mg once a day Lovenox for DVT prophylaxis Patient is off colchicine, the patient is off Aldactone Monitor renal function Blood sugar management We'll continue to follow Possible discharge within the next 24 hours
--- NOTE | 2023-03-07 11:48 | P.PN ---
Subjective Patient is seen for follow-up for acute kidney injury. Admitted with complaints of chest pain and diagnosed with acute anterior wall ME status post cardiac catheterization and stenting of totally occluded LAD. Ejection fraction 35-40% Serum creatinine is 1.4 today. Blood pressure has been low with systolic 90s. Now about 103-10 5 mmHg. Good urine output. Voiding on her own. Post void residual was not elevated. Potassium 4.2 today. Aldactone has been discontinued. Chest pain is resolved. Complaining of cough. Using incentive spirometry. Cough is improved today. Objective - Vital Signs Vital signs: Vital Signs Temp 97.6 F 03/07/23 08:00 Pulse 82 03/07/23 08:33 Resp 18 03/07/23 08:00 BP 103/54 03/07/23 08:00 Pulse Ox 97 03/07/23 08:13 FiO2 21 03/07/23 08:13 Intake & Output 03/06/23 03/07/23 03/07/23 18:59 06:59 18:59 Intake Total 436 Output Total 200 Balance 236 Intake: Oral 436 Output: Urine 200 Other: Voiding Method Toilet Toilet # Bowel Movements 1 - Exam Awake, comfortable, no acute distress Examination of the heart S1 and S2 Examination of the lungs decreased breath sounds at the bases Abdomen is soft nontender Examination lower extremities shows no evidence of edema 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 - Labs CBC & Chem 7: 03/07/23 07:35 03/07/23 07:35 Labs: Abnormal Lab Results - Last 24 Hours (Table) 03/06/23 03/06/23 03/06/23 Range/Units 05:58 16:35 20:10 WBC (3.8-10.6) k/uL Plt Count (150-450) k/uL Neutrophils # (Manual) (1.3-7.7) k/uL Monocytes # (Manual) (0-1.0) k/uL BUN (7-17) mg/dL Creatinine (0.52-1.04) mg/dL Glucose (74-99) mg/dL POC Glucose (mg/dL) 306 H 208 H (70-110) mg/dL Hemoglobin A1c 7.1 H (0.0-6.0) % 03/07/23 03/07/23 03/07/23 Range/Units 06:10 07:35 07:35 WBC 21.0 H (3.8-10.6) k/uL Plt Count 133 L (150-450) k/uL Neutrophils # (Manual) 15.50 H (1.3-7.7) k/uL Monocytes # (Manual) 2.31 H (0-1.0) k/uL BUN 38 H (7-17) mg/dL Creatinine 1.44 H (0.52-1.04) mg/dL Glucose 153 H (74-99) mg/dL POC Glucose (mg/dL) 175 H (70-110) mg/dL Hemoglobin A1c (0.0-6.0) % 03/07/23 Range/Units 11:30 WBC (3.8-10.6) k/uL Plt Count (150-450) k/uL Neutrophils # (Manual) (1.3-7.7) k/uL Monocytes # (Manual) (0-1.0) k/uL BUN (7-17) mg/dL Creatinine (0.52-1.04) mg/dL Glucose (74-99) mg/dL POC Glucose (mg/dL) 241 H (70-110) mg/dL Hemoglobin A1c (0.0-6.0) % Assessment and Plan Assessment: 1. Acute kidney injury secondary to ATN secondary to cardiogenic shock as well as contrast-induced acute kidney injury. Baseline creatinine near 1 and peaked at 1.36 this admission - 1.1 and increased back to 1.39 today mostly associated with low blood pressures. 2. STEMI status post cardiac catheterization with LAD stent placement 02/27/2023. 3. Cardiomyopathy with ejection fraction of 35%. 4. Diabetes mellitus. 5. Borderline potassium of 5.3 associated with elevated blood sugars. Aldactone discontinued. No urine retention. Plan: Control blood sugars Repeat labs in a.m.
--- NOTE | 2023-03-07 12:16 | P.PN ---
Subjective Progress Note Date: 03/07/23 The patient is an 83-year-old female who is currently admitted to the hospital with an anterior wall myocardial infarction. The patient underwent stenting of the LAD. Ejection fraction was found to be 45%. Patient has been hypotensive over the course of her stay. She is on low-dose beta german and Aldactone for her cardiomyopathy. The patient was interviewed and examined resting comfortably in bed. No chest pain or chest pressure overnight. No difficulty breathing. Patient states that she feels a little foggy this morning nauseated when she was up to the bathroom. She is currently on Lopressor 12.5 mg daily. GENERAL: Well-appearing, well-nourished and in no acute distress. NECK: Supple without JVD or thyromegaly. LUNGS: Breath sounds clear to auscultation bilaterally. Respiration equal and unlabored. No wheezes, rales or rhonchi. HEART: Regular rate and rhythm without murmurs, rubs or gallops. S1 and S2 heard. EXTREMITIES: Normal range of motion, no edema. No clubbing or cyanosis. Peripheral pulses intact and strong. TELEMETRY: Sinus rhythm overnight IMPRESSION: Anterior wall myocardial infarction Status post stenting of the LAD Ischemic cardiomyopathy, EF 45% Hypotension History diabetes PLAN: Discontinue Aldactone to avoid hypotension Continue beta german with low ejection fraction Encourage ambulation and pulmonary hygiene Plan to monitor patient overnight and probable discharge home tomorrow. I am dictating on behalf of Dr Zay Demarco's history/physical and a ssessment/plan. Objective - Vital Signs Vital signs: Vital Signs Temp 97.5 F L 03/07/23 04:03 Pulse 82 03/07/23 08:33 Resp 16 03/07/23 04:03 BP 105/57 03/07/23 04:03 Pulse Ox 97 03/07/23 08:13 FiO2 21 03/07/23 08:13 Intake & Output 03/06/23 03/07/23 03/07/23 18:59 06:59 18:59 Intake Total 436 Output Total 200 Balance 236 Intake: Oral 436 Output: Urine 200 Other: Voiding Method Toilet Toilet # Bowel Movements 1 - Labs CBC & Chem 7: 03/07/23 07:35 03/07/23 07:35 Labs: Abnormal Lab Results - Last 24 Hours (Table) 03/06/23 03/06/23 03/06/23 Range/Units 05:58 16:35 20:10 WBC (3.8-10.6) k/uL BUN (7-17) mg/dL Creatinine (0.52-1.04) mg/dL Glucose (74-99) mg/dL POC Glucose (mg/dL) 306 H 208 H (70-110) mg/dL Hemoglobin A1c 7.1 H (0.0-6.0) % 03/07/23 03/07/23 03/07/23 Range/Units 06:10 07:35 07:35 WBC 21.0 H (3.8-10.6) k/uL BUN 38 H (7-17) mg/dL Creatinine 1.44 H (0.52-1.04) mg/dL Glucose 153 H (74-99) mg/dL POC Glucose (mg/dL) 175 H (70-110) mg/dL Hemoglobin A1c (0.0-6.0) %
--- NOTE | 2023-03-07 12:42 | P.PN ---
Subjective Progress Note Date: 03/07/23 Hospital Course: 83-year-old female with diabetes mellitus type 2 on insulin, GERD, hypertension, and dyslipidemia who presented to the ER with complaints of chest pain. In the ER EKG showed ST segment elevation in V2 through V5 the patient was diagnosed with STEMI. Cardiology took him emergently to the phlebotomy lab assistant and a stent was placed to the mid LAD. She presented with URI type symptoms and Covid/RSV/influenza A/B was negative. She underwent echocardiogram which showed an ejection fraction of 30-35% with hypokinetic septum, apex, and anterior wall. After patient's heart cath she was hypertensive suspect due to cardiogenic shock. Patient was started on Levophed drip. She was then gradually weaned off. Patient also after a heart cath was complaining of persistent chest pain. Cardiology started on colchicine, not discontinued. Patient also is complaining of a cough. Pulmonology started the patient on steroids and breathing treatments for acute bronchitis. Patient also has acute kidney injury, now resolved Patient to medical ICU on Gen. medical floor. Pending discharge likely tomorrow. Subjective: Patient seen and examined at bedside. She denies any further chest pain. She has been ambulating, but still feels short of breath at times. She denies any significant shortness of breath at rest, abdominal pain, nausea, vomiting, diarrhea, constipation, or urinary complaints. She continues to have cough, but improving. Pertinent positives and negatives as discussed above, a complete review of systems was performed and all other systems are negative. Vitals Signs Reviewed. General: nontoxic, no distress, appears at stated age Derm: warm, dry Head: atraumatic, normocephalic, symmetric Eyes: EOMI, no lid lag, anicteric sclera Mouth: no lip lesion, mucus membranes moist Cardiovascular: S1S2 reg, no murmur Lungs: CTA bilateral, no rhonchi, no rales , no accessory muscle use Abdominal: soft, nontender to palpation, no guarding, no appreciable organomeg emile Ext: no gross muscle atrophy, no edema, no contractures Neuro: CN II-XI grossly intact, no focal neuro deficits Psych: Alert, oriented, appropriate affect Data Reviewed Today: Pertinent Labs: WBC 21, hemoglobin 12.8, platelet 133, sodium 138, potassium 4.2, creatinine 1.44, blood glucose range between 92-208 Imaging: No new imaging today Assessment and Plan: Active: Status post anterior STEMI, status post stent to LAD Ischemic cardiomyopathy, EF 30-35% Acute bronchitis Acute kidney injury the setting of contrast use, and cardiogenic shock, improving Insulin-dependent diabetes mellitus Leukocytosis, likely reactive and steroid-induced -Cardiology note reviewed, continue aspirin, atorvastatin, brilinta, on metoprolol, discontinue Aldactone to her hypotension, pending discharge tomorrow -Pulmonology note reviewed, tinea oral prednisone, continue bronchodilators -Nephrology note reviewed, no changes -Patient was previously on Aldactone, now discontinued, potassium should improve -Repeat BMP tomorrow -Continue Levemir 20 units, aspart 10 units 3 times a day, sliding scale insu german, no changes today -Repeat CBC tomorrow Resolved: Cardiogenic shock Mild hyperkalemia Chronic: Hypertension Dyslipidemia History of CVA DVT ppx: Lovenox Code status: Full code Anticipated discharge place: Home Anticipated discharge time: Likely tomorrow Objective - Vital Signs Vital signs: Vital Signs Temp 97.6 F 03/07/23 12:15 Pulse 78 03/07/23 12:15 Resp 18 03/07/23 12:15 BP 143/100 03/07/23 12:15 Pulse Ox 100 03/07/23 12:15 FiO2 21 03/07/23 08:13 Intake & Output 03/06/23 03/07/23 03/07/23 18:59 06:59 18:59 Intake Total 436 Output Total 200 Balance 236 Intake: Oral 436 Output: Urine 200 Other: Voiding Method Toilet Toilet # Bowel Movements 1 - Labs CBC & Chem 7: 03/07/23 07:35 03/07/23 07:35 Labs: Abnormal Lab Results - Last 24 Hours (Table) 03/06/23 03/06/23 03/06/23 Range/Units 05:58 16:35 20:10 WBC (3.8-10.6) k/uL Plt Count (150-450) k/uL Neutrophils # (Manual) (1.3-7.7) k/uL Monocytes # (Manual) (0-1.0) k/uL BUN (7-17) mg/dL Creatinine (0.52-1.04) mg/dL Glucose (74-99) mg/dL POC Glucose (mg/dL) 306 H 208 H (70-110) mg/dL Hemoglobin A1c 7.1 H (0.0-6.0) % 03/07/23 03/07/23 03/07/23 Range/Units 06:10 07:35 07:35 WBC 21.0 H (3.8-10.6) k/uL Plt Count 133 L (150-450) k/uL Neutrophils # (Manual) 15.50 H (1.3-7.7) k/uL Monocytes # (Manual) 2.31 H (0-1.0) k/uL BUN 38 H (7-17) mg/dL Creatinine 1.44 H (0.52-1.04) mg/dL Glucose 153 H (74-99) mg/dL POC Glucose (mg/dL) 175 H (70-110) mg/dL Hemoglobin A1c (0.0-6.0) % 03/07/23 Range/Units 11:30 WBC (3.8-10.6) k/uL Plt Count (150-450) k/uL Neutrophils # (Manual) (1.3-7.7) k/uL Monocytes # (Manual) (0-1.0) k/uL BUN (7-17) mg/dL Creatinine (0.52-1.04) mg/dL Glucose (74-99) mg/dL POC Glucose (mg/dL) 241 H (70-110) mg/dL Hemoglobin A1c (0.0-6.0) %
[2023-03-07] MEDS ORDERED: MORPHINE SULFATE 2 MG/ML SYRINGE IVP STA (14:43)
[2023-03-07 16:41] LABS: Glucose,Whole Blood 262 mg/dL (70-110)
[2023-03-07 19:59] LABS: Glucose,Whole Blood 232 mg/dL (70-110)
[2023-03-07] MEDS: MELATONIN 5 MG TABLET PO SCH (20:22)
[2023-03-07] MEDS: ATORVASTATIN 80 MG TAB PO SCH (20:22)
[2023-03-08 03:16] VITALS: TEMP 97.4
[2023-03-08 05:52] LABS: Glucose,Whole Blood 183 mg/dL (70-110)
[2023-03-08] MEDS: INSULIN ASPART (NovoLOG) 100 UNIT/ML VIAL SQ SCH ×4 (06:24→11:36)
[2023-03-08] MEDS: INSULIN DETEMIR (LEVEMIR) 100 UNIT/ML SYR SQ SCH (06:26)
[2023-03-08] MEDS: FORMOTEROL FUMARATE 20 MCG/2 ML NEBU INHALATION SCH (08:30)
[2023-03-08] MEDS: IPRATROPIUM-ALBUTEROL 3 ML NEB INHALATION PRN (08:30)
[2023-03-08] MEDS: BUDESONIDE 1 MG/2 ML NEBU INHALATION SCH (08:30)
[2023-03-08] MEDS: TICAGRELOR 90 MG TAB PO SCH (08:45)
[2023-03-08] MEDS: ASPIRIN 81 MG PO SCH (08:45)
[2023-03-08] MEDS: GABAPENTIN 300 MG CAP PO SCH (08:46)
[2023-03-08] MEDS: METOPROLOL SUCCINATE (ER) 25 MG TAB.ER.24H PO SCH (08:46)
[2023-03-08] MEDS: PANTOPRAZOLE 40 MG TABLET PO SCH (08:46)
[2023-03-08] MEDS: guaiFENesin 600 MG TABLET.ER PO SCH (08:46)
[2023-03-08] MEDS: ENOXAPARIN 30 MG/0.3 ML SYRINGE SQ SCH (08:46)
[2023-03-08] MEDS: predniSONE 20 MG TAB PO SCH (08:46)
[2023-03-08] MEDS: DAPAGLIFLOZIN PROPANEDIOL 10 MG TABLET PO SCH (08:48)
[2023-03-08 08:51] LABS: Calcium 8.4 mg/dL (8.4-10.2); Potassium 4.4 mmol/L (3.5-5.1)
[2023-03-08 09:31] LABS: HCT 37.5 % (34.0-46.0); HGB 11.9 gm/dL (11.4-16.0); MCH 30.4 pg (25.0-35.0); MCHC 31.7 g/dL (31.0-37.0); MCV 95.9 fL (80.0-100.0); Mean Platelet Volume 13.4; Platelet Count 128 k/uL (150-450); RBC 3.92 m/uL (3.80-5.40); RDW 12.7 % (11.5-15.5); WBC 21.1 k/uL (3.8-10.6)
--- NOTE | 2023-03-08 10:58 | P.PN ---
Subjective Progress Note Date: 03/08/23 The patient is an 83-year-old female who is currently admitted to the hospital with an anterior wall myocardial infarction. The patient underwent stenting of the LAD. Ejection fraction was found to be 45%. Patient has been hypotensive over the course of her stay. She is on low-dose beta german and Aldactone for her cardiomyopathy. The patient was interviewed and examined resting comfortably in bed. No chest pain or chest pressure overnight. No difficulty breathing. She states that she has been up and ambulating and has had no chest pain or shortness of breath. She denies any lightheadedness or dizziness. She does mention that she hasn't had a bowel movement in 2 days. Blood pressure remained soft but she seems to be tolerating this. Heart rate is in the 70s. She continues to have l eukocytosis of unclear etiology with white count of 21.1 but could be related to steroids. BUN is 29 and creatinine 1.21. GENERAL: Well-appearing, well-nourished and in no acute distress. NECK: Supple without JVD or thyromegaly. LUNGS: Breath sounds clear to auscultation bilaterally. Respiration equal and unlabored. No wheezes, rales or rhonchi. HEART: Regular rate and rhythm without murmurs, rubs or gallops. S1 and S2 heard. EXTREMITIES: Normal range of motion, no edema. No clubbing or cyanosis. Peripheral pulses intact and strong. TELEMETRY: Sinus rhythm IMPRESSION: Anterior wall myocardial infarction Status post stenting of the LAD Ischemic cardiomyopathy, EF 45% Hypotension History diabetes PLAN: Continue current cardiac medications Encourage ambulation and pulmonary hygiene Patient is cleared from cardiology for discharge either today or tomorrow as long as attending is in agreement. Prescriptions will be sent to her pharmacy for her cardiac medications. Patient to follow up with Dr. Arce in one week. I am dictating on behalf of Dr Zay Demarco's history/physical and assessment/plan. Objective - Vital Signs Vital signs: Vital Signs Temp 97.4 F L 03/08/23 03:14 Pulse 80 03/08/23 08:51 Resp 17 03/08/23 08:38 BP 94/51 03/08/23 08:40 Pulse Ox 100 03/08/23 08:38 FiO2 21 03/07/23 08:13 Intake & Output 0503/08/23 03/08/23 18:59 06:59 18:59 Intake Total 180 Balance 180 Intake: Oral 180 Other: Voiding Method Toilet Toilet Toilet - Labs CBC & Chem 7: 03/08/23 07:48 03/08/23 07:48 Labs: Abnormal Lab Results - Last 24 Hours (Table) 03/07/23 03/07/23 03/07/23 Range/Units 11:30 16:39 19:56 WBC (3.8-10.6) k/uL Sodium (137-145) mmol/L BUN (7-17) mg/dL Creatinine (0.52-1.04) mg/dL Glucose (74-99) mg/dL POC Glucose (mg/dL) 241 H 262 H 232 H (70-110) mg/dL 03/08/23 03/08/23 03/08/23 Range/Units 05:47 07:48 07:48 WBC 21.1 H (3.8-10.6) k/uL Sodium 136 L (137-145) mmol/L BUN 29 H (7-17) mg/dL Creatinine 1.21 H (0.52-1.04) mg/dL Glucose 212 H (74-99) mg/dL POC Glucose (mg/dL) 183 H (70-110) mg/dL
--- NOTE | 2023-03-08 11:30 | P.PN ---
Subjective Patient is seen for follow-up for acute kidney injury. Admitted with complaints of chest pain and diagnosed with acute anterior wall DE status post cardiac catheterization and stenting of totally occluded LAD. Ejection fraction 35-40% Serum creatinine is 1.4 today. Blood pressure has been low with systolic 90s. Now about 103-10 5 mmHg. Good urine output. Voiding on her own. Post void residual was not elevated. Potassium 4.4 today. Aldactone has been discontinued. Serum creatinine back down to 1.2 Chest pain is resolved. Complaining of cough. Using incentive spirometry. Cough is improved. 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 Acute kidney injury secondary to ATN secondary to cardiogenic shock as well as contrast-induced acute kidney injury. Baseline creatinine near 1 and peaked at 1.36 this admission - 1.2 today mostly associated with low blood pressures. 2. STEMI status post cardiac catheterization with LAD stent placement 02/27/2023. 3. Cardiomyopathy with ejection fraction of 35%. 4. Diabetes mellitus. 5. Borderline potassium of 5.3 associated with elevated blood sugars. Aldactone discontinued. No urine retention. Plan: Stable for discharge from nephrology standpoint Control blood sugars
[2023-03-08 11:31] LABS: Glucose,Whole Blood 309 mg/dL (70-110)
[2023-03-08 11:38] VITALS: BP 114/60; PULSE 79; RESP 16
[2023-03-08 11:54] LABS: Nucleated Red Blood Cells 0 /100 WBC (0-0)
[2023-03-08 11:57] LABS: Total Cells Counted 200
[2023-03-08 12:14] LABS: Band Neutrophils % 2 %; Lymphocytes # (M) 2.53 k/uL (1.0-4.8); Metamyelocytes # (M) 0.42 k/uL (0); Metamyelocytes % 2 %; Monocytes # (M) 2.32 k/uL (0-1.0); Myelocytes # (M) 0.63 k/uL (0); Myelocytes % 3 %; Neutrophils % (M) 72 %
[2023-03-08 12:16] LABS: Large Platelets Present
--- NOTE | 2023-03-08 12:47 | P.DS ---
Providers Date of admission: 02/26/23 22:42 Expected date of discharge: 03/08/23 Attending physician: Darlyn Napoles MD Consults: 02/26/23 22:40 Consult Physician Stat Consulting Provider: Refugio Arce Consult Reason/Comments: stemi Do you want consulting provider notified?: Already Contacted 02/27/23 00:15 Consult Physician Routine Consulting Provider: [facility] Consult Reason/Comments: Post Interventional Patient Do you want consulting provider notified?: Already Contacted 03/01/23 13:29 Consult Physician Routine Consulting Provider: Yan Puga Consult Reason/Comments: ICU management Do you want consulting provider notified?: Already Contacted 03/02/23 09:11 Consult Physician Routine Consulting Provider: Tito Anglin Consult Reason/Comments: PICC line placement Do you want consulting provider notified?: Already Contacted Primary care physician: Shekhar Tate MD Hospital Course: Discharge Diagnosis: Status post anterior STEMI, status post stent to LAD Ischemic cardiomyopathy, EF 30-35% Acute bronchitis Acute kidney injury the setting of contrast use, and cardiogenic shock Insulin-dependent diabetes mellitus Leukocytosis, likely reactive and steroid-induced Cardiogenic shock Mild hyperkalemia Hospital Course: 83-year-old female with diabetes mellitus type 2 on insulin, GERD, hypertension, and dyslipidemia who presented to the ER with complaints of chest pain. In the ER EKG showed ST segment elevation in V2 through V5 the patient was diagnosed with STEMI. Cardiology took him emergently to the animal laboratory technician and a stent was placed to the mid LAD. She presented with URI type symptoms and Covid/RSV/influenza A/B was negative. She underwent echocardiogram which showed an ejection fraction of 30-35% with hypokinetic septum, apex, and anterior wall. After patient's heart cath she was hypotensive suspect due to cardiogenic shock. Patient was started on Levophed drip. She was then gradually weaned off. Patient also after a heart cath was complaining of persistent chest pain. Cardiology started on colchicine, now discontinued. Patient also is complaining of a cough. Pulmonology started the patient on steroids and breathing treatments for acute bronchitis. Patient also has acute kidney injury, now resolved. She had persistent leukocytosis, likely steroid-induced as well as reactive. Due to her low blood pressure and acute kidney injury, patient was not started on any KOLE inhibitor or ARB, neither was she able to tolerate Aldactone. She will follow-up with PCP and cardiology. Patient seen and examined at bedside. Vital signs reviewed and stable. General: nontoxic, no distress, appears at stated age Derm: warm, dry Head: atraumatic, normocephalic, symmetric Eyes: EOMI, no lid lag, anicteric sclera Mouth: no lip lesion, mucus membranes moist Cardiovascular: S1S2 reg, no murmur Lungs: CTA bilateral, no rhonchi, no rales , no accessory muscle use Abdominal: soft, nontender to palpation, no guarding, no appreciable organomegaly Ext: no gross muscle atrophy, no edema, no contractures Neuro: CN II-XI grossly intact, no focal neuro deficits Psych: Alert, oriented, appropriate affect A total of 37 minutes of time were spent preparing this complex discharge summary. Patient was discharged on 03/08/23 at 12:38. Patient Condition at Discharge: Stable Plan - Discharge Summary Discharge Rx Participant: No New Discharge Prescriptions: New Ticagrelor [Brilinta] 90 mg PO BID #180 tab Aspirin 81 mg PO DAILY tab Atorvastatin [Lipitor] 80 mg PO HS #90 tab Nitroglycerin Sl Tabs [Nitrostat] 0.4 mg SUBLINGUAL Q5M PRN #25 tab PRN Reason: Chest Pain Metoprolol Succinate (ER) [Toprol XL] 12.5 mg PO DAILY #30 tab guaiFENesin [Mucinex] 600 mg PO Q12HR #7 tab Albuterol Inhaler [Ventolin Hfa Inhaler] 1 - 2 puff INHALATION Q6H PRN #1 each PRN Reason: Shortness Of Breath Or Wheezing methylPREDNISolone Dose Pack [Medrol Dose Pack] 4 mg PO DIRECTED #1 packet Continue Gabapentin [Neurontin] 300 mg PO TID Ergocalciferol [Vitamin D2 (DRISDOL)] 50,000 unit PO QMONTHLY Insulin Glargine,Hum.rec.anlog [Toujeo Max Solostar] 10 units SQ DAILY Dulaglutide [Trulicity] 1.5 mg SQ Q7D Empagliflozin [Jardiance] 25 mg PO DAILY Omeprazole [PriLOSEC] 40 mg PO DAILY Insulin Aspart [NovoLOG Flexpen] See Protocol SQ AC-TID Discontinued ramipriL [Altace] 2.5 mg PO DAILY Pravastatin Sodium [Pravachol] 40 mg PO DAILY Tolterodine ER [Detrol LA] 2 mg PO DAILY traMADol HCL 50 mg PO Q8H PRN PRN Reason: Pain Discharge Medication List Ergocalciferol [Vitamin D2 (DRISDOL)] 50,000 unit PO QMONTHLY 03/21/18 [History] Gabapentin [Neurontin] 300 mg PO TID 03/21/18 [History] Dulaglutide [Trulicity] 1.5 mg SQ Q7D 02/27/23 [History] Empagliflozin [Jardiance] 25 mg PO DAILY 02/27/23 [History] Insulin Aspart [NovoLOG Flexpen] See Protocol SQ AC-TID 02/27/23 [History] Insulin Glargine,Hum.rec.anlog [Toujeo Max Solostar] 10 units SQ DAILY 02/27/23 [History] Omeprazole [PriLOSEC] 40 mg PO DAILY 02/27/23 [History] Albuterol Inhaler [Ventolin Hfa Inhaler] 1 - 2 puff INHALATION Q6H PRN #1 each 03/08/23 [Rx] Aspirin 81 mg PO DAILY tab 03/08/23 [Rx] Atorvastatin [Lipitor] 80 mg PO HS #90 tab 03/08/23 [Rx] Metoprolol Succinate (ER) [Toprol XL] 12.5 mg PO DAILY #30 tab 03/08/23 [Rx] Nitroglycerin Sl Tabs [Nitrostat] 0.4 mg SUBLINGUAL Q5M PRN #25 tab 03/08/23 [ Rx] Ticagrelor [Brilinta] 90 mg PO BID #180 tab 03/08/23 [Rx] guaiFENesin [Mucinex] 600 mg PO Q12HR #7 tab 03/08/23 [Rx] methylPREDNISolone Dose Pack [Medrol Dose Pack] 4 mg PO DIRECTED #1 packet 0 03/08/23 [Rx] Follow up Appointment(s)/Referral(s): Refugio Arce MD [STAFF PHYSICIAN] - 1 Week Shekhar Tate MD [Primary Care Provider] - 1-2 days Patient Instructions/Handouts: Heart Attack (DC), Coronary Artery Disease (DC), Heart Healthy Diet (DC), Seasoning Without Salt (DC), Acute Bronchitis (GEN), Low-Sodium Diet (ED), Coronary Artery Disease in Women (DC), After Radial Heart Catheterization (GEN), Mediterranean Diet (DC) Activity/Diet/Wound Care/Special Instructions: Please see your PCP and Transferrer. Discharge Disposition: HOME SELF-CARE
== END 2023-03-08 13:29 | disposition home or self-care (01) | DRG 246 ==
LOC: EC 21:52 → 2SICU 22:42 → 3SCARD 03-06 12:05
PROVIDERS: ADMIT Internal Medicine; ATTEND Internal Medicine
PROC: 027035Z Dilation of Coronary Artery, One Artery with Two Drug-eluting Intraluminal Devices, Percutaneous Approach (ICD-10-PCS; principal; 2023-02-27)
PROC: 4A023N7 Measurement of Cardiac Sampling and Pressure, Left Heart, Percutaneous Approach (ICD-10-PCS; 2023-02-27)
PROC: B2111ZZ Fluoroscopy of Multiple Coronary Arteries using Low Osmolar Contrast (ICD-10-PCS; 2023-02-27)
PROC: 02HV33Z Insertion of Infusion Device into Superior Vena Cava, Percutaneous Approach (ICD-10-PCS; 2023-03-01)
PROC: 3E033XZ Introduction of Vasopressor into Peripheral Vein, Percutaneous Approach (ICD-10-PCS; 2023-03-01)
DX: I21.09 ST elevation (STEMI) myocardial infarction involving other coronary artery of anterior wall (principal); I50.23 Acute on chronic systolic (congestive) heart failure; R57.0 Cardiogenic shock; N17.0 Acute kidney failure with tubular necrosis; I13.0 Hypertensive heart and chronic kidney disease with heart failure and stage 1 through stage 4 chronic kidney disease, or unspecified chronic kidney disease; E11.22 Type 2 diabetes mellitus with diabetic chronic kidney disease; E11.42 Type 2 diabetes mellitus with diabetic polyneuropathy; D72.828 Other elevated white blood cell count; B35.8 Other dermatophytoses; E11.65 Type 2 diabetes mellitus with hyperglycemia; N18.30 Chronic kidney disease, stage 3 unspecified; I25.5 Ischemic cardiomyopathy; T50.8X5A Adverse effect of diagnostic agents, initial encounter; N14.11 Contrast-induced nephropathy; E78.00 Pure hypercholesterolemia, unspecified; T38.0X5A Adverse effect of glucocorticoids and synthetic analogues, initial encounter; J20.9 Acute bronchitis, unspecified; E87.5 Hyperkalemia; J06.9 Acute upper respiratory infection, unspecified; R09.02 Hypoxemia; Z20.822 Contact with and (suspected) exposure to COVID-19; Z96.641 Presence of right artificial hip joint; Z86.73 Personal history of transient ischemic attack (TIA), and cerebral infarction without residual deficits; Z88.8 Allergy status to other drugs, medicaments and biological substances; Z79.899 Other long term (current) drug therapy; Z79.02 Long term (current) use of antithrombotics/antiplatelets; Z79.4 Long term (current) use of insulin; Z79.84 Long term (current) use of oral hypoglycemic drugs; Z82.49 Family history of ischemic heart disease and other diseases of the circulatory system; Z28.311 Partially vaccinated for COVID-19
CPT/HCPCS: 36415; 36573; 71045; 71046; 80048; 80053; 80061; 80176; 81003; 83036; 83735; 83880; 84145; 84484; 85025; 85027; 85610; 85730; 87324; 87636; 93005; 93306; 93308; 93458; 94640; 94760; 96365; 99291

== ENCOUNTER → 2023-03-16 | Outpatient (CLI) | payer MEDICARE ==
--- NOTE | 2023-03-16 10:48 | US ---
EXAMINATION TYPE: US abdomen complete DATE OF EXAM: 03/16/2023 COMPARISON: CT abdomen May 05, 2012 CLINICAL INDICATION: Female, 83 years old with history of D69.49 THROMBOCYTOPENIA; Abn labs, no sympt oms, cholecystectomy TECHNIQUE: Multiple sonographic images of the abdomen are obtained. 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 No focal masses or ductal dilatation. Liver size is upper limits of normal. The intrahepatic portion of the IVC and proximal , mid, and distal abdom inal aorta are within normal limits. Common bile duct is within normal limits after cholecystectomy. Gallbladder is surgically absent. The visualized portions of the pancreas are homogenous. The splee n is unremarkable. Kidneys are symmetric and free of hydronephrosis. No renal lesions are seen. IMPRESSION: Normal-sized spleen redemonstrated. No acute findings are evident.
== END | disposition home or self-care (01) ==
LOC: RADUSWWP 09:37
PROVIDERS: ATTEND Internal Medicine Hematology & Oncology
DX: D69.49 Other primary thrombocytopenia (principal)
CPT/HCPCS: 76700

== ENCOUNTER 2023-09-25 05:41 | Day surgery (SDC) | payer MEDICARE ==
[~2023-09-25 05:41] MED LIST changes: +ALPRAZolam 0.25 MG TAB PO PRN; +ALPRAZolam 0.5 MG TAB PO PRN; +ASPIRIN 325 MG TAB PO STA; -LACTATED RINGERS 1,000 ML IV SCH; +NITROGLYCERIN SL TABS 0.4 MG TAB SUBLINGUAL PRN
[2023-09-25] MEDS: SODIUM CHLORIDE 0.9% 1,000 ML in EMPTY BAG 1 BAG IV SCH ×2 (06:32→21:00)
[2023-09-25 06:38] LABS: Glucose,Whole Blood 127 mg/dL (70-110)
[2023-09-25 07:07] LABS: African American GFR (CKD) 65 (>60 ml/min/1.73 sqM); Anion Gap 10 mmol/L; Blood Urea Nitrogen 18 mg/dL (7-17); Calcium 9.5 mg/dL (8.4-10.2); Carbon Dioxide 26 mmol/L (22-30); Chloride 103 mmol/L (98-107); Glucose 123 mg/dL (74-99); Non-African American GFR(CKD) 57 (>60 ml/min/1.73 sqM); Potassium 4.1 mmol/L (3.5-5.1); Sodium 139 mmol/L (137-145)
[2023-09-25] MEDS ORDERED: VERAPAMIL 2.5 MG/ML 2 ML AMP ONE (07:08)
[2023-09-25 07:18] LABS: HCT 37.3 % (34.0-46.0); HGB 12.2 gm/dL (11.4-16.0); Hypochromasia Slight; MCH 31.5 pg (25.0-35.0); MCHC 32.9 g/dL (31.0-37.0); MCV 95.8 fL (80.0-100.0); Mean Platelet Volume 10.3; Platelet Count 110 k/uL (150-450); RBC 3.89 m/uL (3.80-5.40); RDW 13.2 % (11.5-15.5); WBC 5.2 k/uL (3.8-10.6)
[2023-09-25] MEDS ORDERED: fentaNYL (PF) 50 MCG/ML 2 ML AMP ONE (07:25)
[2023-09-25] MEDS ORDERED: HEPARIN SODIUM 1,000 UN/ML (10ML VL) ONE (07:25)
[2023-09-25] MEDS: fentaNYL (PF) 50 MCG/ML 2 ML AMP IVP ONE ×2 (07:37→08:23)
[2023-09-25] MEDS: MIDAZOLAM 2 MG/2 ML VIAL IVP ONE ×2 (07:40→08:01)
[2023-09-25] MEDS ORDERED: LIDOCAINE 1% INJ 10MG/ML (20 ML MDV) SQ ONE (07:41)
[2023-09-25] MEDS ORDERED: VERAPAMIL SYRINGE (5 MG/10 ML) INTRAARTER ONE (07:45)
[2023-09-25] MEDS: HEPARIN SODIUM 1,000 UN/ML (10ML VL) IV ONE ×2 (07:49→07:56)
[2023-09-25] MEDS ORDERED: MIDAZOLAM 2 MG/2 ML VIAL IVP ONE (08:10)
[2023-09-25] MEDS ORDERED: NITROGLYCERIN 1000MCG/10ML SYRINGE INTRACORON ONE (08:30)
[2023-09-25] MEDS ORDERED: SODIUM CHLORIDE 0.9% 1,000 ML in EMPTY BAG 1 BAG IV SCH (09:15)
[2023-09-25] MEDS ORDERED: MAG HYDROX/AL HYDROX/SIMETH 30 ML CUP PO PRN (09:15)
[2023-09-25] MEDS ORDERED: RX INFO: IV CONTRAST WAS GIVEN 1 EACH MISC MISCELLANE PRN (09:15)
[2023-09-25] MEDS ORDERED: NITROGLYCERIN SL TABS 0.4 MG TAB SUBLINGUAL PRN (09:15)
[2023-09-25] MEDS ORDERED: ATROPINE SULFATE 0.1 MG/ML 10ML SYRINGE IV PRN (09:15)
[2023-09-25] MEDS ORDERED: ZOLPIDEM 5 MG TAB PO PRN (09:15)
[2023-09-25] MEDS ORDERED: IOPAMIDOL-370 200ML BTL INJ ONE (09:17)
[2023-09-25] MEDS ORDERED: traMADol 50 MG TAB PO PRN (09:17)
--- NOTE | 2023-09-25 09:27 | P.CARDCATH ---
Date of Procedure: 09/25/23 Description of Procedure: Cardiac Catheterization: The patient is an 83-year-old female with a known history of CAD, status post acute myocardial infarction in February and stenting of the LAD who presented with symptoms of chest discomfort relieved with nitroglycerin. Recommendations were made regarding cardiac catheterization, the risks and the complications were discussed with the patient who is in full understanding and agreement. Procedure Description: Patient was brought to lab tester in fasting semi-sedated state after receiving Fentanyl and Benadryl achieiving moderate conscious sedated state. Using Xylocaine Anesthesia and modified Seldinger technique, a 6-[place] sheath was introduced in the left radial artery . Subsequently, selective coronary angiography was performed using a 5-[place] 4 bend Princess catheter. Multiple views of the coronary artery including hemiaxial views were obtained. The 5-[place] pigtail catheter was used to cross the aortic valve and LVEDP was calculated. PCI: After removing the catheters a 6-[place] FL 4 guiding catheter was introduced and the system and after cannulating the left main a 0.014 BMW J-wire with a microcatheter fine cross were advanced in the system. There was inability to advance the wire into the distal LAD, the wire was exchanged to a 0.014 whisper J-wire was successful in crossing the lesion. Subsequently the microcatheter was removed and a 1.5 by 12 mm Sapphire balloon was advanced and inflation at 10 keeley was done. Subsequently the wire was a change using the microcatheter to a BMW J-wire. Subsequently a Tivix [place] eye IVUS was advanced and imaging was performed. After removing the catheter 2.5 x 15 mm Xience susie point stent was deployed at 16 keeley, after removing the balloon a 2.0 x 26 mm resolute [place] stent was deployed into distal segment at 14 keeley. Repeat IVUS imaging was obtained. Subsequently a 2.5 x 20 mm NC Treck was advanced and inflations in the stents were done at 10 keeley. After removing the wire images were obtained and revealed stable successful stenting. Following that, catheter and sheath were removed. Hemostasis was obtained with deployment of vascular band . There was no immediate complication. Patient was returned to room in stable condition. Of note, the patient received a total of 6000 units of intravenous heparin as well as intra-arterial verapamil. She was continued on clopidogrel. Her ACT was monitored. She had chest discomfort that improved at the end of the procedure. She had no EKG changes. Findings: Fluoroscopy: Calcifications of the coronary arteries were noted. Left main: This is a short sized vessel, bifurcating into left circumflex and LAD, left main has no high-grade stenosis LAD: In the proximal stent in the LAD is patent with mild in-stent restenosis of 10-20%. The mid segment is totally occluded prior to the mid stent with minimal antegrade flow. Left circumflex: This is a nondominant vessel giving rise to large up to his mitral branch that has mild to moderate disease of 10-20% RCA: This is a dominant vessel large in caliber bifurcating into PDA and PLV. The midright coronary artery has mild intimal disease of 20-30% with no high- grade stenosis Left Ventriculogram: Not performed Hemodynamics: There was no gradient across aortic valve , LVEDP was 14-16 mmHg Conclusion: 1. Calcified coronary arteries 2. 100% occlusion of the mid LAD prior to the stent with diffuse distal disease 3. Mild disease in the left circumflex and the RCA 4. Successful stenting of the mid and distal LAD with reduction of stenosis from 100% to 0% diffuse proximal and distal disease. Intravascular ultrasound imaging was obtained Recommendations: The patient will continue on aspirin and clopidogrel for 6 months in addition to aggressive coronary risks modifications and attempting to maintain the LDL below 70 mg/dL. The findings and the recommendations were discussed with the patient and the family and they were in full understanding and agreement. Duration of sedation is 83 minutes.
[2023-09-25 09:51] LABS: Eosinophils # (M) 0.05 k/uL (0-0.7); Lymphocytes # (M) 1.14 k/uL (1.0-4.8); Monocytes # (M) 1.04 k/uL (0-1.0); Neutrophils # (M) 2.96 k/uL (1.3-7.7); Neutrophils % (M) 57 %; Nucleated Red Blood Cells 0 /100 WBC (0-0); Total Cells Counted 100
[2023-09-25 17:15] LABS: Glucose,Whole Blood 125 mg/dL (70-110)
[2023-09-25] MEDS: HYDROXYCHLOROQUINE SULFATE 200 MG TAB PO SCH (20:59)
[2023-09-25] MEDS ORDERED: ATORVASTATIN 40 MG TAB PO SCH (21:00)
[2023-09-26 02:55] VITALS: RESP 18
[2023-09-26 06:58] LABS: African American GFR (CKD) 62 (>60 ml/min/1.73 sqM); Anion Gap 7 mmol/L; Blood Urea Nitrogen 16 mg/dL (7-17); Calcium 8.9 mg/dL (8.4-10.2); Carbon Dioxide 26 mmol/L (22-30); Chloride 103 mmol/L (98-107); Glucose 93 mg/dL (74-99); Non-African American GFR(CKD) 54 (>60 ml/min/1.73 sqM); Sodium 136 mmol/L (137-145)
[2023-09-26] MEDS ORDERED: ACETAMINOPHEN TAB 325 MG TAB PO STA (07:15)
--- NOTE | 2023-09-26 07:21 | P.PN ---
Subjective Progress Note Date: 09/26/23 PROGRESS NOTE The patient is an 83-year-old female with a known history of CAD, hypertension and hyperlipidemia who presented with symptoms of recurrent angina pectoris, underwent cardiac catheterization and was found to have significant disease in the mid LAD with total occlusion proximal to the stent. She underwent revascularization of that vessel with placement of 2 stents. She is doing well this morning. She had mild chest discomfort earlier during the night, respirophasic. She has been ambulating and feels well. She is in sinus mechanism. Medications: Aspirin, Plavix 75 mg daily, isosorbide mononitrate 30 mg daily, lisinopril 20 mg daily, metoprolol succinate 12.5 mg daily. Lipitor 40 mg daily, tramadol, farxiga 10 mg daily PHYSICAL EXAMINATION: Blood pressure 105/60 heart rate 80 LUNGS: Clear to auscultation HEART: Regular rate and rhythm, S1, S2. No S3. Systolic ejection murmur ABDOMEN: Soft, nontender, no organomegaly EXTREMETIES: No edema, left radial pulse intact LAB: Potassium 4.0, BUN 16, creatinine 0.99. EKG sinus mechanism with right bundle branch block IMPRESSION: 1. Status post stenting of total occlusion of mid LAD 2. Prior history of myocardial infarction and stenting of proximal LAD 3. Ischemic cardiomyopathy 4. Hypertension PLAN: 1. Continue present therapy 2. Increase physical activity 3. Discharged home today 4. And follow-up in one week Objective - Vital Signs Vital signs: Vital Signs Temp 98.2 F 09/26/23 01:33 Pulse 82 09/26/23 01:33 Resp 18 09/26/23 01:33 BP 105/65 09/26/23 01:33 Pulse Ox 94 L 09/26/23 01:33 FiO2 Intake & Output 09/25/23 09/26/23 09/26/23 18:59 06:59 18:59 Intake Total 975 Balance 975 Weight 71.5 kg Intake: IV 325 Intake, IV Titration 150 Amount Sodium Chloride 0.9% 1, 150 000 ml In Empty Bag 1 bag @ 1 ML/KG/HR 71.5 mls/hr IV .Q14H MERY Rx#: [id number] Oral 500 Other: # Voids 1 3 - Labs CBC & Chem 7: 09/25/23 06:32 09/26/23 05:52 Labs: Abnormal Lab Results - Last 24 Hours (Table) 09/25/23 09/25/23 09/26/23 Range/Units 06:32 17:13 05:52 Plt Count 110 L (150-450) k/uL Monocytes # (Manual) 1.04 H (0-1.0) k/uL Sodium 136 L (137-145) mmol/L POC Glucose (mg/dL) 125 H (70-110) mg/dL
[2023-09-26 08:05] VITALS: BP 114/52; PULSE 72; TEMP 98.1
[2023-09-26] MEDS ORDERED: CLOPIDOGREL 75 MG TAB PO SCH (09:00)
[2023-09-26] MEDS ORDERED: DAPAGLIFLOZIN PROPANEDIOL 10 MG TABLET PO SCH (09:00)
[2023-09-26] MEDS ORDERED: ASPIRIN 81 MG PO SCH (09:00)
[2023-09-26] MEDS ORDERED: ISOSORBIDE MONONITRATE ER 30 MG TAB.ER.24H PO SCH (09:00)
[2023-09-26] MEDS ORDERED: METOPROLOL SUCCINATE (ER) 25 MG TAB.ER.24H PO SCH (09:00)
[2023-09-26] MEDS ORDERED: OXYBUTYNIN XL 5 MG TAB.ER.24 PO SCH (09:00)
[2023-09-26] MEDS ORDERED: lisinopriL 20 MG TAB PO SCH (09:00)
[2023-09-26] MEDS: HYDROXYCHLOROQUINE SULFATE 200 MG TAB PO SCH (09:46)
[2023-09-26 12:38] VITALS: BMI 27.9
[2023-10-02] MEDS ORDERED: NON FORMULARY DRUG (Dulaglutide [Trulicity] 1.5 MG/0.5 ML Each) SQ SCH (09:00)
== END 2023-09-26 11:04 | disposition home or self-care (01) ==
LOC: CATHCVL 05:41 → 6NMEDSUR 09:03 → CATHCVL 09-26 11:04
PROVIDERS: ATTEND Internal Medicine Interventional Cardiology
DX: I25.119 Atherosclerotic heart disease of native coronary artery with unspecified angina pectoris (principal); E78.5 Hyperlipidemia, unspecified; I10 Essential (primary) hypertension; I25.2 Old myocardial infarction; I25.82 Chronic total occlusion of coronary artery; I25.5 Ischemic cardiomyopathy; Z79.02 Long term (current) use of antithrombotics/antiplatelets; Z79.82 Long term (current) use of aspirin; Z79.84 Long term (current) use of oral hypoglycemic drugs; Z79.899 Other long term (current) drug therapy; Z95.5 Presence of coronary angioplasty implant and graft
CPT/HCPCS: 92978; 93458; 80048 ×2; 85025; 99152; 99153 ×4; C9600; C1769 ×4; C1887 ×3; C1894; C1725 ×2; C1753; C1874 ×2; J2250; J2001; J3010; J1644; Q9967; J2305

== ENCOUNTER → 2024-07-28 | Outpatient (CLI) | payer MEDICARE ==
--- NOTE | 2024-07-28 15:30 | US ---
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 Spectral Doppler imaging was also performed. VESSELS IMAGED: Common Femoral Vein Deep Femoral Vein Greater Saphenous Vein * Femoral Vein Popliteal Vein Small Saphenous Vein * Proximal Calf Veins (* superficial vessels) Right Leg: Appears negative for DVT, Reflux noted within right CFV Left Leg: Appears negative for DVT, Reflux notes within left CFV, GSV, Mid and Distal femoral vein Grayscale, color doppler, spectral doppler imaging performed of the deep veins of the lower extremiti es. There is normal flow, compressibility, vascular waveforms. IMPRESSION: 1. No evidence for deep vein thrombosis. 2. Venous insufficiency/Reflux noted bilaterally. [facility], Workstation: [id number], 07/28/2024 3:28 PM
--- NOTE | 2024-07-28 15:32 | US ---
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; Non-healing wound left anterior foot x 3 months History of: Smoker: No Hypertension: Yes Diabetic: Yes Hyperlipidemia: Yes TIA/CVA: Yes Previous Vascular Surgery: Heart stent x 3 CAD: Yes SC: Yes Vascular Ulcers: Left Doppler Waveforms: Right: Biphasic Left: Biphasic Right Brachial Pressure: 116 Left Brachial Pressure: 105 Ankle-Brachial Indices: Right: CNO >250 Left: CNO > 250 (Vessel hardening > 1.4; Normal 0.9 - 1.4, Moderate 0.7 - 0.9, Severe 0.5-0.7) Toe Brachial Indices: Right: 0.4 Left: 0.3 IMPRESSION: Noncompressible vessels, nondiagnostic ankle-brachial indices, toe brachial indices suggestive of mil d disease bilaterally [facility], , 07/28/2024 3:30 PM
== END | disposition home or self-care (01) ==
LOC: RADUSWWP 13:26
PROVIDERS: ATTEND Nurse Practitioner Family
DX: L97.822 Non-pressure chronic ulcer of other part of left lower leg with fat layer exposed
CPT/HCPCS: 93922; 93970